=== PATIENT | male | born 1940 | race Caucasian/White ===

== ENCOUNTER 2020-01-05 | Outpatient (REF) | payer MEDICARE, OTHER, SELFPAY ==
[2020-01-05 08:55] LABS: INTERNATIONAL NORM RATIO 2.2 (0.9-1.1); Prothrombin Time 26.6 SEC (10.8-13.0)
== END 2020-01-05 00:01 | disposition home or self-care (01) ==
LOC: HO.HSH3W
PROVIDERS: Visit Provider Nurse Practitioner
DX: I48.91 Unspecified atrial fibrillation (principal); Z79.01 Long term (current) use of anticoagulants
CPT/HCPCS: 36415; 85610

== ENCOUNTER 2020-01-19 | Outpatient (REF) | payer MEDICARE, OTHER, SELFPAY ==
[2020-01-19 09:32] LABS: INTERNATIONAL NORM RATIO 2.4 (0.9-1.1); Prothrombin Time 28.6 SEC (10.8-13.0)
== END 2020-01-19 00:01 | disposition home or self-care (01) ==
LOC: HO.HSH3E
PROVIDERS: Visit Provider Internal Medicine Medical Oncology
DX: I48.91 Unspecified atrial fibrillation (principal); Z79.01 Long term (current) use of anticoagulants
CPT/HCPCS: 36415; 85610

== ENCOUNTER 2020-02-02 07:55 | Outpatient (REF) | payer MEDICARE, OTHER, SELFPAY ==
[2020-02-02 08:43] LABS: Prothrombin Time 23.6 SEC (10.8-13.0)
== END 2020-02-02 07:56 | disposition home or self-care (01) ==
LOC: HO.HSH3E 07:55
PROVIDERS: Visit Provider Internal Medicine Medical Oncology
DX: I48.91 Unspecified atrial fibrillation (principal)
CPT/HCPCS: 36415; 85610

== ENCOUNTER 2020-02-16 07:55 | Outpatient (REF) | payer MEDICARE, OTHER, SELFPAY ==
[2020-02-16 08:57] LABS: INTERNATIONAL NORM RATIO 2.5 (0.9-1.1); Prothrombin Time 29.5 SEC (10.8-13.0)
== END 2020-02-16 07:56 | disposition home or self-care (01) ==
LOC: HO.HSH3E 07:55
PROVIDERS: Visit Provider Internal Medicine Medical Oncology
DX: I48.91 Unspecified atrial fibrillation (principal)
CPT/HCPCS: 36415; 85610

== ENCOUNTER 2020-03-01 06:57 | Outpatient (REF) | payer MEDICARE, OTHER, SELFPAY ==
[2020-03-01 08:23] LABS: MANUAL DIFF FLAG NO
[2020-03-01 08:27] LABS: Basophils Percent Auto 0.3 % (0-2); Eosinophils Absolute Auto 0.2 X10*3/uL (0.0-0.4); Eosinophils Percent Auto 3.8 % (0-4); Hematocrit 40.7 % (42-52); Hemoglobin 14.3 g/dl (14.0-18.0); Imm Gran Abs Auto 0.01 X10*3/uL (0.00-0.03); Imm Gran Pct Auto 0.2 % (0.0-0.4); Lymphocytes Absolute Auto 2.3 X10*3/uL (1.2-4.9); Lymphocytes Percent Auto 36.5 % (20-40); Mean Corpuscular HGB Conc 35.1 g/dl (31.0-36.0); Mean Corpuscular Hemoglobin 32.1 pg (27.0-33.0); Mean Corpuscular Volume 91.5 fL (80-98); Mean Platelet Volume 11.4 fL (9.4-12.4); Monocytes Absolute Auto 0.7 X10*3/uL (0.1-1.2); Monocytes Percent Auto 10.4 % (2-11); Neutrophils Absolute Auto 3.1 X10*3/uL (2.0-8.3); Neutrophils Percent Auto 48.8 % (45-73); Platelet Count 206 X10*3/uL (160-400); Red Blood Count 4.45 X10*6/uL (4.60-5.80); Red Cell Distribution Width 13.2 % (11.0-16.0); White Blood Count 6.3 X10*3/uL (4.8-10.8)
[2020-03-01 08:35] LABS: INTERNATIONAL NORM RATIO 2.2 (0.9-1.1); Prothrombin Time 26.9 SEC (10.8-13.0)
[2020-03-01 08:41] LABS: Alanine Aminotransferase 15 U/L (0-40); Albumin Level 3.9 g/dL (3.5-5.0); Alkaline Phosphatase 48 U/L (39-117); Anion Gap 11 (12-20); Aspartate Amino Transferase 15 U/L (5-37); Bilirubin Total 0.6 mg/dL (0.0-1.0); Blood Urea Nitrogen 23 mg/dL (9-16); Calcium 9.2 mg/dL (8.4-10.2); Carbon Dioxide 26 mmol/L (22-29); Chloride 106 mmol/L (96-108); Cholesterol 187 mg/dL; Estimated Glomerular Filt Rate > 60; Glucose Fasting 92 mg/dL (60-99); HDL Cholesterol 52 mg/dL; LDL Cholesterol Calculated 119 mg/dl; Potassium 4.2 mmol/l (3.3-5.1); Sodium 139 mmol/L (135-145); Total Protein 6.2 g/dL (6.5-8.0); Triglycerides 82 mg/dL
[2020-03-01 09:44] LABS: Prostate Specific Antigen 0.35 ng/mL (<0.05-4.0)
== END 2020-03-01 06:58 | disposition home or self-care (01) ==
LOC: HO.HSH3E 06:57
PROVIDERS: Visit Provider Internal Medicine Medical Oncology
DX: I50.9 Heart failure, unspecified (principal); I48.91 Unspecified atrial fibrillation
CPT/HCPCS: 36415; 80053; 80061; 82306; 84153; 85025; 85610

== ENCOUNTER 2020-03-16 05:43 | Outpatient (REF) | payer MEDICARE, OTHER, SELFPAY ==
[2020-03-15 17:36] LABS: INTERNATIONAL NORM RATIO 2.5 (0.9-1.1); Prothrombin Time 29.6 SEC (10.8-13.0)
== END 2020-03-16 05:44 | disposition home or self-care (01) ==
LOC: HO.HSH3E 05:43
PROVIDERS: Visit Provider Internal Medicine Medical Oncology
DX: I48.91 Unspecified atrial fibrillation (principal); Z86.73 Personal history of transient ischemic attack (TIA), and cerebral infarction without residual deficits
CPT/HCPCS: 36415; 85610

== ENCOUNTER 2020-03-23 16:58 | Emergency (ER) | payer MEDICARE, OTHER, SELFPAY ==
[2020-03-23 17:07] VITALS: BP 134/80; PULSE 50; RESP 14; TEMP 36.8; O2SAT 96; BMI 24.0
--- NOTE | 2020-03-23 17:07 | XR_ITS ---
EXAMINATION: XR CHEST CLINICAL INFORMATION: Fever COMPARISON: None TECHNIQUE: Frontal view of the chest was obtained. 5:09 PM FINDINGS: Status post median sternotomy. Lungs are clear. No pulmonary vascular congestion. There is no pleural effusion. The heart size is normal. The cardiac and mediastinal contours are normal. There are calcifications of the thoracic aorta. There are multilevel degenerative changes of dorsal spine. XR/XR chest 1V IMPRESSION: Unremarkable examination.
--- NOTE | 2020-03-23 17:08 | ED.GENADULT ---
HPI - General Adult General Chief complaint: General Medical Stated complaint: COVID VACCINE T-1,FEVER 101.4 TODAY PER SNF Time Seen by Provider: 03/23/20 17:07 Source: patient and EMS Mode of arrival: EMS Limitations: altered mental status (cognitive impairment) History of Present Illness HPI narrative: patient received COVID vaccine yesterday has no complaints at this time, no fevers with EMS, reported fever 101.6 and was not given antipyretic per SNF to EMS and call from SNF to ED MARGARITA GRAHAM complaint: fever today 101.6 received COVID vaccine yesterday Onset (ago): hour(s) (few) Severity: mild Pain Consistency: constant Relieving factors: none Exacerbating factors: none Associated symptoms: denies other symptoms Treatments prior to arrival: none Related Data Allergies Allergy/AdvReac Type Severity Reaction Status Date / Time No Known Allergies Allergy Verified 03/23/20 17:07 Review of Systems Review of Systems: ROS unable to be obtained due to vascular dementia [facility] Past Medical History Attestation statement: The following information was validated with the patient. Medical History HTN (hypertension) Hyperlipidemia Parkinson disease Vascular dementia Social History Social History (Updated 03/23/20 @ 17:13 by Domenica Bess DO) Alcohol intake: unknown Smoking Status: Unknown if ever smoked Use of substances other than those prescribed or required for medical reasons: Unknown Advance Directives: Yes Advance Directives on File: Yes Advance Directives Date on File: 01/01/20 Physical Exam Vital Signs: Vital Signs: Last Vital Signs Temp 98.3 F 03/23/20 17:07 Pulse 50 03/23/20 17:07 Resp 14 03/23/20 17:07 BP 134/80 03/23/20 17:07 Pulse Ox 96 03/23/20 17:07 Body Mass Index 24.0 Appearance: Alert. Oriented X2. No acute distress. Eyes: Pupils equal, round and reactive to light. ENT: Pharynx normal. Neck: Normal inspection. Neck supple. CVS: Normal heart rate and rhythm. Pulses normal. Respiratory: No respiratory distress. Breath sounds normal. Abdomen: Soft and non-tender. Skin: Skin warm and dry. Normal skin color. Normal skin turgor. Extremities: No lower extremity edema. No calf ttp Neuro: Oriented X 2. No motor deficit. No sensory deficit. Course Course Course Narrative: afebrile here, no complaints at this time will DC back to [facility] some trauma from catheter - RN felt there was a stricture, instructed no further attempts and patient voided in condom cath, scant pink tinged Medical Decision Making MDM Narrative Medical decision making narrative: 7 yo male here with fever of 101.6 at [facility] but received COVID vaccine yesterday, he has no complaints, his VS are stable here he has no fever and normal O2 sats - he will need UA and CXR at this time, suspect reaction to vaccine, if UA and CXR negative stable for DC back Lab Data Labs: Lab Results 03/23/20 Range/Units 19:23 Urine Color ANG Urine Appearance HAZY Urine pH 5.0 (5.0-8.0) Ur Specific [place] >= 1.030 H (1.005-1.025) Urine Protein 1+ H (NEG-TRACE) MG/DL Urine Glucose (UA) NEG (NEG) MG/DL Urine Ketones 5 (NEG) MG/DL Urine Blood 3+ H (NEG) Urine Nitrite NEG (NEG) Ur Leukocyte Esterase NEG (NEG) Urine RBC 76-150 H (0) /HPF Urine WBC 0 (0-4) /HPF Ur Squamous Epith Cells NONE /LPF Urine Bacteria 2+ /LPF Urine Yeast 1+ /HPF Discharge Plan Discharge Clinical Impression: Side effects of vaccination Qualifiers: Encounter type: initial encounter Qualified Code(s): T50.Z95A - Adverse effect of other vaccines and biological substances, initial encounter Patient Disposition: Xfer [facility] Instructions: Normal Exam (ED) Additional Instructions: return to ED for any worsening symptoms or concerns CHEST XRAY NEGATIVE NO FEVER HERE, ATTEMPT AT STRAIGHT CATH WITH RESISTANCE AND MINIMAL BLOOD - VOIDED AFTER NO ISSUES Referrals: Physician,Unknown [Primary Care Provider] - 2 days ( NEEDED)
--- NOTE | 2020-03-23 18:28 | PC.NURSE ---
xray completed, pt cooperative w straight cath but multiple attempts have catheter meeting stricture, no urine return. small amount of blood noted. provider aware. plan for [place] cath to reduce invasiveness.
--- NOTE | 2020-03-23 18:35 | PC.NURSE ---
[place] cath and add-a-bag applied to pt. awaiting ua spec
[2020-03-23 19:38] LABS: Glucose Urine UA NEG (NEG); Leukocyte Esterase Urine NEG (NEG); Nitrite Urine NEG (NEG); Specific Gravity - Urine >= 1.030 (1.005-1.025); Urine Blood 3+ (NEG); Urine Ketones 5 MG/DL (NEG); Urine Protein 1+ MG/DL (NEG-TRACE)
[2020-03-23 19:41] LABS: Appearance Urine HAZY; Color Urine AMBER
[2020-03-23 19:45] LABS: WBC Urine 0 /HPF (0-4)
[2020-03-23 19:46] LABS: Bacteria Urine 2+ /LPF
== END 2020-03-23 21:33 | disposition skilled nursing facility (03) ==
PROVIDERS: Emergency Provider Emergency Medicine
DX: R50.83 Postvaccination fever (principal); T50.995A Adverse effect of other drugs, medicaments and biological substances, initial encounter; Y92.129 Unspecified place in nursing home as the place of occurrence of the external cause; I10 Essential (primary) hypertension; G20 Parkinson's disease; F01.50 Vascular dementia, unspecified severity, without behavioral disturbance, psychotic disturbance, mood disturbance, and anxiety
CPT/HCPCS: 71045; 81001; 99283; 99284

== ENCOUNTER 2020-03-24 | Outpatient (REF) | payer MEDICARE, OTHER, SELFPAY ==
[2020-03-24 15:11] LABS: Valproate 21.5 mcg/mL (50.0-100.0)
== END 2020-03-24 00:01 ==
LOC: HO.HSH3E
PROVIDERS: Visit Provider Internal Medicine Medical Oncology
DX: G40.909 Epilepsy, unspecified, not intractable, without status epilepticus (principal)
CPT/HCPCS: 80164

== ENCOUNTER 2020-03-30 06:20 | Outpatient (REF) | payer MEDICARE, OTHER, SELFPAY ==
[2020-03-30 09:40] LABS: INTERNATIONAL NORM RATIO 2.2 (0.9-1.1); Prothrombin Time 25.8 SEC (10.8-13.0)
== END 2020-03-30 06:21 | disposition home or self-care (01) ==
LOC: HO.HSH3E 06:20
PROVIDERS: Visit Provider Internal Medicine Medical Oncology
DX: I48.91 Unspecified atrial fibrillation (principal)
CPT/HCPCS: 36415; 85610

== ENCOUNTER 2020-04-13 08:02 | Outpatient (REF) | payer MEDICARE, OTHER, SELFPAY ==
[2020-04-13 10:07] LABS: INTERNATIONAL NORM RATIO 2.6 (0.9-1.1); Prothrombin Time 31.6 SEC (10.8-13.0)
== END 2020-04-13 08:03 | disposition home or self-care (01) ==
LOC: HO.HSH3E 08:02
PROVIDERS: Visit Provider Internal Medicine Medical Oncology
DX: I48.91 Unspecified atrial fibrillation (principal)
CPT/HCPCS: 36415; 85610

== ENCOUNTER 2020-04-27 07:31 | Outpatient (REF) | payer MEDICARE, OTHER, SELFPAY ==
[2020-04-27 08:54] LABS: INTERNATIONAL NORM RATIO 2.4 (0.9-1.1); Prothrombin Time 28.4 SEC (10.8-13.0)
== END 2020-04-27 07:32 | disposition home or self-care (01) ==
LOC: HO.HSH3E 07:31
PROVIDERS: Visit Provider Internal Medicine Medical Oncology
DX: I48.91 Unspecified atrial fibrillation (principal)
CPT/HCPCS: 36415; 85610

== ENCOUNTER 2020-05-11 06:05 | Outpatient (REF) | payer MEDICARE, OTHER, SELFPAY ==
[2020-05-11 09:01] LABS: INTERNATIONAL NORM RATIO 2.1 (0.9-1.1); Prothrombin Time 25.7 SEC (10.8-13.0)
== END 2020-05-11 06:06 | disposition home or self-care (01) ==
LOC: HO.HSH3E 06:05
PROVIDERS: Visit Provider Internal Medicine Medical Oncology
DX: I48.91 Unspecified atrial fibrillation (principal)
CPT/HCPCS: 36415; 85610

== ENCOUNTER 2020-05-18 | Outpatient (REF) | payer MEDICARE, OTHER, SELFPAY ==
[2020-05-18 09:35] LABS: INTERNATIONAL NORM RATIO 2.5 (0.9-1.1); Prothrombin Time 29.4 SEC (10.8-13.0)
== END 2020-05-18 00:01 | disposition home or self-care (01) ==
LOC: HO.HSH3E
PROVIDERS: Visit Provider Nurse Practitioner
DX: Z95.2 Presence of prosthetic heart valve (principal); Z79.01 Long term (current) use of anticoagulants; Z51.81 Encounter for therapeutic drug level monitoring
CPT/HCPCS: 36415; 85610

== ENCOUNTER 2020-06-01 05:41 | Outpatient (REF) | payer MEDICARE, OTHER, SELFPAY ==
[2020-06-01 08:34] LABS: INTERNATIONAL NORM RATIO 1.9 (0.9-1.1); Prothrombin Time 22.6 SEC (10.8-13.0)
== END 2020-06-01 05:42 | disposition home or self-care (01) ==
LOC: HO.HSH3E 05:41
PROVIDERS: Visit Provider Internal Medicine Medical Oncology
DX: Z95.2 Presence of prosthetic heart valve (principal)
CPT/HCPCS: 36415; 85610

== ENCOUNTER 2020-06-15 06:34 | Outpatient (REF) | payer MEDICARE, OTHER, SELFPAY ==
[2020-06-15 07:46] LABS: INTERNATIONAL NORM RATIO 2.8 (0.9-1.1); Prothrombin Time 33.9 SEC (10.8-13.0)
== END 2020-06-15 06:35 | disposition home or self-care (01) ==
LOC: HO.HSH3E 06:34
PROVIDERS: Visit Provider Internal Medicine Medical Oncology
DX: Z95.2 Presence of prosthetic heart valve (principal)
CPT/HCPCS: 36415; 85610

== ENCOUNTER 2020-06-30 05:36 | Outpatient (REF) | payer MEDICARE, OTHER, SELFPAY ==
[2020-06-30 08:35] LABS: INTERNATIONAL NORM RATIO 2.4 (0.9-1.1); Prothrombin Time 28.6 SEC (10.8-13.0)
== END 2020-06-30 05:37 | disposition home or self-care (01) ==
LOC: HO.HSH3E 05:36
PROVIDERS: Visit Provider Internal Medicine Medical Oncology
DX: Z79.01 Long term (current) use of anticoagulants (principal)
CPT/HCPCS: 36415; 85610

== ENCOUNTER 2020-07-14 06:09 | Outpatient (REF) | payer MEDICARE, OTHER, SELFPAY ==
[2020-07-14 08:19] LABS: INTERNATIONAL NORM RATIO 3.2 (0.9-1.1); Prothrombin Time 38.2 SEC (10.8-13.0)
== END 2020-07-14 06:10 | disposition home or self-care (01) ==
LOC: HO.HSH3E 06:09
PROVIDERS: Visit Provider Internal Medicine Medical Oncology
DX: I48.91 Unspecified atrial fibrillation (principal)
CPT/HCPCS: 36415; 85610

== ENCOUNTER 2020-07-18 10:55 | Inpatient (IN) | payer OTHER, MEDICARE, SELFPAY ==
--- NOTE | ~2020-07-18 | XR_ITS ---
EXAMINATION: XR CHEST CLINICAL INFORMATION: Stroke symptoms COMPARISON: Chest radiographs 03/23/2020 TECHNIQUE: Portable upright AP view of the chest was obtained. FINDINGS: There has been prior median sternotomy. The heart is normal in size. The vascularity is normal. There is no vascular congestion, airspace consolidation, or effusion. Tapering cardiac apex is similar to prior exam, likely related to areolar tissue. The hilar and mediastinal contours and bony structures are stable. XR/XR chest 1V IMPRESSION: Unremarkable examination.
--- NOTE | ~2020-07-18 | CT_ITS ---
EXAMINATION: CT ANGIOGRAM HEAD CT ANGIOGRAM NECK CLINICAL INFORMATION: Right-sided deficit. COMPARISON: CT head from 07/18/2020. TECHNIQUE: Initial noncontrast ocean transportation intermediary imaging of the head and neck was performed. Comparison is made with noncontrast head CT from earlier today. Test bolus sequences followed by intravenous administration 70 mL of Omnipaque 350. Helical imaging was performed in the axial plane from the aortic arch to the skull vertex. Delayed postcontrast imaging of the head was also performed. The data was processed at the certified neurodiagnostic technologist's workstation for generation of MIP sequences. Angled MIPs and volume rendered reformatted images were also generated at an offline 3D workstation. Stenoses are assessed in accordance with NASCET criteria unless otherwise indicated. This CT examination was performed using dose optimization techniques as appropriate, variously including the following: *Automated exposure control. *Adjustment of mA and/or kV according to patient size (this includes techniques or standardized protocols for targeted exams where dose is matched to indication/reason for exam; i.e. extremities or head). *Use of iterative reconstruction technique. DLP: 1554 mGy-cm FINDINGS: CT Head: Chronic appearing encephalomalacia of the left frontal lobe and insula with volume loss. There is a small focus of enhancement along the posterior aspect of this encephalomalacia, potentially suggesting subacute and chronic infarction. Additional region of chronic encephalomalacia in the right parietal lobe with volume loss an no enhancement. Multifocal lacunar infarcts of the caudate heads, lentiform nuclei, thalami, and cerebellar hemispheres. Otherwise, there is no evidence of acute intracranial hemorrhage or edematous territorial infarction. Scattered hypoattenuation in the periventricular and deep white matter are consistent with moderate microangiopathy. The ventricles are normal in size and configuration. No evidence for obstructive hydrocephalus. No abnormal mass effect or midline shift. No extra-axial fluid collections. No acute soft tissue or osseous abnormalities. The patient is edentulous. Mild mucosal thickening of the paranasal sinuses. Small right-sided mastoid effusion. The left-sided mastoid air cells and middle ear cavities are clear. Bilateral lens extractions. CT Neck: The thyroid gland and remaining cervical soft tissues are within normal limits. Straightening of the normal cervical lordosis. Advanced degenerative disc disease at C6-C7. Facet and uncovertebral joint arthropathy leads to osseous encroachment on the neural foramina at C6-C7. CT Upper Chest: Status post CABG. The visualized lung apices and upper mediastinum are within normal limits. Neck CTA: Aortic Arch: The visualized ascending aorta measures up to 4 cm in diameter. Normal contour and caliber of the aortic arch with moderate calcific atherosclerotic disease. Two vessel branching pattern of the arch with left common carotid artery arising from the brachiocephalic trunk. Great Vessel Origins: No significant stenosis of the branch origins. Right Common Carotid Artery: Normal opacification without focal stenosis or occlusion. Cervical Right Internal Carotid Artery: Mixed lipid rich and calcific atherosclerotic disease of the carotid bulb and proximal internal carotid artery causing less than 50% stenosis. Left Common Carotid Artery: Normal opacification without focal stenosis or occlusion. Cervical Left Internal Carotid Artery: Mild calcific atherosclerotic disease of the carotid bulb and proximal internal carotid artery without flow-limiting stenosis. Cervical Right Vertebral Artery: Normal opacification without focal stenosis or occlusion. Cervical Left Vertebral Artery: Mildly dominant. Normal opacification without focal stenosis or occlusion. Brain CTA: Intracranial Internal Carotid Arteries: Mild calcific atherosclerotic disease of the intracranial internal carotid arteries without occlusion or flow-limiting stenosis. Otherwise, normal contrast opacification of the petrous, cavernous, paraophthalmic, and supraclinoid segments of the internal carotid arteries without focal stenosis. Right Anterior Cerebral Artery: Normal A1 segment. Normal opacification of the distal segments of the [place]. Left Anterior Cerebral Artery: Normal A1 segment. Normal opacification of the distal segments of the [place]. Anterior Communicating Artery: Normal. Right Middle Cerebral Artery: Normal opacification of the M1 segment of the MCA without focal stenosis or occlusion. Normal arborization of the distal segments. Left Middle Cerebral Artery: Normal opacification of the M1 segment of the MCA without focal stenosis or occlusion. Normal arborization of the distal segments. Right Vertebral Artery: Normal opacification of the V4 segment. Normal opacification of the proximal segments of the posterior inferior cerebellar artery. Left Vertebral Artery: Normal opacification of the V4 segment. Normal opacification of the proximal segments of the posterior inferior cerebellar artery. Basilar Artery: Normal opacification without focal stenosis or occlusion. Normal appearance of the proximal superior cerebellar arteries. Right Posterior Cerebral Artery: The P1 segment is diminutive. origin of the IT CONSULTING DIRECTOR with robust opacification of the posterior communicating artery. Normal opacification of the distal segments of the IT CONSULTING DIRECTOR. Left Posterior Cerebral Artery: The P1 segment is diminutive. origin of the IT CONSULTING DIRECTOR with robust opacification of the posterior communicating artery. Normal opacification of the distal segments of the IT CONSULTING DIRECTOR. Normal opacification of the superior sagittal, straight, transverse, and sigmoid sinuses. CT/CT angio head neck stroke IMPRESSION: 1. No evidence of acute intracranial hemorrhage. Regions of chronic appearing encephalomalacia of the left frontal lobe and insula as well as the right parietal lobe. Multifocal lacunar infarcts of the deep nuclei and bilateral cerebellar hemispheres. 2. CTA of the head and neck without proximal occlusion or flow-limiting stenosis. There is less than 50% atherosclerotic stenosis of the origin of the right ICA. This critical result was discussed with Dr. Bess at 11:52 on 07/18/2020 and it was ascertained that the content and urgency of the report was understood at the time of direct communication.
--- NOTE | ~2020-07-18 | MR_ITS ---
EXAMINATION: MR BRAIN WITHOUT CONTRAST CLINICAL INFORMATION: Right upper and lower extremity weakness. COMPARISON: CTA head and neck from 07/18/2020. TECHNIQUE: MRI of the brain was obtained using routine sequences without contrast. FINDINGS: There is a small region of restricted diffusion with mildly low values on the ADC map within the left periventricular white matter extending into the posterior white matter of the left insula. Associated T2 FLAIR hyperintensity. No additional focal restricted diffusion is demonstrated to suggest acute or subacute cerebral ischemia. There is a 0.6 cm lesion with susceptibility artifact that is centrally T2 hyperintense with peripheral rim of T2 hypointensity within a region of encephalomalacia in the left frontal lobe consistent with a small cavernoma. No evidence of acute hemorrhagic products on heme-sensitive imaging. Regions of chronic encephalomalacia within the left frontal lobe/anterior insula, right parietal lobe, and right occipital lobe. Chronic lacunar infarcts of the bilateral caudate heads, lentiform nuclei, thalami, and bilateral cerebellar hemispheres. Scattered periventricular and deep white matter T2 FLAIR hyperintensities consistent with moderate underlying microangiopathy. Proportional prominence of the ventricles and sulcal spaces without evidence of obstructive hydrocephalus. No midline shift. The sella turcica is partially empty. The cerebellar tonsils are normally positioned. Normal arterial and venous vascular flow voids are present. Normal, homogeneous marrow signal. Mild mucosal thickening of the paranasal sinuses. Moderate right-sided mastoid effusion. No signal abnormalities within the left-sided mastoid. Bilateral lens extractions. MR/MR head/brain wo con IMPRESSION: 1. Small acute to subacute infarct within the left periventricular white matter extending into the posterior left insula. 2. Regions of chronic encephalomalacia within the left frontal lobe/insula, right parietal lobe, and right occipital lobe. Moderate underlying microangiopathy and generalized cerebral volume loss. Chronic lacunar infarcts of the deep nuclei and cerebellum.
--- NOTE | ~2020-07-18 | CT_ITS ---
EXAMINATION: CT HEAD WITHOUT CONTRAST (STROKE PROTOCOL) CLINICAL INFORMATION: Stroke protocol. Right-sided deficits. COMPARISON: None. TECHNIQUE: Contiguous axial imaging was performed from the skull base to vertex without intravenous administration of contrast. This CT examination was performed using dose optimization techniques as appropriate, variously including the following: *Automated exposure control *Adjustment of mA and/or kV according to patient size (this includes techniques or standardized protocols for targeted exams where dose is matched to indication/reason for exam; i.e. extremities or head) *Use of iterative reconstruction technique DLP: 690 mGy-cm. FINDINGS: Hypodensity with loss of armendariz-white matter differentiation in the left frontal lobe, also involving the deep white matter in this region. There is loss of armendariz-white matter differentiation in the right parietal lobe. Findings are concerning for ischemic changes, of indeterminate age. No evidence of acute intracranial hemorrhage. No extra-axial fluid collections identified. There is cerebral volume loss. Periventricular and deep white matter hypodensities suggesting component of chronic microangiopathic changes. No acute calvarial fracture. Mastoid air cells, paranasal sinuses are well aerated. CT/CT head for stroke IMPRESSION: Hypodensity with loss of armendariz-white matter in the left frontal lobe and the right parietal lobe, concerning for ischemic changes, of indeterminate age. Recommend further evaluation with CTA head study. This critical result was discussed with Dr. Bess at 1129 hours on 07/18/2020. It was ascertained that the content and urgency of the report was understood at the time of direct communication.
--- NOTE | 2020-07-18 11:00 | ECG_ITS ---
Test Reason : STROKE Blood Pressure : / mmHG Vent. Rate : 079 BPM Atrial Rate : 079 BPM P-R Int : 200 ms QRS Dur : 126 ms QT Int : 422 ms P-R-T Axes : 063 -54 092 degrees QTc Int : 483 ms Sinus rhythm with frequent Premature ventricular complexes Possible Left atrial enlargement Left axis deviation Non-specific intra-ventricular conduction block Cannot rule out Anteroseptal infarct , age undetermined Abnormal ECG No previous ECGs available Referred By: Domenica Bess Electronically Signed By:SLY KIRKLAND MD
--- NOTE | 2020-07-18 11:07 | ED_ITS ---
HPI - Neuro Symptoms/Deficit General Chief Complaint: Neuro Symptoms/Deficit Stated Complaint: R SIDED WEAKNESS,SPEECH CHANGES X35 MINS Time Seen by Provider: 07/18/20 10:59 Source: EMS and old records reviewed Mode of arrival: EMS Limitations: language barrier and altered mental status History of Present Illness HPI Narrative: 80 yo male with dementia, DNR/DNI, CVA, parkinson's, afib and MVR on coumadin here with abrupt onset of 20 to 30 mins of R sided weakness and speech changes Onset (ago): minute(s) (30) Location: speech, right arm and right leg History of same: No Severity: severe Quality: weak Relieving factors: none Exacerbating factors: none Context: sudden onset On Anticoagulants: Yes Associated symptoms: denies other symptoms Treatments Prior to Arrival: none Related Data Home Medications Medication Instructions Recorded Confirmed aspirin 81 mg PO DAILY 07/18/20 07/18/20 atorvastatin 20 mg PO DAILY@1700 07/18/20 07/18/20 carbidopa-levodopa 1 tab PO TID 07/18/20 07/18/20 divalproex 250 mg PO DAILY 07/18/20 07/18/20 docusate sodium 100 mg PO DAILY 07/18/20 07/18/20 escitalopram oxalate 5 mg PO DAILY 07/18/20 07/18/20 finasteride 5 mg PO BEDTIME 07/18/20 07/18/20 midodrine 5 mg PO TID 07/18/20 07/18/20 multivitamin 1 tab PO DAILY 07/18/20 07/18/20 trazodone 25 mg PO BEDTIME 07/18/20 07/18/20 warfarin 2.5 mg PO TUTH@1700 07/18/20 07/18/20 warfarin 5 mg PO SUMOWEFRSA 07/18/20 07/18/20 Allergies Allergy/AdvReac Type Severity Reaction Status Date / Time celecoxib [From Celebrex] Allergy Unknown Verified 07/18/20 11:17 poison michaelle extract Allergy Unknown Verified 07/18/20 11:17 simvastatin Allergy Unknown Verified 07/18/20 11:17 Review of Systems Review of Systems: ROS unable to be obtained due to altered mental status PMFSH Past Medical History Medical History (Updated 07/18/20 @ 15:56 by Domenica Bess DO) Acute CVA (cerebrovascular accident) Afib Alzheimer disease Depression Diastolic CHF HTN (hypertension) Hyperlipidemia Orthostatic hypotension Parkinson disease Vascular dementia Surgical History (Updated 07/18/20 @ 11:16 by Mechelle Wiseman) H/O prosthetic heart valve Mitral valve replaced Social History Social History Alcohol intake: never Smoking Status: Unknown if ever smoked Use of substances other than those prescribed or required for medical reasons: No Advance Directives: Yes Advance Directives on File: Yes Advance Directives Date on File: 01/01/20 Physical Exam Vital Signs: Vital Signs: Last Vital Signs Temp 97.9 F 07/18/20 15:19 Pulse 83 07/18/20 15:19 Resp 20 07/18/20 15:19 BP 147/85 H 07/18/20 15:19 Pulse Ox 96 07/18/20 15:19 Body Mass Index 25.0 Appearance: Alert. Oriented X1 Mild acute distress. Eyes: Pupils equal, round and reactive to light. ENT: Pharynx normal. Neck: Normal inspection. Neck supple. CVS: Normal heart rate and rhythm. Pulses normal. Respiratory: No respiratory distress. Breath sounds normal. Abdomen: Soft and nontender. Skin: Skin warm and dry. Normal skin color. Normal skin turgor. Extremities: No lower extremity edema. No calf ttp Neuro: Oriented X 1 RUE and RLE minimal movement, moderate dysarthria. No sensory deficit. Course Course Course Narrative: 1130 call from Radiology hypodensity frontal lobe, parietal lobe ?infarct to determine age 1152 radiology chronic infarct L MCA territory, chronic R MCA ? subacute infarct is possible at this time on the L, no prox occlusion, R ICA less than 50% occlusion notes no deficits in extremities at baseline but worsening slurred speech over the past few months and I did see a consult for speech and swallow ordered in May on patient, at this time likely repeat CVA but given INR not a candidate for tPa he's already anticoagulated on coumadin there's not much else to do medically at this point Dr. Campbell recommends admission given new stroke as well as patient's inability to swallow possible need for g tube - I called his (Dania) who states she would consider a feeding tube if necessary. His Dania states she wants me to contact his son Clem and his Griselda to let them know he had another stroke which seems unusual given it was documented not to call but she feels they should know MDM - Neuro Symptoms/Deficit MDM Narrative Medical decision making narrative: 80 yo male with dementia, DNR/DNI, CVA, parkinson's, afib and MVR on coumadin here with abrupt onset of 20 to 30 mins of R sided weakness and speech changes stat INR shows he is 2.6 so not a candidate for tPA but stat head CT for ICH/ CTA for clot ordered as well, basic labs, dispo per results and findings, if clot noted [place] [facility] [place] if he is a candidate for thrombectomy. Lab Data Result diagrams: 07/18/20 11:50 07/18/20 11:50 Labs: Lab Results 07/18/20 07/18/20 07/18/20 Range/Units 11:04 11:04 11:45 WBC (4.8-10.8) X10*3/uL RBC (4.60-5.80) X10*6/uL Hgb (14.0-18.0) g/dl Hct (42-52) % MCV (80-98) fL MCH (27.0-33.0) pg MCHC (31.0-36.0) g/dl RDW (11.0-16.0) % Plt Count (160-400) X10*3/uL MPV (9.4-12.4) fL Immature Gran % (Auto) (0.0-0.4) % Neut % (Auto) (45-73) % Lymph % (Auto) (20-40) % [place] % (Auto) (2-11) % Eos % (Auto) (0-4) % Baso % (Auto) (0-2) % Lymph # (Auto) (1.2-4.9) X10*3/uL [place] # (Auto) (0.1-1.2) X10*3/uL Eos # (Auto) (0.0-0.4) X10*3/uL Baso # (Auto) (0.0-0.2) X10*3/uL Abs Immat Gran (auto) (0.00-0.03) X10*3/uL Absolute Neuts (auto) (2.0-8.3) X10*3/uL Absolute Nucleated RBC (0.0-0.012) X10*3/uL Nucleated RBC % (auto) (0.0-0.2) /100WBC PT (10.8-13.0) SEC Whole Blood PT 31.1 H (11.1-13.5) sec INR (0.9-1.1) Whole Blood INR 2.6 H (0.9-1.1) APTT (24.1-38.0) SEC Sodium (135-145) mmol/L Potassium (3.3-5.1) mmol/L Chloride (96-108) mmol/L Carbon Dioxide (22-29) mmol/L Anion Gap (12-20) BUN (9-16) mg/dL Creatinine (0.5-1.4) mg/dL Estim Creat Clear Calc Estimated GFR POC Glucose 83 (60-115) mg/dL Random Glucose (60-115) mg/dL Calcium (8.4-10.2) mg/dL Magnesium (1.6-2.6) mg/dL Total Bilirubin (0.0-1.0) mg/dL Direct Bilirubin (0.0-0.5) mg/dL AST (5-37) U/L ALT (0-40) U/L Alkaline Phosphatase (39-117) U/L Troponin I High Sens (<3.5-35.0) ng/L Total Protein (6.5-8.0) g/dL Albumin (3.5-5.0) g/dL Lipase (8-78) U/L COVID-19 (MARIEL) Negative (Negative) COVID-19 Clin Com See Note 07/18/20 07/18/20 07/18/20 Range/Units 11:50 11:50 11:50 WBC 8.1 (4.8-10.8) X10*3/uL RBC 4.40 L (4.60-5.80) X10*6/uL Hgb 13.8 L (14.0-18.0) g/dl Hct 40.1 L (42-52) % MCV 91.1 (80-98) fL MCH 31.4 (27.0-33.0) pg MCHC 34.4 (31.0-36.0) g/dl RDW 13.6 (11.0-16.0) % Plt Count 208 (160-400) X10*3/uL MPV 10.9 (9.4-12.4) fL Immature Gran % (Auto) 0.2 (0.0-0.4) % Neut % (Auto) 46.5 (45-73) % Lymph % (Auto) 39.4 (20-40) % [place] % (Auto) 10.2 (2-11) % Eos % (Auto) 3.3 (0-4) % Baso % (Auto) 0.4 (0-2) % Lymph # (Auto) 3.2 (1.2-4.9) X10*3/uL [place] # (Auto) 0.8 (0.1-1.2) X10*3/uL Eos # (Auto) 0.3 (0.0-0.4) X10*3/uL Baso # (Auto) 0.0 (0.0-0.2) X10*3/uL Abs Immat Gran (auto) 0.02 (0.00-0.03) X10*3/uL Absolute Neuts (auto) 3.8 (2.0-8.3) X10*3/uL Absolute Nucleated RBC 0.000 (0.0-0.012) X10*3/uL Nucleated RBC % (auto) 0.0 (0.0-0.2) /100WBC PT 31.6 H (10.8-13.0) SEC Whole Blood PT (11.1-13.5) sec INR 2.6 H (0.9-1.1) Whole Blood INR (0.9-1.1) APTT 37.1 (24.1-38.0) SEC Sodium 137 (135-145) mmol/L Potassium 4.3 (3.3-5.1) mmol/L Chloride 105 (96-108) mmol/L Carbon Dioxide 24 (22-29) mmol/L Anion Gap 12 (12-20) BUN 24 H (9-16) mg/dL Creatinine 0.84 (0.5-1.4) mg/dL Estim Creat Clear Calc 66.7 Estimated GFR > 60 POC Glucose (60-115) mg/dL Random Glucose 81 (60-115) mg/dL Calcium 9.4 (8.4-10.2) mg/dL Magnesium (1.6-2.6) mg/dL Total Bilirubin (0.0-1.0) mg/dL Direct Bilirubin (0.0-0.5) mg/dL AST (5-37) U/L ALT (0-40) U/L Alkaline Phosphatase (39-117) U/L Troponin I High Sens (<3.5-35.0) ng/L Total Protein (6.5-8.0) g/dL Albumin (3.5-5.0) g/dL Lipase (8-78) U/L COVID-19 (MARIEL) (Negative) COVID-19 Clin Com 07/18/20 07/18/20 Range/Units 11:50 11:50 WBC (4.8-10.8) X10*3/uL RBC (4.60-5.80) X10*6/uL Hgb (14.0-18.0) g/dl Hct (42-52) % MCV (80-98) fL MCH (27.0-33.0) pg MCHC (31.0-36.0) g/dl RDW (11.0-16.0) % Plt Count (160-400) X10*3/uL MPV (9.4-12.4) fL Immature Gran % (Auto) (0.0-0.4) % Neut % (Auto) (45-73) % Lymph % (Auto) (20-40) % [place] % (Auto) (2-11) % Eos % (Auto) (0-4) % Baso % (Auto) (0-2) % Lymph # (Auto) (1.2-4.9) X10*3/uL [place] # (Auto) (0.1-1.2) X10*3/uL Eos # (Auto) (0.0-0.4) X10*3/uL Baso # (Auto) (0.0-0.2) X10*3/uL Abs Immat Gran (auto) (0.00-0.03) X10*3/uL Absolute Neuts (auto) (2.0-8.3) X10*3/uL Absolute Nucleated RBC (0.0-0.012) X10*3/uL Nucleated RBC % (auto) (0.0-0.2) /100WBC PT (10.8-13.0) SEC Whole Blood PT (11.1-13.5) sec INR (0.9-1.1) Whole Blood INR (0.9-1.1) APTT (24.1-38.0) SEC Sodium (135-145) mmol/L Potassium (3.3-5.1) mmol/L Chloride (96-108) mmol/L Carbon Dioxide (22-29) mmol/L Anion Gap (12-20) BUN (9-16) mg/dL Creatinine (0.5-1.4) mg/dL Estim Creat Clear Calc Estimated GFR POC Glucose (60-115) mg/dL Random Glucose (60-115) mg/dL Calcium (8.4-10.2) mg/dL Magnesium 1.8 (1.6-2.6) mg/dL Total Bilirubin 0.7 (0.0-1.0) mg/dL Direct Bilirubin 0.2 (0.0-0.5) mg/dL AST 13 (5-37) U/L ALT 6 (0-40) U/L Alkaline Phosphatase 47 (39-117) U/L Troponin I High Sens 4.4 (<3.5-35.0) ng/L Total Protein 6.2 L (6.5-8.0) g/dL Albumin 3.9 (3.5-5.0) g/dL Lipase 53 (8-78) U/L COVID-19 (MARIEL) (Negative) COVID-19 Clin Com ECG Data Attestation: I personally reviewed and interpreted this ECG as follows: ECG interpretation date: 07/18/20 ECG interpretation time: 11:46 Interpretation: Rate: 79 Rhythm: NSR with frequent PVCs [place]: left Normal P waves. Normal RADHA. NSIVCD ST T wave : nonspecific, no TYRELL qTC: normal prior studies: no acute ischemia The study has been interpreted contemporaneously by me. . NIH Stroke Scale Internal: Initial- Upon Arrival Level of Consciousness: Alert Level of Consciousness Questions: Answers one question correctly Level of Consciousness Commands: Performs both tasks correctly Best Gaze: Normal Visual: No visual loss Facial Palsy: Normal Motor Arm (Right): No effort against gravity Motor Arm (Left): No drift Motor Leg (Right): No effort against gravity Motor Leg (Left): No drift Limb Ataxia: Present in one limb Sensory: Normal Best Language: No aphasia Dysarthia: Mild to moderate dysarthria Extinction and Inattention: Visual, tactile, auditory, spatial, or personal in attention Score: 10 Discharge Plan Discharge Clinical Impression: Cerebrovascular accident Qualifiers: CVA mechanism: unspecified Qualified Code(s): I63.9 - Cerebral infarction, unspecified Patient Disposition: Admitted As Inpatient
[2020-07-18 11:09] VITALS: BP 101/54; PULSE 83; O2SAT 98
[2020-07-18 11:10] VITALS: BP 169/118; PULSE 82; RESP 20; TEMP 36.5; O2SAT 96; BMI 25.0
[2020-07-18 11:11] LABS: Prothrombin Time Whole Bld POC 31.1 sec (11.1-13.5); ~PT, ~INR - Anti Coag Clinic 2.6 (0.9-1.1)
[2020-07-18 11:12] LABS: Glucose, Whole Blood 83 mg/dL (60-115)
[2020-07-18] MEDS: iohexoL 350 MG/ML 100 ML INFUS..BTL IV (11:35)
[2020-07-18 11:50] VITALS: BP 117/94; PULSE 83; RESP 24; O2SAT 97
[2020-07-18 11:56] LABS: MANUAL DIFF FLAG NO
[2020-07-18 11:58] LABS: Basophils Percent Auto 0.4 % (0-2); Eosinophils Absolute Auto 0.3 X10*3/uL (0.0-0.4); Eosinophils Percent Auto 3.3 % (0-4); Hematocrit 40.1 % (42-52); Hemoglobin 13.8 g/dl (14.0-18.0); Imm Gran Abs Auto 0.02 X10*3/uL (0.00-0.03); Imm Gran Pct Auto 0.2 % (0.0-0.4); Lymphocytes Absolute Auto 3.2 X10*3/uL (1.2-4.9); Lymphocytes Percent Auto 39.4 % (20-40); Mean Corpuscular HGB Conc 34.4 g/dl (31.0-36.0); Mean Corpuscular Hemoglobin 31.4 pg (27.0-33.0); Mean Corpuscular Volume 91.1 fL (80-98); Mean Platelet Volume 10.9 fL (9.4-12.4); Monocytes Absolute Auto 0.8 X10*3/uL (0.1-1.2); Monocytes Percent Auto 10.2 % (2-11); Neutrophils Absolute Auto 3.8 X10*3/uL (2.0-8.3); Neutrophils Percent Auto 46.5 % (45-73); Platelet Count 208 X10*3/uL (160-400); Red Cell Distribution Width 13.6 % (11.0-16.0); White Blood Count 8.1 X10*3/uL (4.8-10.8)
--- NOTE | 2020-07-18 12:02 | PC.NURSE ---
Dania updated w/ pts permission. reports pts speech is slightly slurred at baseline noted over the past few months but denies other neuro deficits at baseline.Would like to be updated via phone at [phone]
[2020-07-18 12:12] LABS: INTERNATIONAL NORM RATIO 2.6 (0.9-1.1); Prothrombin Time 31.6 SEC (10.8-13.0)
[2020-07-18 12:13] LABS: COVID-19 Test Negative (Negative)
[2020-07-18 12:15] LABS: Partial Thromboplastin Time 37.1 SEC (24.1-38.0)
[2020-07-18 12:27] LABS: Anion Gap 12 (12-20); Blood Urea Nitrogen 24 mg/dL (9-16); Calcium 9.4 mg/dL (8.4-10.2); Carbon Dioxide 24 mmol/L (22-29); Chloride 105 mmol/L (96-108); Creatinine Clr Calc Pharmacy 66.7; Estimated Glomerular Filt Rate > 60; Glucose Random 81 mg/dL (60-115); Potassium 4.3 mmol/L (3.3-5.1); Sodium 137 mmol/L (135-145)
[2020-07-18 12:29] LABS: Alanine Aminotransferase 6 U/L (0-40); Albumin Level 3.9 g/dL (3.5-5.0); Alkaline Phosphatase 47 U/L (39-117); Aspartate Amino Transferase 13 U/L (5-37); Bilirubin Direct 0.2 mg/dL (0.0-0.5); Bilirubin Total 0.7 mg/dL (0.0-1.0); Lipase 53 U/L (8-78); Magnesium 1.8 mg/dL (1.6-2.6); Total Protein 6.2 g/dL (6.5-8.0)
[2020-07-18 12:35] LABS: Troponin-I High Sensitivity 4.4 ng/L (<3.5-35.0)
--- NOTE | 2020-07-18 13:47 | MHC.STROKE ---
Addendum entered by Constanza Lopes RN 07/19/20 12:07: I ROUNDED ON THIS PATIENT TODAY, HE IS UP IN THE CHAIR AND CONVERSING. HE IS MUCH MORE ALERT TODAY. SPEECH WAS RECOMMENDING A PUREED DIET. HE IS ABLE TO TAKE HIS MEDICATIONS. HE WILL BE RECIEVING HIS COUMADIN LATER TODAY. NEUROLOGY CONSULT PENDING. Addendum entered by Constanza Lopes RN 07/18/20 16:13: REVIEWED MRI WITH DR DUNN, + ISCHEMIC STROKE, PERHAPS HIS INR LEVEL HAS BEEN INCONSISTENT. HE IS RECOMMENDING ADMISSION FOR NEW ACUTE STROKE. AVOID HYPOTENSION, AND MONITOR NEURO'S FOR WORSENING OF SYMPTOMS. ESTABLISH A FEEDING PLAN, I DID CALL SPEECH AND THEY WILL SEE HIM TODAY AND DETERMINE IF HE CAN TAKE PO MEDICATIONS, I.E. COUMADIN. IF NEEDED IVF BUT PATIENT DOES HAVE CHF, CAD. I DID RELAY ALL OF THIS INFORMATION TO THE PATIENT AND HE UNDERSTANDS. HIS SPEECH IS DYSARTHRIC. THIS INFORMATION WAS DISCUSSED WITH DR LONG AND JHONY AVILA. Original Note: 1052 EMS PRE-NOTIFICATION STROKE ALERT FROM 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 1025. ARRIVED AT 1055, MD AT BEDSIDE INITIAL NIHSS = 10. RIGHT HEMIPARESIS WITH DYSARTHRIA AND LOC. DIRECT TO CT AND CTA H/N. NO BLEED, NO LVO, ALTHOUGH LARGE PRIOR LEFT MCA STROKE NOTED. ON COUMADIN FOR AFIB, CAD, INR 2.6. EXCLUDED FROM TPA (ALTEPLASE) BASED ON THE INR. AT 1345 I DID A REPEAT NIHSS = 5, HE WAS IMPROVED AND WAS ABLE TO MOVE HIS RIGHT ARM AND LEG. I DID A NURSING SWALLOW AND HE DID NOT PASS. NOTIFIED. I DID SIT HIM UPRIGHT AND HE WAS ABLE TO COMPLETELY SWALLOW THE WATER BUT WITH A DELAYED SWALLOW. HE CANNOT COMPLETELY CLEAR HIS THROAT. THERE IS A QUESTION ON WHETHER HE HAD PRIOR DYSPHAGIA DIFFICULTIES. FOR NOW WE WILL KEEP HIM NPO AND HE WILL REQUIRE A SPEECH THERAPY EVALUATION HERE AT [facility] [place] OR AT [facility]. A MRI IS ORDERED TO CLARIFY THE DIAGNOSIS. I WILL CONTINUE TO FOLLOW.
[2020-07-18 15:19] VITALS: BP 147/85; PULSE 83; RESP 20; TEMP 36.6; O2SAT 96
--- NOTE | 2020-07-18 15:23 | PC.NURSE ---
Pt returned from MRI- VSS, no change in neuro assessment, pt denies needs or complaints.
--- NOTE | 2020-07-18 16:47 | P.HPHOSP_ITS ---
History of Present Illness Date of Service: 07/18/20 Chief Complaint: Right-sided weakness, slurred speech An 80 years old male with P MH CVA, AFib on warfarin, diastolic CHF, Parkinson disease among others who presented to the hospital from group home with worsening right-sided weakness and speech changes. In the emergency a CT scan of the head showed old left MCA to Gray possible infarct. He is not a candidate for tPA given the fact he is on warfarin. Admitted to the medical floor for treatment and further evaluation. Review of Systems Review of Systems: No fever, chills or weakness No chest pain, palpitation Reporting difficulty speaking and slurred speech was notable No shortness of breath or coughing No abdominal pain, nausea or vomiting Right upper extremity weakness and with a lower extremity significantly weak with difficulty swallowing No urinary symptoms No any rash or wounds [facility] Medical History (Updated 07/18/20 @ 16:52 by Francois Garza MD) Acute CVA (cerebrovascular accident) Afib Alzheimer disease Depression Diastolic CHF HTN (hypertension) Hyperlipidemia Orthostatic hypotension Parkinson disease Vascular dementia Surgical History H/O prosthetic heart valve Mitral valve replaced Social History Alcohol intake: never Smoking Status: Unknown if ever smoked Use of substances other than those prescribed or required for medical reasons: No Advance Directives: Yes Advance Directives on File: Yes Advance Directives Date on File: 01/01/20 Meds Allergies Allergy/AdvReac Type Severity Reaction Status Date / Time celecoxib [From Celebrex] Allergy Unknown Verified 07/18/20 11:17 poison michaelle extract Allergy Unknown Verified 07/18/20 11:17 simvastatin Allergy Unknown Verified 07/18/20 11:17 Active Medications: Current Medications Generic Name Dose Route Start Last Admin Trade Name Freq PRN Reason Stop Dose Admin Pharmacy Consult 1 each 07/18/20 10:59 Consult Rx Perform Med Rec MISCELLANE ONCE PRN Consult order Home Medications Medication Instructions Recorded Confirmed Last Taken Type aspirin 81 mg PO DAILY 07/18/20 07/18/20 07/18/20 History atorvastatin 20 mg PO DAILY@1700 07/18/20 07/18/20 07/17/20 History carbidopa-levodopa 1 tab PO TID 07/18/20 07/18/20 07/18/20 History divalproex 250 mg PO DAILY 07/18/20 07/18/20 07/18/20 History docusate sodium 100 mg PO DAILY 07/18/20 07/18/20 07/18/20 History escitalopram oxalate 5 mg PO DAILY 07/18/20 07/18/20 07/18/20 History finasteride 5 mg PO BEDTIME 07/18/20 07/18/20 07/17/20 History midodrine 5 mg PO TID 07/18/20 07/18/20 07/18/20 History multivitamin 1 tab PO DAILY 07/18/20 07/18/20 07/18/20 History trazodone 25 mg PO BEDTIME 07/18/20 07/18/20 07/17/20 History warfarin 2.5 mg PO TUTH@1700 07/18/20 07/18/20 07/14/20 History warfarin 5 mg PO SUMOWEFRSA 07/18/20 07/18/20 07/17/20 History Physical Exam Vital Signs and Narrative: Vital Signs: Last Vital Signs Temp 97.9 F 07/18/20 15:19 Pulse 83 07/18/20 15:19 Resp 20 07/18/20 15:19 BP 147/85 H 07/18/20 15:19 Pulse Ox 96 07/18/20 15:19 Body Mass Index 25.0 Const: Other: Constitutional : Alert, oriented, not in distress Neck : Normal inspection, Supple Cardiovascular : RRR, S1 S2, no lower extremity edema Respiratory : Good bilateral air entry, no crackles, wheezes or rhonchi Gastrointestinal: soft, lax, Normal bowel sounds, Non tender Skin : Warm/Dry, No rash Neurological : Alert & oriented x2, slurred speech notable, right upper extrem ity to3/4 bowel and right lower extremity 2/4 power with normal sensation. Cranial nerve within normal from 2-12. Results Labs CBC and Chem 7: 07/18/20 11:50 07/18/20 11:50 Labs: Laboratory Results - last 24 hr 07/18/20 07/18/20 07/18/20 11:04 11:04 11:45 MCV MCH MCHC RDW Plt Count MPV Immature Gran % (Auto) Neut % (Auto) Lymph % (Auto) [place] % (Auto) Eos % (Auto) Baso % (Auto) Lymph # (Auto) [place] # (Auto) Eos # (Auto) Baso # (Auto) Abs Immat Gran (auto) Absolute Neuts (auto) Absolute Nucleated RBC Nucleated RBC % (auto) PT Whole Blood PT 31.1 H INR Whole Blood INR 2.6 H APTT Anion Gap Estim Creat Clear Calc Estimated GFR POC Glucose 83 Random Glucose Calcium Magnesium Total Bilirubin Direct Bilirubin AST ALT Alkaline Phosphatase Troponin I High Sens Total Protein Albumin Lipase COVID-19 (MARIEL) Negative COVID-19 Clin Com See Note 07/18/20 07/18/20 07/18/20 11:50 11:50 11:50 MCV 91.1 MCH 31.4 MCHC 34.4 RDW 13.6 Plt Count 208 MPV 10.9 Immature Gran % (Auto) 0.2 Neut % (Auto) 46.5 Lymph % (Auto) 39.4 [place] % (Auto) 10.2 Eos % (Auto) 3.3 Baso % (Auto) 0.4 Lymph # (Auto) 3.2 [place] # (Auto) 0.8 Eos # (Auto) 0.3 Baso # (Auto) 0.0 Abs Immat Gran (auto) 0.02 Absolute Neuts (auto) 3.8 Absolute Nucleated RBC 0.000 Nucleated RBC % (auto) 0.0 PT 31.6 H Whole Blood PT INR 2.6 H Whole Blood INR APTT 37.1 Anion Gap 12 Estim Creat Clear Calc 66.7 Estimated GFR > 60 POC Glucose Random Glucose 81 Calcium 9.4 Magnesium Total Bilirubin Direct Bilirubin AST ALT Alkaline Phosphatase Troponin I High Sens Total Protein Albumin Lipase COVID-19 (MARIEL) COVID-19 Clin Com 07/18/20 07/18/20 11:50 11:50 MCV MCH MCHC RDW Plt Count MPV Immature Gran % (Auto) Neut % (Auto) Lymph % (Auto) [place] % (Auto) Eos % (Auto) Baso % (Auto) Lymph # (Auto) [place] # (Auto) Eos # (Auto) Baso # (Auto) Abs Immat Gran (auto) Absolute Neuts (auto) Absolute Nucleated RBC Nucleated RBC % (auto) PT Whole Blood PT INR Whole Blood INR APTT Anion Gap Estim Creat Clear Calc Estimated GFR POC Glucose Random Glucose Calcium Magnesium 1.8 Total Bilirubin 0.7 Direct Bilirubin 0.2 AST 13 ALT 6 Alkaline Phosphatase 47 Troponin I High Sens 4.4 Total Protein 6.2 L Albumin 3.9 Lipase 53 COVID-19 (MARIEL) COVID-19 Clin Com Imaging Radiologist's Impressions: Impressions Head CT 07/18/20 10:59 IMPRESSION: Hypodensity with loss of armendariz-white matter in the left frontal lobe and the right parietal lobe, concerning for ischemic changes, of indeterminate age. Recommend further evaluation with CTA head study. This critical result was discussed with Dr. Bess at 1129 hours on 07/18/2020. It was ascertained that the content and urgency of the report was understood at the time of direct communication. Chest X-Ray 07/18/20 11:00 IMPRESSION: Unremarkable examination. Head/Neck CTA 07/18/20 11:00 IMPRESSION: 1. No evidence of acute intracranial hemorrhage. Regions of chronic appearing encephalomalacia of the left frontal lobe and insula as well as the right parietal lobe. Multifocal lacunar infarcts of the deep nuclei and bilateral cerebellar hemispheres. 2. CTA of the head and neck without proximal occlusion or flow-limiting stenosis. There is less than 50% atherosclerotic stenosis of the origin of the right ICA. This critical result was discussed with Dr. Bess at 11:52 on 07/18/2020 and it was ascertained that the content and urgency of the report was understood at the time of direct communication. Brain MRI 07/18/20 13:16 IMPRESSION: 1. Small acute to subacute infarct within the left periventricular white matter extending into the posterior left insula. 2. Regions of chronic encephalomalacia within the left frontal lobe/insula, right parietal lobe, and right occipital lobe. Moderate underlying microangiopathy and generalized cerebral volume loss. Chronic lacunar infarcts of the deep nuclei and cerebellum. Assessment and Plan (1) Acute CVA (cerebrovascular accident): Status: Inactive (2) Slurred speech: Status: Acute (3) Difficulty swallowing: Status: Acute An 80 years old male with P MH CVA, AFib on warfarin, diastolic CHF, Parkinson disease among others who presented to the hospital from group home with worsening right-sided weakness and speech changes. Acute stroke Presented with slurred speech and right-sided weakness Brain MRI showed Small acute to subacute infarct within the left periventricular white matter extending into the posterior left insula. 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
[2020-07-18] MEDS: Dextrose 5 % and 0.9 % NaCl 1,000 ML 50 ML IVCONT (17:37)
--- NOTE | 2020-07-18 17:46 | MHC.SL.SWA ---
Speech Pathologist Impression: Risk of Aspiration Oralpharyngeal Dysphagia Risk of Aspiration Due to: Neurological Condition Dysphasia Diet Status: Upgrade Liquid Consistency and Strategies for Safe Swallow: Liquid Intake Recommendation: Honey Thick Liquid Intake Strategies: Small Sips No Straws Double Swallow Solid Food Consistency: Dietary Recommendations: Pureed (NDD1) Oral Medication Intake: Crushed with Puree Compensatory Strategies and Precautions to be Taken for Safe Swallow: Sitting Upright (90 deg) Double Swallow No Straw Small Bites and Sips Rate of Ingestion Change Oral Check Supervision While Eating and Drinking for Safe Swallow: Total Assistance Swallowing Recommended Treatments: Compens. Strategy Educat. Recommendation for Speech: Further Testing Needed Inpatient Speech Therapy Comment: Overt s/s of aspiration when drinking liquids. Pocketing with solids. Patient requires total 1:1 assistance feeding. MACHINE SEWER to continue to follow for PO trials. Plan for re-evaluation tomorrow morning and screening of speech and language. Manager Lab Clinican/Clinical Fellow: No Supervisory Statement: I have reviewed and agree with the student/clinical fellow's documentation: N/A Speech Language Pathologist: Zeina Cruz M.A., CCC-MACHINE SEWER
[2020-07-18 19:04] VITALS: BP 152/81; PULSE 73; RESP 16; TEMP 36.8; O2SAT 99
[2020-07-18] MEDS: Enoxaparin Sodium 80 MG/0.8 ML SYRINGE 70 MG SUBCUT (20:03)
[2020-07-18 22:27] LABS: Glucose Urine UA NEG (NEG); Leukocyte Esterase Urine NEG (NEG); Nitrite Urine NEG (NEG); Specific Gravity - Urine 1.015 (1.005-1.025); Urine Blood NEG (NEG); Urine Ketones NEG (NEG); Urine Protein NEG (NEG-TRACE)
[2020-07-18 22:30] LABS: Appearance Urine CLEAR; Color Urine YELLOW
--- NOTE | 2020-07-18 23:34 | PC.NURSE ---
Pt had 8 beat vtach on tele, has been sinus rhythm with frequent pvc's. Pt assessed, asymptomatic. Dr Alberto notified. Cardiology consult and echo ordered.
[2020-07-18 23:53] VITALS: BP 151/92; PULSE 77; RESP 14; TEMP 36.6; O2SAT 96
[2020-07-19] VITALS (8 sets, daily range): BP systolic 114–153; BP diastolic 63–94; PULSE 57–84; RESP 14–20; TEMP 36.3–36.6; O2SAT 94–97
[2020-07-19 05:54] LABS: MANUAL DIFF FLAG NO
[2020-07-19 05:57] LABS: Basophils Percent Auto 0.5 % (0-2); Eosinophils Absolute Auto 0.3 X10*3/uL (0.0-0.4); Eosinophils Percent Auto 4.4 % (0-4); Hematocrit 46.3 % (42-52); Hemoglobin 15.8 g/dl (14.0-18.0); Imm Gran Abs Auto 0.02 X10*3/uL (0.00-0.03); Imm Gran Pct Auto 0.3 % (0.0-0.4); Lymphocytes Absolute Auto 2.4 X10*3/uL (1.2-4.9); Lymphocytes Percent Auto 32.4 % (20-40); Mean Corpuscular HGB Conc 34.1 g/dl (31.0-36.0); Mean Corpuscular Hemoglobin 31.3 pg (27.0-33.0); Mean Corpuscular Volume 91.9 fL (80-98); Mean Platelet Volume 11.1 fL (9.4-12.4); Monocytes Absolute Auto 0.8 X10*3/uL (0.1-1.2); Monocytes Percent Auto 10.5 % (2-11); Neutrophils Absolute Auto 3.9 X10*3/uL (2.0-8.3); Neutrophils Percent Auto 51.9 % (45-73); Platelet Count 211 X10*3/uL (160-400); Red Blood Count 5.04 X10*6/uL (4.60-5.80); Red Cell Distribution Width 13.5 % (11.0-16.0); White Blood Count 7.4 X10*3/uL (4.8-10.8)
[2020-07-19 06:03] LABS: INTERNATIONAL NORM RATIO 2.1 (0.9-1.1); Prothrombin Time 25.1 SEC (10.8-13.0)
[2020-07-19 06:32] LABS: Anion Gap 13 (12-20); Blood Urea Nitrogen 18 mg/dL (9-16); Carbon Dioxide 26 mmol/L (22-29); Chloride 105 mmol/L (96-108); Cholesterol 221 mg/dL; Creatinine Clr Calc Pharmacy 69.1; Estimated Glomerular Filt Rate > 60; Glucose Random 91 mg/dL (60-115); HDL Cholesterol 57 mg/dL; LDL Cholesterol Calculated 144 mg/dl; Potassium 4.1 mmol/L (3.3-5.1); Sodium 140 mmol/L (135-145); Triglycerides 104 mg/dL
--- NOTE | 2020-07-19 07:30 | CA_ITS ---
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 Moderate to severe LV systolic dysfunction with LVEF of 30 35% with moderate LVH 2. Moderately dilated left atrium 3. Normally function mechanical prostheses in mitral position with mean gradient of 4 mm of mercury at heart rate of 80 beats per minute 4. Normal RV systolic pressure 5. No gross pericardial effusion 6. Mild aortic regurgitation Findings Left Ventricle Normal left ventricular cavity size. There is moderately increased left ventricular wall thickness. The left ventricular systolic function is moderately decreased. The visually estimated ejection fraction is between 30 35%. There is moderate global hypokinesis. Diastolic function is indeterminate on the basis of available data. Right Ventricle Normal right ventricular cavity size and systolic function. Atria The left atrium is moderately dilated. Interatrial shunt cannot be excluded. The right atrium is normal in size. Aortic Valve Normal aortic valve structure and function. There is no aortic valve stenosis. There is mild aortic valve regurgitation. Mitral Valve A mechanical prosthetic mitral valve is present. The prosthetic mitral valve appears to be functioning normally. The mean mitral valve gradient is 4.00 mmHg. The mechanical valve is well seated with no abnormal rocking motion. Mitral regurgitation is difficult to evaluate due to shadowing. The leaflet mobility is not well visualized on this study however mean gradient is within normal limits Pulmonic Valve The pulmonic valve is likely normal. There is mild to moderate pulmonic valve regurgitation. Tricuspid Valve Normal tricuspid valve structure. There is mild tricuspid valve regurgitation. The right ventricular systolic pressure is normal. The right ventricular systolic pressure is 27 mmHg. There is no evidence of pulmonary hypertension. Great Vessels The pulmonary artery was not well visualized. Venous The inferior vena cava is normal in size and collapses greater than 50% with inspiration. Pericardium/Pleural There is no evidence of pericardial effusion. Prior Study Comparison No prior study available for comparison. Measurements 2D Linear Measurements IVSd: 1.40 0.6-0.9/0.6-1.0 cm LVIDd: 4.08 3.9-5.3/4.2-5.9 cm LVIDd Index: 2.17 2.4-3.2/2.2-3.1 cm/m2 LVIDs: 3.36 2.0-3.6 cm LVPWd: 1.46 0.7-1.1 cm Ao Root: 4.10 2.1-3.5 cm LA Diam: 4.00 2.7-3.8/3.0-4.0 cm LAIDs Index: 2.13 1.5-2.3 cm/m2 LV Mass: 276.99 67-162/88-224 g LV Mass Index: 147.34 43-95/49-115 g/m2 LVOT Diam: 2.40 3.0+(-)1.3 cm 2D Systolic Function EF 4C: 37.50 >55% EF 2C: 34.00 >55% EF BiP: 32.50 >55% Mitral Valve MV VTI: 0.32 MV Pk Sid: 1.70 MV Mn Sid: 0.77 MV Pk Grad: 12.00 MV Mn Grad: 4.00 MV Pk E: 1.54 MV Decel Time: 141.00 E'Lateral: 4.54 E'Medial: 4.35 E/E' Med: 35.40 E/E' Lat: 33.90 PHT: 41.00 MVA PHT: 5.37 MVA Continuity: 2.13 Decel Upton: 10.92 Aortic Valve AoV Pk Sid: 0.92 AoV Mn Sid: 0.56 AoV VTI: 0.21 AoV Pk Grad: 3.00 Aov Mn Grad: 2.00 JAMES Cont.VTI: 3.27 AI Pk Sid: 4.55 AI Upton: 5.78 LVOT LVOT Pk Sid: 0.75 LVOT Mn Sid: 0.42 LVOT VTI: 0.15 LVOT Pk Grad: 2.00 LVOT Mn Grad: 1.00 LVOT Diam: 2.40 LVOT Area: 4.52 Diastolic Function MV Pk E: 1.54 E'Medial: 4.35 E/E' Med: 35.40 E' Laterial: 4.54 E/E' Lat: 33.90 Tricuspid Valve TR Pk Sid: 2.43 TR Pk Grad: 24.00 RA Press: 3.00 RVSP: 27.00 Great Vessels Aorta Ao Root-2D: 4.10 2.0-3.7 cm Ao Asc: 4.20 2.1-3.4 cm Pulmonary Valve PV Pk Sid: 0.72 Peak PV Grad: 2.00 Updated in Other Vendor System with Status of Final Tino Babb MD electronically signed on 07/19/2020 2:04:18 PM with status of Final
--- NOTE | 2020-07-19 08:13 | MHC.CM.PN ---
pt is from [facility] , dc plan is to return to [facility] when medically stable. action to transport. cm to cont. to follow.
[2020-07-19] MEDS: Docusate Sodium 100 MG CAPSULE PO (11:11)
[2020-07-19] MEDS: Aspirin Enteric Coated 81 MG TABLET.DR PO (11:11)
[2020-07-19] MEDS: Carbidopa/Levodopa 25/250 TABLET 1 TAB PO ×3 (11:12→20:32)
[2020-07-19] MEDS: Divalproex Sodium ER 250 MG TAB.ER.24H PO (11:12)
--- NOTE | 2020-07-19 11:39 | P.CONCA_ITS ---
History of Present Illness History of Present Illness Date of Service: 07/19/20 Requesting physician: Ezio Alberto Consult reason: other (Nonsustained VT) Chief complaint: R SIDED WEAKNESS Narrative: We were consulted to see Clem in cardiology consultation because of nonsustained VT noted incidentally on cardiac telemetry. Patient has no cardiac symptoms. Denies any palpitations or lightheadedness. Multiple 3 beats all amos were noted. One 8 beat run of nonsustained VT noted. Patient does not recall prior having ventricular arrhythmias. His history is limited due to his speech impediment. He says he had open-heart surgery many years ago and not able to further elucidate but from history appears to have had mitral valve replaced. Appears to be bioprosthetic. Not clear whether patient coronary artery bypass graft performed. Presented to the hospital with worsening right- sided weakness. This has improved. Noted to have new acute to subacute periventricular ischemic changes noted. Patient also has prior history of atrial fibrillation, on warfarin at home with therapeutic INR. Also on low-dose aspirin therapy. Patient says his weakness in the right side of the body is improving. There is no evidence of atrial fibrillation. Review of Systems Review of Systems: Yes Unobtainable due to mental condition [facility] Past Medical History Medical History (Updated 07/19/20 @ 11:47 by Tino Babb MD) Acute CVA (cerebrovascular accident) Afib Alzheimer disease Depression Diastolic CHF HTN (hypertension) Hyperlipidemia Orthostatic hypotension Parkinson disease Paroxysmal atrial fibrillation Vascular dementia Surgical History Surgical History H/O prosthetic heart valve Mitral valve replaced Social History Social History Housing: Snf Alcohol intake: never Smoking Status: Unknown if ever smoked Use of substances other than those prescribed or required for medical reasons: No Currently Displaying Signs/Symptoms of Drug Intoxication Withdrawal: No Have you been hit, kicked, punched, or otherwise hurt by someone within the past year? If so, by whom?: No Do you feel safe in your current relationship?: No Current Relationship Is there a partner from a previous relationship who is making you feel unsafe now?: No Are you made to feel afraid or neglected: No Advance Directives: Yes Advance Directives on File: Yes Advance Directives Date on File: 01/01/20 Do you have thoughts of harming others: None Do you have a plan to hurt others: No Plan Recently lost weight without trying: No service: Yes Current occupational status: retired Meds Allergies Allergy/AdvReac Type Severity Reaction Status Date / Time celecoxib [From Celebrex] Allergy Unknown Verified 07/18/20 11:17 poison michaelle extract Allergy Unknown Verified 07/18/20 11:17 simvastatin Allergy Unknown Verified 07/18/20 11:17 Active Medications: Current Medications Generic Name Dose Route Start Last Admin Trade Name Freq PRN Reason Stop Dose Admin Acetaminophen 650 mg 07/18/20 17:29 Acetaminophen Supp 650 Mg Supp.Rect IA Q6H PRN Pain, Mild (Pain Scale 1-3) Aspirin 81 mg 07/19/20 09:50 07/19/20 11:11 Aspirin Enteric Coated 81 Mg Tablet.Dr PO 81 mg DAILY ALEXI Administration Carbidopa/Levodopa 1 tab 07/19/20 10:00 07/19/20 11:12 Carbidopa/Levodopa 25/250 Tablet PO 1 tab TID ALEXI Administration Divalproex Sodium 250 mg 07/19/20 10:00 07/19/20 11:12 Divalproex Sodium Er 250 Mg Tab.Er.24h PO 250 mg DAILY ALEXI Administration Docusate Sodium 100 mg 07/19/20 10:00 07/19/20 11:11 Docusate Sodium 100 Mg Capsule PO 100 mg DAILY [facility] Administration Finasteride 5 mg 07/19/20 21:00 Finasteride 5 Mg Tablet PO BEDTIME [facility]LEXI Metoprolol Tartrate 25 mg 07/19/20 11:20 Metoprolol Tartrate 25 Mg Tablet PO BID [facility] Protocol Midodrine 2.5 mg 07/19/20 15:00 Midodrine Hcl 5 Mg Tablet PO TID [facility]LEXI Ondansetron HCl 4 mg 07/18/20 17:29 Ondansetron Hcl 4 Mg/2 Ml Vial IVPUSH Q8H PRN Nausea and Vomiting Pharmacy Consult 1 each 07/18/20 10:59 Consult Rx Perform Med Rec MISCELLANE ONCE PRN Consult order Rivaroxaban 20 mg 07/20/20 09:00 Rivaroxaban 20 Mg Tablet PO DAILY [facility]LEX[facility] Sodium Chloride 3 ml 07/19/20 00:00 07/19/20 07:27 0.9 % Sodium Chloride Flush 3 Ml Syringe IVFLUSH Not Given QSHIFT [facility] Trazodone HCl 25 mg 07/19/20 21:00 Trazodone Hcl 25 Mg Halftab PO BEDTIME [facility] Home Medications Medication Instructions Recorded Confirmed Last Taken Type aspirin 81 mg PO DAILY 07/18/20 07/18/20 07/18/20 History atorvastatin 20 mg PO DAILY@1700 07/18/20 07/18/20 07/17/20 History carbidopa-levodopa 1 tab PO TID 07/18/20 07/18/20 07/18/20 History divalproex 250 mg PO DAILY 07/18/20 07/18/20 07/18/20 History docusate sodium 100 mg PO DAILY 07/18/20 07/18/20 07/18/20 History escitalopram oxalate 5 mg PO DAILY 07/18/20 07/18/20 07/18/20 History finasteride 5 mg PO BEDTIME 07/18/20 07/18/20 07/17/20 History midodrine 5 mg PO TID 07/18/20 07/18/20 07/18/20 History multivitamin 1 tab PO DAILY 07/18/20 07/18/20 07/18/20 History trazodone 25 mg PO BEDTIME 07/18/20 07/18/20 07/17/20 History warfarin 2.5 mg PO TUTH@1700 07/18/20 07/18/20 07/14/20 History warfarin 5 mg PO SUMOWEFRSA 07/18/20 07/18/20 07/17/20 History Physical Exam Vital Signs: Vital Signs: Last Vital Signs Temp 97.8 F 07/19/20 07:24 Pulse 80 07/19/20 07:24 Resp 20 07/19/20 07:24 BP 142/94 H 07/19/20 07:24 Pulse Ox 95 07/19/20 07:24 Body Mass Index 25.0 Const: General: cooperative, comfortable, no acute distress, alert and awake Nutritional Appearance: average body habitus Orientation/consciousness: patient oriented x3 HENMT: Head: Yes normocephalic and Yes atraumatic Neck: Neck: Yes trachea midline, Yes supple and Yes no JVD Chest: Chest palpation & inspection: normal inspection of the chest and other (Well-healed sternotomy scar) Resp: Effort & Inspection: normal respiratory effort Auscultation: clear to auscultation bilaterally Cardio: Jugular venous distension: no JVD Palpation: normal PMI Rate: regular rate Rhythm: abnormal rhythm with ectopic beats Heart sounds: S1 normal heart sound present and S2 normal heart sound present GI: Auscultation: normal bowel sounds Neuro: General: patient oriented x3 and other (Dysarthric speech) Extrem: General: Yes no clubbing, cyanosis or edema Results Labs and Meds Result diagrams: 07/19/20 05:43 07/19/20 05:43 Lab results: Laboratory Results - last 24 hr 07/18/20 07/18/20 07/18/20 11:45 11:50 11:50 WBC 8.1 RBC 4.40 L Hgb 13.8 L Hct 40.1 L MCV 91.1 MCH 31.4 MCHC 34.4 RDW 13.6 Plt Count 208 MPV 10.9 Immature Gran % (Auto) 0.2 Neut % (Auto) 46.5 Lymph % (Auto) 39.4 [place] % (Auto) 10.2 Eos % (Auto) 3.3 Baso % (Auto) 0.4 Lymph # (Auto) 3.2 [place] # (Auto) 0.8 Eos # (Auto) 0.3 Baso # (Auto) 0.0 Abs Immat Gran (auto) 0.02 Absolute Neuts (auto) 3.8 Absolute Nucleated RBC 0.000 Nucleated RBC % (auto) 0.0 PT INR APTT Sodium 137 Potassium 4.3 Chloride 105 Carbon Dioxide 24 Anion Gap 12 BUN 24 H Creatinine 0.84 Estim Creat Clear Calc 66.7 Estimated GFR > 60 Random Glucose 81 Calcium 9.4 Magnesium Total Bilirubin Direct Bilirubin AST ALT Alkaline Phosphatase Troponin I High Sens Total Protein Albumin Triglycerides Cholesterol LDL Cholesterol, Calc HDL Cholesterol Lipase Urine Color Urine Appearance Urine pH Ur Specific [place] Urine Protein Urine Glucose (UA) Urine Ketones Urine Blood Urine Nitrite Ur Leukocyte Esterase COVID-19 (MARIEL) Negative COVID-19 Clin Com See Note 07/18/20 07/18/20 07/18/20 11:50 11:50 11:50 WBC RBC Hgb Hct MCV MCH MCHC RDW Plt Count MPV Immature Gran % (Auto) Neut % (Auto) Lymph % (Auto) [place] % (Auto) Eos % (Auto) Baso % (Auto) Lymph # (Auto) [place] # (Auto) Eos # (Auto) Baso # (Auto) Abs Immat Gran (auto) Absolute Neuts (auto) Absolute Nucleated RBC Nucleated RBC % (auto) PT 31.6 H INR 2.6 H APTT 37.1 Sodium Potassium Chloride Carbon Dioxide Anion Gap BUN Creatinine Estim Creat Clear Calc Estimated GFR Random Glucose Calcium Magnesium 1.8 Total Bilirubin 0.7 Direct Bilirubin 0.2 AST 13 ALT 6 Alkaline Phosphatase 47 Troponin I High Sens 4.4 Total Protein 6.2 L Albumin 3.9 Triglycerides Cholesterol LDL Cholesterol, Calc HDL Cholesterol Lipase 53 Urine Color Urine Appearance Urine pH Ur Specific [place] Urine Protein Urine Glucose (UA) Urine Ketones Urine Blood Urine Nitrite Ur Leukocyte Esterase COVID-19 (MARIEL) COVID-[employer] 07/18/20 07/19/20 07/19/20 22:11 05:43 05:43 WBC 7.4 RBC 5.04 Hgb 15.8 Hct 46.3 MCV 91.9 MCH 31.3 MCHC 34.1 RDW 13.5 Plt Count 211 MPV 11.1 Immature Gran % (Auto) 0.3 Neut % (Auto) 51.9 Lymph % (Auto) 32.4 [place] % (Auto) 10.5 Eos % (Auto) 4.4 H Baso % (Auto) 0.5 Lymph # (Auto) 2.4 [place] # (Auto) 0.8 Eos # (Auto) 0.3 Baso # (Auto) 0.0 Abs Immat Gran (auto) 0.02 Absolute Neuts (auto) 3.9 Absolute Nucleated RBC 0.000 Nucleated RBC % (auto) 0.0 PT 25.1 H D INR 2.1 H APTT Sodium Potassium Chloride Carbon Dioxide Anion Gap BUN Creatinine Estim Creat Clear Calc Estimated GFR Random Glucose Calcium Magnesium Total Bilirubin Direct Bilirubin AST ALT Alkaline Phosphatase Troponin I High Sens Total Protein Albumin Triglycerides Cholesterol LDL Cholesterol, Calc HDL Cholesterol Lipase Urine Color YELLOW Urine Appearance CLEAR Urine pH 6.0 Ur Specific [place] 1.015 Urine Protein NEG Urine Glucose (UA) NEG Urine Ketones NEG Urine Blood NEG Urine Nitrite NEG Ur Leukocyte Esterase NEG COVID-19 (MARIEL) COVID-19 [employer] Com 07/19/20 05:43 WBC RBC Hgb Hct MCV MCH MCHC RDW Plt Count MPV Immature Gran % (Auto) Neut % (Auto) Lymph % (Auto) [place] % (Auto) Eos % (Auto) Baso % (Auto) Lymph # (Auto) [place] # (Auto) Eos # (Auto) Baso # (Auto) Abs Immat Gran (auto) Absolute Neuts (auto) Absolute Nucleated RBC Nucleated RBC % (auto) PT INR APTT Sodium 140 Potassium 4.1 Chloride 105 Carbon Dioxide 26 Anion Gap 13 BUN 18 H Creatinine 0.81 Estim Creat Clear Calc 69.1 Estimated GFR > 60 Random Glucose 91 Calcium 10.0 D Magnesium Total Bilirubin Direct Bilirubin AST ALT Alkaline Phosphatase Troponin I High Sens Total Protein Albumin Triglycerides 104 Cholesterol 221 LDL Cholesterol, Calc 144 HDL Cholesterol 57 Lipase Urine Color Urine Appearance Urine pH Ur Specific [place] Urine Protein Urine Glucose (UA) Urine Ketones Urine Blood Urine Nitrite Ur Leukocyte Esterase COVID-19 ([facility]IEL) COVID-19 Clin Com Imaging Radiologist's impression: Impressions Head CT 07/18/20 10:59 IMPRESSION: Hypodensity with loss of armendariz-white matter in the left frontal lobe and the right parietal lobe, concerning for ischemic changes, of indeterminate age. Recommend further evaluation with CTA head study. This critical result was discussed with Dr. Bess at 1129 hours on 07/18/2020. It was ascertained that the content and urgency of the report was understood at the time of direct communication. Chest X-Ray 07/18/20 11:00 IMPRESSION: Unremarkable examination. Head/Neck CTA 07/18/20 11:00 IMPRESSION: 1. No evidence of acute intracranial hemorrhage. Regions of chronic appearing encephalomalacia of the left frontal lobe and insula as well as the right parietal lobe. Multifocal lacunar infarcts of the deep nuclei and bilateral cerebellar hemispheres. 2. CTA of the head and neck without proximal occlusion or flow-limiting stenosis. There is less than 50% atherosclerotic stenosis of the origin of the right ICA. This critical result was discussed with Dr. Bess at 11:52 on 07/18/2020 and it was ascertained that the content and urgency of the report was understood at the time of direct communication. Brain MRI 07/18/20 13:16 IMPRESSION: 1. Small acute to subacute infarct within the left periventricular white matter extending into the posterior left insula. 2. Regions of chronic encephalomalacia within the left frontal lobe/insula, right parietal lobe, and right occipital lobe. Moderate underlying microangiopathy and generalized cerebral volume loss. Chronic lacunar infarcts of the deep nuclei and cerebellum. Assessment and Plan (1) Nonsustained ventricular tachycardia: Status: Acute Nonsustained ventricular tachycardia in elderly man with prior cardiac surgery. Unclear whether he had prior coronary artery disease or coronary artery bypass grafting or scar. Would require an echocardiogram to further assess LV systolic and diastolic function and evaluate for regional wall motion abnormality. Would consider starting on low-dose beta-chantelle with metoprolol 25 mg b.i.d. and maximize as tolerated. He is currently on midodrine therapy for possible orthostatic hypotension related to Parkinson's disease and noted to be hypertensive. Taper midodrine therapy to 2.5 mg 3 times a day. Maintain adequate hydration. His electrolytes are within normal limits. (2) Cerebrovascular accident: Qualifiers: CVA mechanism: unspecified Qualified Code(s): I63.9 - Cerebral infarction, unspecified Status: Acute Cerebrovascular accident despite being on warfarin and aspirin therapy and with therapeutic INR. Obtain an echocardiogram to assess for mitral valve function. Given that this appears to be a bioprosthetic mitral valve would be a candidate for direct oral anticoagulant therapy. Obtain old surgical reports from [place]. (3) Paroxysmal atrial fibrillation: Status: Acute Prior history of atrial fibrillation, paroxysmal in atrial. Maintaining normal rhythm at this point time. Add metoprolol as above. Consider switching to direct oral anticoagulant therapy. Will review the echocardiogram and follow with you. Thank you for allowing us to partake in his care
--- NOTE | 2020-07-19 13:00 | HO.PM.IMPN ---
Subjective Subjective Date of Service: 07/19/20 Interval History: the patient was seen and evaluated this morning Laying in bed, feels comfortable overall Improved right upper extremity and right lower extremity strength in comparison to yesterday with better speech and ability to swallow Denies any fever, chills or shortness of breath No reported other overnight events. Review of Systems No fever, chills or weakness No chest pain, palpitation Improving difficulty speaking and slurred speech No shortness of breath or coughing No abdominal pain, nausea or vomiting Improving Right upper extremity weakness and with a lower extremity significantly weak with difficulty swallowing No urinary symptoms No any rash or wounds Physical Exam Vital Signs: Vital Signs: Last Vital Signs Temp 97.4 F 07/19/20 11:38 Pulse 75 07/19/20 11:38 Resp 15 07/19/20 11:38 BP 153/86 H 07/19/20 11:38 Pulse Ox 96 07/19/20 11:38 Body Mass Index 25.0 Const: Other: Constitutional : Alert, oriented, not in distress Neck : Normal inspection, Supple Cardiovascular : RRR, S1 S2, no lower extremity edema Respiratory : Good bilateral air entry, no crackles, wheezes or rhonchi Gastrointestinal: soft, lax, Normal bowel sounds, Non tender Skin : Warm/Dry, No rash Neurological : Alert & oriented x2, slurred speech notable, right upper extremity to 3+/4 bowel and right lower extremity 3/4 power with normal sensation. Cranial nerve within normal from 2-12. Objective Data Current Medications Generic Name Dose Route Start Last Admin Trade Name Freq PRN Reason Stop Dose Admin Acetaminophen 650 mg 07/18/20 17:29 Acetaminophen Supp 650 Mg Supp.Rect MA Q6H PRN Pain, Mild (Pain Scale 1-3) Aspirin 81 mg 07/19/20 09:50 07/19/20 11:11 Aspirin Enteric Coated 81 Mg Tablet.Dr PO 81 mg DAILY ALEXI Administration Carbidopa/Levodopa 1 tab 07/19/20 10:00 07/19/20 11:12 Carbidopa/Levodopa 25/250 Tablet PO 1 tab TID ALEXI Administration Divalproex Sodium 250 mg 07/19/20 10:00 07/19/20 11:12 Divalproex Sodium Er 250 Mg Tab.Er.24h PO 250 mg DAILY ALEXI Administration Docusate Sodium 100 mg 07/19/20 10:00 07/19/20 11:11 Docusate Sodium 100 Mg Capsule PO 100 mg DAILY [facility] Administration Finasteride 5 mg 07/19/20 21:00 Finasteride 5 Mg Tablet PO BEDTIME [facility] Metoprolol Tartrate 25 mg 07/19/20 11:20 Metoprolol Tartrate 25 Mg Tablet PO BID [facility] Protocol Midodrine 2.5 mg 07/19/20 15:00 Midodrine Hcl 2.5 Mg Tablet PO TID [facility] Ondansetron HCl 4 mg 07/18/20 17:29 Ondansetron Hcl 4 Mg/2 Ml Vial IVPUSH Q8H PRN Nausea and Vomiting Pharmacy Consult 1 each 07/18/20 10:59 Consult Rx Perform Med Rec MISCELLANE ONCE PRN Consult order Rivaroxaban 20 mg 07/20/20 09:00 Rivaroxaban 20 Mg Tablet PO DAILY [facility] Sodium Chloride 3 ml 07/19/20 00:00 07/19/20 07:27 0.9 % Sodium Chloride Flush 3 Ml Syringe IVFLUSH Not Given QSHIFT [facility] Trazodone HCl 25 mg 07/19/20 21:00 Trazodone Hcl 25 Mg Halftab PO BEDTIME [facility] Labs CBC & Chem 7: 07/19/20 05:43 07/19/20 05:43 Assessment and Plan (1) Acute CVA (cerebrovascular accident): Status: Inactive (2) Slurred speech: Status: Acute (3) Difficulty swallowing: Status: Acute Assessment and Plan: An 80 years old male with P MH CVA, AFib on warfarin, diastolic CHF, Parkinson disease among others who presented [place] the hospital [place] with worsening right-sided weakness and speech changes. Acute stroke Presented with slurred speech and right-sided weakness Brain MRI showed Small acute to subacute infarct within the left periventricular white matter extending into the posterior left insula. Start p.o. aspirin and high-dose atorvastatin in Neurology consult pending Stroke education PT, OT Difficulty swallowing Secondary to stroke [employer] input appreciated, start modified diet for now, to follow-up tomorrow and decide if MBSS needed Discontinue IV fluids Hold on GI evaluation for possible need of PEG tube Atrial fibrillation Discontinue warfarin Start full-dose Xarelto NSVT Noticed on telemetry overnight Cardiology input appreciated, start p.o. metoprolol Continue home dose midodrine DVT PPX Xarelto
[2020-07-19] MEDS: Metoprolol Tartrate 25 MG TABLET PO ×2 (13:16→20:32)
[2020-07-19] MEDS: Midodrine HCl 2.5 MG TABLET PO ×2 (16:14→20:32)
[2020-07-19] MEDS: 0.9 % Sodium Chloride Flush 3 ML SYRINGE IVFLUSH ×2 (16:14→20:33)
--- NOTE | 2020-07-19 16:37 | P.CNNE_ITS ---
History of Present Illness Data of Consult Service Date: 07/19/20 Primary Care Provider: Maurice Marcelino MD HPI Reason for consult: Increasing right-sided weakness This is a 80 years old male with History of left hemisphere CVAIn the past,, AFib on warfarin, diastolic CHF, PossibleParkinson disease among others who p resented to the hospital from detention with worsening right-sided weakness and speech changes.The patient reports no increase in weakness and feels that he is fine In the emergency room a CT scan of the head showed old left MCA. MRI showed a small new insular infarct on the left side and old encephalomalacia in the left MCA and the right parietal areas. Review of Systems Eyes: Eyes: Reports no additional eye complaints ENT: Reports system reviewed and no additional complaints, except as documented and Reports Normal hearing present Cardiovascular: Cardiovascular: Reports no additional cardiovascular comp laints Respiratory: Respiratory: Reports no additional respiratory complaints Gastrointestinal: Gastrointestinal: Reports no additional gastrointestinal complaints Genitourinary: Genitourinary: Reports no additional male genitourinary complaints Musculoskeletal: Musculoskeletal: Reports no additional musculoskeletal complaints Integumentary/Breasts: Skin/Breast: Reports system reviewed and no additional complaints, except as docu Neurologic: Reports as per HPI and Reports Normal hearing present Psychiatric: Psychiatric: Reports as per HPI Endocrine: Endocrine: Reports no additional endocrine complaints Hematologic/Lymphatic: Hematologic/Lymphatic: Reports no additional hematologic/lymphatic complaints Allergic/Immunologic: Allergic/Immunologic: Reports no additional allergic/immunologic complaints [facility] Past Medical History Medical History (Updated 07/19/20 @ 16:40 by Kiya Gomes MD) Acute CVA (cerebrovascular accident) Afib Alzheimer disease Depression Diastolic CHF HTN (hypertension) Hyperlipidemia Orthostatic hypotension Parkinson disease Paroxysmal atrial fibrillation Vascular dementia Surgical History Surgical History H/O prosthetic heart valve Mitral valve replaced Social History Social History Housing: Halfway Alcohol intake: never Smoking Status: Unknown if ever smoked Use of substances other than those prescribed or required for medical reasons: No Currently Displaying Signs/Symptoms of Drug Intoxication Withdrawal: No Have you been hit, kicked, punched, or otherwise hurt by someone within the past year? If so, by whom?: No Do you feel safe in your current relationship?: No Current Relationship Is there a partner from a previous relationship who is making you feel unsafe now?: No Are you made to feel afraid or neglected: No Advance Directives: Yes Advance Directives on File: Yes Advance Directives Date on File: 01/01/20 Do you have thoughts of harming others: None Do you have a plan to hurt others: No Plan Recently lost weight without trying: No service: Yes Current occupational status: retired Meds Allergies Allergy/AdvReac Type Severity Reaction Status Date / Time celecoxib [From Celebrex] Allergy Unknown Verified 07/18/20 11:17 poison michaelle extract Allergy Unknown Verified 07/18/20 11:17 simvastatin Allergy Unknown Verified 07/18/20 11:17 Active Medications: Current Medications Generic Name Dose Route Start Last Admin Trade Name Freq PRN Reason Stop Dose Admin Acetaminophen 650 mg 07/18/20 17:29 Acetaminophen Supp 650 Mg Supp.Rect MT Q6H PRN Pain, Mild (Pain Scale 1-3) Aspirin 81 mg 07/19/20 09:50 07/19/20 11:11 Aspirin Enteric Coated 81 Mg Tablet.Dr PO 81 mg DAILY ALEXI Administration Atorvastatin Calcium 80 mg 07/19/20 21:00 Atorvastatin Calcium 80 Mg Tablet PO BEDTIME ALEXI Carbidopa/Levodopa 1 tab 07/19/20 10:00 07/19/20 16:15 Carbidopa/Levodopa 25/250 Tablet PO 1 tab TID ALEXI Administration Divalproex Sodium 250 mg 07/19/20 10:00 07/19/20 11:12 Divalproex Sodium Er 250 Mg Tab.Er.24h PO 250 mg DAILY ALEXI Administration Docusate Sodium 100 mg 07/19/20 10:00 07/19/20 11:11 Docusate Sodium 100 Mg Capsule PO 100 mg DAILY ALEXI Administration Finasteride 5 mg 07/19/20 21:00 Finasteride 5 Mg Tablet PO BEDTIME ALEXI Metoprolol Tartrate 25 mg 07/19/20 11:20 07/19/20 13:16 Metoprolol Tartrate 25 Mg Tablet PO 25 mg BID ALEXI Administration Protocol Midodrine 2.5 mg 07/19/20 15:00 07/19/20 16:14 Midodrine Hcl 2.5 Mg Tablet PO 2.5 mg TID ALEXI Administration Ondansetron HCl 4 mg 07/18/20 17:29 Ondansetron Hcl 4 Mg/2 Ml Vial IVPUSH Q8H PRN Nausea and Vomiting Pharmacy Consult 1 each 07/18/20 10:59 Consult Rx Perform Med Rec MISCELLANE ONCE PRN Consult order Rivaroxaban 20 mg 07/20/20 09:00 Rivaroxaban 20 Mg Tablet PO DAILY [facility] Sodium Chloride 3 ml 07/19/20 00:00 07/19/20 16:14 0.9 % Sodium Chloride Flush 3 Ml Syringe IVFLUSH 3 ml QSHIFT [facility] Administration Trazodone HCl 25 mg 07/19/20 21:00 Trazodone Hcl 25 Mg Halftab PO BEDTIME [facility] Home Medications Medication Instructions Recorded Confirmed Last Taken Type aspirin 81 mg PO DAILY 07/18/20 07/18/20 07/18/20 History atorvastatin 20 mg PO DAILY@1700 07/18/20 07/18/20 07/17/20 History carbidopa-levodopa 1 tab PO TID 07/18/20 07/18/20 07/18/20 History divalproex 250 mg PO DAILY 07/18/20 07/18/20 07/18/20 History docusate sodium 100 mg PO DAILY 07/18/20 07/18/20 07/18/20 History escitalopram oxalate 5 mg PO DAILY 07/18/20 07/18/20 07/18/20 History finasteride 5 mg PO BEDTIME 07/18/20 07/18/20 07/17/20 History midodrine 5 mg PO TID 07/18/20 07/18/20 07/18/20 History multivitamin 1 tab PO DAILY 07/18/20 07/18/20 07/18/20 History trazodone 25 mg PO BEDTIME 07/18/20 07/18/20 07/17/20 History warfarin 2.5 mg PO TUTH@1700 07/18/20 07/18/20 07/14/20 History warfarin 5 mg PO SUMOWEFRSA 07/18/20 07/18/20 07/17/20 History Physical Exam Vital Signs: Vital Signs: Last Vital Signs Temp 97.5 F 07/19/20 15:21 Pulse 62 07/19/20 15:21 Resp 16 07/19/20 15:21 BP 122/74 07/19/20 16:14 Pulse Ox 97 07/19/20 15:21 Body Mass Index 25.0 Const: General: cooperative, comfortable, no acute distress, well developed, alert and awake Nutritional Appearance: well nourished [place] ation/consciousness: oriented to person, oriented to place and oriented to time Limitations: no limitations HENMT: Head: Yes normal to inspection, Yes normocephalic and Yes atraumatic Ears: hearing grossly normal bilaterally General nose exam: Normal external nose present Face and sinus: Yes normal facial exam Mouth: Normal oral and palatal mucosa present Eyes: General: appearance normal, both eyes and all related structures Visual Esparza: normal visual esparza by confrontation Alignment and Position: alignment normal Periorbital: periorbital findings normal Eyelids: Yes eyelids normal Conjunctivae: conjunctivae normal Sclerae: sclerae normal Corneas: corneas normal Pupils: Equal, round and reactive pupils present and Pupil accommodation reflex normal EOM: EOMs intact bilaterally Direct Ophthalmoscopy: normal light reflex Neck: Neck: Yes normal visual inspection, Yes full ROM and Yes no meningeal signs Thyroid: Thyroid normal Carotids: normal carotid upstroke and bounding pulses Chest: Chest palpation & inspection: normal inspection of the chest Resp: Effort & Inspection: normal respiratory effort Auscultation: clear to auscultation bilaterally Cardio: Rate: regular rate Rhythm: regular rhythm Heart sounds: S1 nor mal heart sound present and S2 normal heart sound present Peripheral pulses: Peripheral pulses 2+ throughout GI: Inspection: Yes normal to inspection Percussion: Yes normal to percussion Auscultation: normal bowel sounds Rectal Exam - Male: Yes deferred Back/Spine/Pelvis: Cervical Spine: normal cervical lordosis and cervical ROM normal Thoracic/Lumbar Spine: thoracic and lumbar spine normal to inspection Skin: General skin exam: no rashes or lesions noted Neuro: Other: Mild right leg weakness in hip flexion and hamstrings. General: oriented to person, oriented to place, oriented to time, gait normal, tone normal, moves all extremities, Normal light touch and pain sensation, no meningeal signs, CN's II-XI intact bilaterally, normal sensation to monofilament and deep tendon reflexes 2+ bilaterally Cranial nerves: Yes CN's II-XII intact bilaterally, Yes Equal, round and reactive pupils present, Yes Bilaterally intact EOM present, Yes Nystagmus not present, Yes Normal facial strength present, Yes Midline tongue present, Yes Normal gag reflex present, Yes Symmetric palate elevation present, Yes Normal hearing present and Yes Ability to bilaterally rotate head present Cognition (Neuro): normal cognition Sp eech: Other speech findings present (Neuro) Motor exam (neuro): Pronator motor function not present, no tremor noted, no asterixis, Motor fasciculations not present, Normal motor muscle tone present throughout and Motor abnormalities not present Sensory Exam: Bilaterally intact graphesthesia Deep tendon reflexes (DTR's): Right triceps reflex intensity grade: 2+, Left triceps reflex intensity grade: 2+, Rt Biceps (C5, C6): 2+, Left biceps reflex intensity grade: 2+, Right brachioradialis reflex intensity grade: 2+, Left brachioradialis reflex intensity grade: 2+, Right patellar reflex intensity grade: 2+, Left patellar reflex intensity grade: 2+, Right ankle reflex intensity grade: 2+ and Left ankle reflex intensity grade: 2+ Plantar Reflex Responses: downgoing: right, left and bilateral Coordination: [id number] test normal Pupils: Normal pupillary reactivity/response: bilateral Extrem: General: Yes normal to inspection, Yes normal exam except as noted and Yes no pedal edema Psych: Appearance: grossly normal Mental Status: mental status grossly normal Speech and movement: Normal speech and movement present and Clear speech present Affect: normal affect Attitude: cooperative Thought process: Normal thought process present Results Labs CBC & Chem 7: 07/19/20 05:43 07/19/20 05:43 Labs: Short CBC 07/19/20 Range/Units 05:43 WBC 7.4 (4.8-10.8) X10*3/uL Hgb 15.8 (14.0-18.0) g/dl Hct 46.3 (42-52) % Plt Count 211 (160-400) X10*3/uL BMP 07/19/20 05:43 Sodium 140 Potassium 4.1 Chloride 105 Carbon Dioxide 26 BUN 18 H Creatinine 0.81 Calcium 10.0 D Urine 07/18/20 Range/Units 22:11 Urine Color YELLOW Urine Appearance CLEAR Urine pH 6.0 (5.0-8.0) Ur Specific [place] 1.015 (1.005-1.025) Urine Protein NEG (NEG-TRACE) MG/DL Urine Glucose (UA) NEG (NEG) MG/DL Assessment and Plan (1) Cerebrovascular accident: Qualifiers: CVA mechanism: unspecified Qualified Code(s): I63.9 - Cerebral infarction, unspecified Problem details: Symptoms seem to have mostly resolved and he is close to baseline Status: Acute Physical therapy occupational therapy and speech therapy.Continue current medications including Coumadin (2) Paroxysmal atrial fibrillation: Status: Acute
[2020-07-19] MEDS: Warfarin Sodium 6 MG TABLET PO (18:18)
[2020-07-19] MEDS: traZODone HCL 25 MG HALFTAB PO (20:32)
[2020-07-19] MEDS: Finasteride 5 MG TABLET PO (20:32)
[2020-07-19] MEDS: Atorvastatin Calcium 80 MG TABLET PO (20:33)
[2020-07-20 04:00] VITALS: BP 125/67; PULSE 62; RESP 16; TEMP 36.2; O2SAT 96
[2020-07-20 06:17] LABS: Hematocrit 43.7 % (42-52); Hemoglobin 14.8 g/dl (14.0-18.0); Mean Corpuscular HGB Conc 33.9 g/dl (31.0-36.0); Mean Corpuscular Volume 91.6 fL (80-98); Mean Platelet Volume 11.2 fL (9.4-12.4); Platelet Count 214 X10*3/uL (160-400); Red Blood Count 4.77 X10*6/uL (4.60-5.80); Red Cell Distribution Width 13.3 % (11.0-16.0); White Blood Count 7.9 X10*3/uL (4.8-10.8)
[2020-07-20 06:43] LABS: Anion Gap 13 (12-20); Blood Urea Nitrogen 20 mg/dL (9-16); Calcium 9.9 mg/dL (8.4-10.2); Carbon Dioxide 28 mmol/L (22-29); Chloride 104 mmol/L (96-108); Creatinine Clr Calc Pharmacy 66.7; Estimated Glomerular Filt Rate > 60; Glucose Random 100 mg/dL (60-115); Potassium 4.9 mmol/L (3.3-5.1); Sodium 140 mmol/L (135-145)
[2020-07-20 07:23] VITALS: BP 124/75; PULSE 75; RESP 18; TEMP 36.1; O2SAT 93
[2020-07-20] MEDS: Divalproex Sodium ER 250 MG TAB.ER.24H PO (07:35)
[2020-07-20] MEDS: Docusate Sodium 100 MG CAPSULE PO (07:35)
[2020-07-20] MEDS: Midodrine HCl 2.5 MG TABLET PO (07:35)
[2020-07-20] MEDS: Aspirin Enteric Coated 81 MG TABLET.DR PO (07:35)
[2020-07-20] MEDS: Metoprolol Tartrate 25 MG TABLET PO (07:35)
[2020-07-20] MEDS: 0.9 % Sodium Chloride Flush 3 ML SYRINGE IVFLUSH (07:36)
[2020-07-20] MEDS: Carbidopa/Levodopa 25/250 TABLET 1 TAB PO (07:36)
[2020-07-20 09:02] LABS: INTERNATIONAL NORM RATIO 1.7 (0.9-1.1); Prothrombin Time 20.8 SEC (10.8-13.0)
--- NOTE | 2020-07-20 10:20 | P.PNCA_ITS ---
Subjective Subjective Date of Service: 07/20/20 Principal diagnosis: Nonsustained ventricular tachycardia, cardiomyopathy. Interval history: Patient present with recurrent stroke like symptoms. Noted incidentally to have nonsustained ventricular tachycardia. Subsequent echocardiogram shows reduced LV systolic function. Will require further workup as outpatient from ischemic perspective. Since last evening has no further episodes of nonsustained VT. He has isolated PVCs. Heart rate in the 50s on the monitor. Tolerating metoprolol therapy without any evidence of hypotension. He is feeling better. INR today is subtherapeutic Review of Systems Constitutional: Reports no additional constitutional complaints Cardiovascular: Reports no additional cardiovascular complaints Respiratory: Reports no additional respiratory complaints Gastrointestinal: Reports no additional gastrointestinal complaints Genitourinary: Reports no additional male genitourinary complaints Musculoskeletal: Reports no additional musculoskeletal complaints Reports system reviewed and no additional complaints, except as documented Physical Exam Vital Signs: Last Vital Signs Temp 97.0 F 07/20/20 07:23 Pulse 75 07/20/20 07:23 Resp 18 07/20/20 07:23 BP 124/75 07/20/20 07:23 Pulse Ox 93 07/20/20 07:23 Body Mass Index 25.0 Const General: cooperative, comfortable and no acute distress Nutritional Appearance: average body habitus Orientation/consciousness: patient oriented x3 Neck Neck: Yes trachea midline, Yes supple and Yes no JVD Resp Effort & Inspection: normal respiratory effort Auscultation: clear to auscultation bilaterally Cardio Jugular venous distension: no JVD Rate: regular rate Rhythm: abnormal rhythm with ectopic beats Heart sounds: S2 normal heart sound present and Other heart sounds present (Faint but crisp opening and closing click of [place] mitral valve apprec) GI Auscultation: normal bowel sounds Skin General skin exam: no rashes or lesions noted Neuro General: patient oriented x3 Extrem General: Yes no clubbing, cyanosis or edema Psych Appearance: grossly normal Results Labs and Meds Result diagrams: 07/20/20 05:49 07/20/20 05:49 Lab results: Laboratory Results - last 24 hr 07/20/20 07/20/20 07/20/20 05:49 05:49 08:36 WBC 7.9 RBC 4.77 Hgb 14.8 Hct 43.7 MCV 91.6 MCH 31.0 MCHC 33.9 RDW 13.3 Plt Count 214 MPV 11.2 Absolute Nucleated RBC 0.000 Nucleated RBC % (auto) 0.0 PT 20.8 H INR 1.7 H Sodium 140 Potassium 4.9 Chloride 104 Carbon Dioxide 28 Anion Gap 13 BUN 20 H Creatinine 0.84 Estim Creat Clear Calc 66.7 Estimated GFR > 60 Random Glucose 100 Calcium 9.9 INR today 1.7 Progress Note: A&P Assessment and plan (1) Nonsustained ventricular tachycardia: Status: Acute Assessment and Plan: Nonsustained ventricular tachycardia without any symptoms. Patient is noted to have systolic dysfunction which increases risk. Improved with metoprolol therapy. Continue the same. Avoidance of stimulants. Continue to maintain electrolytes with potassium above 4 and magnesium above 2. Will require ischemic workup as outpatient. Will obtain Holter monitor as outpatient. (2) Cardiomyopathy: Status: Acute Assessment and Plan: Cardiomyopathy unknown cause. Will obtain ischemic workup as an outpatient. Patient is agreeable. For now neurohormonal modulation with metoprolol. No signs of congestive heart failure at this point in time. Will hold off on adding renin angiotensin antagonist due to probable history of orthostatic hypotension given that he is on midodrine. (3) Cerebrovascular accident: Problem details: Symptoms seem to have mostly resolved and he is close to baseline Status: Acute Assessment and Plan: Present with neurologic symptoms could be due to subtherapeutic INR. Has mechanical mitral valve in place. Goal INR between 2.5 and 3.5. Continue concomitant aspirin therapy. Currently today INR is subtherapeutic. Start subcutaneous Lovenox as bridging and daily INR check if he is discharged at [facility] facility. Discussed with hospitalist team. Will set up for outpatient follow-up. (4) H/O mitral valve replacement: Status: Acute Fall Risk Details Current Medications: Current Medications Generic Name Dose Route Start Last Admin Trade Name Freq PRN Reason Stop Dose Admin Acetaminophen 650 mg 07/18/20 17:29 Acetaminophen Supp 650 Mg Supp.Rect DE Q6H PRN Pain, Mild (Pain Scale 1-3) Aspirin 81 mg 07/19/20 09:50 07/20/20 07:35 Aspirin Enteric Coated 81 Mg Tablet. PO 81 mg DAILY ALEXI Administration Atorvastatin Calcium 80 mg 07/19/20 21:00 07/19/20 20:33 Atorvastatin Calcium 80 Mg Tablet PO 80 mg BEDTIME ALEXI Administration Carbidopa/Levodopa 1 tab 07/19/20 10:00 07/20/20 07:36 Carbidopa/Levodopa 25/250 Tablet PO 1 tab TID ALEXI Administration Divalproex Sodium 250 mg 07/19/20 10:00 07/20/20 07:35 Divalproex Sodium Er 250 Mg Tab.Er.24h PO 250 mg DAILY ALEXI Administration Docusate Sodium 100 mg 07/19/20 10:00 07/20/20 07:35 Docusate Sodium 100 Mg Capsule PO 100 mg DAILY ALEXI Administration Enoxaparin Sodium 70 mg 07/20/20 10:15 Enoxaparin Sodium 80 Mg/0.8 Ml Syringe SUBCUT Q12H ALEXI Finasteride 5 mg 07/19/20 21:00 07/19/20 20:32 Finasteride 5 Mg Tablet PO 5 mg BEDTIME ALEXI Administration Metoprolol Tartrate 25 mg 07/19/20 11:20 07/20/20 07:35 Metoprolol Tartrate 25 Mg Tablet PO 25 mg BID ALEXI Administration Protocol Midodrine 2.5 mg 07/19/20 15:00 07/20/20 07:35 Midodrine Hcl 2.5 Mg Tablet PO 2.5 mg TID ALEXI Administration Ondansetron HCl 4 mg 07/18/20 17:29 Ondansetron Hcl 4 Mg/2 Ml Vial IVPUSH Q8H PRN Nausea and Vomiting Pharmacy Consult 1 each 07/18/20 10:59 Consult Rx Perform Med Rec MISCELLANE ONCE PRN Consult order Sodium Chloride 3 ml 07/19/20 00:00 07/20/20 07:36 0.9 % Sodium Chloride Flush 3 Ml Syringe IVFLUSH 3 ml QSHIFT [facility] Administration Trazodone HCl 25 mg 07/19/20 21:00 07/19/20 20:32 Trazodone Hcl 25 Mg Halftab PO 25 mg BEDTIME ALEXI Administration Warfarin Sodium 6 mg 07/19/20 18:00 07/19/20 18:18 Warfarin Sodium 6 Mg Tablet PO 6 mg DAILY@1800 ALEXI Administration Time Spent With Patient Time: Total time spent is greater than 50% in coordination of care (as documented) at patient's floor/unit and/or counseling patient: Time with patient: 25 - 35 minutes
--- NOTE | 2020-07-20 11:01 | PM.DS ---
DS: Providers Provider Date of Service: 07/20/20 Date of admission: 07/18/20 16:46 Primary care physician: Maurice Marcelino MD Consults: 07/18/20 17:29 Consult to Neurology Routine Consulting Provider: Bhupendra Campbell Reason for consultation: acute stroke, rt sided weakness 07/18/20 23:19 Consult to Cardiology Routine Consulting Provider: Tino Babb Reason for consultation: NSVT DS: Diagnosis Discharge Diagnosis (1) Nonsustained ventricular tachycardia: Status: Acute (2) Cardiomyopathy: Status: Acute (3) Cerebrovascular accident: Status: Acute Problem details: Symptoms seem to have mostly resolved and he is close to baseline (4) H/O mitral valve replacement: Status: Acute (5) Difficulty swallowing: Status: Acute (6) Slurred speech: Status: Acute DS: Medications Discharge Medications Home Medications: Home Medications Medication Instructions Recorded Confirmed aspirin 81 mg PO DAILY 07/18/20 07/18/20 carbidopa-levodopa 1 tab PO TID 07/18/20 07/18/20 divalproex 250 mg PO DAILY 07/18/20 07/18/20 docusate sodium 100 mg PO DAILY 07/18/20 07/18/20 escitalopram oxalate 5 mg PO DAILY 07/18/20 07/18/20 finasteride 5 mg PO BEDTIME 07/18/20 07/18/20 midodrine 5 mg PO TID 07/18/20 07/18/20 multivitamin 1 tab PO DAILY 07/18/20 07/18/20 trazodone 25 mg PO BEDTIME 07/18/20 07/18/20 Previous Rx's Medication Instructions Recorded atorvastatin 80 mg PO BEDTIME 30 Days #30 tab 07/20/20 enoxaparin 70 mg SUBCUT Q12H 7 Days #9.8 ml 07/20/20 metoprolol tartrate 25 mg PO BID 30 Days #60 tab 07/20/20 warfarin [Jantoven] 6 mg PO DAILY@1800 30 Days tab 07/20/20 DS: Summary Hospital Course Hospital Course: Admission note HPI An 80 years old male with P MH CVA, AFib on warfarin, diastolic CHF, Parkinson disease among others who presented to the hospital from [facility] with worsening right-sided weakness and speech changes. In the emergency a CT scan of the head showed old left MCA to [place] possible infarct. He is not a candidate for tPA given the fact he is on warfarin. Admitted to the medical floor for treatment and further evaluation. Hospital course Presented with slurred speech, difficulty swallowing and right-sided weakness. Brain MRI showed Small acute to subacute infarct within the left periventricular white matter extending into the posterior left insula. Start p.o. aspirin and high-dose atorvastatin of 80 mg. Evaluated by speech therapy who recommended starting pureed diet then advanced diet to GROUND and NECTAR THICK liquids with pills crushed in puree as his speech, swallowing and right-sided weakness improved significantly. He was evaluated by Neurology team who recommended medical management only. Telemetry showed an evidence of nonsustained VT with no reported symptoms. Evaluated by Cardiology who recommended starting metoprolol. Echo was done showing reduced systolic function between 30-35% with moderate LVH and evidence of a mitral metallic valve. Patient evaluated by Physical and Occupational therapy teams who recommended to continue physical therapy at time of discharge. Increase warfarin to 6 mg daily To bridge with Lovenox until we reach an INR level above 2.5 then Lovenox can be stopped. Increase atorvastatin to 80 mg daily Start metoprolol for heart rate control GROUND and NECTAR THICK liquids with pills crushed in puree Time Spent with Patient Time attestation: Total time spent providing and/or coordinating discharge services: Discharge coordination time: Greater than 30 minutes Quality: Stroke Pt Provided Written Stroke Discharge Instructions: Patient given written information Physical Exam Vital Signs: Vital Signs: Last Vital Signs Temp 97.0 F 07/20/20 07:23 Pulse 75 07/20/20 07:23 Resp 18 07/20/20 07:23 BP 124/75 07/20/20 07:23 Pulse Ox 93 07/20/20 07:23 Body Mass Index 25.0 Const: Other: Constitutional : Alert, oriented, not in distress Neck : Normal inspection, Supple Cardiovascular : RRR, S1 S2, no lower extremity edema Respiratory : Good bilateral air entry, no crackles, wheezes or rhonchi Gastrointestinal: soft, lax, Normal bowel sounds, Non tender Skin : Warm/Dry, No rash Neurological : Alert & oriented x2, slurred speech notable, right upper extremity to 3+/4 bowel and right lower extremity 3/4 power with normal sensation. Cranial nerve within normal from 2-12. DS: Data Data Completed and Pending Labs on day of discharge: Laboratory Results - last 24 hr 07/20/20 07/20/20 07/20/20 05:49 05:49 08:36 WBC 7.9 RBC 4.77 Hgb 14.8 Hct 43.7 MCV 91.6 MCH 31.0 MCHC 33.9 RDW 13.3 Plt Count 214 MPV 11.2 Absolute Nucleated RBC 0.000 Nucleated RBC % (auto) 0.0 PT 20.8 H INR 1.7 H Sodium 140 Potassium 4.9 Chloride 104 Carbon Dioxide 28 Anion Gap 13 BUN 20 H Creatinine 0.84 Estim Creat Clear Calc 66.7 Estimated GFR > 60 Random Glucose 100 Calcium 9.9 Discharge Plan Discharge Patient Disposition: Xfer [facility] Discharge Diagnosis: Acute stroke, difficulties swallowing Referrals: Maurice Marcelino MD [Primary Care Provider] - 1 Week Discharge Medications: New atorvastatin 80 mg Tablet 80 mg PO BEDTIME 30 Days Qty: 30 RF: 0 warfarin [Jantoven] 6 mg Tablet 6 mg PO DAILY@1800 30 Days RF: 0 enoxaparin 80 mg/0.8 mL Syringe 70 mg subcut Q12H 7 Days Qty: 9.8 RF: 0 metoprolol tartrate 25 mg Tablet 25 mg PO BID 30 Days Qty: 60 RF: 0 Continued multivitamin Tablet 1 tab PO DAILY RF: 0 trazodone 50 mg Tablet 25 mg PO BEDTIME RF: 0 carbidopa-levodopa 25-250 mg Tablet 1 tab PO TID RF: 0 midodrine 5 mg Tablet 5 mg PO TID RF: 0 aspirin 81 mg Tablet,Delayed Release (Dr/Ec) 81 mg PO DAILY RF: 0 docusate sodium 100 mg Capsule 100 mg PO DAILY RF: 0 finasteride 5 mg Tablet 5 mg PO BEDTIME RF: 0 divalproex 250 mg Tablet Extended Release 24 Hr 250 mg PO DAILY RF: 0 escitalopram oxalate 5 mg Tablet 5 mg PO DAILY RF: 0 Discontinued atorvastatin 20 mg Tablet 20 mg PO DAILY@1700 RF: 0 warfarin 2.5 mg Tablet 2.5 mg PO TUTH@1700 RF: 0 warfarin 5 mg Tablet 5 mg PO SUMOWEFRSA RF: 0 Discharge Orders: Discharge Order (Routine); Ordered 07/20/20 Ordered By: Francois Garza Diet: other Activity on Discharge: As tolerated Stand Alone Forms: Patient Portal Discharge page Care Plan Goals: Read below Health Concerns: Read below Plan of Treatment: You were admitted to the hospital for evaluation for right-sided weakness and in speech and swallowing. Images were consistent with acute stroke. You were treated with baby aspirin gallstone medication significant improvement in your strength, speech and swallowing ability based on speech therapy evaluation and neurology DrDonis evaluation. We will target the higher INR goal for you of 2.5-3.5 for history of metallic valve placement. Assessment: Increase warfarin to 6 mg daily To bridge with Lovenox until we reach an INR level above 2.5 then Lovenox can be stopped. Increase atorvastatin to 80 mg daily Start metoprolol for heart rate control
[2020-07-20] MEDS: Enoxaparin Sodium 80 MG/0.8 ML SYRINGE 70 MG SUBCUT (11:35)
== END 2020-07-20 14:18 | disposition skilled nursing facility (03) | DRG 65 ==
LOC: HO.ED 15:56 → HO.S3 17:25
PROVIDERS: Admitting Provider Student in an Organized Health Care Education/Training Program; Emergency Provider Emergency Medicine; PCP Internal Medicine Medical Oncology; Visit Provider Student in an Organized Health Care Education/Training Program
DX: I63.9 Cerebral infarction, unspecified (principal); I47.1 Supraventricular tachycardia; I42.9 Cardiomyopathy, unspecified; G20 Parkinson's disease; Z95.2 Presence of prosthetic heart valve; F02.80 Dementia in other diseases classified elsewhere, unspecified severity, without behavioral disturbance, psychotic disturbance, mood disturbance, and anxiety; R13.10 Dysphagia, unspecified; I48.0 Paroxysmal atrial fibrillation; R29.710 NIHSS score 10; Z20.822 Contact with and (suspected) exposure to COVID-19; Z88.6 Allergy status to analgesic agent; Z79.82 Long term (current) use of aspirin; Z79.01 Long term (current) use of anticoagulants; Z79.899 Other long term (current) drug therapy; Z66 Do not resuscitate
CPT/HCPCS: 36415; 70450; 70496; 70498; 70551; 71045; 80048; 80061; 80076; 81003; 82947; 83690; 83735; 84484; 85025; 85027; 85610; 85730; 87635; 92523; 92610; 93005; 93306; 97163; 97166; 97535; 99285; J1650; Q9967

== ENCOUNTER 2020-07-21 07:10 | Outpatient (REF) | payer MEDICARE, SELFPAY ==
[2020-07-21 09:04] LABS: INTERNATIONAL NORM RATIO 2.2 (0.9-1.1); Prothrombin Time 26.4 SEC (10.8-13.0)
== END 2020-07-21 07:11 | disposition home or self-care (01) ==
LOC: HO.HSH3E 07:10
PROVIDERS: Visit Provider Internal Medicine Medical Oncology
DX: Z79.899 Other long term (current) drug therapy (principal)
CPT/HCPCS: 36415; 85610

== ENCOUNTER 2020-07-27 07:25 | Outpatient (REF) | payer MEDICARE, SELFPAY | END 2020-07-27 07:26 | disposition home or self-care (01) | LOC: HO.HSH3E 07:25 | PROVIDERS: Visit Provider Internal Medicine Medical Oncology | DX: Z13.89 Encounter for screening for other disorder (principal) ==

== ENCOUNTER 2020-07-28 | Outpatient (REF) | payer MEDICARE, SELFPAY ==
[2020-07-28 08:53] LABS: Prothrombin Time 57.2 SEC (10.8-13.0)
[2020-07-28 08:54] LABS: INTERNATIONAL NORM RATIO 4.7 (0.9-1.1)
== END 2020-07-28 00:01 | disposition home or self-care (01) ==
LOC: HO.HSH3W
PROVIDERS: Visit Provider Internal Medicine Medical Oncology
DX: Z13.89 Encounter for screening for other disorder (principal)
CPT/HCPCS: 36415; 85610

== ENCOUNTER → 2020-07-29 07:17 | Outpatient (REF) | payer MEDICARE, SELFPAY ==
--- NOTE | ~2020-07-29 | NM_ITS ---
Myocardial perfusion study Indication: Ventricular tachycardia to evaluate for myocardial ischemia Technique: The patient was brought in for a Lexiscan perfusion study on 07/29/2020. Patient performed low-level exercise and was injected 0.4 mg of Lexiscan intravenously. Within a minute of injection, 25 mCi of sestamibi was given intravenously. Images were obtained using the SPECT gamma camera interlaced with the gating device. Images were obtained in supine position. Resting perfusion study was performed on 08/01/2020. Patient was administered 25 mCi of sestamibi intravenously at rest. Images were then obtained in supine position. Images obtained with and without CT attenuation. Total DLP 81 mGy-cm Images were processed with the software and compared side to side in short axis, horizontal long axis and vertical long axis views. Findings: The stress perfusion study showed non attenuated images show moderately reduced uptake in the inferolateral and mildly to moderately reduced uptake in the basal lateral as well as mildly reduced uptake in the inferior wall of the LV myocardium. Remainder of the LV myocardium is normally perfused. Attenuation corrected images show moderately reduced uptake in the apex and mildly reduced uptake in the distal inferolateral wall of the LV myocardium.. The gated study shows normal LV systolic function with calculated LVEF of 63%. LV cavity is mildly dilated size. The gated study shows normal systolic wall thickening and contraction of segments. Resting study shows nontender images show mildly reduced uptake in the inferior wall as well as mildly reduced uptake in the inferolateral wall of the LV myocardium. There is persistent mildly to moderately reduced uptake in the basal lateral wall of the LV myocardium. Attenuation corrected images show moderately reduced uptake in the apex improved uptake in the distal inferolateral wall of the LV myocardium.. Gating at rest reveals normal systolic wall motion with visually estimated ejection fraction at greater than 60 %. The findings are consistent with equivocal finding for small area of mild intensity reversible defect of the distal inferolateral wall suggestive of ischemia.. NM/NM jerad perf SPECT rest & str Impression: 1. Myocardial perfusion imaging study shows equivocal distal inferolateral small territory of mild ischemia 2. Gated LVEF is 63% 3. Transient ischemic dilatation not present EKG is nondiagnostic for ischemia
--- NOTE | 2020-07-29 07:32 | CA_ITS ---
Acquisition Time: 2020-07-29 08:08:12 Total Exercise Time: 00:02:00 Test Indications: Abnormal ECG Medications: ATORVASTATIN WARFARIN METOPROLOL CARBIDOPA/LEVADOPA ASA MIDODRINE ESCITALOPRAM TRAZADONE Protocol: LEXISCAN Max HR: 088 BPM 63% of Pred: 139 BPM Max BP: 108/078 mmHG Max Work Load: 1.0 METS Pharmacological stress test using Lexiscan while sitting. Pt. tolerated well, denies any anginal sx. EKG with frequent PVC's at baseline. Non-diagnostic for ischemia. Nuclear images to follow. Normotensive response to test. Test reviewed with Dr. Lawrence. Referred By: Tino Babb Overread By: Pushpa Dougherty NP
== END ==
LOC: HO.CARD 07:17
PROVIDERS: PCP Internal Medicine Medical Oncology; Visit Provider Internal Medicine Cardiovascular Disease
DX: I47.2 Ventricular tachycardia (principal); I42.9 Cardiomyopathy, unspecified; I48.0 Paroxysmal atrial fibrillation; I63.9 Cerebral infarction, unspecified; Z95.2 Presence of prosthetic heart valve
CPT/HCPCS: 78452; 93016; 93017; 93018; A9500; J0280; J2785

== ENCOUNTER 2020-08-01 15:50 | Outpatient (REF) | payer MEDICARE, SELFPAY ==
[2020-08-01 16:52] LABS: INTERNATIONAL NORM RATIO 1.4 (0.9-1.1)
== END 2020-08-01 15:51 | disposition home or self-care (01) ==
LOC: HO.LNP 15:50
PROVIDERS: Visit Provider Internal Medicine Medical Oncology
DX: I48.91 Unspecified atrial fibrillation (principal); Z86.73 Personal history of transient ischemic attack (TIA), and cerebral infarction without residual deficits
CPT/HCPCS: 85610

== ENCOUNTER → 2020-08-04 13:47 | Outpatient (REF) | payer MEDICARE, SELFPAY ==
--- NOTE | 2020-08-04 13:51 | ECG_ITS ---
Hook-up date: 2020-08-04 14:04:00 Duration: 47:59:00 Test Indications: i47.2, i63.9 Medications: 61811 QRS complexes 7207 Ventricular ectopics which represent 7 % of total QRS comp. 22 Supraventricular ectopics which represent <1 % of total QRS comp. * Paced QRS complexs which represent % of total QRS comp. VENTRICULAR ECTOPY 6285 Isolated 399 Bigeminal Cycles 411 Couplets 30 Runs 100 Beats in Runs 7 Beats LONGEST at 141 BPM at 23:14:03 2020-08-04 3 Beats FASTEST at 148 BPM at 20:20:44 2020-08-04 SUPRAVENTRICULAR ECTOPY 22 Isolated 0 Couplets 0 Runs 0 Beats in Runs * Beats LONGEST at * BPM at :: -- * Beats FASTEST at * BPM at :: -- HEART RATES 61 MIN at 12:09:32 2020-08-05 67 AVG 100 MAX at 09:38:16 2020-08-05 LONGEST RR 1.0640 secs at 13:22:30 2020-08-05 S-T LEVELS Channel 1 - 128 mm at 14:04:00 2020-08-04 - 128 mm at 14:04:00 2020-08-04 Channel 2 - 128 mm at 14:04:00 2020-08-04 - 128 mm at 14:04:00 2020-08-04 Channel 3 - 128 mm at 03:32:31 -- - 128 mm at 03:32:31 Underlying rhythm is sinus; Average ventricular rate 67/min; range 61-100/min; Frequent Premature ventricular complexes -8% of total beats; mostly isolated beats, some couplets, bigeminy, several short runs; longest 7 beats at 141/min; mostly unifocal, but some beats appear to have different morphology; No sustained arrhythmias; Patient did not report any symptoms in the diary Referred By: Tino Babb Overread By: PIETER DOCKERY
== END ==
LOC: HO.CARD 13:47
PROVIDERS: PCP Internal Medicine Medical Oncology; Visit Provider Internal Medicine Cardiovascular Disease
DX: I47.2 Ventricular tachycardia (principal); I63.9 Cerebral infarction, unspecified; I48.0 Paroxysmal atrial fibrillation; I42.9 Cardiomyopathy, unspecified; Z95.2 Presence of prosthetic heart valve
CPT/HCPCS: 93225; 93226

== ENCOUNTER 2020-08-09 07:18 | Outpatient (REF) | payer MEDICARE, SELFPAY ==
[2020-08-09 08:50] LABS: INTERNATIONAL NORM RATIO 1.9 (0.9-1.1); Prothrombin Time 22.3 SEC (10.8-13.0)
== END 2020-08-09 07:19 | disposition home or self-care (01) ==
LOC: HO.HSH3E 07:18
PROVIDERS: Visit Provider Internal Medicine Medical Oncology
DX: I48.91 Unspecified atrial fibrillation (principal); Z86.73 Personal history of transient ischemic attack (TIA), and cerebral infarction without residual deficits
CPT/HCPCS: 36415; 85610

== ENCOUNTER 2020-08-10 13:30 | Outpatient (REF) | payer MEDICARE, SELFPAY ==
[2020-08-10 13:49] LABS: Appearance Urine HAZY; Color Urine YELLOW; Glucose Urine UA NEG (NEG); Leukocyte Esterase Urine NEG (NEG); Nitrite Urine NEG (NEG); PH 5.5 (5.0-8.0); Specific Gravity - Urine >= 1.030 (1.005-1.025); Urine Blood NEG (NEG); Urine Ketones 5 MG/DL (NEG); Urine Protein NEG (NEG-TRACE)
[2020-08-10 14:01] LABS: Mucus Urine 2+ /LPF; RBC Urine 0 /HPF (0); WBC Urine 0 /HPF (0-4)
== END 2020-08-10 13:31 | disposition home or self-care (01) ==
LOC: HO.HSH 13:30
PROVIDERS: Visit Provider Internal Medicine Medical Oncology
DX: I63.9 Cerebral infarction, unspecified (principal)
CPT/HCPCS: 81001

== ENCOUNTER 2020-08-11 06:56 | Outpatient (REF) | payer MEDICARE, SELFPAY ==
[2020-08-11 08:10] LABS: MANUAL DIFF FLAG NO
[2020-08-11 08:15] LABS: Basophils Percent Auto 0.4 % (0-2); Eosinophils Absolute Auto 0.3 X10*3/uL (0.0-0.4); Eosinophils Percent Auto 3.6 % (0-4); Hemoglobin 14.4 g/dl (14.0-18.0); Imm Gran Abs Auto 0.03 X10*3/uL (0.00-0.03); Imm Gran Pct Auto 0.4 % (0.0-0.4); Lymphocytes Absolute Auto 2.4 X10*3/uL (1.2-4.9); Lymphocytes Percent Auto 34.7 % (20-40); Mean Corpuscular HGB Conc 34.3 g/dl (31.0-36.0); Mean Corpuscular Hemoglobin 31.4 pg (27.0-33.0); Mean Corpuscular Volume 91.5 fL (80-98); Mean Platelet Volume 11.6 fL (9.4-12.4); Monocytes Absolute Auto 0.6 X10*3/uL (0.1-1.2); Monocytes Percent Auto 9.2 % (2-11); Neutrophils Absolute Auto 3.6 X10*3/uL (2.0-8.3); Neutrophils Percent Auto 51.7 % (45-73); Platelet Count 202 X10*3/uL (160-400); Red Blood Count 4.59 X10*6/uL (4.60-5.80); Red Cell Distribution Width 13.4 % (11.0-16.0)
[2020-08-11 08:43] LABS: Alanine Aminotransferase 43 U/L (0-40); Albumin Level 3.9 g/dL (3.5-5.0); Alkaline Phosphatase 59 U/L (39-117); Anion Gap 11 (12-20); Aspartate Amino Transferase 21 U/L (5-37); Bilirubin Total 0.6 mg/dL (0.0-1.0); Blood Urea Nitrogen 31 mg/dL (9-16); Calcium 9.4 mg/dL (8.4-10.2); Carbon Dioxide 29 mmol/L (22-29); Chloride 105 mmol/L (96-108); Cholesterol 164 mg/dL; Estimated Glomerular Filt Rate > 60; Glucose Random 95 mg/dL (60-115); HDL Cholesterol 47 mg/dL; LDL Cholesterol Calculated 104 mg/dl; Potassium 5.1 mmol/L (3.3-5.1); Sodium 140 mmol/L (135-145); Total Protein 6.3 g/dL (6.5-8.0); Triglycerides 67 mg/dL
[2020-08-11 08:56] LABS: Erythrocyte Sedimentation Rate 4 MM/HR (0-15)
[2020-08-11 09:02] LABS: Vitamin D 25-OH Total 42.2 ng/mL (>30)
[2020-08-11 09:05] LABS: Uric Acid 4.8 mg/dL (3.4-7.0)
[2020-08-11 09:15] LABS: Vitamin B12 814 pg/mL (200-900)
== END 2020-08-11 06:57 | disposition home or self-care (01) ==
LOC: HO.HSH3E 06:56
PROVIDERS: Visit Provider Internal Medicine Medical Oncology
DX: E78.5 Hyperlipidemia, unspecified (principal); Z86.73 Personal history of transient ischemic attack (TIA), and cerebral infarction without residual deficits
CPT/HCPCS: 36415; 80053; 80061; 82306; 82607; 84550; 85025; 85652

== ENCOUNTER → 2020-08-15 14:56 | Outpatient (BNVA) | payer MEDICARE, SELFPAY | PROVIDERS: PCP Internal Medicine Medical Oncology; Visit Provider Internal Medicine Cardiovascular Disease | DX: I47.2 Ventricular tachycardia (principal); I48.0 Paroxysmal atrial fibrillation; I42.9 Cardiomyopathy, unspecified; Z95.2 Presence of prosthetic heart valve | CPT/HCPCS: Q3014 ==

== ENCOUNTER 2020-08-16 06:56 | Outpatient (REF) | payer MEDICARE, SELFPAY ==
[2020-08-16 08:51] LABS: INTERNATIONAL NORM RATIO 1.9 (0.9-1.1); Prothrombin Time 22.4 SEC (10.8-13.0)
== END 2020-08-16 06:57 | disposition home or self-care (01) ==
LOC: HO.HSH3E 06:56
PROVIDERS: Visit Provider Internal Medicine Medical Oncology
DX: I48.91 Unspecified atrial fibrillation (principal)
CPT/HCPCS: 36415; 85610

== ENCOUNTER 2020-08-18 06:51 | Outpatient (REF) | payer MEDICARE, SELFPAY ==
[2020-08-18 08:32] LABS: INTERNATIONAL NORM RATIO 2.4 (0.9-1.1); Prothrombin Time 28.9 SEC (10.8-13.0)
== END 2020-08-18 06:52 | disposition home or self-care (01) ==
LOC: HO.HSH3E 06:51
PROVIDERS: Visit Provider Internal Medicine Medical Oncology
DX: I63.9 Cerebral infarction, unspecified (principal); Z95.2 Presence of prosthetic heart valve
CPT/HCPCS: 36415; 85610

== ENCOUNTER 2020-08-20 06:40 | Outpatient (REF) | payer MEDICARE, SELFPAY ==
[2020-08-20 07:09] LABS: INTERNATIONAL NORM RATIO 3.8 (0.9-1.1); Prothrombin Time 45.6 SEC (10.8-13.0)
== END 2020-08-20 06:41 | disposition home or self-care (01) ==
LOC: HO.HSH3E 06:40
PROVIDERS: Visit Provider Internal Medicine Medical Oncology
DX: I48.0 Paroxysmal atrial fibrillation (principal); Z95.2 Presence of prosthetic heart valve
CPT/HCPCS: 36415; 85610

== ENCOUNTER 2020-08-23 06:34 | Outpatient (REF) | payer MEDICARE, SELFPAY ==
[2020-08-23 08:04] LABS: INTERNATIONAL NORM RATIO 1.9 (0.9-1.1); Prothrombin Time 22.1 SEC (10.8-13.0)
== END 2020-08-23 06:35 | disposition home or self-care (01) ==
LOC: HO.HSH3E 06:34
PROVIDERS: Visit Provider Internal Medicine Medical Oncology
DX: Z13.89 Encounter for screening for other disorder (principal)
CPT/HCPCS: 36415; 85610

== ENCOUNTER 2020-08-26 06:57 | Outpatient (REF) | payer MEDICARE, SELFPAY ==
[2020-08-26 09:20] LABS: INTERNATIONAL NORM RATIO 2.9 (0.9-1.1); Prothrombin Time 34.7 SEC (10.8-13.0)
== END 2020-08-26 06:58 | disposition home or self-care (01) ==
LOC: HO.HSH3E 06:57
PROVIDERS: Visit Provider Internal Medicine Medical Oncology
DX: I48.91 Unspecified atrial fibrillation (principal); Z95.2 Presence of prosthetic heart valve
CPT/HCPCS: 36415; 85610

== ENCOUNTER 2020-09-09 06:40 | Outpatient (REF) | payer MEDICARE, SELFPAY ==
[2020-09-09 07:34] LABS: INTERNATIONAL NORM RATIO 4.6 (0.9-1.1)
== END 2020-09-09 06:41 | disposition home or self-care (01) ==
LOC: HO.HSH3E 06:40
PROVIDERS: Visit Provider Internal Medicine Medical Oncology
DX: I48.91 Unspecified atrial fibrillation (principal); Z95.2 Presence of prosthetic heart valve
CPT/HCPCS: 36415; 85610

== ENCOUNTER 2020-09-12 14:57 | Outpatient (REF) | payer MEDICARE, SELFPAY ==
[2020-09-12 15:25] LABS: INTERNATIONAL NORM RATIO 1.4 (0.9-1.1); Prothrombin Time 16.6 SEC (10.8-13.0)
== END 2020-09-12 14:58 | disposition home or self-care (01) ==
LOC: HO.HSH3E 14:57
PROVIDERS: Visit Provider Internal Medicine Medical Oncology
DX: I48.91 Unspecified atrial fibrillation (principal)
CPT/HCPCS: 36415; 85610

== ENCOUNTER 2020-09-14 13:38 | Inpatient (IN) | payer OTHER, MEDICARE, SELFPAY ==
[2020-09-14] VITALS (8 sets, daily range): BP systolic 110–130; BP diastolic 62–93; PULSE 63–79; RESP 12–19; TEMP 36.6–37.1; O2SAT 94–98; BMI 25.5; BMI 24.8; BMI 25.2
--- NOTE | ~2020-09-14 | CT_ITS ---
EXAMINATION: CT HEAD WITHOUT CONTRAST CLINICAL INFORMATION: Worsening right lower extremity weakness. COMPARISON: None TECHNIQUE: Contiguous axial imaging was performed from the skull base to vertex without intravenous administration of contrast. This CT examination was performed using dose optimization techniques as appropriate, variously including the following: *Automated exposure control *Adjustment of mA and/or kV according to patient size (this includes techniques or standardized protocols for targeted exams where dose is matched to indication/reason for exam; i.e. extremities or head) *Use of iterative reconstruction technique DLP: 747 mGy-cm FINDINGS: There is no evidence of acute intracranial hemorrhage or territorial infarction. No abnormal mass effect or midline shift is seen. Larry to white matter differentiation is well preserved. No extra-axial fluid collections are identified. The lateral ventricles are symmetrical but moderately enlarged. There is diffuse periventricular hypodensity from chronic small vessel microangiopathy. Prominence of small vessel changes are seen most prominently in left frontal lobe and right posterior parietal lobe deep white matter There is an right posterior parietal lobe and left frontal lobe old infarction with encephalomalacia. The osseous structures and soft tissues are normal. The mastoid air cells and visualized portions of the paranasal sinuses are well aerated. CT/CT head/brain wo con IMPRESSION: No acute intracranial process seen. There is left upper lobe and right posterior parietal lobe deep white matter microangiopathy most prominent. There is old infarction in right posterior parietal and left frontal lobes. No acute infarction is visualized.
--- NOTE | ~2020-09-14 | XR_ITS ---
EXAMINATION: XR CHEST CLINICAL INFORMATION: Right lower extremity weakness COMPARISON: Chest radiographs 07/18/2020, 03/23/2020 TECHNIQUE: Portable upright AP view of the chest was obtained. FINDINGS: Prior median sternotomy. Low lung volumes with inspiration to posterior eighth intercostal space. There is no pneumothorax, pleural reaction, infiltrate, or definite effusion. Tapering at the cardiac apex is likely related to areolar tissue. The vascularity is normal. The cardiac and hilar and mediastinal contours and bony structures are stable. Fine linear sclerosis overlying the left posterior lateral fifth rib is stable from prior exams. XR/XR chest 1V IMPRESSION: No acute intrathoracic disease.
--- NOTE | 2020-09-14 13:58 | ECG_ITS ---
Test Reason : WEAKNESS Blood Pressure : / mmHG Vent. Rate : 069 BPM Atrial Rate : 069 BPM P-R Int : 212 ms QRS Dur : 126 ms QT Int : 428 ms P-R-T Axes : 032 -55 091 degrees QTc Int : 458 ms Sinus rhythm with 1st degree A-V block with occasional Premature ventricular complexes Left axis deviation Left ventricular hypertrophy with QRS widening Cannot rule out Septal infarct (cited on or before 18-JUL-2020) Abnormal ECG When compared with ECG of 18-JUL-2020 11:34, Nonspecific T wave abnormality now evident in Inferior leads Referred By: Shanon Campos Electronically Signed By:Dami Lam
--- NOTE | 2020-09-14 14:34 | PHA.MEDREC ---
Pharmacy Consult ? Medication Reconciliation Pharmacy has completed the medication reconciliation.
[2020-09-14 14:38] LABS: MANUAL DIFF FLAG NO
[2020-09-14 14:40] LABS: Basophils Percent Auto 0.4 % (0-2); Eosinophils Absolute Auto 0.3 X10*3/uL (0.0-0.4); Eosinophils Percent Auto 3.6 % (0-4); Hematocrit 39.2 % (42-52); Hemoglobin 13.5 g/dl (14.0-18.0); Imm Gran Abs Auto 0.02 X10*3/uL (0.00-0.03); Imm Gran Pct Auto 0.3 % (0.0-0.4); Lymphocytes Absolute Auto 2.6 X10*3/uL (1.2-4.9); Lymphocytes Percent Auto 33.4 % (20-40); Mean Corpuscular HGB Conc 34.4 g/dl (31.0-36.0); Mean Corpuscular Hemoglobin 31.7 pg (27.0-33.0); Mean Platelet Volume 10.6 fL (9.4-12.4); Monocytes Absolute Auto 0.9 X10*3/uL (0.1-1.2); Monocytes Percent Auto 11.1 % (2-11); Neutrophils Percent Auto 51.2 % (45-73); Platelet Count 221 X10*3/uL (160-400); Red Blood Count 4.26 X10*6/uL (4.60-5.80); Red Cell Distribution Width 13.7 % (11.0-16.0); White Blood Count 7.8 X10*3/uL (4.8-10.8)
[2020-09-14 14:45] LABS: INTERNATIONAL NORM RATIO 1.5 (0.9-1.1); Prothrombin Time 18.3 SEC (10.8-13.0)
[2020-09-14 14:48] LABS: Partial Thromboplastin Time 33.2 SEC (24.1-38.0)
[2020-09-14 14:58] LABS: COVID-19 Test Negative (Negative); Lipase 62 U/L (8-78)
[2020-09-14 15:08] LABS: Alanine Aminotransferase < 6 U/L (0-40); Alkaline Phosphatase 58 U/L (39-117); Anion Gap 13 (12-20); Aspartate Amino Transferase 18 U/L (5-37); Bilirubin Direct 0.2 mg/dL (0.0-0.5); Bilirubin Total 0.6 mg/dL (0.0-1.0); Blood Urea Nitrogen 31 mg/dL (9-16); Calcium 9.6 mg/dL (8.4-10.2); Carbon Dioxide 28 mmol/L (22-29); Chloride 103 mmol/L (96-108); Creatinine Clr Calc Pharmacy 52.5; Estimated Glomerular Filt Rate > 60; Glucose Random 101 mg/dL (60-115); Magnesium 1.7 mg/dL (1.6-2.6); Potassium 4.8 mmol/L (3.3-5.1); Sodium 139 mmol/L (135-145); Total Protein 6.5 g/dL (6.5-8.0)
[2020-09-14 15:11] LABS: Troponin-I High Sensitivity 187.2 ng/L (<3.5-35.0)
--- NOTE | 2020-09-14 15:19 | ED_ITS ---
HPI - Weakness General Chief complaint: Weakness <KATHY Cohen - Last Filed: 09/14/20 16:22> Stated complaint: RT LEG WEAKNESS <KATHY Cohen Last Filed: 09/14/20 16:22> Time Seen by Provider: 09/14/20 13:48 <KATHY Cohen Last Filed: 09/14/20 16:22> Source: patient and EMS <KATHY Cohen Last Filed: 09/14/20 16:22> Mode of arrival: EMS <KATHY Cohen Last Filed: 09/14/20 16:22> History of Present Illness HPI Narrative: 80-year-old male with a past medical history of CVA, AFib on Coumadin and Aspirin, cardiomyopathy, depression, diastolic CHF, HTN, hyperlipidemia, orthostatic hypotension, Parkinson's, dementia, BIBA c/o intermittent RLE weakness x4 days. Denies weakness at present. Denies headache, CP/SOB, abdominal pain, nausea/vomiting, numbness, tingling, fever/chills, recent falls or trauma <KATHY Cohen - Last Filed: 09/14/20 16:22> MD Complaint: focal weakness <KATHY Cohen Last Filed: 09/14/20 16:22> Related Data Home medications: Home Medications Medication Instructions Recorded Confirmed carbidopa-levodopa 1 tab PO TID@0900,1300,1700 07/18/20 09/14/20 docusate sodium 100 mg PO DAILY 07/18/20 09/14/20 escitalopram oxalate 5 mg PO DAILY 07/18/20 09/14/20 finasteride 5 mg PO BEDTIME 07/18/20 09/14/20 midodrine 5 mg PO TID 07/18/20 09/14/20 multivitamin 1 tab PO DAILY 07/18/20 09/14/20 trazodone 25 mg PO BEDTIME 07/18/20 09/14/20 aspirin 81 mg PO DAILY 09/14/20 09/14/20 divalproex [Depakote Sprinkles] 250 mg PO DAILY 09/14/20 09/14/20 Previous Rx's Medication Instructions Recorded atorvastatin 80 mg PO BEDTIME 30 Days #30 tab 07/20/20 metoprolol tartrate 25 mg PO BID 30 Days #60 tab 07/20/20 warfarin [Jantoven] 7.5 mg PO DAILY@1800 #0 tab 09/16/20 <KATHY Cohen - Last Filed: 09/14/20 16:22> Allergies/Adverse reactions: Allergies Allergy/AdvReac Type Severity Reaction Status Date / Time celecoxib [From Celebrex] Allergy Unknown Verified 07/18/20 11:17 poison michaelle extract Allergy Unknown Verified 07/18/20 11:17 simvastatin Allergy Unknown Verified 07/18/20 11:17 <KATHY Cohen - Last Filed: 09/14/20 16:22> Review of Systems Review of Systems: Constitutional: No Fever, No Chills, No Fatigue, No Malaise ENT/Mouth: No Ear Pain, No sore throat, No Swallowing Difficulty Eyes: No Eye Pain, No Swelling, No Vision Changes Cardiovascular: No Chest Pain, No SOB, No Edema, No Palpitations Respiratory: No Cough, No Sputum, No Dyspnea Gastrointestinal: No Nausea, No Vomiting, No Diarrhea, No Abdominal pain Genitourinary: No Dysuria, No Hematuria, No Flank Pain Musculoskeletal: No joint pain, No Myalgias, No Joint Swelling Skin: No Skin Lesions, No rash Neuro: + Weakness, No Numbness, No Paresthesias, No Dizziness, No Headache <KATHY Cohen - Last Filed: 09/14/20 16:22> Yes all other systems are reviewed and are negative <KATHY Cohen - Last Filed: 09/14/20 16:22> FOR[facility]LY [facility] Past Medical History Attestation statement: The following information was validated with the patient. <KATHY Cohen - Last Filed: 09/14/20 16:22> Medical History: Medical History Acute CVA (cerebrovascular accident) Afib Alzheimer disease Cardiomyopathy Cerebrovascular accident Depression Diastolic CHF HTN (hypertension) Hyperlipidemia Nonsustained ventricular tachycardia Orthostatic hypotension Parkinson disease Paroxysmal atrial fibrillation Vascular dementia <KATHY Cohen Last Filed: 09/14/20 16:22> Surgical History: Surgical History H/O mitral valve replacement Mitral valve replaced <KATHY Cohen - Last Filed: 09/14/20 16:22> Social History Social History: Social History Household Members: Spouse Housing: House Do you presently have visiting nurse or other home services: No Alcohol intake: never Patient Tobacco Use Status: Never used Tobacco Advance Directives Date on File: 01/01/20 service: Yes Current occupational status: retired <KATHY Cohen - Last Filed: 09/14/20 16:22> Physical Exam Vital Signs: Vital Signs: Last Vital Signs Temp 97.5 F 09/16/20 11:16 Pulse 60 09/16/20 11:16 Resp 09/16/20 11:16 BP 127/69 09/16/20 11:16 Pulse Ox 96 09/16/20 11:16 Body Mass Index 25.5 <KATHY Cohen - Last Filed: 09/14/20 16:22> Vital Signs: Last Vital Signs Temp 97.5 F 09/16/20 11:16 Pulse 60 09/16/20 11:16 Resp 20 09/16/20 11:16 BP 127/69 09/16/20 11:16 Pulse Ox 96 09/16/20 11:16 Body Mass Index 25.5 <Ismael Kim MD - Last Filed: 10/17/20 20:01> Const: General: cooperative, healthy appearing and no acute distress <KATHY Cohen - Last Filed: 09/14/20 16:22> Orientation/consciousness: patient oriented x3 <KATHY Cohen - Last Filed: 09/14/20 16:22> Limitations: no limitations <KATHY Cohen - Last Filed: 09/14/20 16:22> HENMT: Head: Yes normal to inspection <KATHY Cohen - Last Filed: 09/14/20 16:22> Ears: hearing grossly normal bilaterally <KATHY Cohen - Last Filed: 09/14/20 16:22> General nose exam: Normal external nose present <KATHY Cohen - Last Filed: 09/14/20 16:22> Face and sinus: Yes normal facial exam <KATHY Cohen - Last Filed: 09/14/20 16:22> Eyes: General: appearance normal, both eyes and all related structures <Shanon Beth DE - Last Filed: 09/14/20 16:22> Pupils: Equal, round and reactive pupils present <Shanon Beth DE - Last Filed: 09/14/20 16:22> EOM: EOMs intact bilaterally <Shanon Beth DE - Last Filed: 09/14/20 16:22> Neck: Neck: Yes normal visual inspection and Yes no meningeal signs <Shanon Beth DE - Last Filed: 09/14/20 16:22> Chest: Chest palpation & inspection: normal inspection of the chest <Shanon Campos DE - Last Filed: 09/14/20 16:22> Resp: Effort & Inspection: normal respiratory effort <Shanon Beth DE - Last Filed: 09/14/20 16:22> Auscultation: clear to auscultation bilaterally, no crackles and no wheezes <Shanon Campos DE - Last Filed: 09/14/20 16:22> Cardio: Rate: regular rate <Shanon Beth DE - Last Filed: 09/14/20 16:22> Heart sounds: S1 normal heart sound present and S2 normal heart sound present <Shanon Beth DE - Last Filed: 09/14/20 16:22> GI: Inspection: Yes normal to inspection <Shanon Beth DE - Last Filed: 09/14/20 16:22> Palpation (GI): Soft to palpation, nontender, no guarding and not rigid <Shanon Campos DE - Last Filed: 09/14/20 16:22> Skin: Rashes: no rashes <Shanon Beth DE - Last Filed: 09/14/20 16:22> Wounds: no wounds <Shanon Campos DE - Last Filed: 09/14/20 16:22> Neuro: Other: Slight appreciable weakness in right lower extremity Slurred speech at baseline <Shanon Campos DE - Last Filed: 09/14/20 16:22> General: patient oriented x3, tone normal, moves all extremities, no meningeal signs and CN's II-XI intact bilaterally <Shanon Campos DE - Last Filed: 09/14/20 16:22> Cranial nerves: Yes Equal, round and reactive pupils present <KATHY Coehn - Last Filed: 09/14/20 16:22> Cognition (Neuro): normal cognition <KATHY Cohen - Last Filed: 09/14/20 16:22> Motor exam (neuro): no tremor noted <KATHY Cohen - Last Filed: 09/14/20 16:22> Coordination: [id number] test normal <KATHY Cohen - Last Filed: 09/14/20 16:22> Romberg Test: Negative <KATHY Cohen - Last Filed: 09/14/20 16:22> Extrem: General: Yes normal to inspection and Yes no pedal edema <KATHY Cohen - Last Filed: 09/14/20 16:22> Course Course Course Narrative: -1533--no leukocytosis, H&H stable, INR subtherapeutic -troponin elevated at 187.2, EKG without changes, no STEMI, patient without chest pain >> will obtain 3 hour repeat XR chest 1V IMPRESSION: No acute intrathoracic disease. CT head/brain wo con IMPRESSION: No acute intracranial process seen. There is left upper lobe and right posterior parietal lobe deep white matter microangiopathy most prominent. There is old infarction in right posterior parietal and left frontal lobes. No acute infarction is visualized. -case discussed with Neurology, Dr. Campbell who recommended Neurology consult <KATHY Cohen - Last Filed: 09/14/20 16:22> I have reviewed the chart <Ismael Kim MD - Last Filed: 10/17/20 20:01> MDM - Weakness MDM Narrative Medical decision making narrative: 80-year-old male with a past medical history of CVA, AFib on Coumadin and Aspirin, cardiomyopathy, depression, diastolic CHF, HTN, hyperlipidemia, orthostatic hypotension, Parkinson's, dementia, BIBA c/o intermittent RLE weakness x4 days. On exam VSS, NAD/nontoxic, physical exam as above, RLE slightly weaker than LLE, no other focal deficits. Concern for TIA vs subacute CVA. Patient is not in the window for tPA/not tPA candidate due to warfarin use. Rule out metabolic/infectious etiology Plan: EKG, labs, UA, head CT, reassess, anticipated admission <KATHY Cohen - Last Filed: 09/14/20 16:22> Medical Records Attestation: I reviewed the patient's medical records. <KATHY Cohen - Last Filed: 09/14/20 16:22> Lab Data Attestation: I reviewed the patient's lab results. <KATHY Cohen - Last Filed: 09/14/20 16:22> Result diagrams: : 09/16/20 05:45 09/16/20 05:45 <KATHY Cohen - Last Filed: 09/14/20 16:22> Labs: Lab Results 09/14/20 09/14/20 09/14/20 Range/Units 14:31 14:31 14:31 WBC 7.8 (4.8-10.8) X10*3/uL RBC 4.26 L (4.60-5.80) X10*6/uL Hgb 13.5 L (14.0-18.0) g/dl Hct 39.2 L (42-52) % MCV 92.0 (80-98) fL MCH 31.7 (27.0-33.0) pg MCHC 34.4 (31.0-36.0) g/dl RDW 13.7 (11.0-16.0) % Plt Count 221 (160-400) X10*3/uL MPV 10.6 (9.4-12.4) fL Immature Gran % (Auto) 0.3 (0.0-0.4) % Neut % (Auto) 51.2 (45-73) % Lymph % (Auto) 33.4 (20-40) % [place] % (Auto) 11.1 H (2-11) % Eos % (Auto) 3.6 (0-4) % Baso % (Auto) 0.4 (0-2) % Lymph # (Auto) 2.6 (1.2-4.9) X10*3/uL [place] # (Auto) 0.9 (0.1-1.2) X10*3/uL Eos # (Auto) 0.3 (0.0-0.4) X10*3/uL Baso # (Auto) 0.0 (0.0-0.2) X10*3/uL Abs Immat Gran (auto) 0.02 (0.00-0.03) X10*3/uL Absolute Neuts (auto) 4.0 (2.0-8.3) X10*3/uL Absolute Nucleated RBC 0.000 (0.0-0.012) X10*3/uL Nucleated RBC % (auto) 0.0 (0.0-0.2) /100WBC PT (10.8-13.0) SEC INR (0.9-1.1) APTT (24.1-38.0) SEC Sodium 139 (135-145) mmol/L Potassium 4.8 (3.3-5.1) mmol/L Chloride 103 (96-108) mmol/L Carbon Dioxide 28 (22-29) mmol/L Anion Gap 13 (12-20) BUN 31 H (9-16) mg/dL Creatinine 1.03 (0.5-1.4) mg/dL Estim Creat Clear Calc 52.5 Estimated GFR > 60 Random Glucose 101 (60-115) mg/dL Calcium 9.6 (8.4-10.2) mg/dL Magnesium 1.7 (1.6-2.6) mg/dL Total Bilirubin 0.6 (0.0-1.0) mg/dL Direct Bilirubin 0.2 (0.0-0.5) mg/dL AST 18 (5-37) U/L ALT < 6 (0-40) U/L Alkaline Phosphatase 58 (39-117) U/L Troponin I High Sens 187.2 H* (<3.5-35.0) ng/L Total Protein 6.5 (6.5-8.0) g/dL Albumin 4.0 (3.5-5.0) g/dL Lipase (8-78) U/L Urine Color Urine Appearance Urine pH (5.0-8.0) Ur Specific [place] (1.005-1.025) Urine Protein (NEG-TRACE) MG/DL Urine Glucose (UA) (NEG) MG/DL Urine Ketones (NEG) MG/DL Urine Blood (NEG) Urine Nitrite (NEG) Ur Leukocyte Esterase (NEG) COVID-19 (MARIEL) (Negative) COVID-19 Clin Com 09/14/20 09/14/20 09/14/20 Range/Units 14:31 14:31 14:31 WBC (4.8-10.8) X10*3/uL RBC (4.60-5.80) X10*6/uL Hgb (14.0-18.0) g/dl Hct (42-52) % MCV (80-98) fL MCH (27.0-33.0) pg MCHC (31.0-36.0) g/dl RDW (11.0-16.0) % Plt Count (160-400) X10*3/uL MPV (9.4-12.4) fL Immature Gran % (Auto) (0.0-0.4) % Neut % (Auto) (45-73) % Lymph % (Auto) (20-40) % [place] % (Auto) (2-11) % Eos % (Auto) (0-4) % Baso % (Auto) (0-2) % Lymph # (Auto) (1.2-4.9) X10*3/uL [place] # (Auto) (0.1-1.2) X10*3/uL Eos # (Auto) (0.0-0.4) X10*3/uL Baso # (Auto) (0.0-0.2) X10*3/uL Abs Immat Gran (auto) (0.00-0.03) X10*3/uL Absolute Neuts (auto) (2.0-8.3) X10*3/uL Absolute Nucleated RBC (0.0-0.012) X10*3/uL Nucleated RBC % (auto) (0.0-0.2) /100WBC PT 18.3 H (10.8-13.0) SEC INR 1.5 H (0.9-1.1) APTT 33.2 (24.1-38.0) SEC Sodium (135-145) mmol/L Potassium (3.3-5.1) mmol/L Chloride (96-108) mmol/L Carbon Dioxide (22-29) mmol/L Anion Gap (12-20) BUN (9-16) mg/dL Creatinine (0.5-1.4) mg/dL Estim Creat Clear Calc Estimated GFR Random Glucose (60-115) mg/dL Calcium (8.4-10.2) mg/dL Magnesium (1.6-2.6) mg/dL Total Bilirubin (0.0-1.0) mg/dL Direct Bilirubin (0.0-0.5) mg/dL AST (5-37) U/L ALT (0-40) U/L Alkaline Phosphatase (39-117) U/L Troponin I High Sens (<3.5-35.0) ng/L Total Protein (6.5-8.0) g/dL Albumin (3.5-5.0) g/dL Lipase 62 (8-78) U/L Urine Color Urine Appearance Urine pH (5.0-8.0) Ur Specific [place] (1.005-1.025) Urine Protein (NEG-TRACE) MG/DL Urine Glucose (UA) (NEG) MG/DL Urine Ketones (NEG) MG/DL Urine Blood (NEG) Urine Nitrite (NEG) Ur Leukocyte Esterase (NEG) COVID-19 (MARIEL) Negative (Negative) COVID-19 Clin Com See Note 09/14/20 Range/Units 15:15 WBC (4.8-10.8) X10*3/uL RBC (4.60-5.80) X10*6/uL Hgb (14.0-18.0) g/dl Hct (42-52) % MCV (80-98) fL MCH (27.0-33.0) pg MCHC (31.0-36.0) g/dl RDW (11.0-16.0) % Plt Count (160-400) X10*3/uL MPV (9.4-12.4) fL Immature Gran % (Auto) (0.0-0.4) % Neut % (Auto) (45-73) % Lymph % (Auto) (20-40) % [place] % (Auto) (2-11) % Eos % (Auto) (0-4) % Baso % (Auto) (0-2) % Lymph # (Auto) (1.2-4.9) X10*3/uL [place] # (Auto) (0.1-1.2) X10*3/uL Eos # (Auto) (0.0-0.4) X10*3/uL Baso # (Auto) (0.0-0.2) X10*3/uL Abs Immat Gran (auto) (0.00-0.03) X10*3/uL Absolute Neuts (auto) (2.0-8.3) X10*3/uL Absolute Nucleated RBC (0.0-0.012) X10*3/uL Nucleated RBC % (auto) (0.0-0.2) /100WBC PT (10.8-13.0) SEC INR (0.9-1.1) APTT (24.1-38.0) SEC Sodium (135-145) mmol/L Potassium (3.3-5.1) mmol/L Chloride (96-108) mmol/L Carbon Dioxide (22-29) mmol/L Anion Gap (12-20) BUN (9-16) mg/dL Creatinine (0.5-1.4) mg/dL Estim Creat Clear Calc Estimated GFR Random Glucose (60-115) mg/dL Calcium (8.4-10.2) mg/dL Magnesium (1.6-2.6) mg/dL Total Bilirubin (0.0-1.0) mg/dL Direct Bilirubin (0.0-0.5) mg/dL AST (5-37) U/L ALT (0-40) U/L Alkaline Phosphatase (39-117) U/L Troponin I High Sens (<3.5-35.0) ng/L Total Protein (6.5-8.0) g/dL Albumin (3.5-5.0) g/dL Lipase (8-78) U/L Urine Color YELLOW Urine Appearance CLEAR Urine pH 6.0 (5.0-8.0) Ur Specific [place] >= 1.030 H (1.005-1.025) Urine Protein NEG (NEG-TRACE) MG/DL Urine Glucose (UA) NEG (NEG) MG/DL Urine Ketones 5 (NEG) MG/DL Urine Blood NEG (NEG) Urine Nitrite NEG (NEG) Ur Leukocyte Esterase NEG (NEG) COVID-19 (MARIEL) (Negative) COVID-19 Clin Com <KATHY Cohen - Last Filed: 09/14/20 16:22> Lab Results 09/14/20 09/14/20 09/14/20 Range/Units 14:31 14:31 14:31 WBC 7.8 (4.8-10.8) X10*3/uL RBC 4.26 L (4.60-5.80) X10*6/uL Hgb 13.5 L (14.0-18.0) g/dl Hct 39.2 L (42-52) % MCV 92.0 (80-98) fL MCH 31.7 (27.0-33.0) pg MCHC 34.4 (31.0-36.0) g/dl RDW 13.7 (11.0-16.0) % Plt Count 221 (160-400) X10*3/uL MPV 10.6 (9.4-12.4) fL Immature Gran % (Auto) 0.3 (0.0-0.4) % Neut % (Auto) 51.2 (45-73) % Lymph % (Auto) 33.4 (20-40) % [place] % (Auto) 11.1 H (2-11) % Eos % (Auto) 3.6 (0-4) % Baso % (Auto) 0.4 (0-2) % Lymph # (Auto) 2.6 (1.2-4.9) X10*3/uL [place] # (Auto) 0.9 (0.1-1.2) X10*3/uL Eos # (Auto) 0.3 (0.0-0.4) X10*3/uL Baso # (Auto) 0.0 (0.0-0.2) X10*3/uL Abs Immat Gran (auto) 0.02 (0.00-0.03) X10*3/uL Absolute Neuts (auto) 4.0 (2.0-8.3) X10*3/uL Absolute Nucleated RBC 0.000 (0.0-0.012) X10*3/uL Nucleated RBC % (auto) 0.0 (0.0-0.2) /100WBC PT (10.8-13.0) SEC INR (0.9-1.1) APTT (24.1-38.0) SEC Sodium 139 (135-145) mmol/L Potassium 4.8 (3.3-5.1) mmol/L Chloride 103 (96-108) mmol/L Carbon Dioxide 28 (22-29) mmol/L Anion Gap 13 (12-20) BUN 31 H (9-16) mg/dL Creatinine 1.03 (0.5-1.4) mg/dL Estim Creat Clear Calc 52.5 Estimated GFR > 60 Random Glucose 101 (60-115) mg/dL Calcium 9.6 (8.4-10.2) mg/dL Magnesium 1.7 (1.6-2.6) mg/dL Total Bilirubin 0.6 (0.0-1.0) mg/dL Direct Bilirubin 0.2 (0.0-0.5) mg/dL AST 18 (5-37) U/L ALT < 6 (0-40) U/L Alkaline Phosphatase 58 (39-117) U/L Troponin I High Sens 187.2 H* (<3.5-35.0) ng/L Total Protein 6.5 (6.5-8.0) g/dL Albumin 4.0 (3.5-5.0) g/dL Lipase (8-78) U/L Urine Color Urine Appearance Urine pH (5.0-8.0) Ur Specific [place] (1.005-1.025) Urine Protein (NEG-TRACE) MG/DL Urine Glucose (UA) (NEG) MG/DL Urine Ketones (NEG) MG/DL Urine Blood (NEG) Urine Nitrite (NEG) Ur Leukocyte Esterase (NEG) COVID-19 (MARIEL) (Negative) COVID-19 Clin Com 09/14/20 09/14/20 09/14/20 Range/Units 14:31 14:31 14:31 WBC (4.8-10.8) X10*3/uL RBC (4.60-5.80) X10*6/uL Hgb (14.0-18.0) g/dl Hct (42-52) % MCV (80-98) fL MCH (27.0-33.0) pg MCHC (31.0-36.0) g/dl RDW (11.0-16.0) % Plt Count (160-400) X10*3/uL MPV (9.4-12.4) fL Immature Gran % (Auto) (0.0-0.4) % Neut % (Auto) (45-73) % Lymph % (Auto) (20-40) % [place] % (Auto) (2-11) % Eos % (Auto) (0-4) % Baso % (Auto) (0-2) % Lymph # (Auto) (1.2-4.9) X10*3/uL [place] # (Auto) (0.1-1.2) X10*3/uL Eos # (Auto) (0.0-0.4) X10*3/uL Baso # (Auto) (0.0-0.2) X10*3/uL Abs Immat Gran (auto) (0.00-0.03) X10*3/uL Absolute Neuts (auto) (2.0-8.3) X10*3/uL Absolute Nucleated RBC (0.0-0.012) X10*3/uL Nucleated RBC % (auto) (0.0-0.2) /100WBC PT 18.3 H (10.8-13.0) SEC INR 1.5 H (0.9-1.1) APTT 33.2 (24.1-38.0) SEC Sodium (135-145) mmol/L Potassium (3.3-5.1) mmol/L Chloride (96-108) mmol/L Carbon Dioxide (22-29) mmol/L Anion Gap (12-20) BUN (9-16) mg/dL Creatinine (0.5-1.4) mg/dL Estim Creat Clear Calc Estimated GFR Random Glucose (60-115) mg/dL Calcium (8.4-10.2) mg/dL Magnesium (1.6-2.6) mg/dL Total Bilirubin (0.0-1.0) mg/dL Direct Bilirubin (0.0-0.5) mg/dL AST (5-37) U/L ALT (0-40) U/L Alkaline Phosphatase (39-117) U/L Troponin I High Sens (<3.5-35.0) ng/L Total Protein (6.5-8.0) g/dL Albumin (3.5-5.0) g/dL Lipase 62 (8-78) U/L Urine Color Urine Appearance Urine pH (5.0-8.0) Ur Specific [place] (1.005-1.025) Urine Protein (NEG-TRACE) MG/DL Urine Glucose (UA) (NEG) MG/DL Urine Ketones (NEG) MG/DL Urine Blood (NEG) Urine Nitrite (NEG) Ur Leukocyte Esterase (NEG) COVID-19 (MARIEL) Negative (Negative) COVID-19 Clin Com See Note 09/14/20 Range/Units 15:15 WBC (4.8-10.8) X10*3/uL RBC (4.60-5.80) X10*6/uL Hgb (14.0-18.0) g/dl Hct (42-52) % MCV (80-98) fL MCH (27.0-33.0) pg MCHC (31.0-36.0) g/dl RDW (11.0-16.0) % Plt Count (160-400) X10*3/uL MPV (9.4-12.4) fL Immature Gran % (Auto) (0.0-0.4) % Neut % (Auto) (45-73) % Lymph % (Auto) (20-40) % [place] % (Auto) (2-11) % Eos % (Auto) (0-4) % Baso % (Auto) (0-2) % Lymph # (Auto) (1.2-4.9) X10*3/uL [place] # (Auto) (0.1-1.2) X10*3/uL Eos # (Auto) (0.0-0.4) X10*3/uL Baso # (Auto) (0.0-0.2) X10*3/uL Abs Immat Gran (auto) (0.00-0.03) X10*3/uL Absolute Neuts (auto) (2.0-8.3) X10*3/uL Absolute Nucleated RBC (0.0-0.012) X10*3/uL Nucleated RBC % (auto) (0.0-0.2) /100WBC PT (10.8-13.0) SEC INR (0.9-1.1) APTT (24.1-38.0) SEC Sodium (135-145) mmol/L Potassium (3.3-5.1) mmol/L Chloride (96-108) mmol/L Carbon Dioxide (22-29) mmol/L Anion Gap (12-20) BUN (9-16) mg/dL Creatinine (0.5-1.4) mg/dL Estim Creat Clear Calc Estimated GFR Random Glucose (60-115) mg/dL Calcium (8.4-10.2) mg/dL Magnesium (1.6-2.6) mg/dL Total Bilirubin (0.0-1.0) mg/dL Direct Bilirubin (0.0-0.5) mg/dL AST (5-37) U/L ALT (0-40) U/L Alkaline Phosphatase (39-117) U/L Troponin I High Sens (<3.5-35.0) ng/L Total Protein (6.5-8.0) g/dL Albumin (3.5-5.0) g/dL Lipase (8-78) U/L Urine Color YELLOW Urine Appearance CLEAR Urine pH 6.0 (5.0-8.0) Ur Specific [place] >= 1.030 H (1.005-1.025) Urine Protein NEG (NEG-TRACE) MG/DL Urine Glucose (UA) NEG (NEG) MG/DL Urine Ketones 5 (NEG) MG/DL Urine Blood NEG (NEG) Urine Nitrite NEG (NEG) Ur Leukocyte Esterase NEG (NEG) COVID-19 ([facility]) (Negative) COVID-19 Clin Com <Ismael Kim MD - Last Filed: 10/17/20 20:01> ECG Data Attestation: I personally reviewed and interpreted this ECG as follows: <KATHY Cohen - Last Filed: 09/14/20 16:22> ECG interpretation date: 09/14/20 <KATHY Cohen - Last Filed: 09/14/20 16:22> ECG interpretation time: 14:58 <KATHY Cohen - Last Filed: 09/14/20 16:22> Interpretation: EKG with first-degree AV block. No STEMI. Rate of 69. Unchanged from priors <KATHY Cohen - Last Filed: 09/14/20 16:22> Discharge Plan Discharge Clinical Impression: Right leg weakness, Subtherapeutic international normalized ratio (INR) <KATHY Cohen - Last Filed: 09/14/20 16:22> Patient Disposition: Admitted As Inpatient <KATHY Cohen - Last Filed: 09/14/20 16:22> Interventions: Admission Worksheet (ED) Last Done: 09/14/20 21:48 <KATHY Cohen - Last Filed: 09/14/20 16:22> Discharge Date/Time: 09/14/20 21:49 <KATHY Cohen - Last Filed: 09/14/20 16:22>
[2020-09-14 15:23] LABS: Appearance Urine CLEAR; Color Urine YELLOW; Glucose Urine UA NEG (NEG); Leukocyte Esterase Urine NEG (NEG); Nitrite Urine NEG (NEG); Specific Gravity - Urine >= 1.030 (1.005-1.025); Urine Blood NEG (NEG); Urine Ketones 5 MG/DL (NEG); Urine Protein NEG (NEG-TRACE)
--- NOTE | 2020-09-14 16:43 | PM.IMHP ---
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 He does have a history of vascular dementia. He has a history of mechanical mitral valve for which he is on Coumadin. Recently has been subtherapeutic after being held for being supratherapeutic. Patient states that on Saturday started noticing right lower extremity weakness and difficulty walking. Therefore, he came to the ED today. In the ED INR noted to be 1.5. CT head did not show any acute stroke. Patient does still have right lower extremity weakness, but he ruled out for tPA due to timing of onset of symptoms. Patient also noted to have elevated troponin of 180, no EKG changes, denies chest pain. Review of Systems Review of Systems: Constitutional: Denies fever, denies Chills Eyes: denies blurry vision ENT: denies sore throat CVS: denies chest pain Respiratory: Denies dyspnea GI: no abdominal pain : denies dysuria MSK: denies neck pain Skin: denies rash Neuro: rle weakness Psych: denies suicidal ideation Endocrine: denies heat/cold intoleratnce Hematologic: denies easy bleeding Allergy: denies hives [facility] Medical History Acute CVA (cerebrovascular accident) Afib Alzheimer disease Cardiomyopathy Cerebrovascular accident Depression Diastolic CHF HTN (hypertension) Hyperlipidemia Nonsustained ventricular tachycardia Orthostatic hypotension Parkinson disease Paroxysmal atrial fibrillation Vascular dementia Family history: reviewed and not pertinent Surgical History H/O mitral valve replacement Mitral valve replaced Social History Housing: Prison Alcohol intake: never Patient Tobacco Use Status: Never used Tobacco Smoked in Last 30 Days: No Use of substances other than those prescribed or required for medical reasons: No Advance Directives: Yes Advance Directives on File: Yes Advance Directives Date on File: 01/01/20 service: Yes Current occupational status: retired Meds Allergies Allergy/AdvReac Type Severity Reaction Status Date / Time celecoxib [From Celebrex] Allergy Unknown Verified 07/18/20 11:17 poison michaelle extract Allergy Unknown Verified 07/18/20 11:17 simvastatin Allergy Unknown Verified 07/18/20 11:17 Active Medications: Current Medications Generic Name Dose Route Start Last Admin Trade Name Nikole PRN Reason Stop Dose Admin Pharmacy Consult 1 each 09/14/20 13:58 Consult Rx Perform Med Rec MISCELLANE ONCE PRN Consult order Home Medications Medication Instructions Recorded Confirmed Last Taken Type carbidopa-levodopa 1 tab PO TID@0900,1300,1700 07/18/20 09/14/20 09/14/20 History docusate sodium 100 mg PO DAILY 07/18/20 09/14/20 09/14/20 History escitalopram oxalate 5 mg PO DAILY 07/18/20 09/14/20 09/14/20 History finasteride 5 mg PO BEDTIME 07/18/20 09/14/20 09/14/20 History midodrine 5 mg PO TID 07/18/20 09/14/20 09/14/20 History multivitamin 1 tab PO DAILY 07/18/20 09/14/20 09/14/20 History trazodone 25 mg PO BEDTIME 07/18/20 09/14/20 09/14/20 History aspirin 81 mg PO DAILY 09/14/20 09/14/20 09/14/20 History divalproex [Depakote Sprinkles] 250 mg PO DAILY 09/14/20 09/14/20 09/14/20 History warfarin 5 mg PO DAILY@1700 09/14/20 09/14/20 09/13/20 History Physical Exam Vital Signs and Narrative: Vital Signs: Last Vital Signs Temp 97.9 F 09/14/20 14:13 Pulse 69 09/14/20 16:09 Resp 18 09/14/20 16:09 BP 114/93 H 09/14/20 16:09 Pulse Ox 94 09/14/20 16:09 Body Mass Index 25.5 General: no acute distress HEENT: atraumatic Neck: normal to visual inspection CVS: S1, S2, RRR Resp: CTA bilateral Chest: non tender GI: soft, non tender, non distended : no CVA tenderness Skin: no rashes Extremities: no edema Neuro: Oriented X3, RLE weakness Psych: cooperative Results Labs CBC and Chem 7: 09/14/20 14:31 09/14/20 14:31 Labs: Laboratory Results - last 24 hr 09/14/20 09/14/20 09/14/20 14:31 14:31 14:31 MCV 92.0 MCH 31.7 MCHC 34.4 RDW 13.7 Plt Count 221 MPV 10.6 Immature Gran % (Auto) 0.3 Neut % (Auto) 51.2 Lymph % (Auto) 33.4 Traverse % (Auto) 11.1 H Eos % (Auto) 3.6 Baso % (Auto) 0.4 Lymph # (Auto) 2.6 Traverse # (Auto) 0.9 Eos # (Auto) 0.3 Baso # (Auto) 0.0 Abs Immat Gran (auto) 0.02 Absolute Neuts (auto) 4.0 Absolute Nucleated RBC 0.000 Nucleated RBC % (auto) 0.0 PT INR APTT Anion Gap 13 Estim Creat Clear Calc 52.5 Estimated GFR > 60 Random Glucose 101 Calcium 9.6 Magnesium 1.7 Total Bilirubin 0.6 Direct Bilirubin 0.2 AST 18 ALT < 6 Alkaline Phosphatase 58 Troponin I High Sens 187.2 H* Total Protein 6.5 Albumin 4.0 Lipase Urine Color Urine Appearance Urine pH Ur Specific [place] Urine Protein Urine Glucose (UA) Urine Ketones Urine Blood Urine Nitrite Ur Leukocyte Esterase COVID-19 (MARIEL) COVID-19 Clin Com 09/14/20 09/14/20 09/14/20 14:31 14:31 14:31 MCV MCH MCHC RDW Plt Count MPV Immature Gran % (Auto) Neut % (Auto) Lymph % (Auto) [place]verse % (Auto) Eos % (Auto) Baso % (Auto) Lymph # (Auto) [place]verse # (Auto) Eos # (Auto) Baso # (Auto) Abs Immat Gran (auto) Absolute Neuts (auto) Absolute Nucleated RBC Nucleated RBC % (auto) PT 18.3 H INR 1.5 H APTT 33.2 Anion Gap Estim Creat Clear Calc Estimated GFR Random Glucose Calcium Magnesium Total Bilirubin Direct Bilirubin AST ALT Alkaline Phosphatase Troponin I High Sens Total Protein Albumin Lipase 62 Urine Color Urine Appearance Urine pH Ur Specific [place] Urine Protein Urine Glucose (UA) Urine Ketones Urine Blood Urine Nitrite Ur Leukocyte Esterase COVID-19 (MARIEL) Negative COVID-19 Clin Com See Note 09/14/20 15:15 MCV MCH MCHC RDW Plt Count MPV Immature Gran % (Auto) Neut % (Auto) Lymph % (Auto) [place] % (Auto) Eos % (Auto) Baso % (Auto) Lymph # (Auto) [place]verse # (Auto) Eos # (Auto) Baso # (Auto) Abs Immat Gran (auto) Absolute Neuts (auto) Absolute Nucleated RBC Nucleated RBC % (auto) PT INR APTT Anion Gap Estim Creat Clear Calc Estimated GFR Random Glucose Calcium Magnesium Total Bilirubin Direct Bilirubin AST ALT Alkaline Phosphatase Troponin I High Sens Total Protein Albumin Lipase Urine Color YELLOW Urine Appearance CLEAR Urine pH 6.0 Ur Specific [place] >= 1.030 H Urine Protein NEG Urine Glucose (UA) NEG Urine Ketones 5 Urine Blood NEG Urine Nitrite NEG Ur Leukocyte Esterase NEG COVID-19 (MARIEL) COVID-19 Clin Com Imaging Radiologist's Impressions: Impressions Head CT 09/14/20 13:58 IMPRESSION: No acute intracranial process seen. There is left upper lobe and right posterior parietal lobe deep white matter microangiopathy most prominent. There is old infarction in right posterior parietal and left frontal lobes. No acute infarction is visualized. Chest X-Ray 09/14/20 13:59 IMPRESSION: No acute intrathoracic disease. Assessment and Plan (1) Right leg weakness: Status: Acute 80M presented with right lower extremity weakness Right lower extremity weakness Concerning for CVA Continue aspirin, statin, anticoagulation Neuro eval AFib with mechanical mitral valve Metoprolol Coumadin, will increase to 7.5 mg daily, monitor INR Will bridge with IV heparin until therapeutic Troponemia Unclear significance Check repeat Cardio eval Parkinson's Sinemet Orthostatic hypotension Midodrine Cardiomyopathy Metoprolol Quality Stroke Does the patient have a stroke diagnosis?: Yes Reason for No Anti-thrombotic by Day Two: N/A - Med Ordered VTE Prior VTE?: No VTE Risk Level:: Medical - moderate - high VTE Device Contraindication: Treatment Not Indicated VTE Drug Contraindication: N/A - Med Ordered
--- NOTE | 2020-09-14 18:11 | MHC.CM.PN ---
CM met with patient and reviewed chart from [facility]. Pt has HX of vascular dementia. Tells CM he lives at the [facility]. Orientated to person and place. States he uses a cane and a walker. Tells me his right leg is very weak and not moving correctly. Explained that he was being admitted to the hospital. Pt asked for how long. Explained maybe for 1-2 days and then he would return to the [facility]. Pt tells CM he likes it there. He tells CM that his , Dania Moore, ([phone]), makes his medical decisions. Reviewed and signed IMM. Upon reviewing the chart from the [facility], CM discovered that the HCP has been invoked and [facility] on file states DNR/DNI. No HCP on file or in chart from [facility]. Pt daughter, Jayne Shine ([phone]) is also a contact. Pt is fully vaccinated. tells CM that pt has a pureed diet and regular liquids, and needs to be observed when eating secondary to dysphagia. Dr. Mcpherson contacted via [email or web address] and he is aware of pt dietary concerns. Has ordered swallow evaluation. CM reviewed IMM with Dania, , 09/14/20@[id number]. Copy left at bedside and in chart. D/C plan is to return to [facility] via BLS for safety. CM to follow for d/c needs.
[2020-09-14 18:13] LABS: Troponin-I High Sensitivity 214.8 ng/L (<3.5-35.0)
[2020-09-14] MEDS: Heparin Sodium,Porcine/1/2NS 25,000 UNIT/250 ML IV.SOLN 10.36 UNIT IVCONT (18:18)
--- NOTE | 2020-09-14 18:21 | PC.NURSE ---
Per Dr. Mcpherson no bolus of heparin to be given before infusion.
--- NOTE | 2020-09-14 18:34 | PC.NURSE ---
Pharmacy called for medications.
[2020-09-14] MEDS: Warfarin Sodium 7.5 MG TABLET PO (18:45)
[2020-09-14] MEDS: Carbidopa/Levodopa 25/250 TABLET 1 TAB PO (18:45)
--- NOTE | 2020-09-14 19:00 | PC.NURSE ---
ASSUMED CARE OF PT. PT RESTING IN STRETCHER EATING DINNER, PT REMAINS ON MONITOR WITH HR 71, HEPARIN DRIP UP AND RUNNING INTO SITE W/O DIFFICULTY SET AT 14UNITS/KG/HR
--- NOTE | 2020-09-14 21:09 | PC.NURSE ---
REPORT TO MARGARITA ROBLEDO. PT BEING DRAWN AT THIS TIME BY LAB. HEPARIN CONTINUES TO RUN W/O DIFFICULTY. PT AWAITING FOR TRANSPORT TO FLOOR ON STRETCHER WITH MONITOR.
[2020-09-14 21:19] LABS: Hematocrit 36.9 % (42-52); Hemoglobin 12.9 g/dl (14.0-18.0); Mean Corpuscular Hemoglobin 31.9 pg (27.0-33.0); Mean Corpuscular Volume 91.3 fL (80-98); Mean Platelet Volume 10.8 fL (9.4-12.4); Platelet Count 195 X10*3/uL (160-400); Red Blood Count 4.04 X10*6/uL (4.60-5.80); Red Cell Distribution Width 13.6 % (11.0-16.0); White Blood Count 8.2 X10*3/uL (4.8-10.8)
[2020-09-14 21:24] LABS: INTERNATIONAL NORM RATIO 1.6 (0.9-1.1); Prothrombin Time 18.7 SEC (10.8-13.0)
[2020-09-14 21:27] LABS: PTT Heparin Drip 74.2 SEC (53-77.9)
[2020-09-14] MEDS: Midodrine HCl 5 MG TABLET PO (21:42)
[2020-09-14] MEDS: Metoprolol Tartrate 25 MG TABLET PO (21:42)
[2020-09-14] MEDS: Atorvastatin Calcium 80 MG TABLET PO (21:42)
[2020-09-14] MEDS: Finasteride 5 MG TABLET PO (21:42)
[2020-09-14] MEDS: traZODone HCL 25 MG HALFTAB PO (21:42)
[2020-09-15] VITALS (8 sets, daily range): BP systolic 114–138; BP diastolic 66–81; PULSE 57–64; RESP 14–20; TEMP 36.3–36.9; O2SAT 93–100
[2020-09-15 00:33] LABS: PTT Heparin Drip 105.4 SEC (53-77.9)
[2020-09-15 07:05] LABS: Hematocrit 38.9 % (42-52); Hemoglobin 13.5 g/dl (14.0-18.0); Mean Corpuscular HGB Conc 34.7 g/dl (31.0-36.0); Mean Corpuscular Hemoglobin 31.8 pg (27.0-33.0); Mean Corpuscular Volume 91.7 fL (80-98); Mean Platelet Volume 10.7 fL (9.4-12.4); Platelet Count 198 X10*3/uL (160-400); Red Blood Count 4.24 X10*6/uL (4.60-5.80); Red Cell Distribution Width 13.7 % (11.0-16.0); White Blood Count 7.1 X10*3/uL (4.8-10.8)
[2020-09-15 07:13] LABS: INTERNATIONAL NORM RATIO 1.6 (0.9-1.1); Prothrombin Time 18.8 SEC (10.8-13.0)
[2020-09-15 07:16] LABS: PTT Heparin Drip 98.7 SEC (53-77.9)
[2020-09-15 08:01] LABS: Anion Gap 9 (12-20); Blood Urea Nitrogen 26 mg/dL (9-16); Calcium 9.5 mg/dL (8.4-10.2); Carbon Dioxide 29 mmol/L (22-29); Chloride 107 mmol/L (96-108); Cholesterol 162 mg/dL; Creatinine Clr Calc Pharmacy 64.4; Estimated Glomerular Filt Rate > 60; Glucose Fasting 103 mg/dL (60-99); HDL Cholesterol 51 mg/dL; LDL Cholesterol Calculated 102 mg/dl; Potassium 4.7 mmol/L (3.3-5.1); Sodium 140 mmol/L (135-145); Triglycerides 49 mg/dL
[2020-09-15] MEDS: Divalproex Sodium Sprinkles 125 MG CAP.DR.SPR 250 MG PO (08:30)
[2020-09-15] MEDS: Aspirin 81 MG TAB.CHEW PO (08:30)
[2020-09-15] MEDS: Midodrine HCl 5 MG TABLET PO ×3 (08:30→22:11)
[2020-09-15] MEDS: Multivitamin TABLET 1 TAB PO (08:30)
[2020-09-15] MEDS: Carbidopa/Levodopa 25/250 TABLET 1 TAB PO ×3 (08:30→16:32)
[2020-09-15] MEDS: Metoprolol Tartrate 25 MG TABLET PO ×2 (08:30→22:11)
[2020-09-15] MEDS: Escitalopram Oxalate 5 MG TABLET PO (08:30)
[2020-09-15] MEDS: Docusate Sodium 100 MG CAPSULE PO (08:31)
--- NOTE | 2020-09-15 09:01 | P.CNNE_ITS ---
History of Present Illness Data of Consult Service Date: 09/15/20 Primary Care Provider: Maurice Marcelino MD 80 years old man with underlying severe cerebral atrophy and multiple bilateral ischemic infarct resulting in multifactorial dementia, a left middle cerebral artery embolic looking infarct in June involving external capsular area and georges radiata, presented with right leg weakness. It was not clear how long the weakness has been there. Because of lack of clarity of timing and no definite finding or new finding on examination he was not considered a candidate for intravenous tPA. Also he has artificial heart valve and has been anticoagulated. When I saw him he denied any pain numbness and tingling in right leg and stated that there was something wrong with his leg. [facility] Past Medical History Medical History Acute CVA (cerebrovascular accident) Afib Alzheimer disease Cardiomyopathy Cerebrovascular accident Depression Diastolic CHF HTN (hypertension) Hyperlipidemia Nonsustained ventricular tachycardia Orthostatic hypotension Parkinson disease Paroxysmal atrial fibrillation Vascular dementia Family History Family history: reviewed and not pertinent Surgical History Surgical History H/O mitral valve replacement Mitral valve replaced Social History Social History Household Members: Spouse Housing: House Do you presently have visiting nurse or other home services: No Alcohol intake: never Patient Tobacco Use Status: Never used Tobacco Smoked in Last 30 Days: No Use of substances other than those prescribed or required for medical reasons: No Currently Displaying Signs/Symptoms of Drug Intoxication Withdrawal: No Have you been hit, kicked, punched, or otherwise hurt by someone within the past year? If so, by whom?: No Do you feel safe in your current relationship?: No Is there a partner from a previous relationship who is making you feel unsafe now?: No Spiritual Healthcare Practices: no Christianity Healthcare Practices: no Cultural Healthcare Practices: no Advance Directives: Yes Advance Directives on File: Yes Advance Directives Date on File: 01/01/20 Do you have thoughts of harming others: None Do you have a plan to hurt others: No Plan Recently lost weight without trying: Unsure Nutrition Risks: No Nutritional Risk Poor oral hygiene: No service: Yes Current occupational status: retired Meds Allergies Allergy/AdvReac Type Severity Reaction Status Date / Time celecoxib [From Celebrex] Allergy Unknown Verified 07/18/20 11:17 poison michaelle extract Allergy Unknown Verified 07/18/20 11:17 simvastatin Allergy Unknown Verified 07/18/20 11:17 Active Medications: Current Medications Generic Name Dose Route Start Last Admin Trade Name Freq PRN Reason Stop Dose Admin Aspirin 81 mg 09/15/20 09:00 09/15/20 08:30 Aspirin 81 Mg Tab.Chew PO 81 mg DAILY ALEXI Administration Atorvastatin Calcium 80 mg 09/14/20 21:00 09/14/20 21:42 Atorvastatin Calcium 80 Mg Tablet PO 80 mg BEDTIME ALEXI Administration Carbidopa/Levodopa 1 tab 09/14/20 17:28 09/15/20 08:30 Carbidopa/Levodopa 25/250 Tablet PO 1 tab TID@0900,1300,1700 ALEXI Administration Divalproex Sodium 250 mg 09/15/20 09:00 09/15/20 08:30 Divalproex Sodium Sprinkles 125 Mg Cap.DrDonisSpr PO 250 mg DAILY ALEXI Administration Docusate Sodium 100 mg 09/15/20 09:00 09/15/20 08:31 Docusate Sodium 100 Mg Capsule PO 100 mg DAILY ALEXI Administration Escitalopram Oxalate 5 mg 09/15/20 09:00 09/15/20 08:30 Escitalopram Oxalate 5 Mg Tablet PO 5 mg DAILY ALEXI Administration Finasteride 5 mg 09/14/20 21:00 09/14/20 21:42 Finasteride 5 Mg Tablet PO 5 mg BEDTIME ALEXI Administration Heparin Sodium (Porcine) 3,000 unit 09/14/20 17:28 Heparin Sodium,Porcine 5,000 Unit/Ml Vial 40 unit/kg (3000 unit) IVPUSH BOLUS PRN 40 unit/kg - Heparin Protocol Heparin Sodium (Porcine) 5,900 unit 09/14/20 17:28 Heparin Sodium,Porcine 5,000 Unit/Ml Vial 80 unit/kg (5900 unit) IVPUSH BOLUS PRN 80 unit/kg - Heparin Protocol Heparin Sodium/Sodium Chloride 25,000 unit in 250 mls @ 0 mls/hr 09/14/20 17:28 09/15/20 02:00 IVCONT 11 units/kg/hr .Q0M ALEXI 8.14 mls/hr Titration Protocol Per Protocol Metoprolol Tartrate 25 mg 09/14/20 21:00 09/15/20 08:30 Metoprolol Tartrate 25 Mg Tablet PO 25 mg BID ALEXI Administration Protocol Midodrine 5 mg 09/14/20 21:00 09/15/20 08:30 Midodrine Hcl 5 Mg Tablet PO 5 mg TID [facility] Administration Multivitamins/Vitamin C 1 tab 09/15/20 09:00 09/15/20 08:30 Multivitamin Tablet PO 1 tab DAILY ALEXI Administration Pharmacy Consult 1 each 09/14/20 13:58 Consult Rx Perform Med Rec MISCELLANE ONCE PRN Consult order Trazodone HCl 25 mg 09/14/20 21:00 09/14/20 21:42 Trazodone Hcl 25 Mg Halftab PO 25 mg BEDTIME [facility] Administration Warfarin Sodium 7.5 mg 09/14/20 18:00 09/14/20 18:45 Warfarin Sodium 7.5 Mg Tablet PO 7.5 mg DAILY@1800 [facility] Administration Home Medications Medication Instructions Recorded Confirmed Last Taken Type carbidopa-levodopa 1 tab PO TID@0900,1300,1700 07/18/20 09/14/20 09/14/20 History docusate sodium 100 mg PO DAILY 07/18/20 09/14/20 09/14/20 History escitalopram oxalate 5 mg PO DAILY 07/18/20 09/14/20 09/14/20 History finasteride 5 mg PO BEDTIME 07/18/20 09/14/20 09/14/20 History midodrine 5 mg PO TID 07/18/20 09/14/20 09/14/20 History multivitamin 1 tab PO DAILY 07/18/20 09/14/20 09/14/20 History trazodone 25 mg PO BEDTIME 07/18/20 09/14/20 09/14/20 History aspirin 81 mg PO DAILY 09/14/20 09/14/20 09/14/20 History divalproex [Depakote Sprinkles] 250 mg PO DAILY 09/14/20 09/14/20 09/14/20 History warfarin 5 mg PO DAILY@1700 09/14/20 09/14/20 09/13/20 History Physical Exam Vital Signs: Vital Signs: Last Vital Signs Temp 98.1 F 09/15/20 07:30 Pulse 62 09/15/20 08:30 Resp 20 09/15/20 07:30 BP 138/81 09/15/20 08:30 Pulse Ox 97 09/15/20 07:30 Body Mass Index 25.2 He was alert and awake with slightly decreased spontaneity and fluency of speech. He was able to follow simple commands. He was able to lift each leg up against gravity for few seconds. Deep tendon reflexes were trace with equivocal or flexor plantars. There was mild right pronator drift. There was minimal right-sided facial flatness. External ocular muscles were intact. Visual blunt are full. Results Labs CBC & Chem 7: 09/15/20 06:55 09/15/20 06:55 Labs: Short CBC 09/14/20 09/14/20 09/15/20 Range/Units 14:31 21:10 06:55 WBC 7.8 8.2 7.1 (4.8-10.8) X10*3/uL Hgb 13.5 L 12.9 L 13.5 L (14.0-18.0) g/dl Hct 39.2 L 36.9 L 38.9 L (42-52) % Plt Count 221 195 198 (160-400) X10*3/uL 09/15/20 Range/Units 06:55 WBC Cancelled (4.8-10.8) X10*3/uL Hgb Cancelled (14.0-18.0) g/dl Hct Cancelled (42-52) % Plt Count Cancelled (160-400) X10*3/uL BMP 09/14/20 09/15/20 14:31 06:55 Sodium 139 140 Potassium 4.8 4.7 Chloride 103 107 Carbon Dioxide 28 29 BUN 31 H 26 H Creatinine 1.03 0.84 Calcium 9.6 9.5 Liver Function 09/14/20 Range/Units 14:31 Total Bilirubin 0.6 (0.0-1.0) mg/dL Direct Bilirubin 0.2 (0.0-0.5) mg/dL AST 18 (5-37) U/L ALT < 6 (0-40) U/L Alkaline Phosphatase 58 (39-117) U/L Albumin 4.0 (3.5-5.0) g/dL Urine 09/14/20 Range/Units 15:15 Urine Color YELLOW Urine Appearance CLEAR Urine pH 6.0 (5.0-8.0) Ur Specific Lane >= 1.030 H (1.005-1.025) Urine Protein NEG (NEG-TRACE) MG/DL Urine Glucose (UA) NEG (NEG) MG/DL His noncontrast head CT revealed moderate to severe diffuse cerebral and cerebellar central and cortical atrophy. MRI of brain few weeks ago revealed an acute left middle cerebral artery external capsular/georges radiata infarct. FLAIR sequence also reviewed similar bilateral chronic ischemic infarctions. Assessment and Plan (1) Multifactorial dementia: Status: Acute 80 years old man with significant cerebral and cerebellar central cortical atrophy, multiple bilateral embolic ischemic infarctions, came with nonspecific symptom of something wrong with right leg. At this time leg examination did not reveal any significant finding though his exam revealed minimal findings of right hemiparesis, probably related to previous stroke. Because of the amount of cerebral atrophy and multiple ischemic infarctions, I recommend conservative approach in continuing a baseline medications and transfer back to detention. Procedures Date of Service Date of Service: 09/15/20
--- NOTE | 2020-09-15 11:11 | P.CONCA_ITS ---
History of Present Illness History of Present Illness Date of Service: 09/15/20 Requesting physician: Maverick Mcpherson Chief complaint: Elevated troponin Narrative: 80-year-old gentleman who is presenting with right lower extremity weakness. He has background of mitral mechanical valve and atrial fibrillation. He was on Coumadin. He presented with subtherapeutic INR and right lower extremity weakness and difficulty walking. We will also noticed to have mildly abnormal troponin levels. He had no chest pain or shortness of breath. We are consulted for elevated troponin level. As mentioned he has no symptoms. His leg weakness is somewhat better. He is on heparin drip right now. [facility] Past Medical History Medical History Acute CVA (cerebrovascular accident) Afib Alzheimer disease Cardiomyopathy Cerebrovascular accident Depression Diastolic CHF HTN (hypertension) Hyperlipidemia Nonsustained ventricular tachycardia Orthostatic hypotension Parkinson disease Paroxysmal atrial fibrillation Vascular dementia Family History Family history: reviewed and not pertinent Surgical History Surgical History H/O mitral valve replacement Mitral valve replaced Social History Social History Household Members: Spouse Housing: House Do you presently have visiting nurse or other home services: No Alcohol intake: never Patient Tobacco Use Status: Never used Tobacco Smoked in Last 30 Days: No Use of substances other than those prescribed or required for medical reasons: No Currently Displaying Signs/Symptoms of Drug Intoxication Withdrawal: No Have you been hit, kicked, punched, or otherwise hurt by someone within the past year? If so, by whom?: No Do you feel safe in your current relationship?: No Is there a partner from a previous relationship who is making you feel unsafe now?: No Spiritual Healthcare Practices: no Ep[employer]opalian Healthcare Practices: no Cultural Healthcare Practices: no Advance Directives: Yes Advance Directives on File: Yes Advance Directives Date on File: 01/01/20 Do you have thoughts of harming others: None Do you have a plan to hurt others: No Plan Recently lost weight without trying: Unsure Nutrition Risks: No Nutritional Risk Poor oral hygiene: No service: Yes Current occupational status: retired Meds Allergies Allergy/AdvReac Type Severity Reaction Status Date / Time celecoxib [From Celebrex] Allergy Unknown Verified 07/18/20 11:17 poison michaelle extract Allergy Unknown Verified 07/18/20 11:17 simvastatin Allergy Unknown Verified 07/18/20 11:17 Active Medications: Current Medications Generic Name Dose Route Start Last Admin Trade Name Nikole PRN Reason Stop Dose Admin Aspirin 81 mg 09/15/20 09:00 09/15/20 08:30 Aspirin 81 Mg Tab.Chew PO 81 mg DAILY ALEXI Administration Atorvastatin Calcium 80 mg 09/14/20 21:00 09/14/20 21:42 Atorvastatin Calcium 80 Mg Tablet PO 80 mg BEDTIME ALEXI Administration Carbidopa/Levodopa 1 tab 09/14/20 17:28 09/15/20 08:30 Carbidopa/Levodopa 25/250 Tablet PO 1 tab TID@0900,1300,1700 ALEXI Administration Divalproex Sodium 250 mg 09/15/20 09:00 09/15/20 08:30 Divalproex Sodium Sprinkles 125 Mg Cap.Spr PO 250 mg DAILY ALEXI Administration Docusate Sodium 100 mg 09/15/20 09:00 09/15/20 08:31 Docusate Sodium 100 Mg Capsule PO 100 mg DAILY ALEXI Administration Escitalopram Oxalate 5 mg 09/15/20 09:00 09/15/20 08:30 Escitalopram Oxalate 5 Mg Tablet PO 5 mg DAILY ALEXI Administration Finasteride 5 mg 09/14/20 21:00 09/14/20 21:42 Finasteride 5 Mg Tablet PO 5 mg BEDTIME ALEXI Administration Heparin Sodium (Porcine) 3,000 unit 09/14/20 17:28 Heparin Sodium,Porcine 5,000 Unit/Ml Vial 40 unit/kg (3000 unit) IVPUSH BOLUS PRN 40 unit/kg - Heparin Protocol Heparin Sodium (Porcine) 5,900 unit 09/14/20 17:28 Heparin Sodium,Porcine 5,000 Unit/Ml Vial 80 unit/kg (5900 unit) IVPUSH BOLUS PRN 80 unit/kg - Heparin Protocol Heparin Sodium/Sodium Chloride 25,000 unit in 250 mls @ 0 mls/hr 09/14/20 17:28 09/15/20 02:00 IVCONT 11 units/kg/hr .Q0M ALEXI 8.14 mls/hr Titration Protocol Per Protocol Metoprolol Tartrate 25 mg 09/14/20 21:00 09/15/20 08:30 Metoprolol Tartrate 25 Mg Tablet PO 25 mg BID ALEXI Administration Protocol Midodrine 5 mg 09/14/20 21:00 09/15/20 08:30 Midodrine Hcl 5 Mg Tablet PO 5 mg TID [facility] Administration Multivitamins/Vitamin C 1 tab 09/15/20 09:00 09/15/20 08:30 Multivitamin Tablet PO 1 tab DAILY [facility] Administration Pharmacy Consult 1 each 09/14/20 13:58 Consult Rx Perform Med Rec MISCELLANE ONCE PRN Consult order Trazodone HCl 25 mg 09/14/20 21:00 09/14/20 21:42 Trazodone Hcl 25 Mg Halftab PO 25 mg BEDTIME ALEXI Administration Warfarin Sodium 7.5 mg 09/14/20 18:00 09/14/20 18:45 Warfarin Sodium 7.5 Mg Tablet PO 7.5 mg DAILY@1800 [facility] Administration Home Medications Medication Instructions Recorded Confirmed Last Taken Type carbidopa-levodopa 1 tab PO TID@0900,1300,1700 07/18/20 09/14/20 09/14/20 History docusate sodium 100 mg PO DAILY 07/18/20 09/14/20 09/14/20 History escitalopram oxalate 5 mg PO DAILY 07/18/20 09/14/20 09/14/20 History finasteride 5 mg PO BEDTIME 07/18/20 09/14/20 09/14/20 History midodrine 5 mg PO TID 07/18/20 09/14/20 09/14/20 History multivitamin 1 tab PO DAILY 07/18/20 09/14/20 09/14/20 History trazodone 25 mg PO BEDTIME 07/18/20 09/14/20 09/14/20 History aspirin 81 mg PO DAILY 09/14/20 09/14/20 09/14/20 History divalproex [Depakote Sprinkles] 250 mg PO DAILY 09/14/20 09/14/20 09/14/20 History warfarin 5 mg PO DAILY@1700 09/14/20 09/14/20 09/13/20 History Physical Exam Vital Signs: Vital Signs: Last Vital Signs Temp 98.1 F 09/15/20 07:30 Pulse 62 09/15/20 08:30 Resp 20 09/15/20 07:30 BP 138/81 09/15/20 08:30 Pulse Ox 97 09/15/20 07:30 Body Mass Index 25.2 GENERAL APPEARANCE: in no acute distress, pleasant. NECK: no carotid bruit, no jugular venous distention. SKIN: no suspicious lesions, warm and dry. HEART: no murmurs, regular rate and rhythm. Mechanical 1st heart sound. LUNGS: clear to auscultation bilaterally. ABDOMEN: soft, nontender. EXTREMITIES: no edema. PERIPHERAL PULSES: equal. NEUROLOGIC: Right lower extremity power 3+ out of 5 Results Labs and Meds Result diagrams: 09/15/20 06:55 09/15/20 06:55 Lab results: Laboratory Results - last 24 hr 09/14/20 09/14/20 09/14/20 14:31 14:31 14:31 WBC 7.8 RBC 4.26 L Hgb 13.5 L Hct 39.2 L MCV 92.0 MCH 31.7 MCHC 34.4 RDW 13.7 Plt Count 221 MPV 10.6 Immature Gran % (Auto) 0.3 Neut % (Auto) 51.2 Lymph % (Auto) 33.4 [place] % (Auto) 11.1 H Eos % (Auto) 3.6 Baso % (Auto) 0.4 Lymph # (Auto) 2.6 [place] # (Auto) 0.9 Eos # (Auto) 0.3 Baso # (Auto) 0.0 Abs Immat Gran (auto) 0.02 Absolute Neuts (auto) 4.0 Absolute Nucleated RBC 0.000 Nucleated RBC % (auto) 0.0 PT INR APTT PTT (Heparin Protocol) Sodium 139 Potassium 4.8 Chloride 103 Carbon Dioxide 28 Anion Gap 13 BUN 31 H Creatinine 1.03 Estim Creat Clear Calc 52.5 Estimated GFR > 60 Random Glucose 101 Fasting Glucose Calcium 9.6 Magnesium 1.7 Total Bilirubin 0.6 Direct Bilirubin 0.2 AST 18 ALT < 6 Alkaline Phosphatase 58 Troponin I High Sens 187.2 H* Total Protein 6.5 Albumin 4.0 Triglycerides Cholesterol LDL Cholesterol, Calc HDL Cholesterol Lipase Urine Color Urine Appearance Urine pH Ur Specific [place] Urine Protein Urine Glucose (UA) Urine Ketones Urine Blood Urine Nitrite Ur Leukocyte Esterase COVID-19 ([facility]) COVID-19 Clin Com 09/14/20 09/14/20 09/14/20 14:31 14:31 14:31 WBC RBC Hgb Hct MCV MCH MCHC RDW Plt Count MPV Immature Gran % (Auto) Neut % (Auto) Lymph % (Auto) [place] % (Auto) Eos % (Auto) Baso % (Auto) Lymph # (Auto) [place] # (Auto) Eos # (Auto) Baso # (Auto) Abs Immat Gran (auto) Absolute Neuts (auto) Absolute Nucleated RBC Nucleated RBC % (auto) PT 18.3 H INR 1.5 H APTT 33.2 PTT (Heparin Protocol) Sodium Potassium Chloride Carbon Dioxide Anion Gap BUN Creatinine Estim Creat Clear Calc Estimated GFR Random Glucose Fasting Glucose Calcium Magnesium Total Bilirubin Direct Bilirubin AST ALT Alkaline Phosphatase Troponin I High Sens Total Protein Albumin Triglycerides Cholesterol LDL Cholesterol, Calc HDL Cholesterol Lipase 62 Urine Color Urine Appearance Urine pH Ur Specific [place] Urine Protein Urine Glucose (UA) Urine Ketones Urine Blood Urine Nitrite Ur Leukocyte Esterase COVID-19 ([facility]) Negative COVID-19 Clin Com See Note 09/14/20 09/14/20 09/14/20 15:15 17:28 21:10 WBC 8.2 RBC 4.04 L Hgb 12.9 L Hct 36.9 L MCV 91.3 MCH 31.9 MCHC 35.0 RDW 13.6 Plt Count 195 MPV 10.8 Immature Gran % (Auto) Neut % (Auto) Lymph % (Auto) [place] % (Auto) Eos % (Auto) Baso % (Auto) Lymph # (Auto) [place] # (Auto) Eos # (Auto) Baso # (Auto) Abs Immat Gran (auto) Absolute Neuts (auto) Absolute Nucleated RBC 0.000 Nucleated RBC % (auto) 0.0 PT INR APTT PTT (Heparin Protocol) Sodium Potassium Chloride Carbon Dioxide Anion Gap BUN Creatinine Estim Creat Clear Calc Estimated GFR Random Glucose Fasting Glucose Calcium Magnesium Total Bilirubin Direct Bilirubin AST ALT Alkaline Phosphatase Troponin I High Sens 214.8 H* Total Protein Albumin Triglycerides Cholesterol LDL Cholesterol, Calc HDL Cholesterol Lipase Urine Color YELLOW Urine Appearance CLEAR Urine pH 6.0 Ur Specific [place] >= 1.030 H Urine Protein NEG Urine Glucose (UA) NEG Urine Ketones 5 Urine Blood NEG Urine Nitrite NEG Ur Leukocyte Esterase NEG COVID-19 ([facility]) COVID-19 Clin Com 09/14/20 09/15/20 09/15/20 21:10 00:16 06:55 WBC 7.1 RBC 4.24 L Hgb 13.5 L Hct 38.9 L MCV 91.7 MCH 31.8 MCHC 34.7 RDW 13.7 Plt Count 198 MPV 10.7 Immature Gran % (Auto) Neut % (Auto) Lymph % (Auto) [place] % (Auto) Eos % (Auto) Baso % (Auto) Lymph # (Auto) [place] # (Auto) Eos # (Auto) Baso # (Auto) Abs Immat Gran (auto) Absolute Neuts (auto) Absolute Nucleated RBC 0.000 Nucleated RBC % (auto) 0.0 PT 18.7 H INR 1.6 H APTT PTT (Heparin Protocol) 74.2 105.4 H D Sodium Potassium Chloride Carbon Dioxide Anion Gap BUN Creatinine Estim Creat Clear Calc Estimated GFR Random Glucose Fasting Glucose Calcium Magnesium Total Bilirubin Direct Bilirubin AST ALT Alkaline Phosphatase Troponin I High Sens Total Protein Albumin Triglycerides Cholesterol LDL Cholesterol, Calc HDL Cholesterol Lipase Urine Color Urine Appearance Urine pH Ur Specific [place] Urine Protein Urine Glucose (UA) Urine Ketones Urine Blood Urine Nitrite Ur Leukocyte Esterase COVID-19 (MARIEL) [employer] 09/15/20 09/15/20 09/15/20 06:55 06:55 06:55 WBC Cancelled RBC Cancelled Hgb Cancelled Hct Cancelled MCV Cancelled MCH Cancelled MCHC Cancelled RDW Cancelled Plt Count Cancelled MPV Cancelled Immature Gran % (Auto) Neut % (Auto) Lymph % (Auto) [place] % (Auto) Eos % (Auto) Baso % (Auto) Lymph # (Auto) [place] # (Auto) Eos # (Auto) Baso # (Auto) Abs Immat Gran (auto) Absolute Neuts (auto) Absolute Nucleated RBC Cancelled Nucleated RBC % (auto) Cancelled PT Cancelled Cancelled INR Cancelled Cancelled APTT PTT (Heparin Protocol) Sodium Potassium Chloride Carbon Dioxide Anion Gap BUN Creatinine Estim Creat Clear Calc Estimated GFR Random Glucose Fasting Glucose Calcium Magnesium Total Bilirubin Direct Bilirubin AST ALT Alkaline Phosphatase Troponin I High Sens Total Protein Albumin Triglycerides Cholesterol LDL Cholesterol, Calc HDL Cholesterol Lipase Urine Color Urine Appearance Urine pH Ur Specific [place] Urine Protein Urine Glucose (UA) Urine Ketones Urine Blood Urine Nitrite Ur Leukocyte Esterase COVID-19 (MARIEL) [employer] 09/15/20 09/15/20 06:55 06:55 WBC RBC Hgb Hct MCV MCH MCHC RDW Plt Count MPV Immature Gran % (Auto) Neut % (Auto) Lymph % (Auto) [place] % (Auto) Eos % (Auto) Baso % (Auto) Lymph # (Auto) [place] # (Auto) Eos # (Auto) Baso # (Auto) Abs Immat Gran (auto) Absolute Neuts (auto) Absolute Nucleated RBC Nucleated RBC % (auto) PT 18.8 H INR 1.6 H APTT PTT (Heparin Protocol) 98.7 H Sodium 140 Potassium 4.7 Chloride 107 Carbon Dioxide 29 Anion Gap 9 L BUN 26 H Creatinine 0.84 Estim Creat Clear Calc 64.4 Estimated GFR > 60 Random Glucose Fasting Glucose 103 H Calcium 9.5 Magnesium Total Bilirubin Direct Bilirubin AST ALT Alkaline Phosphatase Troponin I High Sens Total Protein Albumin Triglycerides 49 Cholesterol 162 LDL Cholesterol, Calc 102 HDL Cholesterol 51 Lipase Urine Color Urine Appearance Urine pH Ur Specific [place] Urine Protein Urine Glucose (UA) Urine Ketones Urine Blood Urine Nitrite Ur Leukocyte Esterase COVID-19 (MARIEL) COVID-19 Clin Com Imaging Radiologist's impression: Impressions Head CT 09/14/20 13:58 IMPRESSION: No acute intracranial process seen. There is left upper lobe and right posterior parietal lobe deep white matter microangiopathy most prominent. There is old infarction in right posterior parietal and left frontal lobes. No acute infarction is visualized. Chest X-Ray 09/14/20 13:59 IMPRESSION: No acute intrathoracic disease. Assessment and Plan (1) Multifactorial dementia: Status: Acute (2) Right leg weakness: Status: Acute (3) Subtherapeutic international normalized ratio (INR): Status: Acute (4) Elevated troponin: Status: Acute 80-year-old gentleman with background history of dementia, mechanical mitral valve, AFib and previous CVA. He is presenting for right lower extremity weakness. He is subtherapeutic and his INR was 1.5. He is on heparin drip appropriately. He has some right lower extremity weakness. This can be related to CVA. No chest pain or shortness of breath. In setting of CVA, mild troponin elevation can be seen. By clinical history and ECG this does not seem like a plaque rupture. No further workup is required. Please bridge him to Coumadin. He should be on baby aspirin given mechanical mitral valve. Thank you for allowing me to participate in the care of your patient. Please feel free to contact me if you have any questions. Procedures Date of Service Date of Service: 09/15/20
--- NOTE | 2020-09-15 12:03 | P.PNIM_ITS ---
Subjective Subjective Date of Service: 09/15/20 Interval History: rle weakness Cardiovascular Cardiovascular: Reports no additional cardiovascular complaints Genitourinary Genitourinary: Reports no additional male genitourinary complaints Physical Exam Vital Signs: Vital Signs: Last Vital Signs Temp 98.4 F 09/15/20 11:21 Pulse 57 09/15/20 11:21 Resp 18 09/15/20 11:21 BP 137/73 09/15/20 11:21 Pulse Ox 98 09/15/20 11:21 Body Mass Index 25.2 General: AO X 3, no acute distress Resp: CTA bilateral CVS: S1,S2,RRR GI: soft, non tender, non distended Neuro: RLE weakness Psych: appropriate affect Objective Data Current Medications Generic Name Dose Route Start Last Admin Trade Name Freq PRN Reason Stop Dose Admin Aspirin 81 mg 09/15/20 09:00 09/15/20 08:30 Aspirin 81 Mg Tab.Chew PO 81 mg DAILY ALEXI Administration Atorvastatin Calcium 80 mg 09/14/20 21:00 09/14/20 21:42 Atorvastatin Calcium 80 Mg Tablet PO 80 mg BEDTIME ALEXI Administration Carbidopa/Levodopa 1 tab 09/14/20 17:28 09/15/20 08:30 Carbidopa/Levodopa 25/250 Tablet PO 1 tab TID@0900,1300,1700 ALEXI Administration Divalproex Sodium 250 mg 09/15/20 09:00 09/15/20 08:30 Divalproex Sodium Sprinkles 125 Mg Cap.DrDonisSpr PO 250 mg DAILY ALEXI Administration Docusate Sodium 100 mg 09/15/20 09:00 09/15/20 08:31 Docusate Sodium 100 Mg Capsule PO 100 mg DAILY ALEXI Administration Escitalopram Oxalate 5 mg 09/15/20 09:00 09/15/20 08:30 Escitalopram Oxalate 5 Mg Tablet PO 5 mg DAILY ALEXI Administration Finasteride 5 mg 09/14/20 21:00 09/14/20 21:42 Finasteride 5 Mg Tablet PO 5 mg BEDTIME ALEXI Administration Heparin Sodium (Porcine) 3,000 unit 09/14/20 17:28 Heparin Sodium,Porcine 5,000 Unit/Ml Vial 40 unit/kg (3000 unit) IVPUSH BOLUS PRN 40 unit/kg - Heparin Protocol Heparin Sodium (Porcine) 5,900 unit 09/14/20 17:28 Heparin Sodium,Porcine 5,000 Unit/Ml Vial 80 unit/kg (5900 unit) IVPUSH BOLUS PRN 80 unit/kg - Heparin Protocol Heparin Sodium/Sodium Chloride 25,000 unit in 250 mls @ 0 mls/hr 09/14/20 17:28 09/15/20 02:00 IVCONT 11 units/kg/hr .Q0M ALEXI 8.14 mls/hr Titration Protocol Per Protocol Metoprolol Tartrate 25 mg 09/14/20 21:00 09/15/20 08:30 Metoprolol Tartrate 25 Mg Tablet PO 25 mg BID ALEXI Administration Protocol Midodrine 5 mg 09/14/20 21:00 09/15/20 08:30 Midodrine Hcl 5 Mg Tablet PO 5 mg TID ALEXI Administration Multivitamins/Vitamin C 1 tab 09/15/20 09:00 09/15/20 08:30 Multivitamin Tablet PO 1 tab DAILY ALEXI Administration Pharmacy Consult 1 each 09/14/20 13:58 Consult Rx Perform Med Rec MISCELLANE ONCE PRN Consult order Trazodone HCl 25 mg 09/14/20 21:00 09/14/20 21:42 Trazodone Hcl 25 Mg Halftab PO 25 mg BEDTIME ALEXI Administration Warfarin Sodium 7.5 mg 09/14/20 18:00 09/14/20 18:45 Warfarin Sodium 7.5 Mg Tablet PO 7.5 mg DAILY@1800 ALEXI Administration Labs CBC & Chem 7: 09/15/20 06:55 09/15/20 06:55 Labs: Laboratory Results - last 24 hr 09/14/20 09/14/20 09/14/20 14:31 14:31 14:31 WBC 7.8 RBC 4.26 L Hgb 13.5 L Hct 39.2 L MCV 92.0 MCH 31.7 MCHC 34.4 RDW 13.7 Plt Count 221 MPV 10.6 Immature Gran % (Auto) 0.3 Neut % (Auto) 51.2 Lymph % (Auto) 33.4 [place] % (Auto) 11.1 H Eos % (Auto) 3.6 Baso % (Auto) 0.4 Lymph # (Auto) 2.6 [place] # (Auto) 0.9 Eos # (Auto) 0.3 Baso # (Auto) 0.0 Abs Immat Gran (auto) 0.02 Absolute Neuts (auto) 4.0 Absolute Nucleated RBC 0.000 Nucleated RBC % (auto) 0.0 PT INR APTT PTT (Heparin Protocol) Sodium 139 Potassium 4.8 Chloride 103 Carbon Dioxide 28 Anion Gap 13 BUN 31 H Creatinine 1.03 Estim Creat Clear Calc 52.5 Estimated GFR > 60 Random Glucose 101 Fasting Glucose Calcium 9.6 Magnesium 1.7 Total Bilirubin 0.6 Direct Bilirubin 0.2 AST 18 ALT < 6 Alkaline Phosphatase 58 Troponin I High Sens 187.2 H* Total Protein 6.5 Albumin 4.0 Triglycerides Cholesterol LDL Cholesterol, Calc HDL Cholesterol Lipase Urine Color Urine Appearance Urine pH Ur Specific [place] Urine Protein Urine Glucose (UA) Urine Ketones Urine Blood Urine Nitrite Ur Leukocyte Esterase COVID-19 (MARI[facility]) COVID-19 Clin Com 09/14/20 09/14/20 09/14/20 14:31 14:31 14:31 WBC RBC Hgb Hct MCV MCH MCHC RDW Plt Count MPV Immature Gran % (Auto) Neut % (Auto) Lymph % (Auto) [place] % (Auto) Eos % (Auto) Baso % (Auto) Lymph # (Auto) [place] # (Auto) Eos # (Auto) Baso # (Auto) Abs Immat Gran (auto) Absolute Neuts (auto) Absolute Nucleated RBC Nucleated RBC % (auto) PT 18.3 H INR 1.5 H APTT 33.2 PTT (Heparin Protocol) Sodium Potassium Chloride Carbon Dioxide Anion Gap BUN Creatinine Estim Creat Clear Calc Estimated GFR Random Glucose Fasting Glucose Calcium Magnesium Total Bilirubin Direct Bilirubin AST ALT Alkaline Phosphatase Troponin I High Sens Total Protein Albumin Triglycerides Cholesterol LDL Cholesterol, Calc HDL Cholesterol Lipase 62 Urine Color Urine Appearance Urine pH Ur Specific [place] Urine Protein Urine Glucose (UA) Urine Ketones Urine Blood Urine Nitrite Ur Leukocyte Esterase COVID-19 (MARIEL) Negative COVID-19 Clin Com See Note 09/14/20 09/14/20 09/14/20 15:15 17:28 21:10 WBC 8.2 RBC 4.04 L Hgb 12.9 L Hct 36.9 L MCV 91.3 MCH 31.9 MCHC 35.0 RDW 13.6 Plt Count 195 MPV 10.8 Immature Gran % (Auto) Neut % (Auto) Lymph % (Auto) [place] % (Auto) Eos % (Auto) Baso % (Auto) Lymph # (Auto) [place] # (Auto) Eos # (Auto) Baso # (Auto) Abs Immat Gran (auto) Absolute Neuts (auto) Absolute Nucleated RBC 0.000 Nucleated RBC % (auto) 0.0 PT INR APTT PTT (Heparin Protocol) Sodium Potassium Chloride Carbon Dioxide Anion Gap BUN Creatinine Estim Creat Clear Calc Estimated GFR Random Glucose Fasting Glucose Calcium Magnesium Total Bilirubin Direct Bilirubin AST ALT Alkaline Phosphatase Troponin I High Sens 214.8 H* Total Protein Albumin Triglycerides Cholesterol LDL Cholesterol, Calc HDL Cholesterol Lipase Urine Color YELLOW Urine Appearance CLEAR Urine pH 6.0 Ur Specific [place] >= 1.030 H Urine Protein NEG Urine Glucose (UA) NEG Urine Ketones 5 Urine Blood NEG Urine Nitrite NEG Ur Leukocyte Esterase NEG COVID-19 (MARIEL) COVID-19 [employer] 09/14/20 09/15/20 09/15/20 21:10 00:16 06:55 WBC 7.1 RBC 4.24 L Hgb 13.5 L Hct 38.9 L MCV 91.7 MCH 31.8 MCHC 34.7 RDW 13.7 Plt Count 198 MPV 10.7 Immature Gran % (Auto) Neut % (Auto) Lymph % (Auto) [place] % (Auto) Eos % (Auto) Baso % (Auto) Lymph # (Auto) [place] # (Auto) Eos # (Auto) Baso # (Auto) Abs Immat Gran (auto) Absolute Neuts (auto) Absolute Nucleated RBC 0.000 Nucleated RBC % (auto) 0.0 PT 18.7 H INR 1.6 H APTT PTT (Heparin Protocol) 74.2 105.4 H D Sodium Potassium Chloride Carbon Dioxide Anion Gap BUN Creatinine Estim Creat Clear Calc Estimated GFR Random Glucose Fasting Glucose Calcium Magnesium Total Bilirubin Direct Bilirubin AST ALT Alkaline Phosphatase Troponin I High Sens Total Protein Albumin Triglycerides Cholesterol LDL Cholesterol, Calc HDL Cholesterol Lipase Urine Color Urine Appearance Urine pH Ur Specific [place] Urine Protein Urine Glucose (UA) Urine Ketones Urine Blood Urine Nitrite Ur Leukocyte Esterase COVID-19 (MARIEL) COVID-19 [employer] 09/15/20 09/15/20 09/15/20 06:55 06:55 06:55 WBC Cancelled RBC Cancelled Hgb Cancelled Hct Cancelled MCV Cancelled MCH Cancelled MCHC Cancelled RDW Cancelled Plt Count Cancelled MPV Cancelled Immature Gran % (Auto) Neut % (Auto) Lymph % (Auto) [place] % (Auto) Eos % (Auto) Baso % (Auto) Lymph # (Auto) [place] # (Auto) Eos # (Auto) Baso # (Auto) Abs Immat Gran (auto) Absolute Neuts (auto) Absolute Nucleated RBC Cancelled Nucleated RBC % (auto) Cancelled PT Cancelled Cancelled INR Cancelled Cancelled APTT PTT (Heparin Protocol) Sodium Potassium Chloride Carbon Dioxide Anion Gap BUN Creatinine Estim Creat Clear Calc Estimated GFR Random Glucose Fasting Glucose Calcium Magnesium Total Bilirubin Direct Bilirubin AST ALT Alkaline Phosphatase Troponin I High Sens Total Protein Albumin Triglycerides Cholesterol LDL Cholesterol, Calc HDL Cholesterol Lipase Urine Color Urine Appearance Urine pH Ur Specific [place] Urine Protein Urine Glucose (UA) Urine Ketones Urine Blood Urine Nitrite Ur Leukocyte Esterase COVID-19 (MARIEL) COVID-19 [employer] 09/15/20 09/15/20 06:55 06:55 WBC RBC Hgb Hct MCV MCH MCHC RDW Plt Count MPV Immature Gran % (Auto) Neut % (Auto) Lymph % (Auto) [place] % (Auto) Eos % (Auto) Baso % (Auto) Lymph # (Auto) [place] # (Auto) Eos # (Auto) Baso # (Auto) Abs Immat Gran (auto) Absolute Neuts (auto) Absolute Nucleated RBC Nucleated RBC % (auto) PT 18.8 H INR 1.6 H APTT PTT (Heparin Protocol) 98.7 H Sodium 140 Potassium 4.7 Chloride 107 Carbon Dioxide 29 Anion Gap 9 L BUN 26 H Creatinine 0.84 Estim Creat Clear Calc 64.4 Estimated GFR > 60 Random Glucose Fasting Glucose 103 H Calcium 9.5 Magnesium Total Bilirubin Direct Bilirubin AST ALT Alkaline Phosphatase Troponin I High Sens Total Protein Albumin Triglycerides 49 Cholesterol 162 LDL Cholesterol, Calc 102 HDL Cholesterol 51 Lipase Urine Color Urine Appearance Urine pH Ur Specific [place] Urine Protein Urine Glucose (UA) Urine Ketones Urine Blood Urine Nitrite Ur Leukocyte Esterase COVID-19 (MARIEL) COVID-19 [employer] Com Quality Stroke Does the patient have a stroke diagnosis?: Yes Reason for No Anti-thrombotic by Day Two: N/A - Med Ordered VTE Prior VTE?: No VTE Risk Level:: Medical - moderate - high VTE Device Contraindication: Treatment Not Indicated VTE Drug Contraindication: N/A - Med Ordered Assessment and Plan (1) Right leg weakness: Status: Acute Assessment and Plan: 80M presented with right lower extremity weakness Right lower extremity weakness possible CVA vs old deficits neuro appreciated Continue aspirin, statin, anticoagulation no benefit for further work up AFib with mechanical mitral valve Metoprolol Coumadin, increased 09/14 to 7.5 mg daily, monitor INR bridge with IV heparin until therapeutic Troponemia Unclear significance Cardio eval Parkinson's Sinemet Orthostatic hypotension Midodrine Cardiomyopathy Metoprolol
--- NOTE | 2020-09-15 12:15 | MHC.CM.PN ---
Spoke with HCP Jayne. Reviewed plan of care and dc plan. DP return to [facility]. CM will follow.
[2020-09-15 17:20] LABS: PTT Heparin Drip 85.4 SEC (53-77.9)
[2020-09-15] MEDS: Warfarin Sodium 7.5 MG TABLET PO (17:56)
[2020-09-15] MEDS: Atorvastatin Calcium 80 MG TABLET PO (22:11)
[2020-09-15] MEDS: Finasteride 5 MG TABLET PO (22:11)
[2020-09-15] MEDS: traZODone HCL 25 MG HALFTAB PO (22:11)
[2020-09-15 23:48] LABS: PTT Heparin Drip 81.8 SEC (53-77.9)
[2020-09-16] VITALS: BP 141/73; PULSE 65; RESP 17; TEMP 36.4; O2SAT 97
[2020-09-16 03:30] VITALS: BP 106/77; PULSE 74; RESP 17; TEMP 36.8; O2SAT 99
[2020-09-16] MEDS: Heparin Sodium,Porcine/1/2NS 25,000 UNIT/250 ML IV.SOLN 5.18 UNIT IVCONT (03:54)
[2020-09-16 06:27] LABS: Hematocrit 41.4 % (42-52); Hemoglobin 14.3 g/dl (14.0-18.0); Mean Corpuscular HGB Conc 34.5 g/dl (31.0-36.0); Mean Corpuscular Hemoglobin 31.6 pg (27.0-33.0); Mean Corpuscular Volume 91.4 fL (80-98); Mean Platelet Volume 11.4 fL (9.4-12.4); Platelet Count 214 X10*3/uL (160-400); Red Blood Count 4.53 X10*6/uL (4.60-5.80); Red Cell Distribution Width 13.6 % (11.0-16.0); White Blood Count 7.5 X10*3/uL (4.8-10.8)
[2020-09-16 07:07] LABS: Anion Gap 12 (12-20); Blood Urea Nitrogen 23 mg/dL (9-16); Calcium 9.6 mg/dL (8.4-10.2); Carbon Dioxide 28 mmol/L (22-29); Chloride 105 mmol/L (96-108); Creatinine Clr Calc Pharmacy 66.8; Estimated Glomerular Filt Rate > 60; Glucose Fasting 92 mg/dL (60-99); Potassium 4.3 mmol/L (3.3-5.1); Sodium 141 mmol/L (135-145)
[2020-09-16 07:08] LABS: INTERNATIONAL NORM RATIO 2.3 (0.9-1.1); Prothrombin Time 28.1 SEC (10.8-13.0)
[2020-09-16 07:10] LABS: PTT Heparin Drip 54.2 SEC (53-77.9)
[2020-09-16 08:00] VITALS: BP 139/80; PULSE 55; RESP 20; TEMP 36.4; O2SAT 96
[2020-09-16] MEDS: Divalproex Sodium Sprinkles 125 MG CAP.DR.SPR 250 MG PO (08:22)
[2020-09-16] MEDS: Docusate Sodium 100 MG CAPSULE PO (08:22)
[2020-09-16] MEDS: Multivitamin TABLET 1 TAB PO (08:22)
[2020-09-16] MEDS: Midodrine HCl 5 MG TABLET PO (08:22)
[2020-09-16] MEDS: Metoprolol Tartrate 25 MG TABLET PO (08:22)
[2020-09-16] MEDS: Aspirin 81 MG TAB.CHEW PO (08:22)
[2020-09-16] MEDS: Escitalopram Oxalate 5 MG TABLET PO (08:23)
[2020-09-16] MEDS: Carbidopa/Levodopa 25/250 TABLET 1 TAB PO (08:23)
[2020-09-16 11:16] VITALS: BP 127/69; PULSE 60; RESP 20; TEMP 36.4; O2SAT 96
--- NOTE | 2020-09-16 11:16 | P.DS_ITS ---
DS: Providers Provider Date of Service: 09/16/20 Date of admission: 09/14/20 16:43 Primary care physician: Maurice Marcelino MD Consults: 09/14/20 17:28 Consult to Cardiology Routine Consulting Provider: Dami Lam Reason for consultation: elevated troponin, poor historian, hx of cardiomyopathy Consult to Neurology Routine Consulting Provider: Bhupendra Campbell Reason for consultation: rle weakness DS: Diagnosis Discharge Diagnosis (1) Multifactorial dementia: Status: Acute (2) Right leg weakness: Status: Acute (3) Subtherapeutic international normalized ratio (INR): Status: Acute (4) Elevated troponin: Status: Acute DS: Medications Discharge Medications Home Medications: Home Medications Medication Instructions Recorded Confirmed carbidopa-levodopa 1 tab PO TID@0900,1300,1700 07/18/20 09/14/20 docusate sodium 100 mg PO DAILY 07/18/20 09/14/20 escitalopram oxalate 5 mg PO DAILY 07/18/20 09/14/20 finasteride 5 mg PO BEDTIME 07/18/20 09/14/20 midodrine 5 mg PO TID 07/18/20 09/14/20 multivitamin 1 tab PO DAILY 07/18/20 09/14/20 trazodone 25 mg PO BEDTIME 07/18/20 09/14/20 aspirin 81 mg PO DAILY 09/14/20 09/14/20 divalproex [Depakote Sprinkles] 250 mg PO DAILY 09/14/20 09/14/20 Previous Rx's Medication Instructions Recorded atorvastatin 80 mg PO BEDTIME 30 Days #30 tab 07/20/20 metoprolol tartrate 25 mg PO BID 30 Days #60 tab 07/20/20 warfarin [Jantoven] 7.5 mg PO DAILY@1800 #0 tab 09/16/20 DS: Summary Hospital Course Hospital Course: Patient was admitted for right lower extremity weakness possibly due to acute CVA. 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 He was noted to be subtherapeutic, his Coumadin was increas ed to 7.5 mg daily and he was bridged with IV heparin. INR should be monitored closely for goal of 2.5-3.5. 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 Patient still has some right lower extremity weakness but is improved. [facility] Time Spent with Patient Time attestation: Total time spent providing and/or coordinating discharge services: Discharge coordination time: Greater than 30 minutes Quality: Stroke Does the patient have a stroke diagnosis?: Yes Reason for No Anti-thrombotic at DC: N/A - Med Ordered Reason for No Anticoagulant at DC: N/A - Med Ordered Reason Not Initiating IV-Tpa: Contraindicated Reason for No Anti-thrombotic by Day Two: N/A - Med Ordered Reason for No Statin at DC: N/A - Med Ordered Physical Exam Vital Signs: Vital Signs: Last Vital Signs Temp 97.6 F 09/16/20 08:00 Pulse 55 09/16/20 08:00 Resp 20 09/16/20 08:00 BP 139/80 09/16/20 08:00 Pulse Ox 96 09/16/20 08:00 Body Mass Index 25.2 General: AO X 3, no acute distress Resp: CTA bilateral CVS: S1,S2,RRR GI: soft, non tender, non distended Neuro: rle weakness Psych: appropriate affect DS: Data Data Completed and Pending Labs on day of discharge: Laboratory Results - last 24 hr 09/15/20 09/15/20 09/16/20 17:03 23:34 05:45 WBC RBC Hgb Hct MCV MCH MCHC RDW Plt Count MPV Absolute Nucleated RBC Nucleated RBC % (auto) PT INR PTT (Heparin Protocol) 85.4 H 81.8 H 54.2 D Sodium Potassium Chloride Carbon Dioxide Anion Gap BUN Creatinine Estim Creat Clear Calc Estimated GFR Fasting Glucose Calcium 09/16/20 09/16/20 09/16/20 05:45 05:45 05:45 WBC 7.5 RBC 4.53 L Hgb 14.3 Hct 41.4 L MCV 91.4 MCH 31.6 MCHC 34.5 RDW 13.6 Plt Count 214 MPV 11.4 Absolute Nucleated RBC 0.000 Nucleated RBC % (auto) 0.0 PT 28.1 H D INR 2.3 H PTT (Heparin Protocol) Sodium 141 Potassium 4.3 Chloride 105 Carbon Dioxide 28 Anion Gap 12 BUN 23 H Creatinine 0.81 Estim Creat Clear Calc 66.8 Estimated GFR > 60 Fasting Glucose 92 Calcium 9.6 Discharge Plan Discharge Patient Disposition: Xfer SNF Discharge Diagnosis: tia/cva [facility] - 1 Week Maurice Marcelino MD [Primary Care Provider] - 1 Week Discharge Medications: New warfarin [Jantoven] 7.5 mg Tablet 7.5 mg PO DAILY@1800 Qty: 0 RF: 0 Continued multivitamin Tablet 1 tab PO DAILY RF: 0 trazodone 50 mg Tablet 25 mg PO BEDTIME RF: 0 carbidopa-levodopa 25-250 mg Tablet 1 tab PO TID@0900,1300,1700 RF: 0 midodrine 5 mg Tablet 5 mg PO TID RF: 0 docusate sodium 100 mg Capsule 100 mg PO DAILY RF: 0 finasteride 5 mg Tablet 5 mg PO BEDTIME RF: 0 escitalopram oxalate 5 mg Tablet 5 mg PO DAILY RF: 0 atorvastatin 80 mg Tablet 80 mg PO BEDTIME 30 Days Qty: 30 RF: 0 metoprolol tartrate 25 mg Tablet 25 mg PO BID 30 Days Qty: 60 RF: 0 aspirin 81 mg Tablet,Chewable 81 mg PO DAILY RF: 0 divalproex [Depakote Sprinkles] 125 mg Capsule, Delayed Rel Sprinkle 250 mg PO DAILY RF: 0 Discontinued warfarin 5 mg Tablet 5 mg PO DAILY@1700 RF: 0 Discharge Orders: Discharge Order (Routine); Ordered 09/16/20 Ordered By: Maverick Mcpherson Diet: advance to usual diet Activity on Discharge: As tolerated Stand Alone Forms: Patient Portal Discharge page Care Plan Goals: Prevent further strokes Health Concerns: Mechanical mitral valve, recurrent strokes Plan of Treatment: Coumadin was increased to 7.5 mg daily, monitor INR daily for now and dose for goal of 2.5-3.5 Assessment: See above
--- NOTE | 2020-09-16 11:57 | MHC.CM.PN ---
pt is returning to [facility] at 1pm, pt's hcp - paloma at [phone] notified of return to [facility]. rn and md are aware of dc plan. cm to cont. to follow.
== END 2020-09-16 13:27 | disposition skilled nursing facility (03) | DRG 92 ==
LOC: HO.ED 16:22 → HO.EDOVER 16:52 → HO.IMC 19:07
PROVIDERS: Hospitalist; Physician Assistant; Admitting Provider Internal Medicine; Emergency Provider Emergency Medicine; PCP Internal Medicine Medical Oncology; Visit Provider Internal Medicine
DX: G83.11 Monoplegia of lower limb affecting right dominant side (principal); I42.9 Cardiomyopathy, unspecified; Z86.73 Personal history of transient ischemic attack (TIA), and cerebral infarction without residual deficits; Z95.2 Presence of prosthetic heart valve; I48.91 Unspecified atrial fibrillation; I95.1 Orthostatic hypotension; Z20.822 Contact with and (suspected) exposure to COVID-19; R79.1 Abnormal coagulation profile; G20 Parkinson's disease; R79.89 Other specified abnormal findings of blood chemistry; F02.80 Dementia in other diseases classified elsewhere, unspecified severity, without behavioral disturbance, psychotic disturbance, mood disturbance, and anxiety; Z88.6 Allergy status to analgesic agent; Z79.01 Long term (current) use of anticoagulants; Z79.82 Long term (current) use of aspirin; Z79.899 Other long term (current) drug therapy
CPT/HCPCS: 36415; 70450; 71045; 80048; 80061; 80076; 81003; 83690; 83735; 84484; 85025; 85027; 85610; 85730; 87635; 93005; 97162; 97166; 99285

== ENCOUNTER 2020-09-19 05:46 | Outpatient (REF) | payer MEDICARE, SELFPAY ==
[2020-09-19 08:09] LABS: Prothrombin Time 79.8 SEC (10.8-13.0)
[2020-09-19 08:13] LABS: INTERNATIONAL NORM RATIO 6.6 (0.9-1.1)
== END 2020-09-19 05:47 | disposition home or self-care (01) ==
LOC: HO.HSH3E 05:46
PROVIDERS: Visit Provider Internal Medicine Medical Oncology
DX: I63.9 Cerebral infarction, unspecified (principal)
CPT/HCPCS: 36415; 85610

== ENCOUNTER 2020-09-21 | Outpatient (REF) | payer MEDICARE, SELFPAY ==
[2020-09-21 08:10] LABS: INTERNATIONAL NORM RATIO 1.4 (0.9-1.1); Prothrombin Time 16.5 SEC (10.8-13.0)
== END 2020-09-21 00:01 | disposition home or self-care (01) ==
LOC: HO.HSH3E
PROVIDERS: Visit Provider Internal Medicine Medical Oncology
DX: I63.9 Cerebral infarction, unspecified (principal); Z95.2 Presence of prosthetic heart valve
CPT/HCPCS: 36415; 85610

== ENCOUNTER 2020-09-22 14:43 | Emergency (ER) | payer OTHER, MEDICARE, SELFPAY ==
--- NOTE | ~2020-09-22 | CT_ITS ---
EXAMINATION: CT HEAD WITHOUT CONTRAST (STROKE PROTOCOL) CLINICAL INFORMATION: Stroke protocol. Slurred speech COMPARISON: None TECHNIQUE: Contiguous axial imaging was performed from the skull base to vertex without intravenous administration of contrast. This CT examination was performed using dose optimization techniques as appropriate, variously including the following: *Automated exposure control *Adjustment of mA and/or kV according to patient size (this includes techniques or standardized protocols for targeted exams where dose is matched to indication/reason for exam; i.e. extremities or head) *Use of iterative reconstruction technique DLP: 727 mGy-cm FINDINGS: There is no acute intra-axial, extra-axial bleed, masses or midline shift. There is old left frontal lobe and right parietal lobe infarct. There are small lacunar infarcts in bilateral basal ganglia. Diffuse hypodensity seen in both cerebral hemispheres consistent with chronic microangiopathy most prominent in the left frontal lobe and right posterior parietal lobe. Bone windows reveal no calvarial abnormality. Bilateral paranasal sinuses and mastoid air cells are well-aerated. There is no scalp soft tissue abnormality seen. CT/CT head for stroke IMPRESSION: No acute intracranial process seen Old right posterior parietal and left frontal lobe infarction. Lacunar infarction bilateral basal ganglia. These are unchanged to last study from 09/11/2020. This critical result was discussed with ER Dr. Jj Nix at 3:05 PM by phone. It was ascertained that the content and urgency of the report was understood at the time of direct communication.
--- NOTE | 2020-09-22 14:47 | ECG_ITS ---
Test Reason : STROKE? Blood Pressure : / mmHG Vent. Rate : 066 BPM Atrial Rate : 066 BPM P-R Int : 212 ms QRS Dur : 132 ms QT Int : 460 ms P-R-T Axes : 055 -47 088 degrees QTc Int : 482 ms Sinus rhythm with 1st degree A-V block Left axis deviation Non-specific intra-ventricular conduction block Cannot rule out Septal infarct (cited on or before 18-JUL-2020) Abnormal ECG When compared with ECG of 14-SEP-2020 14:58, Premature ventricular complexes are no longer Present Referred By: Kam Nix Electronically Signed By:SLY KIRKLAND MD
[2020-09-22 14:56] LABS: Prothrombin Time Whole Bld POC 16.1 sec (11.1-13.5); ~PT, ~INR - Anti Coag Clinic 1.3 (0.9-1.1)
[2020-09-22 14:59] VITALS: BP 120/75; PULSE 67; RESP 18; TEMP 36.4; O2SAT 95; BMI 24.0
--- NOTE | 2020-09-22 15:11 | MHC.STROKE ---
EMS PRE-NOTIFICATION STROKE ALERT PATIENT FROM [facility], KNOWN TO THE STROKE SERVICE. PRIOR STROKE ON 07/18/20. ON ANTICOAGULATION (WARFARIN), HE RECEIVED A LOVENOX BRIDGING THIS AM FOR INR OF 1.4. THIS WOULD EXCLUDE HIM FROM TPA, PLUS RECENT STROKE WITHIN [address] DISCUSSED CASE WITH DR ADRIAN. CTH DONE TODAY, PRIOR CTH AND CTA H/N ON 07/18/20 NO LVO AT THAT TIME. I WILL CONTINUE TO FOLLOW.
[2020-09-22 15:13] LABS: MANUAL DIFF FLAG NO
[2020-09-22 15:16] LABS: Basophils Percent Auto 0.4 % (0-2); Eosinophils Absolute Auto 0.3 X10*3/uL (0.0-0.4); Eosinophils Percent Auto 2.9 % (0-4); Hematocrit 37.9 % (42-52); Hemoglobin 12.9 g/dl (14.0-18.0); Imm Gran Abs Auto 0.01 X10*3/uL (0.00-0.03); Imm Gran Pct Auto 0.1 % (0.0-0.4); Lymphocytes Percent Auto 35.4 % (20-40); Mean Corpuscular Hemoglobin 31.8 pg (27.0-33.0); Mean Corpuscular Volume 93.3 fL (80-98); Mean Platelet Volume 10.9 fL (9.4-12.4); Monocytes Percent Auto 11.4 % (2-11); Neutrophils Absolute Auto 4.3 X10*3/uL (2.0-8.3); Neutrophils Percent Auto 49.8 % (45-73); Platelet Count 218 X10*3/uL (160-400); Red Blood Count 4.06 X10*6/uL (4.60-5.80); Red Cell Distribution Width 13.7 % (11.0-16.0); White Blood Count 8.6 X10*3/uL (4.8-10.8)
[2020-09-22 15:21] LABS: INTERNATIONAL NORM RATIO 1.5 (0.9-1.1); Prothrombin Time 17.5 SEC (10.8-13.0)
[2020-09-22 15:28] LABS: Stroke Lab Use COMPLETE
[2020-09-22 15:42] LABS: Troponin-I High Sensitivity 6.7 ng/L (<3.5-35.0)
[2020-09-22 15:59] LABS: Alanine Aminotransferase < 6 U/L (0-40); Albumin Level 3.8 g/dL (3.5-5.0); Alkaline Phosphatase 63 U/L (39-117); Anion Gap 13 (12-20); Aspartate Amino Transferase 16 U/L (5-37); Bilirubin Direct 0.3 mg/dL (0.0-0.5); Bilirubin Total 0.7 mg/dL (0.0-1.0); Blood Urea Nitrogen 28 mg/dL (9-16); Calcium 9.4 mg/dL (8.4-10.2); Carbon Dioxide 27 mmol/L (22-29); Chloride 106 mmol/L (96-108); Estimated Glomerular Filt Rate > 60; Glucose Random 96 mg/dL (60-115); Magnesium 1.8 mg/dL (1.6-2.6); Phosphorus 2.9 mg/dL (2.7-4.5); Potassium 4.5 mmol/L (3.3-5.1); Sodium 141 mmol/L (135-145); Total Protein 6.3 g/dL (6.5-8.0)
[2020-09-22 16:07] VITALS: BP 143/71; PULSE 68; RESP 16; O2SAT 98
--- NOTE | 2020-09-22 16:55 | ED_ITS ---
HPI - Neuro Symptoms/Deficit General Chief Complaint: Neuro Symptoms/Deficit Stated Complaint: STROKE ALERT ,DYSPHAGIA FROM SNF Time Seen by Provider: 09/22/20 14:47 Source: EMS Mode of arrival: EMS Limitations: other ( dysarthric speech) History of Present Illness HPI Narrative: 80-year-old male who was sent to emergency department from the [facility] for evaluation of slurred speech and trouble swallowing. Information was obtained from the EMS personnel and from the ED [facility] get [facility] details about the [facility]. Apparently, the patient has slurred speech at his baseline. Unclear if anybody saw him this morning however at around 11:30 a.m. he appeared to be weaker than normal. His speech was slurred greater than his baseline and he seemed to have trouble swallowing therefore he was sent to emergency department for evaluation of possible stroke. On presentation, the patient does have dysarthric speech but is comprehensible. He was oriented to person, place and able to tell me his date of . Examination revealed a slight left facial droop otherwise there was no extremity weakness noted. Patient was transferred from the EMS stretcher to the CT scans stretcher for evaluation for possible stroke versus bleed. The patient has been seen here multiple times in the recent past for stroke- like symptoms, his last visit in the ED was on 09/14/2020. The patient is on warfarin therapy and also is receiving Lovenox subcutaneously. Related Data Home Medications Medication Instructions Recorded Confirmed carbidopa-levodopa 1 tab PO TID@0900,1300,1700 07/18/20 09/14/20 docusate sodium 100 mg PO DAILY 07/18/20 09/14/20 escitalopram oxalate 5 mg PO DAILY 07/18/20 09/14/20 finasteride 5 mg PO BEDTIME 07/18/20 09/14/20 midodrine 5 mg PO TID 07/18/20 09/14/20 multivitamin 1 tab PO DAILY 07/18/20 09/14/20 trazodone 25 mg PO BEDTIME 07/18/20 09/14/20 aspirin 81 mg PO DAILY 09/14/20 09/14/20 divalproex [Depakote Sprinkles] 250 mg PO DAILY 09/14/20 09/14/20 Previous Rx's Medication Instructions Recorded atorvastatin 80 mg PO BEDTIME 30 Days #30 tab 07/20/20 metoprolol tartrate 25 mg PO BID 30 Days #60 tab 07/20/20 warfarin [Jantoven] 7.5 mg PO DAILY@1800 #0 tab 09/16/20 Allergies Allergy/AdvReac Type Severity Reaction Status Date / Time celecoxib [From Celebrex] Allergy Unknown Verified 07/18/20 11:17 poison michaelle extract Allergy Unknown Verified 07/18/20 11:17 simvastatin Allergy Unknown Verified 07/18/20 11:17 Review of Systems Review of Systems: Yes all other systems are reviewed and are negative [facility] Past Medical History Medical History Acute CVA (cerebrovascular accident) Afib Alzheimer disease Cardiomyopathy Cerebrovascular accident Depression Diastolic CHF HTN (hypertension) Hyperlipidemia Nonsustained ventricular tachycardia Orthostatic hypotension Parkinson disease Paroxysmal atrial fibrillation Vascular dementia Surgical History H/O mitral valve replacement Mitral valve replaced Social History Social History Household Members: Spouse Housing: House Do you presently have visiting nurse or other home services: No Alcohol intake: never Patient Tobacco Use Status: Never used Tobacco Advance Directives: Yes Advance Directives on File: Yes Advance Directives Date on File: 01/01/20 service: Yes Current occupational status: retired Physical Exam Vital Signs: Vital Signs: Last Vital Signs Temp 97.6 F 09/22/20 14:59 Pulse 68 09/22/20 16:07 Resp 16 09/22/20 16:07 BP 143/71 H 09/22/20 16:07 Pulse Ox 98 09/22/20 16:07 Body Mass Index 24.0 Const: Other: Elderly male, appears to be chronically ill, he has dysarthric but comprehensible speech, follows all simple commands appropriately, oriented to person and place. HENMT: Head: Yes normal to inspection, Yes normocephalic and Yes atraumatic Ears: external ears normal General nose exam: Normal external nose present Face and sinus: Yes normal facial exam Mouth: Normal oral and palatal mucosa present Throat: Yes posterior oropharynx normal Eyes: Periorbital: periorbital findings normal Eyelids: Yes eyelids normal Conjunctivae: conjunctivae normal Sclerae: sclerae normal Corneas: corneas normal Direct Ophthalmoscopy: normal light reflex Neck: Neck: Yes full ROM, Yes no lymphadenopathy, Yes trachea midline and Yes supple Chest: Chest palpation & inspection: normal inspection of the chest and normal palpation of entire chest wall Resp: Effort & Inspection: normal respiratory effort and able to speak in complete sentences Auscultation: clear to auscultation bilaterally Cardio: Rate: regular rate Rhythm: regular rhythm Heart sounds: S1 normal heart sound present, S2 normal heart sound present and no murmurs GI: Inspection: Yes normal to inspection Palpation (GI): Soft to palpation, nontender, no guarding, not rigid and No hepatosplenomegaly present : General: Yes no CVA tenderness Back/Spine/Pelvis: Back: no CVA tenderness Cervical Spine: normal cervical lordosis Thoracic/Lumbar Spine: thoracic and lumbar spine normal to inspection Skin: Lesions: no lesions Rashes: no rashes Wounds: no wounds Neuro: Other: Patient has a slight left facial droop, he has dysarthric for comprehensible speech, he is able to hold his arms up against gravity for 15 seconds. He is also able to hold his legs up against gravity. Extrem: General: Yes normal to inspection and Yes full ROM Psych: Appearance: well kempt Mental Status: mental status grossly normal Affect: normal affect Attitude: cooperative Course Course Course Narrative: 80-year-old male who was sent to the emergency department for evaluation of increased dysarthric speech. Initial presentation did reveal dysarthric speech which was comprehensible and a left facial droop. the patient's initial NIH stroke scale was 2. the patient is taking were fair in and his INR was 1.5. The patient is also taking Lovenox. Given the fact that the patient is on anticoagulants, he is not a thrombolytic candidate. The patient's CT scan revealed no acute bleed or other acute findings. Laboratory evaluation revealed mild anemia with an H&H of 12.9 and 37.9 and an levated BUN of 28 MDM - Neuro Symptoms/Deficit Lab Data Result diagrams: 09/22/20 15:09 09/22/20 15:09 Labs: Lab Results 09/22/20 09/22/20 09/22/20 Range/Units 14:51 15:09 15:09 WBC 8.6 (4.8-10.8) X10*3/uL RBC 4.06 L (4.60-5.80) X10*6/uL Hgb 12.9 L (14.0-18.0) g/dl Hct 37.9 L (42-52) % MCV 93.3 (80-98) fL MCH 31.8 (27.0-33.0) pg MCHC 34.0 (31.0-36.0) g/dl RDW 13.7 (11.0-16.0) % Plt Count 218 (160-400) X10*3/uL MPV 10.9 (9.4-12.4) fL Immature Gran % (Auto) 0.1 (0.0-0.4) % Neut % (Auto) 49.8 (45-73) % Lymph % (Auto) 35.4 (20-40) % [place] % (Auto) 11.4 H (2-11) % Eos % (Auto) 2.9 (0-4) % Baso % (Auto) 0.4 (0-2) % Lymph # (Auto) 3.0 (1.2-4.9) X10*3/uL [place] # (Auto) 1.0 (0.1-1.2) X10*3/uL Eos # (Auto) 0.3 (0.0-0.4) X10*3/uL Baso # (Auto) 0.0 (0.0-0.2) X10*3/uL Abs Immat Gran (auto) 0.01 (0.00-0.03) X10*3/uL Absolute Neuts (auto) 4.3 (2.0-8.3) X10*3/uL Absolute Nucleated RBC 0.000 (0.0-0.012) X10*3/uL Nucleated RBC % (auto) 0.0 (0.0-0.2) /100WBC PT 17.5 H (10.8-13.0) SEC Whole Blood PT 16.1 H (11.1-13.5) sec INR 1.5 H (0.9-1.1) Whole Blood INR 1.3 H (0.9-1.1) APTT 44.0 H D (24.1-38.0) SEC Sodium (135-145) mmol/L Potassium (3.3-5.1) mmol/L Chloride (96-108) mmol/L Carbon Dioxide (22-29) mmol/L Anion Gap (12-20) BUN (9-16) mg/dL Creatinine (0.5-1.4) mg/dL Estim Creat Clear Calc Estimated GFR Random Glucose (60-115) mg/dL Calcium (8.4-10.2) mg/dL Phosphorus (2.7-4.5) mg/dL Magnesium (1.6-2.6) mg/dL Total Bilirubin (0.0-1.0) mg/dL Direct Bilirubin (0.0-0.5) mg/dL AST (5-37) U/L ALT (0-40) U/L Alkaline Phosphatase (39-117) U/L Total Creatine Kinase (38-174) U/L Troponin I High Sens (<3.5-35.0) ng/L Total Protein (6.5-8.0) g/dL Albumin (3.5-5.0) g/dL 09/22/20 09/22/20 Range/Units 15:09 15:09 WBC (4.8-10.8) X10*3/uL RBC (4.60-5.80) X10*6/uL Hgb (14.0-18.0) g/dl Hct (42-52) % MCV (80-98) fL MCH (27.0-33.0) pg MCHC (31.0-36.0) g/dl RDW (11.0-16.0) % Plt Count (160-400) X10*3/uL MPV (9.4-12.4) fL Immature Gran % (Auto) (0.0-0.4) % Neut % (Auto) (45-73) % Lymph % (Auto) (20-40) % [place] % (Auto) (2-11) % Eos % (Auto) (0-4) % Baso % (Auto) (0-2) % Lymph # (Auto) (1.2-4.9) X10*3/uL [place] # (Auto) (0.1-1.2) X10*3/uL Eos # (Auto) (0.0-0.4) X10*3/uL Baso # (Auto) (0.0-0.2) X10*3/uL Abs Immat Gran (auto) (0.00-0.03) X10*3/uL Absolute Neuts (auto) (2.0-8.3) X10*3/uL Absolute Nucleated RBC (0.0-0.012) X10*3/uL Nucleated RBC % (auto) (0.0-0.2) /100WBC PT (10.8-13.0) SEC Whole Blood PT (11.1-13.5) sec INR (0.9-1.1) Whole Blood INR (0.9-1.1) APTT (24.1-38.0) SEC Sodium 141 (135-145) mmol/L Potassium 4.5 (3.3-5.1) mmol/L Chloride 106 (96-108) mmol/L Carbon Dioxide 27 (22-29) mmol/L Anion Gap 13 (12-20) BUN 28 H (9-16) mg/dL Creatinine 0.92 (0.5-1.4) mg/dL Estim Creat Clear Calc 65.0 Estimated GFR > 60 Random Glucose 96 (60-115) mg/dL Calcium 9.4 (8.4-10.2) mg/dL Phosphorus 2.9 (2.7-4.5) mg/dL Magnesium 1.8 (1.6-2.6) mg/dL Total Bilirubin 0.7 (0.0-1.0) mg/dL Direct Bilirubin 0.3 (0.0-0.5) mg/dL AST 16 (5-37) U/L ALT < 6 (0-40) U/L Alkaline Phosphatase 63 (39-117) U/L Total Creatine Kinase 52 (38-174) U/L Troponin I High Sens 6.7 D (<3.5-35.0) ng/L Total Protein 6.3 L (6.5-8.0) g/dL Albumin 3.8 (3.5-5.0) g/dL ECG Data Interpretation: 1505: sinus rhythm with a rate of 66, first-degree AV block with a SC interval of 212 milliseconds, prolonged QRS duration of 132 milliseconds, prolonged QTC of 482 milliseconds, nonspecific interventricular conduction delay, poor R-wave progression V1 through V3, Q-waves in lead 3, no ST segment elevation, no ST segment depression NIH Stroke Scale Internal: Initial- Upon Arrival Level of Consciousness: Alert Level of Consciousness Questions: Answers both questions correctly Level of Consciousness Commands: Performs both tasks correctly Best Gaze: Normal Visual: No visual loss Facial Palsy: Minor paralyis ( Left face) Motor Arm (Right): No drift Motor Arm (Left): No drift Motor Leg (Right): No drift Motor Leg (Left): No drift Limb Ataxia: Absent Sensory: Normal Best Language: No aphasia Dysarthia: Mild to moderate dysarthria Extinction and Inattention: No abnormality Score: 2 Discharge Plan Discharge Clinical Impression: Slurred speech, Difficulty swallowing Patient Disposition: Home, Self-Care Additional Instructions: Your CT scan of the head revealed no bleeding in the brain and no new stroke. Your laboratory evaluation was unremarkable. Continue your medications as prescribed by your doctor. Follow-up with your doctor in 2 days. Please return to the emergency department if your symptoms get worse or if you d evelop any symptoms that are concerning to you. Prescriptions: No Action multivitamin Tablet 1 tab PO DAILY RF: 0 trazodone 50 mg Tablet 25 mg PO BEDTIME RF: 0 carbidopa-levodopa 25-250 mg Tablet 1 tab PO TID@0900,1300,1700 RF: 0 midodrine 5 mg Tablet 5 mg PO TID RF: 0 docusate sodium 100 mg Capsule 100 mg PO DAILY RF: 0 finasteride 5 mg Tablet 5 mg PO BEDTIME RF: 0 escitalopram oxalate 5 mg Tablet 5 mg PO DAILY RF: 0 atorvastatin 80 mg Tablet 80 mg PO BEDTIME 30 Days Qty: 30 RF: 0 metoprolol tartrate 25 mg Tablet 25 mg PO BID 30 Days Qty: 60 RF: 0 aspirin 81 mg Tablet,Chewable 81 mg PO DAILY RF: 0 divalproex [Depakote Sprinkles] 125 mg Capsule, Delayed Rel Sprinkle 250 mg PO DAILY RF: 0 warfarin [Jantoven] 7.5 mg Tablet 7.5 mg PO DAILY@1800 Qty: 0 RF: 0
--- NOTE | 2020-09-22 17:37 | PC.NURSE ---
Report called to facility
[2020-09-22 17:51] LABS: Glucose, Whole Blood 92 mg/dL (60-115)
== END 2020-09-22 19:08 | disposition home or self-care (01) ==
PROVIDERS: Emergency Provider Emergency Medicine Emergency Medical Services; PCP Internal Medicine Medical Oncology
DX: R47.81 Slurred speech (principal); R13.10 Dysphagia, unspecified; D64.9 Anemia, unspecified; I48.0 Paroxysmal atrial fibrillation; I11.0 Hypertensive heart disease with heart failure; I50.30 Unspecified diastolic (congestive) heart failure; G30.9 Alzheimer's disease, unspecified; F02.80 Dementia in other diseases classified elsewhere, unspecified severity, without behavioral disturbance, psychotic disturbance, mood disturbance, and anxiety; G20 Parkinson's disease; Z86.73 Personal history of transient ischemic attack (TIA), and cerebral infarction without residual deficits; Z79.01 Long term (current) use of anticoagulants; Z79.82 Long term (current) use of aspirin; Z79.899 Other long term (current) drug therapy
CPT/HCPCS: 36415; 70450; 80048; 80076; 82550; 82947; 83735; 84100; 84484; 85025; 85610; 85730; 93005; 99284

== ENCOUNTER 2020-09-23 | Outpatient (REF) | payer MEDICARE, SELFPAY ==
[2020-09-23 08:23] LABS: INTERNATIONAL NORM RATIO 1.4 (0.9-1.1); Prothrombin Time 16.7 SEC (10.8-13.0)
== END 2020-09-23 00:01 | disposition home or self-care (01) ==
LOC: HO.HSH3E
PROVIDERS: Visit Provider Internal Medicine Medical Oncology
DX: Z86.73 Personal history of transient ischemic attack (TIA), and cerebral infarction without residual deficits (principal)
CPT/HCPCS: 36415; 85610

== ENCOUNTER 2020-09-24 | Outpatient (REF) | payer MEDICARE, SELFPAY ==
[2020-09-24 08:07] LABS: INTERNATIONAL NORM RATIO 1.9 (0.9-1.1); Prothrombin Time 21.6 SEC (9.9-13.0)
== END 2020-09-24 00:01 | disposition home or self-care (01) ==
LOC: HO.HSH3E
PROVIDERS: Visit Provider Internal Medicine Medical Oncology
DX: Z86.73 Personal history of transient ischemic attack (TIA), and cerebral infarction without residual deficits (principal)
CPT/HCPCS: 36415; 85610

== ENCOUNTER 2020-09-26 12:33 | Outpatient (REF) | payer MEDICARE, SELFPAY ==
[2020-09-26 12:48] LABS: INTERNATIONAL NORM RATIO 2.1 (0.9-1.1); Prothrombin Time 23.9 SEC (9.9-13.0)
== END 2020-09-26 12:34 | disposition home or self-care (01) ==
LOC: HO.HSH3E 12:33
PROVIDERS: Visit Provider Internal Medicine Medical Oncology
DX: I48.91 Unspecified atrial fibrillation (principal); Z95.2 Presence of prosthetic heart valve
CPT/HCPCS: 36415; 85610

== ENCOUNTER 2020-09-28 | Outpatient (REF) | payer MEDICARE, SELFPAY ==
[2020-09-28 07:58] LABS: Prothrombin Time 34.8 SEC (9.9-13.0)
== END 2020-09-28 00:01 | disposition home or self-care (01) ==
LOC: HO.HSH3E
PROVIDERS: Visit Provider Internal Medicine Medical Oncology
DX: I48.91 Unspecified atrial fibrillation (principal); Z95.2 Presence of prosthetic heart valve
CPT/HCPCS: 36415; 85610

== ENCOUNTER → 2020-09-28 09:17 | Outpatient (REF) | payer MEDICARE, SELFPAY ==
--- NOTE | 2020-09-28 09:23 | CA_ITS ---
Transthoracic Echocardiogram Patient (Last, First, Middle): Clem Moore E Gender: Male Date of : 1940 Age: 80 Procedure Date: 09/28/2020 Procedure Type: Transthoracic Echocardiogram Location: OP Height: 170.18 cm Weight: 70.31 kg BSA: 1.81 m2 Heart Rate: bpm BP: 123 / 60 mmHg [employer]ated [employer] Driver: DSMonique Referring MD: Tino Babb MD Symptoms: I42.9 - Cardiomyopathy, unspecified Study Quality: Fair ECG Rhythm: Sinus Conclusions: - The left ventricular systolic function is mildly decreased. The calculated ejection fraction is 45% by biplane method. - There is severe septal asymmetric hypertrophy. - The mid inferior and mid inferolateral segments are akinetic. Findings Left Ventricle Normal left ventricular cavity size. The left ventricular systolic function is mildly decreased. The calculated ejection fraction is 45% by biplane method. There is mild global hypokinesis. E/E prime ratio is between 8 and 15 consistent with indeterminate filling pressures. Evidence suggests grade I (mild) diastolic dysfunction. There is severe septal asymmetric hypertrophy. Wall Motion Rest Echo Findings The mid inferior and mid inferolateral segments are akinetic. Right Ventricle Normal right ventricular cavity size. There is mildly decreased right ventricular systolic function. Mitral Valve A mechanical prosthetic mitral valve is present. Prior Study Comparison Changes noted compared to prior study dated: 07/19/2020. LVEF higher. See comments on wall motion. Measurements 2D Linear Measurements LVIDd: 4.26 3.9-5.3/4.2-5.9 cm LVIDd Index: 2.35 2.4-3.2/2.2-3.1 cm/m2 LVIDs: 3.23 2.0-3.6 cm 2D Systolic Function EF 4C: 42.10 >55% EF 2C: 45.40 >55% EF BiP: 44.90 >55% Mitral Valve MV Pk E: 0.51 MV PK A: 1.16 MV Decel Time: 281.00 E/A: 0.40 E'Lateral: 2.61 E'Medial: 3.48 E/E' Med: 14.80 E/E' Lat: 19.70 PHT: 82.00 MVA PHT: 2.68 Decel [place]: 1.83 Diastolic Function MV Pk E: 0.51 MV Pk A: 1.16 E/A: 0.40 E'Medial: 3.48 E/E' Med: 14.80 E' Laterial: 2.61 E/E' Lat: 19.70 Updated in Other Vendor System with Status of Final Goran Lawrence MD electronically signed on 09/30/2020 12:05:58 PM with status of Final
== END ==
LOC: HO.CARD 09:17
PROVIDERS: Visit Provider Internal Medicine Cardiovascular Disease
DX: I42.9 Cardiomyopathy, unspecified (principal)
CPT/HCPCS: 93308

== ENCOUNTER 2020-09-30 | Outpatient (REF) | payer MEDICARE, SELFPAY ==
[2020-09-30 08:27] LABS: INTERNATIONAL NORM RATIO 3.1 (0.9-1.1); Prothrombin Time 35.6 SEC (9.9-13.0)
== END 2020-09-30 00:01 | disposition home or self-care (01) ==
LOC: HO.HSH3E
PROVIDERS: Visit Provider Internal Medicine Medical Oncology
DX: I48.91 Unspecified atrial fibrillation (principal); Z95.2 Presence of prosthetic heart valve
CPT/HCPCS: 36415; 85610

== ENCOUNTER 2020-10-03 | Outpatient (REF) | payer MEDICARE, SELFPAY ==
[2020-10-03 08:02] LABS: INTERNATIONAL NORM RATIO 2.9 (0.9-1.1); Prothrombin Time 33.5 SEC (9.9-13.0)
== END 2020-10-03 00:01 | disposition home or self-care (01) ==
LOC: HO.HSH3E
PROVIDERS: Visit Provider Internal Medicine Medical Oncology
DX: I48.91 Unspecified atrial fibrillation (principal); Z95.2 Presence of prosthetic heart valve
CPT/HCPCS: 36415; 85610

== ENCOUNTER 2020-10-07 | Outpatient (REF) | payer MEDICARE, SELFPAY ==
[2020-10-07 08:53] LABS: INTERNATIONAL NORM RATIO 2.9 (0.9-1.1); Prothrombin Time 34.3 SEC (9.9-13.0)
== END 2020-10-07 00:01 | disposition home or self-care (01) ==
LOC: HO.HSH3E
PROVIDERS: Visit Provider Internal Medicine Medical Oncology
DX: Z95.2 Presence of prosthetic heart valve (principal)
CPT/HCPCS: 36415; 85610

== ENCOUNTER 2020-10-17 | Outpatient (REF) | payer MEDICARE, SELFPAY ==
[2020-10-17 08:03] LABS: INTERNATIONAL NORM RATIO 3.2 (0.9-1.1); Prothrombin Time 37.2 SEC (9.9-13.0)
== END 2020-10-17 00:01 | disposition home or self-care (01) ==
LOC: HO.HSH3E
PROVIDERS: Visit Provider Internal Medicine Medical Oncology
DX: I48.91 Unspecified atrial fibrillation (principal)
CPT/HCPCS: 36415; 85610

== ENCOUNTER 2020-10-31 05:00 | Outpatient (REF) | payer MEDICARE, SELFPAY ==
[2020-10-31 08:04] LABS: INTERNATIONAL NORM RATIO 3.3 (0.9-1.1); Prothrombin Time 38.9 SEC (9.9-13.0)
== END 2020-10-31 05:01 | disposition home or self-care (01) ==
LOC: HO.HSH3E 05:00
PROVIDERS: Visit Provider Internal Medicine Medical Oncology
DX: I48.91 Unspecified atrial fibrillation (principal)
CPT/HCPCS: 36415; 85610

== ENCOUNTER 2020-11-14 05:00 | Outpatient (REF) | payer MEDICARE, SELFPAY ==
[2020-11-14 09:05] LABS: INTERNATIONAL NORM RATIO 3.2 (0.9-1.1); Prothrombin Time 37.7 SEC (9.9-13.0)
== END 2020-11-14 05:01 ==
LOC: HO.HSH3E 05:00
PROVIDERS: Visit Provider Internal Medicine Medical Oncology
DX: Z95.2 Presence of prosthetic heart valve (principal)
CPT/HCPCS: 36415; 85610

== ENCOUNTER 2020-11-29 05:00 | Outpatient (REF) | payer MEDICARE, SELFPAY ==
[2020-11-29 12:38] LABS: INTERNATIONAL NORM RATIO 4.3 (0.9-1.1); Prothrombin Time 50.5 SEC (9.9-13.0)
== END 2020-11-29 05:01 ==
LOC: HO.HSH3E 05:00
PROVIDERS: Visit Provider Internal Medicine Medical Oncology
DX: Z95.2 Presence of prosthetic heart valve (principal)
CPT/HCPCS: 36415; 85610

== ENCOUNTER 2020-12-07 05:36 | Outpatient (REF) | payer MEDICARE, SELFPAY ==
[2020-12-07 07:56] LABS: INTERNATIONAL NORM RATIO 3.1 (0.9-1.1); Prothrombin Time 36.1 SEC (9.9-13.0)
== END 2020-12-07 05:37 | disposition home or self-care (01) ==
LOC: HO.HSH3E 05:36
PROVIDERS: Visit Provider Internal Medicine Medical Oncology
DX: Z86.73 Personal history of transient ischemic attack (TIA), and cerebral infarction without residual deficits (principal); Z95.2 Presence of prosthetic heart valve
CPT/HCPCS: 36415; 85610

== ENCOUNTER 2020-12-21 07:13 | Outpatient (REF) | payer MEDICARE, SELFPAY ==
[2020-12-21 06:58] LABS: INTERNATIONAL NORM RATIO 4.6 (0.9-1.1); Prothrombin Time 54.4 SEC (9.9-13.0)
== END 2020-12-21 07:14 | disposition home or self-care (01) ==
LOC: HO.HSH3E 07:13
PROVIDERS: Visit Provider Internal Medicine Medical Oncology
DX: Z95.2 Presence of prosthetic heart valve (principal)
CPT/HCPCS: 36415; 85610

== ENCOUNTER 2021-01-04 06:45 | Outpatient (REF) | payer MEDICARE, SELFPAY ==
[2021-01-04 08:45] LABS: Prothrombin Time 23.4 SEC (9.9-13.0)
== END 2021-01-04 06:46 | disposition home or self-care (01) ==
LOC: HO.HSH3E 06:45
PROVIDERS: Visit Provider Internal Medicine Medical Oncology
DX: Z95.2 Presence of prosthetic heart valve (principal)
CPT/HCPCS: 36415; 85610

== ENCOUNTER 2021-01-07 19:11 | Emergency (ER) | payer MEDICARE, SELFPAY ==
--- NOTE | ~2021-01-07 | XR_ITS ---
EXAMINATION: XR CHEST CLINICAL INFORMATION: Atrial fibrillation COMPARISON: Chest x-ray September 14, 2020, March 23, 2020 TECHNIQUE: Frontal portable view of the chest was obtained. 8:14 PM FINDINGS: Status post median sternotomy. Cardiac and mediastinal contours are normal. There are calcifications of thoracic aorta. No acute abnormality of the chest. Lungs are normally aerated. No pleural effusion or pneumothorax. Osteosclerosis of the posterior lateral left fifth rib remains unchanged since prior chest x-ray March 23, 2020. No acute osseous abnormality. Multilevel degenerative spondylosis of dorsal spine. XR/XR chest 1V IMPRESSION: No acute abnormality of the chest.
[2021-01-07 19:35] VITALS: BP 122/68; PULSE 70
[2021-01-07 19:43] VITALS: BP 124/63; PULSE 70; RESP 16; TEMP 36.6; O2SAT 95; BMI 23.5
--- NOTE | 2021-01-07 19:54 | ED.ARRPALP ---
HPI - Arrhythmia/Palpitations General Chief Complaint: Arrhythmia/Palpitations Stated Complaint: IRREGULAR HEART BEAT Time Seen by Provider: 01/07/21 19:53 Source: EMS and RN notes reviewed Mode of arrival: EMS Limitations: altered mental status History of Present Illness HPI narrative: Patient with history of atrial fibrillation on Coumadin and metoprolol came from [facility] after nurse noticed heart rate dropped to 30s after they gave him metoprolol p.o. on EMS arrival patient's heart rate was in 70s stable blood pressure same continued in the ER when she arrived patient denies any complaint no chest pain no shortness of breath no fever no chills Related Data Home Medications Medication Instructions Recorded Confirmed carbidopa 25 mg-levodopa 250 mg 1 tab PO TID@0900,1300,1700 07/18/20 09/14/20 tablet docusate sodium 100 mg capsule 100 mg PO DAILY 07/18/20 09/14/20 escitalopram oxalate 5 mg tablet 5 mg PO DAILY 07/18/20 09/14/20 finasteride 5 mg tablet 5 mg PO BEDTIME 07/18/20 09/14/20 midodrine 5 mg tablet 5 mg PO TID 07/18/20 09/14/20 multivitamin 1 tab PO DAILY 07/18/20 09/14/20 trazodone 50 mg tablet 25 mg PO BEDTIME 07/18/20 09/14/20 aspirin 81 mg chewable tablet 81 mg PO DAILY 09/14/20 09/14/20 divalproex 125 mg capsule,delayed 250 mg PO DAILY 09/14/20 09/14/20 release sprinkle (Depakote Sprinkles) Previous Rx's Medication Instructions Recorded atorvastatin 80 mg tablet 80 mg PO BEDTIME 30 Days #30 tab 07/20/20 metoprolol tartrate 25 mg tablet 25 mg PO BID 30 Days #60 tab 07/20/20 warfarin 7.5 mg tablet (Jantoven) 7.5 mg PO DAILY@1800 #0 tab 09/16/20 Allergies Allergy/AdvReac Type Severity Reaction Status Date / Time celecoxib [From Celebrex] Allergy Unknown Verified 07/18/20 11:17 poison michaelle extract Allergy Unknown Verified 07/18/20 11:17 simvastatin Allergy Unknown Verified 07/18/20 11:17 Review of Systems Review of Systems: Yes Unobtainable due to mental status [facility] Past Medical History Medical History Acute CVA (cerebrovascular accident) Afib Alzheimer disease Cardiomyopathy Cerebrovascular accident Depression Diastolic CHF HTN (hypertension) Hyperlipidemia Nonsustained ventricular tachycardia Orthostatic hypotension Parkinson disease Paroxysmal atrial fibrillation Vascular dementia Surgical History H/O mitral valve replacement Mitral valve replaced Social History Social History Household Members: Spouse Housing: House Do you presently have visiting nurse or other home services: No Alcohol intake: never Patient Tobacco Use Status: Never used Tobacco Advance Directives: No Advance Directives Date on File: 01/01/20 service: Yes Current occupational status: retired Physical Exam Vital Signs: Vital Signs: Last Vital Signs Temp 98 F 01/07/21 19:43 Pulse 70 01/07/21 19:43 Resp 16 01/07/21 19:43 BP 124/63 01/07/21 19:43 Pulse Ox 95 01/07/21 19:43 Body Mass Index 23.5 Appearance: Alert. Significant dementia No acute distress. Eyes: No pallor or icterus ENT: Pharynx normal. Oral Mucosa moist Neck: Normal inspection. Neck supple. CVS: Irregularly heart rate with frequent PVCs Pulses normal. Respiratory: No respiratory distress. Equal air entry bilateral, no wheezing/rales/rhonchi Abdomen: Soft and nontender. Bowel sounds are present, no mass palpable, no CVA tenderness Skin: Skin warm and dry. Normal skin color. Normal skin turgor. Extremities: No lower extremity edema. No calf tenderness Neuro: Alert and awake No motor deficit. MDM - Arrhythmia/Palpitations MDM Narrative Medical decision making narrative: Patient had transient bradycardia in the halfway with stable vitals , heart rate above 60 in the ER lab workup stable discharge patient back to halfway Lab Data Attestation: I reviewed the patient's lab results. Result diagrams: 01/07/21 20:19 01/07/21 20:19 Labs: Lab Results 01/07/21 01/07/21 01/07/21 Range/Units 20:19 20:19 20:19 WBC 7.5 (4.8-10.8) X10*3/uL RBC 3.89 L (4.60-5.80) X10*6/uL Hgb 12.4 L (14.0-18.0) g/dl Hct 35.9 L (42-52) % MCV 92.3 (80-98) fL MCH 31.9 (27.0-33.0) pg MCHC 34.5 (31.0-36.0) g/dl RDW 13.5 (11.0-16.0) % Plt Count 197 (160-400) X10*3/uL MPV 11.0 (9.4-12.4) fL Immature Gran % (Auto) 0.1 (0.0-0.4) % Neut % (Auto) 48.8 (45-73) % Lymph % (Auto) 35.0 (20-40) % [place] % (Auto) 11.9 H (2-11) % Eos % (Auto) 3.7 (0-4) % Baso % (Auto) 0.5 (0-2) % Lymph # (Auto) 2.6 (1.2-4.9) X10*3/uL [place] # (Auto) 0.9 (0.1-1.2) X10*3/uL Eos # (Auto) 0.3 (0.0-0.4) X10*3/uL Baso # (Auto) 0.0 (0.0-0.2) X10*3/uL Abs Immat Gran (auto) 0.01 (0.00-0.03) X10*3/uL Absolute Neuts (auto) 3.7 (2.0-8.3) X10*3/uL Absolute Nucleated RBC 0.000 (0.0-0.012) X10*3/uL Nucleated RBC % (auto) 0.0 (0.0-0.2) /100WBC PT 20.6 H (9.9-13.0) SEC INR 1.8 H (0.9-1.1) Sodium 139 (135-145) mmol/L Potassium 4.1 (3.3-5.1) mmol/L Chloride 112 H (96-108) mmol/L Carbon Dioxide 20 L (22-29) mmol/L Anion Gap 11 L (12-20) BUN 30 H (9-16) mg/dL Creatinine 0.81 (0.5-1.4) mg/dL Estim Creat Clear Calc 66.8 Estimated GFR > 60 Random Glucose 151 H D (60-115) mg/dL Calcium 8.6 D (8.4-10.2) mg/dL Magnesium 1.7 (1.6-2.6) mg/dL Troponin I High Sens (<3.5-35.0) ng/L 01/07/21 Range/Units 20:19 WBC (4.8-10.8) X10*3/uL RBC (4.60-5.80) X10*6/uL Hgb (14.0-18.0) g/dl Hct (42-52) % MCV (80-98) fL MCH (27.0-33.0) pg MCHC (31.0-36.0) g/dl RDW (11.0-16.0) % Plt Count (160-400) X10*3/uL MPV (9.4-12.4) fL Immature Gran % (Auto) (0.0-0.4) % Neut % (Auto) (45-73) % Lymph % (Auto) (20-40) % [place] % (Auto) (2-11) % Eos % (Auto) (0-4) % Baso % (Auto) (0-2) % Lymph # (Auto) (1.2-4.9) X10*3/uL [place] # (Auto) (0.1-1.2) X10*3/uL Eos # (Auto) (0.0-0.4) X10*3/uL Baso # (Auto) (0.0-0.2) X10*3/uL Abs Immat Gran (auto) (0.00-0.03) X10*3/uL Absolute Neuts (auto) (2.0-8.3) X10*3/uL Absolute Nucleated RBC (0.0-0.012) X10*3/uL Nucleated RBC % (auto) (0.0-0.2) /100WBC PT (9.9-13.0) SEC INR (0.9-1.1) Sodium (135-145) mmol/L Potassium (3.3-5.1) mmol/L Chloride (96-108) mmol/L Carbon Dioxide (22-29) mmol/L Anion Gap (12-20) BUN (9-16) mg/dL Creatinine (0.5-1.4) mg/dL Estim Creat Clear Calc Estimated GFR Random Glucose (60-115) mg/dL Calcium (8.4-10.2) mg/dL Magnesium (1.6-2.6) mg/dL Troponin I High Sens 22.8 D (<3.5-35.0) ng/L ECG Data Attestation: I personally reviewed and interpreted this ECG as follows: Interpretation: Normal sinus rhythm heart rate 65 beats per minute frequent unifocal PVCs left axis deviation no acute ST T wave changes no acute ischemia Discharge Plan Discharge Clinical Impression: Atrial fibrillation Qualifiers: Atrial fibrillation type: longstanding persistent Qualified Code(s): I48.11 - Longstanding persistent atrial fibrillation Patient Disposition: [facility] Instructions: A-fib (Atrial Fibrillation) (ED) Additional Instructions: Continue medications as prescribed and check on the heart rate if heart rate persistently less than 60 , hold metoprolol and call your transit planning director Prescriptions: No Action multivitamin Tablet 1 tab PO DAILY RF: 0 trazodone 50 mg Tablet 25 mg PO BEDTIME RF: 0 carbidopa-levodopa 25-250 mg Tablet 1 tab PO TID@0900,1300,1700 RF: 0 midodrine 5 mg Tablet 5 mg PO TID RF: 0 docusate sodium 100 mg Capsule 100 mg PO DAILY RF: 0 finasteride 5 mg Tablet 5 mg PO BEDTIME RF: 0 escitalopram oxalate 5 mg Tablet 5 mg PO DAILY RF: 0 atorvastatin 80 mg Tablet 80 mg PO BEDTIME 30 Days Qty: 30 RF: 0 metoprolol tartrate 25 mg Tablet 25 mg PO BID 30 Days Qty: 60 RF: 0 aspirin 81 mg Tablet,Chewable 81 mg PO DAILY RF: 0 divalproex [Depakote Sprinkles] 125 mg Capsule, Delayed Rel Sprinkle 250 mg PO DAILY RF: 0 warfarin [Jantoven] 7.5 mg Tablet 7.5 mg PO DAILY@1800 Qty: 0 RF: 0
--- NOTE | 2021-01-07 20:07 | ECG_ITS ---
Test Reason : arrhythmia Blood Pressure : / mmHG Vent. Rate : 065 BPM Atrial Rate : 065 BPM P-R Int : 218 ms QRS Dur : 128 ms QT Int : 434 ms P-R-T Axes : 040 -51 108 degrees QTc Int : 451 ms Sinus rhythm with 1st degree A-V block with frequent Premature ventricular complexes Left anterior fascicular block Left ventricular hypertrophy with QRS widening and repolarization abnormality ( R in aVL , [place] product ) Intra-ventricular conduction delay Abnormal ECG When compared with ECG of 22-SEP-2020 15:05, Premature ventricular complexes are now Present Referred By: Clemente Whatley Electronically Signed By:DARLENE FAIRBANKS MD
[2021-01-07 20:25] LABS: MANUAL DIFF FLAG NO
[2021-01-07 20:26] LABS: Basophils Percent Auto 0.5 % (0-2); Eosinophils Absolute Auto 0.3 X10*3/uL (0.0-0.4); Eosinophils Percent Auto 3.7 % (0-4); Hematocrit 35.9 % (42-52); Hemoglobin 12.4 g/dl (14.0-18.0); Imm Gran Abs Auto 0.01 X10*3/uL (0.00-0.03); Imm Gran Pct Auto 0.1 % (0.0-0.4); Lymphocytes Absolute Auto 2.6 X10*3/uL (1.2-4.9); Mean Corpuscular HGB Conc 34.5 g/dl (31.0-36.0); Mean Corpuscular Hemoglobin 31.9 pg (27.0-33.0); Mean Corpuscular Volume 92.3 fL (80-98); Monocytes Absolute Auto 0.9 X10*3/uL (0.1-1.2); Monocytes Percent Auto 11.9 % (2-11); Neutrophils Absolute Auto 3.7 X10*3/uL (2.0-8.3); Neutrophils Percent Auto 48.8 % (45-73); Platelet Count 197 X10*3/uL (160-400); Red Blood Count 3.89 X10*6/uL (4.60-5.80); Red Cell Distribution Width 13.5 % (11.0-16.0); White Blood Count 7.5 X10*3/uL (4.8-10.8)
[2021-01-07 20:33] LABS: INTERNATIONAL NORM RATIO 1.8 (0.9-1.1); Prothrombin Time 20.6 SEC (9.9-13.0)
[2021-01-07 20:47] LABS: Anion Gap 11 (12-20); Blood Urea Nitrogen 30 mg/dL (9-16); Calcium 8.6 mg/dL (8.4-10.2); Carbon Dioxide 20 mmol/L (22-29); Chloride 112 mmol/L (96-108); Creatinine Clr Calc Pharmacy 66.8; Estimated Glomerular Filt Rate > 60; Glucose Random 151 mg/dL (60-115); Magnesium 1.7 mg/dL (1.6-2.6); Potassium 4.1 mmol/L (3.3-5.1); Sodium 139 mmol/L (135-145)
[2021-01-07 20:50] LABS: Troponin-I High Sensitivity 22.8 ng/L (<3.5-35.0)
== END 2021-01-07 23:48 | disposition skilled nursing facility (03) ==
PROVIDERS: Emergency Provider Internal Medicine
DX: I48.11 Longstanding persistent atrial fibrillation (principal); I11.0 Hypertensive heart disease with heart failure; I50.30 Unspecified diastolic (congestive) heart failure; G20 Parkinson's disease; G30.9 Alzheimer's disease, unspecified; F02.80 Dementia in other diseases classified elsewhere, unspecified severity, without behavioral disturbance, psychotic disturbance, mood disturbance, and anxiety; Z79.01 Long term (current) use of anticoagulants; Z79.899 Other long term (current) drug therapy; Z86.73 Personal history of transient ischemic attack (TIA), and cerebral infarction without residual deficits
CPT/HCPCS: 36415; 71045; 80048; 83735; 84484; 85025; 85610; 93005; 99283

== ENCOUNTER 2021-01-09 11:04 | Outpatient (REF) | payer MEDICARE, SELFPAY ==
[2021-01-09 13:12] LABS: Free T4 (Free Thyroxine) 0.88 ng/dL (0.71-1.85); Thyroid Stimulating Hormone 2.13 uIU/mL (0.32-4.0)
== END 2021-01-09 11:05 | disposition home or self-care (01) ==
LOC: HO.HSH3E 11:04
PROVIDERS: Visit Provider Internal Medicine Medical Oncology
DX: I48.91 Unspecified atrial fibrillation (principal)
CPT/HCPCS: 36415; 84439; 84443

== ENCOUNTER 2021-01-18 06:06 | Outpatient (REF) | payer MEDICARE, SELFPAY ==
[2021-01-18 07:48] LABS: INTERNATIONAL NORM RATIO 3.7 (0.9-1.1); Prothrombin Time 43.8 SEC (9.9-13.0)
== END 2021-01-18 06:07 | disposition home or self-care (01) ==
LOC: HO.HSH3E 06:06
PROVIDERS: Visit Provider Internal Medicine Medical Oncology
DX: Z95.2 Presence of prosthetic heart valve (principal)
CPT/HCPCS: 36415; 85610

== ENCOUNTER 2021-02-01 13:13 | Outpatient (REF) | payer MEDICARE, SELFPAY ==
[2021-02-01 07:51] LABS: Prothrombin Time 23.3 SEC (9.9-13.0)
== END 2021-02-01 13:14 | disposition home or self-care (01) ==
LOC: HO.HSH3E 13:13
PROVIDERS: Visit Provider Internal Medicine Medical Oncology
DX: Z95.2 Presence of prosthetic heart valve (principal)
CPT/HCPCS: 36415; 85610

== ENCOUNTER 2021-02-08 07:05 | Outpatient (REF) | payer MEDICARE, SELFPAY ==
[2021-02-08 07:58] LABS: INTERNATIONAL NORM RATIO 1.8 (0.9-1.1); Prothrombin Time 21.1 SEC (9.9-13.0)
== END 2021-02-08 07:06 | disposition home or self-care (01) ==
LOC: HO.HSH3E 07:05
PROVIDERS: Visit Provider Internal Medicine Medical Oncology
DX: Z95.2 Presence of prosthetic heart valve (principal)
CPT/HCPCS: 36415; 85610

== ENCOUNTER → 2021-02-14 13:16 | Outpatient (BNVA) | payer MEDICARE, SELFPAY | PROVIDERS: Visit Provider Internal Medicine Cardiovascular Disease | DX: I48.0 Paroxysmal atrial fibrillation (principal); I42.9 Cardiomyopathy, unspecified; I95.1 Orthostatic hypotension; Z95.2 Presence of prosthetic heart valve | CPT/HCPCS: 99212 ==

== ENCOUNTER 2021-02-15 06:43 | Outpatient (REF) | payer MEDICARE, SELFPAY ==
[2021-02-15 08:22] LABS: INTERNATIONAL NORM RATIO 4.4 (0.9-1.1); Prothrombin Time 51.3 SEC (9.9-13.0)
== END 2021-02-15 06:44 | disposition home or self-care (01) ==
LOC: HO.HSH3E 06:43
PROVIDERS: Visit Provider Internal Medicine Medical Oncology
DX: Z95.2 Presence of prosthetic heart valve (principal)
CPT/HCPCS: 36415; 85610

== ENCOUNTER 2021-02-22 07:03 | Outpatient (REF) | payer MEDICARE, SELFPAY ==
[2021-02-22 08:06] LABS: INTERNATIONAL NORM RATIO 1.5 (0.9-1.1); Prothrombin Time 16.8 SEC (9.9-13.0)
== END 2021-02-22 07:04 | disposition home or self-care (01) ==
LOC: HO.HSH3E 07:03
PROVIDERS: Visit Provider Internal Medicine Medical Oncology
DX: Z95.2 Presence of prosthetic heart valve (principal)
CPT/HCPCS: 36415; 85610

== ENCOUNTER 2021-03-01 07:24 | Outpatient (REF) | payer MEDICARE, SELFPAY ==
[2021-03-01 08:04] LABS: INTERNATIONAL NORM RATIO 2.2 (0.9-1.1); Prothrombin Time 25.7 SEC (9.9-13.0)
== END 2021-03-01 07:25 | disposition home or self-care (01) ==
LOC: HO.HSH3E 07:24
PROVIDERS: Visit Provider Internal Medicine Medical Oncology
DX: Z95.2 Presence of prosthetic heart valve (principal); Z86.73 Personal history of transient ischemic attack (TIA), and cerebral infarction without residual deficits
CPT/HCPCS: 36415; 85610

== ENCOUNTER 2021-03-08 07:47 | Outpatient (REF) | payer MEDICARE, SELFPAY ==
[2021-03-08 08:25] LABS: INTERNATIONAL NORM RATIO 3.2 (0.9-1.1); Prothrombin Time 36.8 SEC (9.9-13.0)
== END 2021-03-08 07:48 | disposition home or self-care (01) ==
LOC: HO.HSH3E 07:47
PROVIDERS: Visit Provider Internal Medicine Medical Oncology
DX: Z95.2 Presence of prosthetic heart valve (principal); Z79.01 Long term (current) use of anticoagulants
CPT/HCPCS: 85610

== ENCOUNTER 2021-03-15 07:03 | Outpatient (REF) | payer MEDICARE, SELFPAY ==
[2021-03-15 08:46] LABS: INTERNATIONAL NORM RATIO 2.9 (0.9-1.1); Prothrombin Time 33.6 SEC (9.9-13.0)
== END 2021-03-15 07:04 | disposition home or self-care (01) ==
LOC: HO.HSH3E 07:03
PROVIDERS: Visit Provider Nurse Practitioner Acute Care
DX: Z95.2 Presence of prosthetic heart valve (principal)
CPT/HCPCS: 36415; 85610

== ENCOUNTER 2021-03-29 06:59 | Outpatient (REF) | payer MEDICARE, SELFPAY ==
[2021-03-29 07:54] LABS: Prothrombin Time 34.7 SEC (9.9-13.0)
== END 2021-03-29 07:00 | disposition home or self-care (01) ==
LOC: HO.HSH3E 06:59
PROVIDERS: Visit Provider Internal Medicine Medical Oncology
DX: Z95.2 Presence of prosthetic heart valve (principal); Z79.01 Long term (current) use of anticoagulants
CPT/HCPCS: 36415; 85610

== ENCOUNTER 2021-04-12 08:31 | Outpatient (REF) | payer MEDICARE, SELFPAY ==
[2021-04-12 07:56] LABS: INTERNATIONAL NORM RATIO 3.4 (0.9-1.1); Prothrombin Time 40.2 SEC (9.9-13.0)
== END 2021-04-12 08:32 | disposition home or self-care (01) ==
LOC: HO.HSH3E 08:31
PROVIDERS: Visit Provider Internal Medicine Medical Oncology
DX: Z95.2 Presence of prosthetic heart valve (principal)
CPT/HCPCS: 36415; 85610

== ENCOUNTER 2021-04-26 06:46 | Outpatient (REF) | payer MEDICARE, SELFPAY ==
[2021-04-26 08:00] LABS: INTERNATIONAL NORM RATIO 2.5 (0.9-1.1); Prothrombin Time 29.4 SEC (9.9-13.0)
== END 2021-04-26 06:47 | disposition home or self-care (01) ==
LOC: HO.HSH3E 06:46
PROVIDERS: Visit Provider Internal Medicine Medical Oncology
DX: Z95.2 Presence of prosthetic heart valve (principal)
CPT/HCPCS: 36415; 85610

== ENCOUNTER 2021-05-10 07:37 | Outpatient (REF) | payer MEDICARE, SELFPAY ==
[2021-05-10 08:22] LABS: Prothrombin Time 35.5 SEC (9.9-13.0)
== END 2021-05-10 07:38 | disposition home or self-care (01) ==
LOC: HO.HSH3E 07:37
PROVIDERS: Visit Provider Internal Medicine Medical Oncology
DX: Z95.2 Presence of prosthetic heart valve (principal); Z86.73 Personal history of transient ischemic attack (TIA), and cerebral infarction without residual deficits
CPT/HCPCS: 36415; 85610

== ENCOUNTER 2021-05-14 18:53 | Outpatient (REF) | payer MEDICARE, SELFPAY ==
[2021-05-14 19:25] LABS: INTERNATIONAL NORM RATIO 4.8 (0.9-1.1); Prothrombin Time 56.8 SEC (9.9-13.0)
== END 2021-05-14 18:54 | disposition home or self-care (01) ==
LOC: HO.HSH3E 18:53
PROVIDERS: Visit Provider Internal Medicine
DX: E78.5 Hyperlipidemia, unspecified (principal); Z95.2 Presence of prosthetic heart valve
CPT/HCPCS: 36415; 85610

== ENCOUNTER 2021-05-17 05:38 | Outpatient (REF) | payer MEDICARE, SELFPAY ==
[2021-05-17 07:52] LABS: INTERNATIONAL NORM RATIO 1.8 (0.9-1.1); Prothrombin Time 20.4 SEC (9.9-13.0)
== END 2021-05-17 05:39 | disposition home or self-care (01) ==
LOC: HO.HSH3E 05:38
PROVIDERS: Visit Provider Internal Medicine
DX: E78.5 Hyperlipidemia, unspecified (principal); Z95.2 Presence of prosthetic heart valve
CPT/HCPCS: 36415; 85610

== ENCOUNTER 2021-05-23 06:58 | Outpatient (REF) | payer MEDICARE, SELFPAY ==
[2021-05-23 08:07] LABS: INTERNATIONAL NORM RATIO 2.5 (0.9-1.1); Prothrombin Time 29.3 SEC (9.9-13.0)
== END 2021-05-23 06:59 | disposition home or self-care (01) ==
LOC: HO.HSH3E 06:58
PROVIDERS: Visit Provider Internal Medicine Medical Oncology
DX: Z95.2 Presence of prosthetic heart valve (principal)
CPT/HCPCS: 36415; 85610

== ENCOUNTER 2021-06-06 07:05 | Outpatient (REF) | payer MEDICARE, SELFPAY ==
[2021-06-06 07:59] LABS: INTERNATIONAL NORM RATIO 3.1 (0.9-1.1); Prothrombin Time 36.3 SEC (9.9-13.0)
== END 2021-06-06 07:06 | disposition home or self-care (01) ==
LOC: HO.HSH3E 07:05
PROVIDERS: Visit Provider Internal Medicine Medical Oncology
DX: Z86.73 Personal history of transient ischemic attack (TIA), and cerebral infarction without residual deficits (principal); Z95.2 Presence of prosthetic heart valve
CPT/HCPCS: 36415; 85610

== ENCOUNTER 2021-06-20 06:21 | Outpatient (REF) | payer MEDICARE, SELFPAY ==
[2021-06-20 07:48] LABS: INTERNATIONAL NORM RATIO 3.3 (0.9-1.1); Prothrombin Time 38.7 SEC (9.9-13.0)
== END 2021-06-20 06:22 | disposition home or self-care (01) ==
LOC: HO.HSH3E 06:21
PROVIDERS: Visit Provider Internal Medicine Medical Oncology
DX: Z86.73 Personal history of transient ischemic attack (TIA), and cerebral infarction without residual deficits (principal); Z95.2 Presence of prosthetic heart valve
CPT/HCPCS: 36415; 85610

== ENCOUNTER 2021-07-04 05:49 | Outpatient (REF) | payer MEDICARE, SELFPAY ==
[2021-07-04 07:54] LABS: INTERNATIONAL NORM RATIO 2.1 (0.9-1.1); Prothrombin Time 24.5 SEC (9.9-13.0)
== END 2021-07-04 05:50 | disposition home or self-care (01) ==
LOC: HO.HSH3E 05:49
PROVIDERS: Visit Provider Internal Medicine Medical Oncology
DX: Z95.2 Presence of prosthetic heart valve (principal)
CPT/HCPCS: 36415; 85610

== ENCOUNTER 2021-07-11 06:35 | Outpatient (REF) | payer MEDICARE, SELFPAY ==
[2021-07-11 08:39] LABS: INTERNATIONAL NORM RATIO 2.4 (0.9-1.1); Prothrombin Time 27.7 SEC (9.9-13.0)
== END 2021-07-11 06:36 | disposition home or self-care (01) ==
LOC: HO.HSH3E 06:35
PROVIDERS: Visit Provider Internal Medicine Medical Oncology
DX: Z95.2 Presence of prosthetic heart valve (principal); Z86.73 Personal history of transient ischemic attack (TIA), and cerebral infarction without residual deficits
CPT/HCPCS: 36415; 85610

== ENCOUNTER 2021-07-25 06:31 | Outpatient (REF) | payer MEDICARE, SELFPAY ==
[2021-07-25 07:54] LABS: Prothrombin Time 35.3 SEC (9.9-13.0)
== END 2021-07-25 06:32 | disposition home or self-care (01) ==
LOC: HO.HSH3E 06:31
PROVIDERS: Visit Provider Internal Medicine Medical Oncology
DX: Z95.2 Presence of prosthetic heart valve (principal)
CPT/HCPCS: 36415; 85610

== ENCOUNTER 2021-07-26 07:45 | Outpatient (REF) | payer MEDICARE, SELFPAY ==
[2021-07-26 09:00] LABS: MANUAL DIFF FLAG NO
[2021-07-26 09:02] LABS: Basophils Percent Auto 0.3 % (0-2); Eosinophils Absolute Auto 0.3 X10*3/uL (0.0-0.4); Eosinophils Percent Auto 4.3 % (0-4); Hematocrit 38.4 % (42.0-52.0); Hemoglobin 13.3 g/dl (14.0-18.0); Imm Gran Abs Auto 0.01 X10*3/uL (0.00-0.03); Imm Gran Pct Auto 0.1 % (0.0-0.4); Lymphocytes Absolute Auto 2.5 X10*3/uL (1.2-4.9); Lymphocytes Percent Auto 33.1 % (20-40); Mean Corpuscular HGB Conc 34.6 g/dl (31.0-36.0); Mean Corpuscular Volume 92.5 fL (80.0-98.0); Mean Platelet Volume 11.8 fL (9.4-12.4); Monocytes Absolute Auto 0.7 X10*3/uL (0.1-1.2); Monocytes Percent Auto 9.2 % (2-11); Platelet Count 194 X10*3/uL (160-400); Red Blood Count 4.15 X10*6/uL (4.60-5.80); Red Cell Distribution Width 13.7 % (11.0-16.0); White Blood Count 7.5 X10*3/uL (4.8-10.8)
[2021-07-26 09:30] LABS: Alanine Aminotransferase 22 U/L (0-40); Albumin Level 3.6 g/dL (3.5-5.0); Alkaline Phosphatase 52 U/L (39-117); Anion Gap 12 (12-20); Aspartate Amino Transferase 15 U/L (5-37); Bilirubin Total 0.8 mg/dL (0.0-1.0); Blood Urea Nitrogen 29 mg/dL (9-16); Calcium 9.2 mg/dL (8.4-10.2); Carbon Dioxide 24 mmol/L (22-29); Chloride 106 mmol/L (96-108); Cholesterol 181 mg/dL; Estimated Glomerular Filt Rate > 60; Glucose Random 191 mg/dL (60-115); HDL Cholesterol 44 mg/dL; LDL Cholesterol Calculated 121 mg/dl; Potassium 4.4 mmol/L (3.3-5.1); Sodium 138 mmol/L (135-145); Total Protein 6.1 g/dL (6.5-8.0); Triglycerides 80 mg/dL
== END 2021-07-26 07:46 | disposition home or self-care (01) ==
LOC: HO.HSH3E 07:45
PROVIDERS: Visit Provider Internal Medicine Medical Oncology
DX: E78.5 Hyperlipidemia, unspecified (principal); I10 Essential (primary) hypertension; Z86.73 Personal history of transient ischemic attack (TIA), and cerebral infarction without residual deficits; Z95.2 Presence of prosthetic heart valve
CPT/HCPCS: 36415; 80053; 80061; 85025

== ENCOUNTER 2021-08-01 05:30 | Outpatient (REF) | payer MEDICARE, SELFPAY ==
[2021-08-01 07:54] LABS: INTERNATIONAL NORM RATIO 3.4 (0.9-1.1); Prothrombin Time 39.6 SEC (9.9-13.0)
== END 2021-08-01 05:31 | disposition home or self-care (01) ==
LOC: HO.HSH3E 05:30
PROVIDERS: Visit Provider Internal Medicine Medical Oncology
DX: Z95.2 Presence of prosthetic heart valve (principal)
CPT/HCPCS: 36415; 85610

== ENCOUNTER 2021-08-15 07:03 | Outpatient (REF) | payer MEDICARE, SELFPAY ==
[2021-08-15 08:00] LABS: INTERNATIONAL NORM RATIO 2.6 (0.9-1.1); Prothrombin Time 29.9 SEC (9.9-13.0)
== END 2021-08-15 07:04 | disposition home or self-care (01) ==
LOC: HO.HSH3E 07:03
PROVIDERS: Visit Provider Internal Medicine Medical Oncology
DX: Z95.2 Presence of prosthetic heart valve (principal)
CPT/HCPCS: 36415; 85610

== ENCOUNTER 2021-08-29 05:53 | Outpatient (REF) | payer MEDICARE, SELFPAY ==
[2021-08-29 07:11] LABS: INTERNATIONAL NORM RATIO 2.6 (0.9-1.1); Prothrombin Time 29.7 SEC (9.9-13.0)
== END 2021-08-29 05:54 | disposition home or self-care (01) ==
LOC: HO.HSH3E 05:53
PROVIDERS: Visit Provider Internal Medicine Medical Oncology
DX: Z95.2 Presence of prosthetic heart valve (principal)
CPT/HCPCS: 36415; 85610

== ENCOUNTER 2021-09-12 07:00 | Outpatient (REF) | payer MEDICARE, SELFPAY ==
[2021-09-12 07:53] LABS: INTERNATIONAL NORM RATIO 3.4 (0.9-1.1); Prothrombin Time 39.2 SEC (9.9-13.0)
== END 2021-09-12 07:01 | disposition home or self-care (01) ==
LOC: HO.HSH3E 07:00
PROVIDERS: Visit Provider Internal Medicine Medical Oncology
DX: Z95.2 Presence of prosthetic heart valve (principal); Z79.01 Long term (current) use of anticoagulants
CPT/HCPCS: 36415; 85610

== ENCOUNTER 2021-09-26 06:32 | Outpatient (REF) | payer MEDICARE, SELFPAY ==
[2021-09-26 07:56] LABS: INTERNATIONAL NORM RATIO 2.7 (0.9-1.1); Prothrombin Time 31.7 SEC (10.0-13.1)
== END 2021-09-26 06:33 | disposition home or self-care (01) ==
LOC: HO.HSH3E 06:32
PROVIDERS: Visit Provider Internal Medicine Medical Oncology
DX: Z95.2 Presence of prosthetic heart valve (principal)
CPT/HCPCS: 36415; 85610

== ENCOUNTER 2021-10-10 05:47 | Outpatient (REF) | payer MEDICARE, SELFPAY ==
[2021-10-10 07:57] LABS: INTERNATIONAL NORM RATIO 2.8 (0.9-1.1); Prothrombin Time 33.4 SEC (10.0-13.1)
== END 2021-10-10 05:48 | disposition home or self-care (01) ==
LOC: HO.HSH3E 05:47
PROVIDERS: Visit Provider Internal Medicine Medical Oncology
DX: Z95.2 Presence of prosthetic heart valve (principal)
CPT/HCPCS: 36415; 85610

== ENCOUNTER 2021-10-24 13:38 | Outpatient (REF) | payer MEDICARE, SELFPAY ==
[2021-10-24 07:45] LABS: INTERNATIONAL NORM RATIO 2.9 (0.9-1.1)
== END 2021-10-24 13:39 | disposition home or self-care (01) ==
LOC: HO.HSH3E 13:38
PROVIDERS: Visit Provider Internal Medicine Medical Oncology
DX: Z95.2 Presence of prosthetic heart valve (principal)
CPT/HCPCS: 36415; 85610

== ENCOUNTER 2021-11-07 10:20 | Outpatient (REF) | payer MEDICARE, SELFPAY ==
[2021-11-07 08:06] LABS: INTERNATIONAL NORM RATIO 2.6 (0.9-1.1); Prothrombin Time 31.3 SEC (10.0-13.1)
== END 2021-11-07 10:21 | disposition home or self-care (01) ==
LOC: HO.HSH3E 10:20
PROVIDERS: Visit Provider Internal Medicine Medical Oncology
DX: Z95.2 Presence of prosthetic heart valve (principal)
CPT/HCPCS: 36415; 85610

== ENCOUNTER 2021-11-21 05:37 | Outpatient (REF) | payer MEDICARE, SELFPAY ==
[2021-11-21 07:55] LABS: INTERNATIONAL NORM RATIO 3.1 (0.9-1.1); Prothrombin Time 37.9 SEC (10.0-13.1)
== END 2021-11-21 05:38 | disposition home or self-care (01) ==
LOC: HO.HSH3E 05:37
PROVIDERS: Visit Provider Internal Medicine Medical Oncology
DX: Z95.2 Presence of prosthetic heart valve (principal)
CPT/HCPCS: 36415; 85610

== ENCOUNTER 2021-12-05 05:29 | Outpatient (REF) | payer MEDICARE, SELFPAY ==
[2021-12-05 06:14] LABS: INTERNATIONAL NORM RATIO 2.7 (0.9-1.1); Prothrombin Time 31.7 SEC (10.0-13.1)
== END 2021-12-05 05:30 | disposition home or self-care (01) ==
LOC: HO.HSH3E 05:29
PROVIDERS: Visit Provider Internal Medicine Medical Oncology
DX: Z95.2 Presence of prosthetic heart valve (principal)
CPT/HCPCS: 36415; 85610

== ENCOUNTER 2021-12-19 06:24 | Outpatient (REF) | payer MEDICARE, SELFPAY ==
[2021-12-19 07:53] LABS: INTERNATIONAL NORM RATIO 2.7 (0.9-1.1)
== END 2021-12-19 06:25 | disposition home or self-care (01) ==
LOC: HO.HSH3E 06:24
PROVIDERS: Visit Provider Internal Medicine Medical Oncology
DX: Z95.2 Presence of prosthetic heart valve (principal)
CPT/HCPCS: 36415; 85610

== ENCOUNTER 2022-01-03 05:33 | Outpatient (REF) | payer MEDICARE, SELFPAY ==
[2022-01-03 06:37] LABS: Prothrombin Time 36.4 SEC (10.0-13.1)
== END 2022-01-03 05:34 | disposition home or self-care (01) ==
LOC: HO.HSH3E 05:33
PROVIDERS: Visit Provider Internal Medicine Medical Oncology
DX: I48.91 Unspecified atrial fibrillation (principal)
CPT/HCPCS: 36415; 85610

== ENCOUNTER 2022-01-16 05:41 | Outpatient (REF) | payer MEDICARE, SELFPAY ==
[2022-01-16 08:29] LABS: INTERNATIONAL NORM RATIO 3.2 (0.9-1.1)
== END 2022-01-16 05:42 | disposition home or self-care (01) ==
LOC: HO.HSH3E 05:41
PROVIDERS: Visit Provider Internal Medicine Medical Oncology
DX: Z86.73 Personal history of transient ischemic attack (TIA), and cerebral infarction without residual deficits (principal); Z95.2 Presence of prosthetic heart valve
CPT/HCPCS: 36415; 85610

== ENCOUNTER → 2022-01-29 13:12 | Outpatient (REF) | payer MEDICARE, SELFPAY ==
--- NOTE | 2022-01-29 13:18 | CA_ITS ---
Transthoracic Echocardiogram Patient (Last, First, Middle): Clem Moore E Gender: Male Date of : 1940 Age: 81 Procedure Date: 01/29/2022 Procedure Type: Transthoracic Echocardiogram Location: OP Height: 172.72 cm Weight: 83.92 kg BSA: 1.98 m2 Heart Rate: 74 bpm BP: 140 / 72 mmHg Sales Recruitment Specialist: ASHLYN Referring MD: Tino Babb MD Human Projectile: Tino Babb MD Symptoms: Z95.2 - Presence of prosthetic heart valve Study Quality: Adequate ECG Rhythm: Frequent ventricular premature beats Conclusions: - 1. Moderate LV systolic dysfunction with LVEF of 35-40% with moderate LVH with impaired relaxation filling pattern 2. Normally functioning mechanical mitral prosthesis 3. Mild left atrial enlargement 4. Trace aortic regurgitation 5. Normal RV systolic pressure 6. Mildly dilated ascending aorta at 4.3 cm 7. No gross pericardial effusion Findings Left Ventricle Normal left ventricular cavity size. There is moderately increased left ventricular wall thickness. The left ventricular systolic function is moderately decreased. The visually estimated ejection fraction is between 35 40%. Spectral Doppler is indicative of an impaired relaxation filling pattern. Wall Motion Rest Echo Findings The mid inferoseptal segment is hypokinetic. The basal inferior, mid inferior, and basal inferoseptal segments are akinetic. All other scored wall segments showed normal motion. Right Ventricle Normal right ventricular cavity size and systolic function. Atria The left atrium is mildly dilated. There is lipomatous hypertrophy of the interatrial septum. Interatrial shunt cannot be excluded. The right atrium is normal in size. Aortic Valve Normal aortic valve structure and function. There is no aortic valve stenosis. There is trace (trivial) aortic valve regurgitation. Mitral Valve A mechanical prosthetic mitral valve is present. The prosthetic mitral valve appears to be functioning normally. Pulmonic Valve The pulmonic valve is likely normal. There is mild pulmonic valve regurgitation. Tricuspid Valve Normal tricuspid valve structure. There is mild tricuspid valve regurgitation. The right ventricular systolic pressure is normal. The right ventricular systolic pressure is 23 mmHg. Normal right atrial pressure. There is no evidence of pulmonary hypertension. Great Vessels The pulmonary artery was not well visualized. There is mild dilatation of the ascending aorta measuring 4.30 cm. Venous The inferior vena cava is normal in size and collapses greater than 50% with inspiration. Pericardium/Pleural There is no evidence of pericardial effusion. Prior Study Comparison Changes noted compared to prior study dated: 09/28/2020. LV systolic function is further reduced but could be due to frequent PVCs Measurements 2D Linear Measurements IVSd: 1.47 0.6-0.9/0.6-1.0 cm LVIDd: 4.59 3.9-5.3/4.2-5.9 cm LVIDd Index: 2.32 2.4-3.2/2.2-3.1 cm/m2 LVIDs: 3.10 2.0-3.6 cm LVPWd: 1.50 0.7-1.1 cm LV Mass: 282.78 67-162/88-224 g LV Mass Index: 142.82 43-95/49-115 g/m2 LVOT Diam: 2.70 3.0+(-)1.3 cm 2D Systolic Function EF 4C: 47.80 >55% EF 2C: 21.10 >55% EF BiP: 36.80 >55% Mitral Valve MV VTI: 0.25 MV Pk Sid: 1.38 MV Mn Sid: 0.96 MV Pk Grad: 8.00 MV Mn Grad: 4.00 MV Pk E: 0.89 MV PK A: 1.35 MV Decel Time: 145.00 E/A: 0.70 E'Medial: 4.05 E/E' Med: 22.10 PHT: 43.00 MVA PHT: 5.12 MVA Continuity: 2.97 Decel [place]: 6.15 Aortic Valve AoV Pk Sid: 0.94 AoV Pk Grad: 3.00 JAMES: 4.00 LVOT LVOT Pk Sid: 0.65 LVOT Mn Sid: 0.47 LVOT VTI: 0.13 LVOT Pk Grad: 2.00 LVOT Mn Grad: 1.00 LVOT Diam: 2.70 LVOT Area: 5.73 Diastolic Function MV Pk E: 0.89 MV Pk A: 1.35 E/A: 0.70 E'Medial: 4.05 E/E' Med: 22.10 Right Ventricle TAPSE (mm): 14.60 TVS' Sid: 13.20 Tricuspid Valve TR Pk Sid: 2.23 TR Pk Grad: 20.00 RA Press: 3.00 RVSP: 23.00 Great Vessels Aorta Sinus of Valsalva: 4.10 2.0-3.5 cm Ao Asc: 4.30 2.1-3.4 cm Pulmonary Valve PV Pk Sid: 0.89 Peak PV Grad: 3.00 Updated in Other Vendor System with Status of Final Tino Babb MD electronically signed on 01/30/2022 8:45:28 AM with status of Final
== END ==
LOC: HO.CARD 13:12
PROVIDERS: Visit Provider Internal Medicine Cardiovascular Disease
DX: Z95.2 Presence of prosthetic heart valve (principal)
CPT/HCPCS: 93306

== ENCOUNTER 2022-01-30 05:55 | Outpatient (REF) | payer MEDICARE, SELFPAY ==
[2022-01-30 08:04] LABS: INTERNATIONAL NORM RATIO 2.8 (0.9-1.1); Prothrombin Time 33.1 SEC (10.0-13.1)
== END 2022-01-30 05:56 | disposition home or self-care (01) ==
LOC: HO.HSH3E 05:55
PROVIDERS: Visit Provider Internal Medicine Medical Oncology
DX: I48.91 Unspecified atrial fibrillation (principal)
CPT/HCPCS: 36415; 85610

== ENCOUNTER 2022-02-13 06:42 | Outpatient (REF) | payer MEDICARE, SELFPAY ==
[2022-02-13 08:05] LABS: INTERNATIONAL NORM RATIO 2.4 (0.9-1.1); Prothrombin Time 29.1 SEC (10.0-13.1)
== END 2022-02-13 06:43 | disposition home or self-care (01) ==
LOC: HO.HSH3E 06:42
PROVIDERS: Visit Provider Internal Medicine Medical Oncology
DX: Z95.2 Presence of prosthetic heart valve (principal)
CPT/HCPCS: 36415; 85610

== ENCOUNTER 2022-02-20 05:45 | Outpatient (REF) | payer MEDICARE, SELFPAY | END 2022-02-20 05:46 | disposition home or self-care (01) | LOC: HO.HSH3E 05:45 | PROVIDERS: Visit Provider Internal Medicine Medical Oncology | DX: Z95.2 Presence of prosthetic heart valve (principal) | CPT/HCPCS: 36415; 85610 ==

== ENCOUNTER 2022-03-06 05:36 | Outpatient (REF) | payer MEDICARE, SELFPAY ==
[2022-03-06 09:55] LABS: INTERNATIONAL NORM RATIO 3.3 (0.9-1.1); Prothrombin Time 40.1 SEC (10.0-13.1)
== END 2022-03-06 05:37 | disposition home or self-care (01) ==
LOC: HO.HSH3E 05:36
PROVIDERS: Visit Provider Internal Medicine Medical Oncology
DX: I48.91 Unspecified atrial fibrillation (principal)
CPT/HCPCS: 36415; 85610

== ENCOUNTER 2022-03-20 05:44 | Outpatient (REF) | payer MEDICARE, SELFPAY ==
[2022-03-20 07:52] LABS: INTERNATIONAL NORM RATIO 3.5 (0.9-1.1); Prothrombin Time 41.9 SEC (10.0-13.1)
== END 2022-03-20 05:45 | disposition home or self-care (01) ==
LOC: HO.HSH3E 05:44
PROVIDERS: Visit Provider Internal Medicine Medical Oncology
DX: Z95.2 Presence of prosthetic heart valve (principal)
CPT/HCPCS: 36415; 85610

== ENCOUNTER 2022-04-03 11:28 | Outpatient (REF) | payer MEDICARE, SELFPAY ==
[2022-04-03 08:31] LABS: INTERNATIONAL NORM RATIO 2.8 (0.9-1.1); Prothrombin Time 33.7 SEC (10.0-13.1)
== END 2022-04-03 11:29 | disposition home or self-care (01) ==
LOC: HO.HSH3E 11:28
PROVIDERS: Visit Provider Internal Medicine Medical Oncology
DX: I48.91 Unspecified atrial fibrillation (principal)
CPT/HCPCS: 36415; 85610

== ENCOUNTER 2022-04-13 05:55 | Outpatient (REF) | payer MEDICARE, SELFPAY ==
[2022-04-13 07:48] LABS: MANUAL DIFF FLAG NO
[2022-04-13 07:52] LABS: Basophils Percent Auto 0.4 % (0-2); Eosinophils Absolute Auto 0.3 X10*3/uL (0.0-0.4); Eosinophils Percent Auto 4.2 % (0-4); Hematocrit 36.9 % (42.0-52.0); Hemoglobin 12.7 g/dl (14.0-18.0); Imm Gran Abs Auto 0.01 X10*3/uL (0.00-0.03); Imm Gran Pct Auto 0.1 % (0.0-0.4); Lymphocytes Absolute Auto 2.9 X10*3/uL (1.2-4.9); Lymphocytes Percent Auto 39.4 % (20-40); Mean Corpuscular HGB Conc 34.4 g/dl (31.0-36.0); Mean Platelet Volume 11.5 fL (9.4-12.4); Monocytes Absolute Auto 0.7 X10*3/uL (0.1-1.2); Monocytes Percent Auto 9.5 % (2-11); Neutrophils Absolute Auto 3.4 x10*3/uL (2.0-8.3); Neutrophils Percent Auto 46.4 % (45-73); Platelet Count 191 X10*3/uL (160-400); Red Cell Distribution Width 13.3 % (11.0-16.0); White Blood Count 7.4 X10*3/uL (4.8-10.8)
[2022-04-13 08:07] LABS: Valproate < 12.5 mcg/mL (50.0-100.0)
[2022-04-13 08:17] LABS: Alanine Aminotransferase 19 U/L (0-40); Albumin Level 3.3 g/dL (3.5-5.0); Alkaline Phosphatase 57 U/L (39-117); Anion Gap 11 (12-20); Aspartate Amino Transferase 13 U/L (5-37); Bilirubin Total 0.6 mg/dL (0.0-1.0); Blood Urea Nitrogen 25 mg/dL (9-16); Carbon Dioxide 27 mmol/L (22-29); Chloride 107 mmol/L (96-108); Cholesterol 155 mg/dL; Estimated Glomerular Filt Rate > 60; Glucose Fasting 160 mg/dL (60-99); HDL Cholesterol 41 mg/dL; LDL Cholesterol Calculated 98 mg/dl; Potassium 4.3 mmol/L (3.3-5.1); Sodium 141 mmol/L (135-145); Total Protein 5.4 g/dL (6.5-8.0); Triglycerides 82 mg/dL
[2022-04-13 08:28] LABS: Prostate Specific Antigen Scr 0.51 ng/mL (<0.05-4.0)
== END 2022-04-13 05:56 | disposition home or self-care (01) ==
LOC: HO.HSH3E 05:55
PROVIDERS: Visit Provider Internal Medicine Medical Oncology
DX: E78.5 Hyperlipidemia, unspecified (principal); I50.9 Heart failure, unspecified; Z86.69 Personal history of other diseases of the nervous system and sense organs; Z79.899 Other long term (current) drug therapy
CPT/HCPCS: 36415; 80053; 80061; 80164; 84153; 85025

== ENCOUNTER 2022-04-18 06:01 | Outpatient (REF) | payer MEDICARE, SELFPAY ==
[2022-04-18 07:46] LABS: INTERNATIONAL NORM RATIO 3.5 (0.9-1.1); Prothrombin Time 42.5 SEC (10.0-13.1)
== END 2022-04-18 06:02 | disposition home or self-care (01) ==
LOC: HO.HSH3E 06:01
PROVIDERS: Visit Provider Internal Medicine Medical Oncology
DX: Z95.2 Presence of prosthetic heart valve (principal)
CPT/HCPCS: 36415; 85610

== ENCOUNTER → 2022-04-23 10:24 | Outpatient (BNVA) | payer MEDICARE, SELFPAY | PROVIDERS: PCP Internal Medicine Medical Oncology; Referring Provider Internal Medicine Medical Oncology; Visit Provider Internal Medicine Cardiovascular Disease | DX: I48.0 Paroxysmal atrial fibrillation (principal); I42.9 Cardiomyopathy, unspecified; Z95.2 Presence of prosthetic heart valve | CPT/HCPCS: 93005; 99212 ==

== ENCOUNTER 2022-04-30 05:42 | Outpatient (REF) | payer MEDICARE, SELFPAY ==
[2022-04-30 08:16] LABS: Valproate < 12.5 mcg/mL (50.0-100.0)
== END 2022-04-30 05:43 | disposition home or self-care (01) ==
LOC: HO.HSH3E 05:42
PROVIDERS: Visit Provider Internal Medicine Medical Oncology
DX: Z79.899 Other long term (current) drug therapy (principal)
CPT/HCPCS: 36415; 80164

== ENCOUNTER 2022-05-02 05:35 | Outpatient (REF) | payer MEDICARE, SELFPAY ==
[2022-05-02 10:57] LABS: INTERNATIONAL NORM RATIO 1.8 (0.9-1.1); Prothrombin Time 20.7 SEC (10.0-13.1)
== END 2022-05-02 05:36 | disposition home or self-care (01) ==
LOC: HO.HSH3E 05:35
PROVIDERS: Visit Provider Internal Medicine Medical Oncology
DX: Z95.2 Presence of prosthetic heart valve (principal)
CPT/HCPCS: 36415; 85610

== ENCOUNTER 2022-05-16 06:03 | Outpatient (REF) | payer MEDICARE, SELFPAY ==
[2022-05-16 06:31] LABS: INTERNATIONAL NORM RATIO 3.1 (0.9-1.1); Prothrombin Time 37.4 SEC (10.0-13.1)
== END 2022-05-16 06:04 | disposition home or self-care (01) ==
LOC: HO.HSH3E 06:03
PROVIDERS: Visit Provider Internal Medicine Medical Oncology
DX: Z95.2 Presence of prosthetic heart valve (principal)
CPT/HCPCS: 36415; 85610

== ENCOUNTER 2022-05-30 10:30 | Outpatient (REF) | payer MEDICARE, SELFPAY ==
[2022-05-30 06:57] LABS: INTERNATIONAL NORM RATIO 2.7 (0.9-1.1); Prothrombin Time 32.7 SEC (10.0-13.1)
== END 2022-05-30 10:31 | disposition home or self-care (01) ==
LOC: HO.HSH3E 10:30
PROVIDERS: Visit Provider Internal Medicine Medical Oncology
DX: Z95.2 Presence of prosthetic heart valve (principal)
CPT/HCPCS: 36415; 85610

== ENCOUNTER 2022-06-13 05:35 | Outpatient (REF) | payer MEDICARE, SELFPAY ==
[2022-06-13 09:28] LABS: INTERNATIONAL NORM RATIO 2.1 (0.9-1.1); Prothrombin Time 25.2 SEC (10.0-13.1)
== END 2022-06-13 05:36 | disposition home or self-care (01) ==
LOC: HO.HSH3E 05:35
PROVIDERS: Visit Provider Internal Medicine Medical Oncology
DX: Z95.2 Presence of prosthetic heart valve (principal)
CPT/HCPCS: 36415; 85610

== ENCOUNTER 2022-06-27 06:46 | Outpatient (REF) | payer MEDICARE, SELFPAY ==
[2022-06-27 07:33] LABS: INTERNATIONAL NORM RATIO 3.2 (0.9-1.1); Prothrombin Time 38.2 SEC (10.0-13.1)
== END 2022-06-27 06:47 | disposition home or self-care (01) ==
LOC: HO.HSH3E 06:46
PROVIDERS: Visit Provider Internal Medicine Medical Oncology
DX: I48.20 Chronic atrial fibrillation, unspecified (principal)
CPT/HCPCS: 36415; 85610

== ENCOUNTER 2022-07-11 05:34 | Outpatient (REF) | payer MEDICARE, SELFPAY ==
[2022-07-11 05:56] LABS: INTERNATIONAL NORM RATIO 3.9 (0.9-1.1); Prothrombin Time 47.8 SEC (10.0-13.1)
== END 2022-07-11 05:35 | disposition home or self-care (01) ==
LOC: HO.HSH3E 05:34
PROVIDERS: Visit Provider Internal Medicine Medical Oncology
DX: I48.91 Unspecified atrial fibrillation (principal); G20 Parkinson's disease; I50.9 Heart failure, unspecified
CPT/HCPCS: 36415; 85610

== ENCOUNTER 2022-07-16 06:35 | Outpatient (REF) | payer MEDICARE, SELFPAY ==
[2022-07-16 07:01] LABS: INTERNATIONAL NORM RATIO 1.4 (0.9-1.1); Prothrombin Time 15.9 SEC (10.0-13.1)
== END 2022-07-16 06:36 | disposition home or self-care (01) ==
LOC: HO.HSH3E 06:35
PROVIDERS: Visit Provider Internal Medicine Medical Oncology
DX: Z95.2 Presence of prosthetic heart valve (principal)
CPT/HCPCS: 36415; 85610

== ENCOUNTER 2022-07-23 05:55 | Outpatient (REF) | payer MEDICARE, SELFPAY ==
[2022-07-23 06:27] LABS: INTERNATIONAL NORM RATIO 2.4 (0.9-1.1); Prothrombin Time 28.6 SEC (10.0-13.1)
== END 2022-07-23 05:56 | disposition home or self-care (01) ==
LOC: HO.HSH3E 05:55
PROVIDERS: Visit Provider Internal Medicine Medical Oncology
DX: Z95.2 Presence of prosthetic heart valve (principal); Z86.73 Personal history of transient ischemic attack (TIA), and cerebral infarction without residual deficits
CPT/HCPCS: 36415; 85610

== ENCOUNTER 2022-07-30 06:29 | Outpatient (REF) | payer MEDICARE, SELFPAY ==
[2022-07-30 07:14] LABS: INTERNATIONAL NORM RATIO 3.3 (0.9-1.1); Prothrombin Time 40.2 SEC (10.0-13.1)
== END 2022-07-30 06:30 | disposition home or self-care (01) ==
LOC: HO.HSH3E 06:29
PROVIDERS: Visit Provider Internal Medicine Medical Oncology
DX: I48.91 Unspecified atrial fibrillation (principal); Z79.01 Long term (current) use of anticoagulants
CPT/HCPCS: 36415; 85610

== ENCOUNTER 2022-08-13 06:12 | Outpatient (REF) | payer MEDICARE, SELFPAY ==
[2022-08-13 06:24] LABS: INTERNATIONAL NORM RATIO 3.1 (0.9-1.1); Prothrombin Time 36.7 SEC (10.0-13.1)
== END 2022-08-13 06:13 | disposition home or self-care (01) ==
LOC: HO.HSH3E 06:12
PROVIDERS: Visit Provider Internal Medicine Medical Oncology
DX: I48.91 Unspecified atrial fibrillation (principal); I10 Essential (primary) hypertension
CPT/HCPCS: 36415; 85610

== ENCOUNTER 2022-08-27 06:39 | Outpatient (REF) | payer MEDICARE, SELFPAY ==
[2022-08-27 06:59] LABS: INTERNATIONAL NORM RATIO 4.6 (0.9-1.1); Prothrombin Time 55.9 SEC (10.0-13.1)
== END 2022-08-27 06:40 | disposition home or self-care (01) ==
LOC: HO.HSH3E 06:39
PROVIDERS: Visit Provider Internal Medicine Medical Oncology
DX: Z95.2 Presence of prosthetic heart valve (principal)
CPT/HCPCS: 36415; 85610

== ENCOUNTER 2022-08-29 06:40 | Outpatient (REF) | payer MEDICARE, SELFPAY ==
[2022-08-29 07:21] LABS: INTERNATIONAL NORM RATIO 2.2 (0.9-1.1); Prothrombin Time 25.6 SEC (10.0-13.1)
== END 2022-08-29 06:41 | disposition home or self-care (01) ==
LOC: HO.HSH3E 06:40
PROVIDERS: Visit Provider Internal Medicine Medical Oncology
DX: Z95.2 Presence of prosthetic heart valve (principal)
CPT/HCPCS: 36415; 85610

== ENCOUNTER 2022-09-03 05:40 | Outpatient (REF) | payer MEDICARE, SELFPAY ==
[2022-09-03 07:35] LABS: INTERNATIONAL NORM RATIO 2.2 (0.9-1.1); Prothrombin Time 25.9 SEC (10.0-13.1)
== END 2022-09-03 05:41 | disposition home or self-care (01) ==
LOC: HO.HSH3E 05:40
PROVIDERS: Visit Provider Internal Medicine Medical Oncology
DX: Z95.2 Presence of prosthetic heart valve (principal)
CPT/HCPCS: 36415; 85610

== ENCOUNTER 2022-09-17 05:54 | Outpatient (REF) | payer MEDICARE, SELFPAY ==
[2022-09-17 07:12] LABS: INTERNATIONAL NORM RATIO 4.1 (0.9-1.1); Prothrombin Time 49.9 SEC (10.0-13.1)
== END 2022-09-17 05:55 | disposition home or self-care (01) ==
LOC: HO.HSH3E 05:54
PROVIDERS: Visit Provider Internal Medicine Medical Oncology
DX: Z95.2 Presence of prosthetic heart valve (principal)
CPT/HCPCS: 36415; 85610

== ENCOUNTER 2022-10-01 05:49 | Outpatient (REF) | payer MEDICARE, SELFPAY | END 2022-10-01 05:50 | disposition home or self-care (01) | LOC: HO.HSH3E 05:49 | PROVIDERS: Visit Provider Internal Medicine Medical Oncology | DX: Z95.2 Presence of prosthetic heart valve (principal) | CPT/HCPCS: 36415; 85610 ==

== ENCOUNTER 2022-10-15 05:38 | Outpatient (REF) | payer MEDICARE, SELFPAY ==
[2022-10-15 07:29] LABS: INTERNATIONAL NORM RATIO 3.7 (0.9-1.1); Prothrombin Time 44.5 SEC (10.0-13.1)
== END 2022-10-15 05:39 | disposition home or self-care (01) ==
LOC: HO.HSH3E 05:38
PROVIDERS: Visit Provider Internal Medicine Medical Oncology
DX: Z95.2 Presence of prosthetic heart valve (principal)
CPT/HCPCS: 36415; 85610

== ENCOUNTER 2022-10-28 11:03 | Outpatient (REF) | payer MEDICARE, SELFPAY ==
[2022-10-28 11:30] LABS: INTERNATIONAL NORM RATIO 3.4 (0.9-1.1)
== END 2022-10-28 11:04 | disposition home or self-care (01) ==
LOC: HO.HSH3E 11:03
PROVIDERS: Visit Provider Internal Medicine Medical Oncology
DX: Z95.2 Presence of prosthetic heart valve (principal)
CPT/HCPCS: 36415; 85610

== ENCOUNTER 2022-10-30 05:40 | Outpatient (REF) | payer MEDICARE, SELFPAY ==
[2022-10-30 06:37] LABS: Prothrombin Time 36.8 SEC (11.1-13.3)
== END 2022-10-30 05:41 | disposition home or self-care (01) ==
LOC: HO.HSH3E 05:40
PROVIDERS: Visit Provider Internal Medicine
DX: Z95.2 Presence of prosthetic heart valve (principal)
CPT/HCPCS: 36415; 85610

== ENCOUNTER 2022-11-13 18:00 | Outpatient (REF) | payer MEDICARE, SELFPAY ==
[2022-11-13 19:01] LABS: INTERNATIONAL NORM RATIO 2.2 (0.9-1.1)
== END 2022-11-13 18:01 | disposition home or self-care (01) ==
LOC: HO.HSH3E 18:00
PROVIDERS: Visit Provider Internal Medicine Medical Oncology
DX: I63.9 Cerebral infarction, unspecified (principal); Z95.2 Presence of prosthetic heart valve
CPT/HCPCS: 36415; 85610

== ENCOUNTER 2022-11-27 07:05 | Outpatient (REF) | payer MEDICARE, SELFPAY ==
[2022-11-27 07:24] LABS: INTERNATIONAL NORM RATIO 4.6 (0.9-1.1); Prothrombin Time 55.7 SEC (11.1-13.3)
== END 2022-11-27 07:06 | disposition home or self-care (01) ==
LOC: HO.HSH3E 07:05
PROVIDERS: Visit Provider Internal Medicine Endocrinology, Diabetes & Metabolism
DX: I63.9 Cerebral infarction, unspecified (principal); Z95.2 Presence of prosthetic heart valve
CPT/HCPCS: 36415; 85610

== ENCOUNTER 2022-11-28 06:26 | Outpatient (REF) | payer MEDICARE, SELFPAY ==
[2022-11-28 07:03] LABS: INTERNATIONAL NORM RATIO 2.6 (0.9-1.1); Prothrombin Time 31.5 SEC (11.1-13.3)
== END 2022-11-28 06:27 | disposition home or self-care (01) ==
LOC: HO.HSH3E 06:26
PROVIDERS: Visit Provider Internal Medicine Medical Oncology
DX: Z95.2 Presence of prosthetic heart valve (principal)
CPT/HCPCS: 36415; 85610

== ENCOUNTER 2022-12-05 06:22 | Outpatient (REF) | payer MEDICARE, SELFPAY ==
[2022-12-05 07:02] LABS: INTERNATIONAL NORM RATIO 2.1 (0.9-1.1); Prothrombin Time 25.9 SEC (11.1-13.3)
== END 2022-12-05 06:23 | disposition home or self-care (01) ==
LOC: HO.HSH3E 06:22
PROVIDERS: Visit Provider Nurse Practitioner Acute Care
DX: Z95.2 Presence of prosthetic heart valve (principal)
CPT/HCPCS: 36415; 85610

== ENCOUNTER 2022-12-12 05:36 | Outpatient (REF) | payer MEDICARE, SELFPAY ==
[2022-12-12 06:59] LABS: INTERNATIONAL NORM RATIO 2.7 (0.9-1.1); Prothrombin Time 32.6 SEC (11.1-13.3)
== END 2022-12-12 05:37 | disposition home or self-care (01) ==
LOC: HO.HSH3E 05:36
PROVIDERS: Visit Provider Internal Medicine Medical Oncology
DX: Z95.2 Presence of prosthetic heart valve (principal)
CPT/HCPCS: 36415; 85610

== ENCOUNTER 2022-12-26 05:16 | Outpatient (REF) | payer MEDICARE, SELFPAY ==
[2022-12-26 06:15] LABS: INTERNATIONAL NORM RATIO 3.4 (0.9-1.1); Prothrombin Time 41.6 SEC (11.1-13.3)
== END 2022-12-26 05:17 | disposition home or self-care (01) ==
LOC: HO.HSH3E 05:16
PROVIDERS: Visit Provider Internal Medicine Medical Oncology
DX: Z95.2 Presence of prosthetic heart valve (principal)
CPT/HCPCS: 36415; 85610

== ENCOUNTER 2023-01-07 05:12 | Outpatient (REF) | payer MEDICARE, SELFPAY ==
[2023-01-07 06:41] LABS: Appearance Urine Cloudy; Bacteria Urine 4+ (None Seen); Color Urine Orange; Glucose Urine UA Negative (Negative); Leukocyte Esterase Urine Moderate (2+) (Negative); Nitrite Urine Negative (Negative); PH >= 9.0 (5.0-9.0); RBC Urine >20 /HPF (0-2); Specific Gravity - Urine 1.015 (1.005-1.025); UACC Culture Trigger YES; UMIC TRIGGER UACC YES; Urine Blood Large (3+) (Negative); Urine Ketones Trace mg/dL (Negative); Urine Protein 100 (2+) mg/dL (Neg-Trace)
== END 2023-01-07 05:13 | disposition home or self-care (01) ==
LOC: HO.HSH3E 05:12
PROVIDERS: Visit Provider Internal Medicine Medical Oncology
DX: F32.A Depression, unspecified (principal); Z95.2 Presence of prosthetic heart valve; R82.90 Unspecified abnormal findings in urine
CPT/HCPCS: 81001; 81003; 87086; 87088; 87186

== ENCOUNTER 2023-01-09 05:17 | Outpatient (REF) | payer MEDICARE, SELFPAY ==
[2023-01-09 07:34] LABS: INTERNATIONAL NORM RATIO 2.1 (0.9-1.1); Prothrombin Time 25.3 SEC (11.1-13.3)
== END 2023-01-09 05:18 | disposition home or self-care (01) ==
LOC: HO.HSH3E 05:17
PROVIDERS: Visit Provider Internal Medicine Medical Oncology
DX: F32.A Depression, unspecified (principal); Z95.2 Presence of prosthetic heart valve
CPT/HCPCS: 36415; 85610

== ENCOUNTER 2023-01-23 05:01 | Outpatient (REF) | payer MEDICARE, SELFPAY ==
[2023-01-23 07:07] LABS: INTERNATIONAL NORM RATIO 4.9 (0.9-1.1); Prothrombin Time 60.3 SEC (11.1-13.3)
== END 2023-01-23 05:02 | disposition home or self-care (01) ==
LOC: HO.HSH3E 05:01
PROVIDERS: Visit Provider Internal Medicine Medical Oncology
DX: F32.A Depression, unspecified (principal); Z95.2 Presence of prosthetic heart valve
CPT/HCPCS: 36415; 85610

== ENCOUNTER 2023-01-30 05:07 | Outpatient (REF) | payer MEDICARE, SELFPAY ==
[2023-01-30 07:04] LABS: INTERNATIONAL NORM RATIO 1.8 (0.9-1.1)
== END 2023-01-30 05:08 | disposition home or self-care (01) ==
LOC: HO.HSH3E 05:07
PROVIDERS: Visit Provider Internal Medicine Medical Oncology
DX: N40.0 Benign prostatic hyperplasia without lower urinary tract symptoms (principal); Z95.2 Presence of prosthetic heart valve
CPT/HCPCS: 36415; 85610

== ENCOUNTER 2023-02-06 05:03 | Outpatient (REF) | payer MEDICARE, SELFPAY ==
[2023-02-06 06:35] LABS: INTERNATIONAL NORM RATIO 3.3 (0.9-1.1)
== END 2023-02-06 05:04 | disposition home or self-care (01) ==
LOC: HO.HSH3E 05:03
PROVIDERS: Visit Provider Internal Medicine Medical Oncology
DX: N40.0 Benign prostatic hyperplasia without lower urinary tract symptoms (principal); Z95.2 Presence of prosthetic heart valve
CPT/HCPCS: 36415; 85610

== ENCOUNTER 2023-02-13 05:15 | Outpatient (REF) | payer MEDICARE, SELFPAY ==
[2023-02-13 07:06] LABS: INTERNATIONAL NORM RATIO 2.7 (0.9-1.1); Prothrombin Time 33.1 SEC (11.1-13.3)
== END 2023-02-13 05:16 | disposition home or self-care (01) ==
LOC: HO.HSH3E 05:15
PROVIDERS: Visit Provider Internal Medicine Medical Oncology
DX: Z95.2 Presence of prosthetic heart valve (principal)
CPT/HCPCS: 36415; 85610

== ENCOUNTER → 2023-02-22 09:57 | Outpatient (REF) | payer MEDICARE, SELFPAY ==
--- NOTE | 2023-02-22 10:03 | CA_ITS ---
Transthoracic Echocardiogram Patient (Last, First, Middle): Clem Moore J Gender: Male Date of : 1940 Age: 82 Procedure Date: 02/22/2023 Procedure Type: Transthoracic Echocardiogram Location: OP Height: 172. cm Weight: 84. kg BSA: 1.97 m2 Heart Rate: 88 bpm Elevator Serviceman: ASHLYN Referring MD: Tino Babb MD Decorating Instructor: Tino Babb MD Symptoms: Z95.2 - Presence of prosthetic heart valve Study Quality: Adequate ECG Rhythm: Sinus Conclusions: - 1. Technically limited study due to patient's inability to lay on the table 2. LV ejection fraction is moderately to severely reduced with LVEF of 30-35% 3. Normally function mechanical prosthesis in mitral position 4. Trace aortic regurgitation 5. Mildly dilated ascending aorta measured to be 3.9 cm on this study Findings Procedure Information The quality of the study was technically difficult. Left Ventricle The left ventricle was not well visualized. Normal left ventricular cavity size. There is normal left ventricular wall thickness. The left ventricular systolic function is moderate to severely decreased. The visually estimated ejection fraction is between 30-35%. Diastolic function is indeterminate on the basis of available data. Right Ventricle The right ventricle was not well visualized. Atria The left atrium was not well visualized. Interatrial shunt cannot be excluded. The right atrium was not well visualized. Aortic Valve The aortic valve structure and function is likely normal. There is no aortic valve stenosis. There is trace (trivial) aortic valve regurgitation. Mitral Valve A mechanical prosthetic mitral valve is present. The prosthetic mitral valve appears to be functioning normally. Pulmonic Valve The pulmonic valve was not well visualized. Tricuspid Valve The tricuspid valve was not well visualized. The right ventricular systolic pressure is 19 mmHg. There is no evidence of pulmonary hypertension. Great Vessels The pulmonary artery was not well visualized. There is mild dilatation of the ascending aorta measuring 3.90 cm. Venous The inferior vena cava was not well visualized. Pericardium/Pleural The pericardium was not well visualized. Prior Study Comparison No significant change compared to prior study dated: 01/29/2022. Measurements 2D Linear Measurements IVSd: 1.35 0.6-0.9/0.6-1.0 cm LVIDd: 4.20 3.9-5.3/4.2-5.9 cm LVIDd Index: 2.13 2.4-3.2/2.2-3.1 cm/m2 LVIDs: 3.50 2.0-3.6 cm LVPWd: 1.15 0.7-1.1 cm LV Mass: 337.58 67-162/88-224 g LV Mass Index: 171.36 43-95/49-115 g/m2 LVOT Diam: 2.60 3.0+(-)1.3 cm 2D Systolic Function EF 2C: 29.10 >55% Mitral Valve MV VTI: 0.19 MV Pk Sid: 1.52 MV Mn Sid: 0.89 MV Pk Grad: 9.00 MV Mn Grad: 4.00 MVA Continuity: 1.85 Aortic Valve AoV Pk Sid: 0.63 AoV Pk Grad: 2.00 JMAES: 3.68 LVOT LVOT Pk Sid: 0.47 LVOT Mn Sid: 0.34 LVOT VTI: 0.07 LVOT Pk Grad: 1.00 LVOT Mn Grad: 1.00 LVOT Diam: 2.60 LVOT Area: 5.31 Tricuspid Valve TR Pk Sid: 2.03 TR Pk Grad: 16.00 RA Press: 3.00 RVSP: 19.00 Great Vessels Aorta Sinus of Valsalva: 4.20 2.0-3.5 cm Ao Asc: 3.90 2.1-3.4 cm Ao Arch: 3.80 Pulmonary Valve PV Pk Sid: 0.77 Peak PV Grad: 2.00 Updated in Other Vendor System with Status of Final Tino Babb MD electronically signed on 02/23/2023 12:06:01 PM with status of Final
== END ==
LOC: HO.CARD 09:57
PROVIDERS: PCP Internal Medicine Medical Oncology; Visit Provider Internal Medicine Cardiovascular Disease
DX: Z95.2 Presence of prosthetic heart valve (principal)
CPT/HCPCS: 93306

== ENCOUNTER → 2023-02-22 10:03 | Outpatient (BNV) | payer MEDICARE, SELFPAY | PROVIDERS: PCP Internal Medicine Medical Oncology; Visit Provider Internal Medicine Cardiovascular Disease | DX: Z95.2 Presence of prosthetic heart valve (principal) | CPT/HCPCS: 93306 ==

== ENCOUNTER 2023-02-27 07:07 | Outpatient (REF) | payer MEDICARE, SELFPAY ==
[2023-02-27 07:33] LABS: INTERNATIONAL NORM RATIO 2.7 (0.9-1.1); Prothrombin Time 33.1 SEC (11.1-13.3)
== END 2023-02-27 07:08 | disposition home or self-care (01) ==
LOC: HO.HSH3E 07:07
PROVIDERS: Visit Provider Internal Medicine Medical Oncology
DX: I10 Essential (primary) hypertension (principal); Z95.2 Presence of prosthetic heart valve
CPT/HCPCS: 36415; 85610

== ENCOUNTER 2023-03-13 05:01 | Outpatient (REF) | payer MEDICARE, SELFPAY ==
[2023-03-13 05:37] LABS: INTERNATIONAL NORM RATIO 2.6 (0.9-1.1); Prothrombin Time 31.9 SEC (11.1-13.3)
== END 2023-03-13 05:02 | disposition home or self-care (01) ==
LOC: HO.HSH3E 05:01
PROVIDERS: Visit Provider Internal Medicine Medical Oncology
DX: Z95.2 Presence of prosthetic heart valve (principal)
CPT/HCPCS: 36415; 85610

== ENCOUNTER 2023-03-27 05:10 | Outpatient (REF) | payer MEDICARE, SELFPAY ==
[2023-03-27 06:58] LABS: INTERNATIONAL NORM RATIO 3.1 (0.9-1.1); Prothrombin Time 37.6 SEC (11.1-13.3)
== END 2023-03-27 05:11 | disposition home or self-care (01) ==
LOC: HO.HSH3E 05:10
PROVIDERS: Visit Provider Internal Medicine Medical Oncology
DX: I48.91 Unspecified atrial fibrillation (principal); I10 Essential (primary) hypertension
CPT/HCPCS: 36415; 85610

== ENCOUNTER 2023-04-10 05:06 | Outpatient (REF) | payer MEDICARE, SELFPAY ==
[2023-04-10 06:39] LABS: Prothrombin Time 24.2 SEC (11.1-13.3)
== END 2023-04-10 05:07 | disposition home or self-care (01) ==
LOC: HO.HSH3E 05:06
PROVIDERS: Visit Provider Internal Medicine Medical Oncology
DX: Z95.2 Presence of prosthetic heart valve (principal); Z79.01 Long term (current) use of anticoagulants
CPT/HCPCS: 36415; 85610

== ENCOUNTER 2023-04-17 05:14 | Outpatient (REF) | payer MEDICARE, SELFPAY ==
[2023-04-17 07:15] LABS: INTERNATIONAL NORM RATIO 2.9 (0.9-1.1); Prothrombin Time 35.8 SEC (11.1-13.3)
== END 2023-04-17 05:15 | disposition home or self-care (01) ==
LOC: HO.HSH3E 05:14
PROVIDERS: Visit Provider Internal Medicine Medical Oncology
DX: I48.91 Unspecified atrial fibrillation (principal)
CPT/HCPCS: 36415; 85610

== ENCOUNTER 2023-04-29 10:18 | Outpatient (AMB) | payer MEDICARE, SELFPAY ==
[2023-04-29 10:43] VITALS: BP 128/66; PULSE 84
--- NOTE | 2023-04-29 10:43 | A.OFFVIS_ITS ---
Intake Vital Signs 04/29/23 10:43 Height 5 ft 7 in BMI Reason not done Patient refused/unable BP 128/66 Blood Pressure Location Lt brachial Position Sitting Pulse 84 Intake Visit Reasons: 1Y follow up Intake Note: 1 year follow-up with ekg feeling good Sales Operations Manager Required: No Stable Helper: Stable Helper Present Accompanied by: nurse home rep Allergies celecoxib [From Celebrex] Allergy (Verified 04/23/22 10:26) Unknown poison michaelle extract Allergy (Verified 04/23/22 10:26) Unknown simvastatin Allergy (Verified 04/23/22 10:26) Unknown Medication List - Last Reconciled 04/29/23 by Tino Babb MD aspirin 81 mg PO DAILY atorvastatin 80 mg PO BEDTIME 30 days calcium polycarbophil 1,250 mg PO DAILY carbamide peroxide 6.5% 5 drps otic (ear) left DAILY carbidopa-levodopa 25-250 mg 1 tab PO TID@0900,1300,1700 docusate sodium 100 mg PO DAILY finasteride 5 mg PO BEDTIME magnesium hydroxide 5 mL PO BEDTIME multivitamin 1 tab PO DAILY trazodone 25 mg PO BEDTIME warfarin (Jantoven) 7.5 mg PO DAILY@1800 HPI HPI Comments History of Present Illness Details Clem comes for follow-up, accompanied by an attendant from [facility]. There has been no current issues from cardiac perspective. He has not had any syncopal episodes. He is currently off both midodrine as well as metoprolol therapy. He has had no progressive heart failure symptoms with no symptoms of orthopnea, PND, leg edema. Denies any prolonged palpitation irregular heartbeat. No chest pain. Currently on warfarin therapy being checked at his current long-term facility. [facility] Medical History Nonsustained ventricular tachycardia Cardiomyopathy Paroxysmal atrial fibrillation Cerebrovascular accident Orthostatic hypotension Alzheimer disease Depression Diastolic CHF Afib Acute CVA (cerebrovascular accident) Hyperlipidemia HTN (hypertension) Vascular dementia Parkinson disease Surgical History H/O mitral valve replacement Mitral valve replaced Social History Household Members: Spouse Housing: House Do you presently have visiting nurse or other home services: No Alcohol intake: never Patient Tobacco Use Status: Never used Tobacco Advance Directives Date on File: 01/01/20 service: Yes Current occupational status: retired Review of Systems Const Denies chills, Denies fatigue, Denies fever(s), Denies frequent falls, Denies weakness, Denies weight gain and Denies weight loss ENT Denies dizziness Card Denies chest pain, Denies leg edema, Denies lightheadedness, Denies palpitations, Denies dyspnea, Denies dyspnea on exertion, Denies orthopnea and Denies other (loss of consciousness) Resp Denies cough, Denies dyspnea and Denies dyspnea on exertion GI Denies hematochezia and Denies change in stool character Musc Denies abnormal gait, Denies muscle weakness, Denies numbness, Denies radiating pain into limb and Denies tingling Neuro Denies abnormal gait, Denies dizziness, Denies frequent falls, Denies numbness, Denies tingling and Denies weakness Endo Denies fatigue and Denies palpitations Physical Exam Vital Signs: Last Vital Signs Pulse 84 04/29/23 10:43 BP 128/66 04/29/23 10:43 Const General: cooperative, comfortable, alert and awake Nutritional Appearance: thin Orientation/consciousness: patient oriented x3 Limitations: wheelchair Neck Neck: Yes trachea midline, Yes supple and Yes no JVD Resp Effort & Inspection: decreased respiratory effort Auscultation: clear to auscultation bilaterally Cardio Jugular venous distension: no JVD Rate: regular rate Rhythm: abnormal rhythm with ectopic beats Heart sounds: S1 normal heart sound present ([place] opening and closing click of [place] mitral valve), S2 normal heart sound present, no gallops and no murmurs GI Auscultation: normal bowel sounds Neuro General: patient oriented x3 and no focal motor deficits Extrem General: Yes no clubbing, cyanosis or edema Office Procedures EKG Details: EKG shows normal sinus rhythm with left axis deviation with nonspecific intraventricular block with T-wave changes in the lateral leads most likely suggestive of repolarization abnormality [id number], Complete Assessment & Plan Assessment & Plan (1) Cardiomyopathy: Code(s): I42.9 - Cardiomyopathy, unspecified Plan: Patient with moderate to severe cardiomyopathy and LV systolic dysfunction, nonischemic. Currently without any symptoms or signs of heart failure. He is currently off all medications due to poor tolerance due to orthostatic hypertension. Will continue to monitor clinically. Signs and symptoms of heart failure were discussed with the attendant. Patient due to his cognitive impairment has limited participation in his decision making at this point in time. Follow-up echocardiogram in 1 year's time. (2) H/O mitral valve replacement: Code(s): Z95.2 - Presence of prosthetic heart valve Plan: Prior history of [place] mitral valve replacement. Currently working well clinically. Continue warfarin therapy being monitored through his long-term facility. Given his underlying atrial fibrillation maintain INR from 3- 3.5. SBE prophylaxis as per ACC/[place] guidelines. Follow-up echocardiogram in 1 year's time. (3) Paroxysmal atrial fibrillation: Code(s): I48.0 - Paroxysmal atrial fibrillation Plan: Paroxysmal atrial fibrillation without any obvious clinical recurrence at this point time. Avoidance of stimulants was discussed advised to call me if he develops recurrent atrial fibrillation that is persistent may require antiarrhythmic drug support to maintain rhythm. Continue warfarin therapy as above. (4) Orthostatic hypotension: Code(s): I95.1 - Orthostatic hypotension Plan: History of orthostatic hypertension most likely due to central autonomic dysfunction. He is currently off all medications. Advised to maintain adequate hydration. Orthostatic precautions were discussed. Remains at risk for syncopal episodes and this needs to be monitored closely. Follow up in the clinic in 1 year's time, sooner p.r.n.. Thank you for allowing me to partake in his care Coding Level of Care Code Est Pt Level 4 (39591) Diagnoses Cardiomyopathy I42.9 H/O mitral valve replacement Z95.2 Paroxysmal atrial fibrillation I48.0 Orthostatic hypotension I95.1 CPT Codes EKG - CPT: 09832-[id number], Complete ([id number])
== END 2023-04-29 11:21 | disposition home or self-care (01) ==
PROVIDERS: PCP Internal Medicine Medical Oncology; Visit Provider Internal Medicine Cardiovascular Disease
DX: I42.9 Cardiomyopathy, unspecified (principal); Z95.2 Presence of prosthetic heart valve; I48.0 Paroxysmal atrial fibrillation; I95.1 Orthostatic hypotension
CPT/HCPCS: 93010; 99214

== ENCOUNTER → 2023-04-29 10:18 | Outpatient (BNVA) | payer MEDICARE, SELFPAY | PROVIDERS: Visit Provider Internal Medicine Cardiovascular Disease | DX: I42.9 Cardiomyopathy, unspecified (principal); I48.0 Paroxysmal atrial fibrillation; I95.1 Orthostatic hypotension; Z95.2 Presence of prosthetic heart valve | CPT/HCPCS: 93005; 99212 ==

== ENCOUNTER 2023-05-01 14:48 | Outpatient (REF) | payer MEDICARE, SELFPAY ==
[2023-05-01 15:10] LABS: INTERNATIONAL NORM RATIO 2.6 (0.9-1.1); Prothrombin Time 31.5 SEC (11.1-13.3)
== END 2023-05-01 14:49 | disposition home or self-care (01) ==
LOC: HO.HSH3E 14:48
PROVIDERS: Visit Provider Internal Medicine Medical Oncology
DX: I48.91 Unspecified atrial fibrillation (principal)
CPT/HCPCS: 36415; 85610

== ENCOUNTER 2023-05-15 04:59 | Outpatient (REF) | payer MEDICARE, SELFPAY ==
[2023-05-15 05:43] LABS: INTERNATIONAL NORM RATIO 3.3 (0.9-1.1); Prothrombin Time 40.3 SEC (11.1-13.3)
== END 2023-05-15 05:00 | disposition home or self-care (01) ==
LOC: HO.HSH3E 04:59
PROVIDERS: Visit Provider Internal Medicine Medical Oncology
DX: Z95.2 Presence of prosthetic heart valve (principal); Z79.01 Long term (current) use of anticoagulants
CPT/HCPCS: 36415; 85610

== ENCOUNTER 2023-06-05 06:41 | Outpatient (REF) | payer MEDICARE, SELFPAY ==
[2023-06-05 07:13] LABS: INTERNATIONAL NORM RATIO 3.7 (0.9-1.1); Prothrombin Time 45.1 SEC (11.1-13.3)
== END 2023-06-05 06:42 | disposition home or self-care (01) ==
LOC: HO.HSH3E 06:41
PROVIDERS: Visit Provider Internal Medicine Medical Oncology
DX: Z95.2 Presence of prosthetic heart valve (principal); Z86.73 Personal history of transient ischemic attack (TIA), and cerebral infarction without residual deficits
CPT/HCPCS: 36415; 85610

== ENCOUNTER 2023-06-14 08:22 | Outpatient (REF) | payer MEDICARE, SELFPAY ==
[2023-06-14 09:10] LABS: Anion Gap 8 (12-20); Blood Urea Nitrogen 24 mg/dL (9-16); Calcium 9.1 mg/dL (8.4-10.2); Carbon Dioxide 26 mmol/L (22-29); Chloride 108 mmol/L (96-108); Estimated Glomerular Filt Rate > 60; Glucose Fasting 167 mg/dL (60-99); Potassium 4.1 mmol/L (3.3-5.1); Sodium 138 mmol/L (135-145)
== END 2023-06-14 08:23 | disposition home or self-care (01) ==
LOC: HO.HSH3E 08:22
PROVIDERS: Visit Provider Internal Medicine Medical Oncology
DX: J10.1 Influenza due to other identified influenza virus with other respiratory manifestations (principal)
CPT/HCPCS: 36415; 80048

== ENCOUNTER 2023-06-19 06:02 | Outpatient (REF) | payer MEDICARE, SELFPAY ==
[2023-06-19 06:58] LABS: INTERNATIONAL NORM RATIO 2.5 (0.9-1.1); Prothrombin Time 30.8 SEC (11.1-13.3)
== END 2023-06-19 06:03 | disposition home or self-care (01) ==
LOC: HO.HSH3E 06:02
PROVIDERS: Visit Provider Internal Medicine Medical Oncology
DX: I50.9 Heart failure, unspecified (principal); Z86.73 Personal history of transient ischemic attack (TIA), and cerebral infarction without residual deficits
CPT/HCPCS: 36415; 85610

== ENCOUNTER 2023-06-26 06:15 | Outpatient (REF) | payer MEDICARE, SELFPAY ==
[2023-06-26 07:22] LABS: INTERNATIONAL NORM RATIO 2.8 (0.9-1.1)
== END 2023-06-26 06:16 | disposition home or self-care (01) ==
LOC: HO.HSH3E 06:15
PROVIDERS: Visit Provider Internal Medicine Medical Oncology
DX: Z95.2 Presence of prosthetic heart valve (principal)
CPT/HCPCS: 36415; 85610

== ENCOUNTER 2023-07-10 06:09 | Outpatient (REF) | payer MEDICARE, SELFPAY ==
[2023-07-10 06:44] LABS: INTERNATIONAL NORM RATIO 2.5 (0.9-1.1); Prothrombin Time 30.2 SEC (11.1-13.3)
== END 2023-07-10 06:10 | disposition home or self-care (01) ==
LOC: HO.HSH3E 06:09
PROVIDERS: Visit Provider Internal Medicine Medical Oncology
DX: Z95.2 Presence of prosthetic heart valve (principal); I48.91 Unspecified atrial fibrillation
CPT/HCPCS: 36415; 85610

== ENCOUNTER 2023-07-24 06:23 | Outpatient (REF) | payer MEDICARE, SELFPAY ==
[2023-07-24 07:08] LABS: INTERNATIONAL NORM RATIO 2.1 (0.9-1.1); Prothrombin Time 25.6 SEC (11.1-13.3)
== END 2023-07-24 06:24 | disposition home or self-care (01) ==
LOC: HO.HSH3E 06:23
PROVIDERS: Visit Provider Internal Medicine Medical Oncology
DX: Z95.2 Presence of prosthetic heart valve (principal)
CPT/HCPCS: 36415; 85610

== ENCOUNTER 2023-07-31 06:28 | Outpatient (REF) | payer MEDICARE, SELFPAY ==
[2023-07-31 07:35] LABS: INTERNATIONAL NORM RATIO 2.7 (0.9-1.1)
== END 2023-07-31 06:29 | disposition home or self-care (01) ==
LOC: HO.HSH3E 06:28
PROVIDERS: Visit Provider Internal Medicine Medical Oncology
DX: Z95.2 Presence of prosthetic heart valve (principal)
CPT/HCPCS: 36415; 85610

== ENCOUNTER 2023-08-14 05:37 | Outpatient (REF) | payer MEDICARE, SELFPAY ==
[2023-08-14 06:55] LABS: INTERNATIONAL NORM RATIO 3.3 (0.9-1.1); Prothrombin Time 39.9 SEC (11.1-13.3)
== END 2023-08-14 05:38 | disposition home or self-care (01) ==
LOC: HO.HSH3E 05:37
PROVIDERS: Visit Provider Internal Medicine Medical Oncology
DX: Z95.2 Presence of prosthetic heart valve (principal)
CPT/HCPCS: 36415; 85610

== ENCOUNTER 2023-08-27 05:23 | Outpatient (REF) | payer MEDICARE, SELFPAY ==
[2023-08-27 06:12] LABS: MANUAL DIFF FLAG NO
[2023-08-27 06:26] LABS: Basophils Percent Auto 0.5 % (0-2); Eosinophils Absolute Auto 0.1 X10*3/uL (0.0-0.4); Eosinophils Percent Auto 1.1 % (0-4); Hematocrit 37.2 % (42.0-52.0); Hemoglobin 12.9 g/dl (14.0-18.0); Imm Gran Abs Auto 0.02 X10*3/uL (0.00-0.03); Imm Gran Pct Auto 0.3 % (0.0-0.4); Lymphocytes Absolute Auto 1.5 X10*3/uL (1.2-4.9); Mean Corpuscular HGB Conc 34.7 g/dl (31.0-36.0); Mean Corpuscular Hemoglobin 31.6 pg (27.0-33.0); Mean Corpuscular Volume 91.2 fL (80.0-98.0); Mean Platelet Volume 11.2 fL (9.4-12.4); Monocytes Absolute Auto 0.8 X10*3/uL (0.1-1.2); Monocytes Percent Auto 10.6 % (2-11); Neutrophils Absolute Auto 4.8 x10*3/uL (2.0-8.3); Neutrophils Percent Auto 66.5 % (45-73); Platelet Count 185 X10*3/uL (160-400); Red Blood Count 4.08 X10*6/uL (4.60-5.80); White Blood Count 7.3 X10*3/uL (4.8-10.8)
[2023-08-27 06:34] LABS: Alanine Aminotransferase 19 U/L (0-40); Albumin Level 3.3 g/dL (3.5-5.0); Alkaline Phosphatase 59 U/L (39-117); Anion Gap 10 (12-20); Aspartate Amino Transferase 16 U/L (5-37); Bilirubin Total 0.5 mg/dL (0.0-1.0); Blood Urea Nitrogen 22 mg/dL (9-16); Calcium 9.4 mg/dL (8.4-10.2); Carbon Dioxide 24 mmol/L (22-29); Chloride 111 mmol/L (96-108); Estimated Glomerular Filt Rate > 60; Glucose Random 136 mg/dL (60-115); Potassium 3.9 mmol/L (3.3-5.1); Sodium 141 mmol/L (135-145); Total Protein 5.8 g/dL (6.5-8.0)
== END 2023-08-27 05:24 | disposition home or self-care (01) ==
LOC: HO.HSH3E 05:23
PROVIDERS: Visit Provider Internal Medicine Medical Oncology
DX: Z95.2 Presence of prosthetic heart valve (principal)
CPT/HCPCS: 36415; 80053; 85025

== ENCOUNTER 2023-08-29 07:27 | Outpatient (REF) | payer MEDICARE, SELFPAY ==
[2023-08-29 07:44] LABS: Prothrombin Time 24.6 SEC (11.1-13.3)
== END 2023-08-29 07:28 | disposition home or self-care (01) ==
LOC: HO.HSH3E 07:27
PROVIDERS: Visit Provider Internal Medicine Medical Oncology
DX: I48.91 Unspecified atrial fibrillation (principal)
CPT/HCPCS: 36415; 85610

== ENCOUNTER 2023-09-05 07:11 | Outpatient (REF) | payer MEDICARE, SELFPAY ==
[2023-09-05 08:02] LABS: INTERNATIONAL NORM RATIO 1.2 (0.9-1.1); Prothrombin Time 14.9 SEC (11.1-13.3)
== END 2023-09-05 07:12 | disposition home or self-care (01) ==
LOC: HO.HSH3E 07:11
PROVIDERS: Visit Provider Nurse Practitioner
DX: Z95.2 Presence of prosthetic heart valve (principal)
CPT/HCPCS: 36415; 85610

== ENCOUNTER 2023-09-09 07:10 | Outpatient (REF) | payer MEDICARE, SELFPAY ==
[2023-09-09 08:43] LABS: INTERNATIONAL NORM RATIO 1.7 (0.9-1.1); Prothrombin Time 21.1 SEC (11.1-13.3)
== END 2023-09-09 07:11 | disposition home or self-care (01) ==
LOC: HO.HSH3E 07:10
PROVIDERS: Visit Provider Internal Medicine Medical Oncology
DX: Z95.2 Presence of prosthetic heart valve (principal)
CPT/HCPCS: 36415; 85610

== ENCOUNTER 2023-09-16 06:38 | Outpatient (REF) | payer MEDICARE, SELFPAY ==
[2023-09-16 07:36] LABS: Prothrombin Time 72.8 SEC (11.1-13.3)
== END 2023-09-16 06:39 | disposition home or self-care (01) ==
LOC: HO.HSH3E 06:38
PROVIDERS: Visit Provider Internal Medicine Medical Oncology
DX: I11.0 Hypertensive heart disease with heart failure (principal); I50.9 Heart failure, unspecified
CPT/HCPCS: 36415; 85610

== ENCOUNTER 2023-09-18 11:22 | Outpatient (REF) | payer MEDICARE, SELFPAY ==
[2023-09-18 11:46] LABS: INTERNATIONAL NORM RATIO 2.2 (0.9-1.1); Prothrombin Time 27.1 SEC (11.1-13.3)
== END 2023-09-18 11:23 | disposition home or self-care (01) ==
LOC: HO.HSH3E 11:22
PROVIDERS: Visit Provider Internal Medicine Medical Oncology
DX: Z95.2 Presence of prosthetic heart valve (principal)
CPT/HCPCS: 36415; 85610

== ENCOUNTER 2023-09-30 06:50 | Outpatient (REF) | payer MEDICARE, SELFPAY ==
[2023-09-30 07:40] LABS: INTERNATIONAL NORM RATIO 2.3 (0.9-1.1); Prothrombin Time 27.9 SEC (11.1-13.3)
== END 2023-09-30 06:51 | disposition home or self-care (01) ==
LOC: HO.HSH3E 06:50
PROVIDERS: Visit Provider Nurse Practitioner
DX: Z79.01 Long term (current) use of anticoagulants (principal)
CPT/HCPCS: 36415; 85610

== ENCOUNTER 2023-10-07 06:31 | Outpatient (REF) | payer MEDICARE, SELFPAY ==
[2023-10-07 07:48] LABS: INTERNATIONAL NORM RATIO 3.5 (0.9-1.1); Prothrombin Time 42.9 SEC (11.1-13.3)
== END 2023-10-07 06:32 | disposition home or self-care (01) ==
LOC: HO.HSH3E 06:31
PROVIDERS: Visit Provider Nurse Practitioner
DX: I11.0 Hypertensive heart disease with heart failure (principal); I50.9 Heart failure, unspecified
CPT/HCPCS: 36415; 85610

== ENCOUNTER 2023-10-14 06:51 | Outpatient (REF) | payer MEDICARE, SELFPAY ==
[2023-10-14 07:53] LABS: INTERNATIONAL NORM RATIO 2.8 (0.9-1.1); Prothrombin Time 33.8 SEC (11.1-13.3)
== END 2023-10-14 06:52 | disposition home or self-care (01) ==
LOC: HO.HSH3E 06:51
PROVIDERS: Visit Provider Nurse Practitioner Acute Care
DX: Z95.2 Presence of prosthetic heart valve (principal)
CPT/HCPCS: 36415; 85610

== ENCOUNTER 2023-10-21 07:11 | Outpatient (REF) | payer MEDICARE, SELFPAY ==
[2023-10-21 07:55] LABS: INTERNATIONAL NORM RATIO 2.9 (0.9-1.1); Prothrombin Time 35.2 SEC (11.1-13.3)
== END 2023-10-21 07:12 | disposition home or self-care (01) ==
LOC: HO.HSH3E 07:11
PROVIDERS: Visit Provider Nurse Practitioner
DX: I48.91 Unspecified atrial fibrillation (principal)
CPT/HCPCS: 36415; 85610

== ENCOUNTER 2023-10-28 07:08 | Outpatient (REF) | payer MEDICARE, SELFPAY ==
[2023-10-28 07:31] LABS: Prothrombin Time 24.6 SEC (11.1-13.3)
== END 2023-10-28 07:09 | disposition home or self-care (01) ==
LOC: HO.HSH3E 07:08
PROVIDERS: Visit Provider Nurse Practitioner
DX: Z95.2 Presence of prosthetic heart valve (principal)
CPT/HCPCS: 36415; 85610

== ENCOUNTER 2023-11-05 06:58 | Outpatient (REF) | payer MEDICARE, SELFPAY ==
[2023-11-05 08:03] LABS: INTERNATIONAL NORM RATIO 3.2 (0.9-1.1); Prothrombin Time 38.7 SEC (11.1-13.3)
== END 2023-11-05 06:59 | disposition home or self-care (01) ==
LOC: HO.HSH3E 06:58
PROVIDERS: Visit Provider Nurse Practitioner
DX: Z79.01 Long term (current) use of anticoagulants (principal)
CPT/HCPCS: 36415; 85610

== ENCOUNTER 2023-11-06 06:43 | Outpatient (REF) | payer MEDICARE, SELFPAY ==
[2023-11-06 07:33] LABS: INTERNATIONAL NORM RATIO 2.8 (0.9-1.1); Prothrombin Time 34.2 SEC (11.1-13.3)
== END 2023-11-06 06:44 | disposition home or self-care (01) ==
LOC: HO.HSH3E 06:43
PROVIDERS: Visit Provider Nurse Practitioner
DX: U07.1 COVID-19 (principal)
CPT/HCPCS: 36415; 85610

== ENCOUNTER 2023-11-07 06:50 | Outpatient (REF) | payer MEDICARE, SELFPAY ==
[2023-11-07 08:33] LABS: INTERNATIONAL NORM RATIO 1.9 (0.9-1.1); Prothrombin Time 22.8 SEC (11.1-13.3)
== END 2023-11-07 06:51 | disposition home or self-care (01) ==
LOC: HO.HSH3E 06:50
PROVIDERS: Visit Provider Nurse Practitioner
DX: U07.1 COVID-19 (principal)
CPT/HCPCS: 36415; 85610

== ENCOUNTER 2023-11-08 07:25 | Outpatient (REF) | payer MEDICARE, SELFPAY ==
[2023-11-08 07:36] LABS: INTERNATIONAL NORM RATIO 1.8 (0.9-1.1); Prothrombin Time 21.5 SEC (11.1-13.3)
== END 2023-11-08 07:26 | disposition home or self-care (01) ==
LOC: HO.HSH3E 07:25
PROVIDERS: Visit Provider Nurse Practitioner
DX: U07.1 COVID-19 (principal)
CPT/HCPCS: 36415; 85610

== ENCOUNTER 2023-11-11 06:08 | Outpatient (REF) | payer MEDICARE, SELFPAY ==
[2023-11-11 06:50] LABS: INTERNATIONAL NORM RATIO 2.7 (0.9-1.1); Prothrombin Time 33.1 SEC (11.1-13.3)
== END 2023-11-11 06:09 | disposition home or self-care (01) ==
LOC: HO.HSH3E 06:08
PROVIDERS: Visit Provider Internal Medicine Endocrinology, Diabetes & Metabolism
DX: U07.1 COVID-19 (principal)
CPT/HCPCS: 36415; 85610

== ENCOUNTER 2023-11-18 06:31 | Outpatient (REF) | payer MEDICARE, SELFPAY ==
[2023-11-18 07:26] LABS: Prothrombin Time 64.3 SEC (11.1-13.3)
[2023-11-18 07:34] LABS: INTERNATIONAL NORM RATIO 5.3 (0.9-1.1)
== END 2023-11-18 06:32 | disposition home or self-care (01) ==
LOC: HO.HSH3E 06:31
PROVIDERS: Visit Provider Nurse Practitioner Acute Care
DX: Z95.2 Presence of prosthetic heart valve (principal)
CPT/HCPCS: 36415; 85610

== ENCOUNTER 2023-11-19 07:20 | Outpatient (REF) | payer MEDICARE, SELFPAY ==
[2023-11-19 08:01] LABS: INTERNATIONAL NORM RATIO 3.8 (0.9-1.1); Prothrombin Time 46.3 SEC (11.1-13.3)
== END 2023-11-19 07:21 | disposition home or self-care (01) ==
LOC: HO.HSH3E 07:20
PROVIDERS: Internal Medicine Interventional Cardiology; Visit Provider Nurse Practitioner
DX: Z95.2 Presence of prosthetic heart valve (principal)
CPT/HCPCS: 36415; 85610

== ENCOUNTER 2023-11-26 06:47 | Outpatient (REF) | payer MEDICARE, SELFPAY ==
[2023-11-26 07:32] LABS: INTERNATIONAL NORM RATIO 1.7 (0.9-1.1); Prothrombin Time 20.9 SEC (11.1-13.3)
== END 2023-11-26 06:48 | disposition home or self-care (01) ==
LOC: HO.HSH3E 06:47
PROVIDERS: Visit Provider Nurse Practitioner Acute Care
DX: Z13.89 Encounter for screening for other disorder (principal)
CPT/HCPCS: 36415; 85610

== ENCOUNTER 2023-12-02 06:21 | Outpatient (REF) | payer MEDICARE, SELFPAY ==
[2023-12-02 07:03] LABS: Prothrombin Time 36.4 SEC (11.1-13.3)
== END 2023-12-02 06:22 | disposition home or self-care (01) ==
LOC: HO.HSH3E 06:21
PROVIDERS: Visit Provider Nurse Practitioner
DX: I63.9 Cerebral infarction, unspecified (principal)
CPT/HCPCS: 36415; 85610

== ENCOUNTER 2023-12-09 06:41 | Outpatient (REF) | payer MEDICARE, SELFPAY ==
[2023-12-09 07:37] LABS: INTERNATIONAL NORM RATIO 3.9 (0.9-1.1)
== END 2023-12-09 06:42 | disposition home or self-care (01) ==
LOC: HO.HSH3E 06:41
PROVIDERS: Visit Provider Nurse Practitioner Acute Care
DX: Z95.2 Presence of prosthetic heart valve (principal)
CPT/HCPCS: 36415; 85610

== ENCOUNTER 2023-12-16 06:07 | Outpatient (REF) | payer MEDICARE, SELFPAY ==
[2023-12-16 06:44] LABS: INTERNATIONAL NORM RATIO 1.9 (0.9-1.1); Prothrombin Time 22.4 SEC (10.9-12.4)
== END 2023-12-16 06:08 | disposition home or self-care (01) ==
LOC: HO.HSH3E 06:07
PROVIDERS: Visit Provider Nurse Practitioner
DX: Z13.89 Encounter for screening for other disorder (principal)
CPT/HCPCS: 36415; 85610

== ENCOUNTER 2023-12-23 05:58 | Outpatient (REF) | payer MEDICARE, SELFPAY ==
[2023-12-23 06:31] LABS: INTERNATIONAL NORM RATIO 2.8 (0.9-1.1); Prothrombin Time 32.2 SEC (10.9-12.4)
== END 2023-12-23 05:59 | disposition home or self-care (01) ==
LOC: HO.HSH3E 05:58
PROVIDERS: Visit Provider Nurse Practitioner
DX: I48.91 Unspecified atrial fibrillation (principal)
CPT/HCPCS: 36415; 85610

== ENCOUNTER 2023-12-30 06:17 | Outpatient (REF) | payer MEDICARE, SELFPAY ==
[2023-12-30 07:02] LABS: INTERNATIONAL NORM RATIO 2.7 (0.9-1.1)
== END 2023-12-30 06:18 | disposition home or self-care (01) ==
LOC: HO.HSH3E 06:17
PROVIDERS: Visit Provider Nurse Practitioner
DX: Z95.2 Presence of prosthetic heart valve (principal)
CPT/HCPCS: 36415; 85610

== ENCOUNTER 2024-01-06 07:25 | Outpatient (REF) | payer MEDICARE, SELFPAY ==
[2024-01-06 08:07] LABS: INTERNATIONAL NORM RATIO 3.2 (0.9-1.1); Prothrombin Time 36.8 SEC (10.9-12.4)
== END 2024-01-06 07:26 | disposition home or self-care (01) ==
LOC: HO.HSH3E 07:25
PROVIDERS: Visit Provider Nurse Practitioner
DX: I48.91 Unspecified atrial fibrillation (principal)
CPT/HCPCS: 36415; 85610

== ENCOUNTER 2024-01-13 06:06 | Outpatient (REF) | payer MEDICARE, SELFPAY ==
[2024-01-13 07:01] LABS: INTERNATIONAL NORM RATIO 4.1 (0.9-1.1); Prothrombin Time 48.3 SEC (10.9-12.4)
== END 2024-01-13 06:07 | disposition home or self-care (01) ==
LOC: HO.HSH3E 06:06
PROVIDERS: Visit Provider Internal Medicine Interventional Cardiology
DX: I48.91 Unspecified atrial fibrillation (principal)
CPT/HCPCS: 36415; 85610

== ENCOUNTER 2024-01-21 06:05 | Outpatient (REF) | payer MEDICARE, SELFPAY ==
[2024-01-21 06:34] LABS: INTERNATIONAL NORM RATIO 2.2 (0.9-1.1); Prothrombin Time 25.7 SEC (10.9-12.4)
== END 2024-01-21 06:06 | disposition home or self-care (01) ==
LOC: HO.HSH3E 06:05
PROVIDERS: Visit Provider Nurse Practitioner
DX: Z95.2 Presence of prosthetic heart valve (principal)
CPT/HCPCS: 36415; 85610

== ENCOUNTER 2024-01-27 09:48 | Outpatient (REF) | payer MEDICARE, SELFPAY ==
[2024-01-27 10:24] LABS: INTERNATIONAL NORM RATIO 2.3 (0.9-1.1); Prothrombin Time 26.8 SEC (10.9-12.4)
== END 2024-01-27 09:49 | disposition home or self-care (01) ==
LOC: HO.HSH3E 09:48
PROVIDERS: Visit Provider Nurse Practitioner
DX: I48.91 Unspecified atrial fibrillation (principal)
CPT/HCPCS: 36415; 85610

== ENCOUNTER 2024-02-03 07:30 | Outpatient (REF) | payer MEDICARE, SELFPAY ==
[2024-02-03 08:12] LABS: INTERNATIONAL NORM RATIO 3.7 (0.9-1.1); Prothrombin Time 42.8 SEC (10.9-12.4)
== END 2024-02-03 07:31 | disposition home or self-care (01) ==
LOC: HO.HSH3E 07:30
PROVIDERS: Visit Provider Nurse Practitioner
DX: Z95.2 Presence of prosthetic heart valve (principal)
CPT/HCPCS: 36415; 85610

== ENCOUNTER 2024-02-10 12:06 | Outpatient (REF) | payer MEDICARE, SELFPAY ==
[2024-02-10 12:55] LABS: INTERNATIONAL NORM RATIO 2.3 (0.9-1.1); Prothrombin Time 27.4 SEC (10.9-12.4)
== END 2024-02-10 12:07 | disposition home or self-care (01) ==
LOC: HO.HSH3E 12:06
PROVIDERS: Visit Provider Nurse Practitioner Acute Care
DX: Z95.2 Presence of prosthetic heart valve (principal)
CPT/HCPCS: 36415; 85610

== ENCOUNTER 2024-02-17 08:18 | Outpatient (REF) | payer MEDICARE, SELFPAY ==
[2024-02-17 08:35] LABS: INTERNATIONAL NORM RATIO 2.2 (0.9-1.1); Prothrombin Time 25.7 SEC (10.9-12.4)
== END 2024-02-17 08:19 | disposition home or self-care (01) ==
LOC: HO.HSH3E 08:18
PROVIDERS: Visit Provider Nurse Practitioner
DX: I48.91 Unspecified atrial fibrillation (principal); I67.9 Cerebrovascular disease, unspecified
CPT/HCPCS: 36415; 85610

== ENCOUNTER 2024-02-24 08:07 | Outpatient (REF) | payer MEDICARE, SELFPAY ==
[2024-02-24 08:32] LABS: INTERNATIONAL NORM RATIO 3.3 (0.9-1.1)
== END 2024-02-24 08:08 | disposition home or self-care (01) ==
LOC: HO.HSH3E 08:07
PROVIDERS: Visit Provider Nurse Practitioner
DX: I48.91 Unspecified atrial fibrillation (principal)
CPT/HCPCS: 36415; 85610

== ENCOUNTER 2024-03-02 11:26 | Outpatient (REF) | payer MEDICARE, SELFPAY ==
[2024-03-02 11:59] LABS: INTERNATIONAL NORM RATIO 2.1 (0.9-1.1); Prothrombin Time 24.6 SEC (10.9-12.4)
--- OUTSIDE RECORDS SUMMARY | 2024-03-04 15:11 | XMS_ITS | Continuity of Care Document ---
Author Organization [facility] Address [address] [place] [address] Phone Care Team Providers Care Technical Analyst Name Role Phone Oz GRAHAM, Violetta Unavailable Unavailable Procedures Procedure Date EYE EXAM ESTABLISHED PAT REFRACTION WITH EXAM EYE EXAM & TREATMENT Advance Directives Directive Yes / No Effective Date File Name No Information Encounters Encounter Description Practice Location Reason(s) For Visit Diagnoses Date Provider Providers Copied on Encounter [facility] , [address] [place] [address], [facility], tel:[phone] [place] No Information 0 Oz Shipley. 1330 [facility], [address], [facility], . tel:[phone] [facility] , [address] [place] [address], [facility], tel:[phone] [place] No Information 0 No Information Family History Family Member Type Diagnosis Age At Onset No Information Payers Payer name Insurance type Covered constitution party ID Authoriza tion(s) Medicare MB [id number] [facility] Indemnity Plan [id number] For Life [id number] Social History Type Description Quantity Date Captured Comments Sex Male Smoking Status No Information Chief Complaint And Reason For Visit No Information Reason For Referral Reason For Referral No Information History Of Present Illness Encounter Date Complaint History Of Prese nt Illness No Information Functional Status Date Functional Assessmen t No Information Instructions Date Instruction Additional Infor mation No Information Assessments Type Assessment Date No Information Patient Care Teams Name Effective Dates (start - stop) Status Members No Information
== END 2024-03-02 11:27 | disposition home or self-care (01) ==
LOC: HO.HSH3E 11:26
PROVIDERS: Visit Provider Nurse Practitioner
DX: Z95.2 Presence of prosthetic heart valve (principal)
CPT/HCPCS: 36415; 85610

== ENCOUNTER 2024-03-09 07:00 | Outpatient (REF) | payer MEDICARE, SELFPAY ==
--- OUTSIDE RECORDS SUMMARY | 2024-03-09 07:03 | XMS_ITS | Continuity of Care Document ---
Author Organization [facility] Address [address] [place] [address] Phone Care Team Providers Care Annealing Furnace Operator Name Role Phone Oz GRAHAM, Violetta Unavailable Unavailable Procedures Procedure Date EYE EXAM ESTABLISHED PAT REFRACTION WITH EXAM EYE EXAM & TREATMENT Advance Directives Directive Yes / No Effective Date File Name No Information Encounters Encounter Description Practice Location Reason(s) For Visit Diagnoses Date Provider Providers Copied on Encounter [facility] , [address] [place] [address], [facility], tel:[phone] [place] No Information 0 Oz Shipley. [address] [place] [address], [address], [facility], . tel:[phone] [facility] , [address] [place] [address], [facility], tel:[phone] [place] No Information 0 No Information Family History Family Member Type Diagnosis Age At Onset No Information Payers Payer name Insurance type Covered libertarian ID Authoriza tion(s) Medicare MB [id number] [facility] Indemnity Plan [id number] For Life [id number] Social History Type Description Quantity Date Captured [...]
[2024-03-09 07:46] LABS: INTERNATIONAL NORM RATIO 2.5 (0.9-1.1); Prothrombin Time 28.8 SEC (10.9-12.4)
== END 2024-03-09 07:01 | disposition home or self-care (01) ==
LOC: HO.HSH3E 07:00
PROVIDERS: Visit Provider Nurse Practitioner
DX: I48.91 Unspecified atrial fibrillation (principal)
CPT/HCPCS: 36415; 85610

== ENCOUNTER 2024-03-16 06:29 | Outpatient (REF) | payer MEDICARE, SELFPAY ==
[2024-03-16 07:16] LABS: INTERNATIONAL NORM RATIO 3.3 (0.9-1.1); Prothrombin Time 38.9 SEC (10.9-12.4)
== END 2024-03-16 06:30 | disposition home or self-care (01) ==
LOC: HO.HSH3E 06:29
PROVIDERS: Visit Provider Nurse Practitioner
DX: Z95.2 Presence of prosthetic heart valve (principal)
CPT/HCPCS: 36415; 85610

== ENCOUNTER 2024-03-23 06:29 | Outpatient (REF) | payer MEDICARE, SELFPAY ==
[2024-03-23 07:11] LABS: INTERNATIONAL NORM RATIO 3.2 (0.9-1.1); Prothrombin Time 37.5 SEC (10.9-12.4)
== END 2024-03-23 06:30 | disposition home or self-care (01) ==
LOC: HO.HSH3E 06:29
PROVIDERS: Visit Provider Nurse Practitioner Acute Care
DX: Z13.89 Encounter for screening for other disorder (principal)
CPT/HCPCS: 36415; 85610

== ENCOUNTER 2024-03-30 06:31 | Outpatient (REF) | payer MEDICARE, SELFPAY ==
[2024-03-30 07:14] LABS: INTERNATIONAL NORM RATIO 3.6 (0.9-1.1); Prothrombin Time 42.1 SEC (10.9-12.4)
== END 2024-03-30 06:32 | disposition home or self-care (01) ==
LOC: HO.HSH3E 06:31
PROVIDERS: Visit Provider Nurse Practitioner
DX: I63.9 Cerebral infarction, unspecified (principal)
CPT/HCPCS: 36415; 85610

== ENCOUNTER 2024-04-06 06:44 | Outpatient (REF) | payer MEDICARE, SELFPAY ==
--- OUTSIDE RECORDS SUMMARY | 2024-04-06 06:47 | XMS_ITS | Continuity of Care Document ---
Author Organization [facility] Address [address] [place] [address]862 Phone Care Team Providers Care Take Away Worker Name Role Phone Oz GRAHAM, Violetta Unavailable Unavailable Procedures Procedure Date EYE EXAM ESTABLISHED PAT REFRACTION WITH EXAM EYE EXAM & TREATMENT Advance Directives Directive Yes / No Effective Date File Name No Information Encounters Encounter Description Practice Location Reason(s) For Visit Diagnoses Date Provider Providers Copied on Encounter [facility] , [address] [place] [address], [facility], tel:[phone] [place] No Information 0 Oz Shipley. 1330 [facility], [address], [facility], . tel:[phone] [facility] , [address] [place] [address], [facility], tel:[phone] [place] No Information 0 No Information Family History Family Member Type Diagnosis Age At Onset No Information Payers Payer name Insurance type Covered constitution party ID Authoriza tion(s) Medicare MB [id number] [facility] Indemnity Plan [id number] For Life [id number] Social History Type Description Quantity Date Captured [...]
[2024-04-06 07:34] LABS: INTERNATIONAL NORM RATIO 2.9 (0.9-1.1)
== END 2024-04-06 06:45 | disposition home or self-care (01) ==
LOC: HO.HSH3E 06:44
PROVIDERS: Visit Provider Nurse Practitioner Acute Care
DX: I13.10 Hypertensive heart and chronic kidney disease without heart failure, with stage 1 through stage 4 chronic kidney disease, or unspecified chronic kidney disease (principal); Z95.2 Presence of prosthetic heart valve; I50.30 Unspecified diastolic (congestive) heart failure; N18.9 Chronic kidney disease, unspecified
CPT/HCPCS: 36415; 85610

== ENCOUNTER → 2024-04-07 12:32 | Outpatient (REF) | payer MEDICARE, SELFPAY ==
--- NOTE | 2024-04-07 12:39 | CA_ITS ---
Transthoracic Echocardiogram Patient (Last, First, Middle): Clem Moore J Gender: Male Date of : 1940 Age: 84 Procedure Date: 04/07/2024 Procedure Type: Transthoracic Echocardiogram Location: OP Height: 172. cm Weight: 84. kg BSA: 1.97 m2 Heart Rate: 86 bpm BP: 126 / 64 mmHg Machine I Engraver: SB Referring MD: Tino Babb MD Symptoms: Z95.2 - Presence of prosthetic heart valve Study Quality: Adequate ECG Rhythm: Frequent ventricular premature beats Conclusions: - The left ventricular systolic function is severely decreased. The visually estimated ejection fraction is between 25-30%. - A mechanical prosthetic mitral valve is present. The prosthetic mitral valve appears to be functioning normally. Findings Left Ventricle Normal left ventricular cavity size. The left ventricular systolic function is severely decreased. The visually estimated ejection fraction is between 25-30%. There is moderate global hypokinesis. Diastolic function is indeterminate on the basis of available data. There is moderate septal asymmetric hypertrophy. Right Ventricle Normal right ventricular cavity size and systolic function. Atria The left atrium was not well visualized. The right atrium was not well visualized. Aortic Valve There is a normal trileaflet aortic valve. There is mild calcification of the aortic valve. There is no aortic valve stenosis. There is trace (trivial) aortic valve regurgitation. Mitral Valve A mechanical prosthetic mitral valve is present. The prosthetic mitral valve appears to be functioning normally. The mitral valve was not well visualized. There is no mitral valve regurgitation. There is no mitral valve stenosis. Mean gradient across the valve 7 mmHg at 96/min. Pulmonic Valve There is trace pulmonic valve regurgitation. Tricuspid Valve There is trace tricuspid valve regurgitation. Tricuspid regurgitation envelope is inadequate for calculation of right ventricular systolic pressure. Great Vessels The asc aorta is normal in size. There is mild dilatation of the sinuses of Valsalva measuring 4.10 cm. Venous The inferior vena cava was not well visualized. Pericardium/Pleural There is no evidence of pericardial effusion. Prior Study Comparison Changes noted compared to prior study dated: 02/22/2023. LVEF lower than previously reported. Measurements 2D Linear Measurements IVSd: 1.57 0.6-0.9/0.6-1.0 cm LVIDd: 4.78 3.9-5.3/4.2-5.9 cm LVIDd Index: 2.43 2.4-3.2/2.2-3.1 cm/m2 LVIDs: 3.73 2.0-3.6 cm LVPWd: 1.07 0.7-1.1 cm LA Diam: 3.80 2.7-3.8/3.0-4.0 cm LAIDs Index: 1.93 1.5-2.3 cm/m2 LV Mass: 311.28 67-162/88-224 g LV Mass Index: 158.01 43-95/49-115 g/m2 LVOT Diam: 2.50 3.0+(-)1.3 cm 2D Systolic Function EF 4C: 23.20 >55% EF 2C: 44.30 >55% EF BiP: 35.80 >55% Mitral Valve MV VTI: 0.20 MV Pk Sid: 1.74 MV Mn Sid: 1.17 MV Pk Grad: 12.00 MV Mn Grad: 6.00 MV Pk E: 1.63 MV Decel Time: 144.00 MVA Continuity: 1.75 Aortic Valve AoV Pk Sid: 0.75 AoV Pk Grad: 2.00 JAMES: 3.26 LVOT LVOT Pk Sid: 0.50 LVOT Mn Sid: 0.32 LVOT VTI: 0.07 LVOT Pk Grad: 1.00 LVOT Mn Grad: 0.00 LVOT Diam: 2.50 LVOT Area: 4.91 Diastolic Function MV Pk E: 1.63 Right Ventricle TAPSE (mm): 19.40 TVS' Sid: 14.70 Great Vessels Aorta Sinus of Valsalva: 4.10 2.0-3.5 cm Ao Asc: 3.70 2.1-3.4 cm Pulmonary Valve PV Pk Sid: 0.86 Peak PV Grad: 3.00 Updated in Other Vendor System with Status of Final Goran Lawrence MD electronically signed on 04/08/2024 10:43:56 AM with status of Final
--- OUTSIDE RECORDS SUMMARY | 2024-04-07 14:38 | XMS_ITS | Continuity of Care Document ---
Author Organization [facility] Address [address] [place] [address] Phone Care Team Providers Care Aurist Name Role Phone Oz GRAHAM, Violetta Unavailable Unavailable Procedures Procedure Date EYE EXAM ESTABLISHED PAT REFRACTION WITH EXAM EYE EXAM & TREATMENT Advance Directives Directive Yes / No Effective Date File Name No Information Encounters Encounter Description Practice Location Reason(s) For Visit Diagnoses Date Provider Providers Copied on Encounter [facility] , [address] [place] [address], [facility], tel:[phone] [place] No Information 0 Oz Shipley. 1330 [facility], [address], [facility], . tel:[phone] [facility] , [address] [place] [address], [facility], tel:[phone] [place] No Information 0 No Information Family History Family Member Type Diagnosis Age At Onset No Information Payers Payer name Insurance type Covered republican ID Authoriza tion(s) Medicare MB [id number] [facility] Indemnity Plan [id number] For Life [id number] Social History Type Description Quantity Date Captured [...]
== END ==
LOC: HO.CARD 12:32
PROVIDERS: Visit Provider Internal Medicine Cardiovascular Disease
DX: Z95.2 Presence of prosthetic heart valve (principal); I42.9 Cardiomyopathy, unspecified
CPT/HCPCS: 93306

== ENCOUNTER → 2024-04-07 12:39 | Outpatient (BNV) | payer MEDICARE, SELFPAY | PROVIDERS: Visit Provider Internal Medicine | DX: I42.2 Other hypertrophic cardiomyopathy (principal); Z95.2 Presence of prosthetic heart valve; I51.89 Other ill-defined heart diseases | CPT/HCPCS: 93306 ==

== ENCOUNTER 2024-04-08 05:43 | Outpatient (REF) | payer MEDICARE, SELFPAY ==
[2024-04-08 06:22] LABS: INTERNATIONAL NORM RATIO 2.7 (0.9-1.1); Prothrombin Time 32.1 SEC (10.9-12.4)
== END 2024-04-08 05:44 | disposition home or self-care (01) ==
LOC: HO.HSH3E 05:43
PROVIDERS: Visit Provider Internal Medicine Interventional Cardiology
DX: Z95.2 Presence of prosthetic heart valve (principal)
CPT/HCPCS: 36415; 85610

== ENCOUNTER 2024-04-15 05:58 | Outpatient (REF) | payer MEDICARE, SELFPAY ==
--- OUTSIDE RECORDS SUMMARY | 2024-04-15 06:02 | XMS_ITS | Continuity of Care Document ---
Author Organization [facility] Address [address] [place] [address] Phone Care Team Providers Care Dynamic Balancer Set Up Worker Name Role Phone Oz GRAHAM, Violetta Unavailable Unavailable Procedures Procedure Date EYE EXAM ESTABLISHED PAT REFRACTION WITH EXAM EYE EXAM & TREATMENT Advance Directives Directive Yes / No Effective Date File Name No Information Encounters Encounter Description Practice Location Reason(s) For Visit Diagnoses Date Provider Providers Copied on Encounter [facility] , [address] [place] [address], [facility], tel:[phone] [place] No Information 0 Oz Shipley. 1330 [facility], [address], [facility], . tel:[phone] [facility] , [address] [place] [address], [facility], tel:[phone] [place] No Information 0 No Information Family History Family Member Type Diagnosis Age At Onset No Information Payers Payer name Insurance type Covered green party ID Authoriza tion(s) Medicare MB [id number] [facility] Indemnity Plan [id number] For Life [id number] Social History Type Description Quantity Date Captured [...]
[2024-04-15 06:25] LABS: INTERNATIONAL NORM RATIO 2.4 (0.9-1.1); Prothrombin Time 28.3 SEC (10.9-12.4)
== END 2024-04-15 05:59 | disposition home or self-care (01) ==
LOC: HO.HSH3E 05:58
PROVIDERS: Visit Provider Nurse Practitioner Acute Care
DX: I13.10 Hypertensive heart and chronic kidney disease without heart failure, with stage 1 through stage 4 chronic kidney disease, or unspecified chronic kidney disease (principal); I48.91 Unspecified atrial fibrillation
CPT/HCPCS: 36415; 85610

== ENCOUNTER 2024-04-20 08:16 | Outpatient (REF) | payer MEDICARE, SELFPAY ==
[2024-04-20 08:30] LABS: INTERNATIONAL NORM RATIO 2.3 (0.9-1.1)
--- OUTSIDE RECORDS SUMMARY | 2024-04-20 12:38 | XMS_ITS | Continuity of Care Document ---
Author Organization [facility] Address [address] [place] [address] Phone Care Team Providers Care Quality Control Supervisor Name Role Phone Oz GRAHAM, Violetta Unavailable Unavailable Procedures Procedure Date EYE EXAM ESTABLISHED PAT REFRACTION WITH EXAM EYE EXAM & TREATMENT Advance Directives Directive Yes / No Effective Date File Name No Information Encounters Encounter Description Practice Location Reason(s) For Visit Diagnoses Date Provider Providers Copied on Encounter [facility] , [address] [place] [address], [facility], tel:[phone] [place] No Information 0 Oz Shipley. 1330 [employer], [address], [facility], . tel:[phone] [facility] , [address] [place] [address], [facility], tel:[phone] [place] No Information 0 No Information Family History Family Member Type Diagnosis Age At Onset No Information Payers Payer name Insurance type Covered constitution party ID Authoriza tiyasmeen(s) Medicare MB [id number] [facility] Indemnity Plan [id number] For Life [id number] Social History Type Description Quantity Date Captured [...]
== END 2024-04-20 08:17 | disposition home or self-care (01) ==
LOC: HO.HSH3E 08:16
PROVIDERS: Visit Provider Nurse Practitioner Acute Care
DX: I48.91 Unspecified atrial fibrillation (principal); I13.10 Hypertensive heart and chronic kidney disease without heart failure, with stage 1 through stage 4 chronic kidney disease, or unspecified chronic kidney disease
CPT/HCPCS: 36415; 85610

== ENCOUNTER 2024-04-27 06:05 | Outpatient (REF) | payer MEDICARE, SELFPAY ==
--- OUTSIDE RECORDS SUMMARY | 2024-04-27 06:09 | XMS_ITS | Continuity of Care Document ---
Author Organization [facility] Address [address] [place] [address] 43763 Phone Care Team Providers Care Easement Worker Name Role Phone Oz GRAHAM, Violetta Unavailable Unavailable Procedures Procedure Date EYE EXAM ESTABLISHED PAT REFRACTION WITH EXAM EYE EXAM & TREATMENT Advance Directives Directive Yes / No Effective Date File Name No Information Encounters Encounter Description Practice Location Reason(s) For Visit Diagnoses Date Provider Providers Copied on Encounter [facility] , [address] [place] [address], [facility], tel:[phone] [place] No Information 0 Oz Shipley. [address] [place] [address], [address], [facility], . tel:[phone] [facility] , [address] [place] [address], [facility], tel:[phone] [place] No Information 0 No Information Family History Family Member Type Diagnosis Age At Onset No Information Payers Payer name Insurance type Covered constitution party ID Authoriza tion(s) Medicare MB [id number] [facility] Indemnity Plan [id number] For Life [id number] Social History Type Description Quantity Date Captured [...]
[2024-04-27 07:12] LABS: INTERNATIONAL NORM RATIO 2.3 (0.9-1.1); Prothrombin Time 27.1 SEC (10.9-12.4)
== END 2024-04-27 06:06 | disposition home or self-care (01) ==
LOC: HO.HSH3E 06:05
PROVIDERS: Visit Provider Nurse Practitioner Acute Care
DX: I48.91 Unspecified atrial fibrillation (principal)
CPT/HCPCS: 36415; 85610

== ENCOUNTER → 2024-04-30 10:27 | Outpatient (AMB) | payer MEDICARE, SELFPAY ==
--- OUTSIDE RECORDS SUMMARY | 2024-04-30 10:29 | XMS_ITS | Continuity of Care Document ---
Author Organization [facility] Address [address] [place] [address] 100[address] Phone Care Team Providers Care Radio Mechanic Apprentice Name Role Phone Oz GRAHAM, Violetta Unavailable Unavailable Procedures Procedure Date EYE EXAM ESTABLISHED PAT REFRACTION WITH EXAM EYE EXAM & TREATMENT Advance Directives Directive Yes / No Effective Date File Name No Information Encounters Encounter Description Practice Location Reason(s) For Visit Diagnoses Date Provider Providers Copied on Encounter [facility] , [address] [place] [address], [facility], tel:[phone] [place] No Information 0 Oz Shipley. 1330 [facility], [address], [facility], . tel:[phone] [facility] , [address] [place] [address], [facility], tel:[phone] [place] No Information 0 No Information Family History Family Member Type Diagnosis Age At Onset No Information Payers Payer name Insurance type Covered green party ID Authoriza tiyasmeen(s) Medicare MB [id number] [facility] Indemnity Plan [id number] For Life [id number] Social History Type Description Quantity Date Captured [...]
--- NOTE | 2024-04-30 10:40 | A.OFFVIS_ITS ---
Vital Signs 04/30/24 10:41 Height 5 ft 7 in BP 120/72 Blood Pressure Location Lt brachial Position Sitting Pulse 88 Intake Visit Reasons: 1 yr s/p echo Intake Note: 1 year follow-up with ekg patient is not talking but per CHIMNEY BUILDER HELPER doing ok Morning Caregiver Required: No Orthotist: Orthotist Present Accompanied by: machine hoop maker Allergies celecoxib [From Celebrex] Allergy (Verified 04/23/22 10:26) Unknown poison michaelle extract Allergy (Verified 04/23/22 10:26) Unknown simvastatin Allergy (Verified 04/23/22 10:26) Unknown Medication List - Last Reconciled 04/30/24 by Tino Babb MD aspirin 81 mg PO DAILY calcium polycarbophil 1,250 mg PO DAILY carbamide peroxide 6.5% 5 drps otic (ear) left DAILY carbidopa-levodopa 25-250 mg 1 tab PO TID@0900,1300,1700 docusate sodium 100 mg PO DAILY finasteride 5 mg PO BEDTIME magnesium hydroxide 5 mL PO BEDTIME multivitamin 1 tab PO DAILY warfarin (Jantoven) 7.5 mg PO DAILY@1800 HPI Comments Details: Clem comes for follow-up, accompanied by TECHNICAL SALES REPRESENTATIVE [facility]. No obvious symptoms to report. No clear syncopal episodes. He does not have any significant orthopnea, PND, leg edema. Minimally functional. Denies any prolonged palpitation irregular heartbeat. No significant bleeding issues or neurologic events. [facility] Medical History Nonsustained ventricular tachycardia Cardiomyopathy Paroxysmal atrial fibrillation Cerebrovascular accident Orthostatic hypotension Alzheimer disease Depression Diastolic CHF Afib Acute CVA (cerebrovascular accident) Hyperlipidemia HTN (hypertension) Vascular dementia Parkinson disease Surgical History H/O mitral valve replacement Mitral valve replaced Social History Household Members: Spouse Housing: House Do you presently have visiting nurse or other home services: No Alcohol intake: never Patient Tobacco Use Status: Never used Tobacco Advance Directives Date on File: 01/01/20 service: Yes Current occupational status: retired Review of Systems Const Denies chills, Denies fatigue, Denies fever(s), Denies frequent falls, Denies w eakness, Denies weight gain and Denies weight loss ENT Denies dizziness Card Denies chest pain, Denies leg edema, Denies lightheadedness, Denies palpi tations, Denies dyspnea, Denies dyspnea on exertion, Denies orthopnea and Denies other (loss of consciousness) Resp Denies cough, Denies dyspnea and Denies dyspnea on exertion GI Denies hematochezia and Denies change in stool character Musc Denies abnormal gait, Denies muscle weakness, Denies numbness, Denies radiating pain into limb and Denies tingling Neuro Denies abnormal gait, Denies dizziness, Denies frequent falls, Denies numbness, Denies tingling and Denies weakness Endo Denies fatigue and Denies palpitations Physical Exam Vital Signs: Last Vital Signs Pulse 88 04/30/24 10:41 BP 120/72 04/30/24 10:41 Const General: cooperative, comfortable, alert and awake Nutritional Appearance: thin Orientation/consciousness: patient oriented x3 Limitations: wheelchair Neck Neck: Yes trachea midline, Yes supple and Yes no JVD Resp Effort & Inspection: decreased respiratory effort Auscultation: clear to auscultation bilaterally Cardio Jugular venous distension: no JVD Rate: regular rate Rhythm: abnormal rhythm with ectopic beats Heart sounds: S1 normal heart sound present (Granite opening and closing click of [place] mitral valve), S2 normal heart sound present, no gallops and no murmurs GI Auscultation: normal bowel sounds Neuro General: patient oriented x3 and no focal motor deficits Extrem General: Yes no clubbing, cyanosis or edema Office Procedures EKG Details: EKG shows normal sinus rhythm with PVCs with left axis deviation with nonspecific intraventricular conduction block 12104-[id number], Complete Assessment & Plan Assessment & Plan (1) Cardiomyopathy: Code(s): I42.9 - Cardiomyopathy, unspecified Category: Medical Plan: Patient with prior history of severe cardiomyopathy without any overt signs of congestive heart failure at this point time. Currently not on any neurohormonal modulators due to low blood pressure and history of orthostatic hypotension. Continue monitor clinically. At risk for development of heart failure syndrome in the future. (2) H/O mitral valve replacement: Code(s): Z95.2 - Presence of prosthetic heart valve Category: Surgical Plan: Prior history of mitral valve replacement without any symptoms. Continue [facility]. Target INR between 2.5 and 3.5. There is no indication for aspirin therapy. SBE prophylaxis as per ACC/aha guidelines. (3) Paroxysmal atrial fibrillation: Code(s): I48.0 - Paroxysmal atrial fibrillation Category: Medical Plan: Paroxysmal atrial fibrillation without any obvious clinical recurrence at this point time. Continue to monitor clinically. No other medications indicated. Avoidance of stimulants was discussed. Currently warfarin as above. (4) Orthostatic hypotension: Code(s): I95.1 - Orthostatic hypotension Category: Medical Plan: History of orthostatic hypotension without any obvious clinical symptoms. 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 Currently blood pressure is stable. Advised to maintain adequate hydration. Orthostatic precautions. Follow up in the clinic if need be but can see him on annual basis. Coding Level of Care Code Est Pt Level 4 (42636) Complex EM visit Add On G2211 Diagnoses Cardiomyopathy I42.9 H/O mitral valve replacement Z95.2 Paroxysmal atrial fibrillation I48.0 Orthostatic hypotension I95.1 CPT Codes EKG - CPT: 21592-[id number], Complete ([id number])
== END | disposition home or self-care (01) ==
PROVIDERS: PCP Internal Medicine Medical Oncology; Visit Provider Internal Medicine Cardiovascular Disease
CPT/HCPCS: 93010; 99214; G2211

== ENCOUNTER → 2024-04-30 10:27 | Outpatient (BNVA) | payer MEDICARE, SELFPAY | PROVIDERS: PCP Internal Medicine Medical Oncology; Visit Provider Internal Medicine Cardiovascular Disease | DX: I42.9 Cardiomyopathy, unspecified (principal); I48.0 Paroxysmal atrial fibrillation; I95.1 Orthostatic hypotension; Z95.2 Presence of prosthetic heart valve | CPT/HCPCS: 93005; 99212 ==

== ENCOUNTER 2024-05-04 07:40 | Outpatient (REF) | payer MEDICARE, SELFPAY ==
--- OUTSIDE RECORDS SUMMARY | 2024-05-04 07:47 | XMS_ITS | Continuity of Care Document ---
Author Organization [facility] Address [address] [place] [address] Phone Care Team Providers Care Foundry Operator Name Role Phone Oz GRAHAM, Violetta Unavailable Unavailable Procedures Procedure Date EYE EXAM ESTABLISHED PAT REFRACTION WITH EXAM EYE EXAM & TREATMENT Advance Directives Directive Yes / No Effective Date File Name No Information Encounters Encounter Description Practice Location Reason(s) For Visit Diagnoses Date Provider Providers Copied on Encounter [facility] , [address] [place] [address], [facility], tel:[phone] [place] No Information 0 Oz Shipley. 1330 [facility], [address], [facility], . tel:[phone] [facility] , [address] [place] [address], [facility], tel:[phone] [place] No Information 0 No Information Family History Family Member Type Diagnosis Age At Onset No Information Payers Payer name Insurance type Covered alliance party ID Authoriza tion(s) Medicare MB [id number] [facility] Indemnity Plan [id number] For Life [id number] Social History Type Description Quantity Date Captured [...]
[2024-05-04 08:22] LABS: INTERNATIONAL NORM RATIO 2.1 (0.9-1.1); Prothrombin Time 24.3 SEC (10.9-12.4)
== END 2024-05-04 07:41 | disposition home or self-care (01) ==
LOC: HO.HSH3E 07:40
PROVIDERS: Visit Provider Nurse Practitioner Acute Care
DX: I63.9 Cerebral infarction, unspecified (principal)
CPT/HCPCS: 36415; 85610

== ENCOUNTER 2024-05-11 06:32 | Outpatient (REF) | payer MEDICARE, SELFPAY ==
--- OUTSIDE RECORDS SUMMARY | 2024-05-11 06:36 | XMS_ITS | Continuity of Care Document ---
Author Organization [facility] Address [address] [place] [address] Phone Care Team Providers Care Loan Operations Specialist Name Role Phone Oz GRAHAM, Violetta Unavailable Unavailable Procedures Procedure Date EYE EXAM ESTABLISHED PAT REFRACTION WITH EXAM EYE EXAM & TREATMENT Advance Directives Directive Yes / No Effective Date File Name No Information Encounters Encounter Description Practice Location Reason(s) For Visit Diagnoses Date Provider Providers Copied on Encounter [facility] , [address] [place] [address], [facility], tel:[phone] [place] No Information 0 Oz Shipley. 1330 [facility], [address], [facility], . tel:[phone] [facility] , [address] [place] [address], [facility], tel:[phone] [place] No Information 0 No Information Family History Family Member Type Diagnosis Age At Onset No Information Payers Payer name Insurance type Covered libertarian ID Authoriza tion(s) Medicare MB [id number] [facility] Indemnity Plan [id number] For Life [id number] Social History Type Description Quantity Date Captured [...]
[2024-05-11 07:16] LABS: INTERNATIONAL NORM RATIO 2.4 (0.9-1.1); Prothrombin Time 28.4 SEC (10.9-12.4)
== END 2024-05-11 06:33 | disposition home or self-care (01) ==
LOC: HO.HSH3E 06:32
PROVIDERS: Visit Provider Nurse Practitioner
DX: Z13.89 Encounter for screening for other disorder (principal)
CPT/HCPCS: 36415; 85610

== ENCOUNTER 2024-05-18 06:27 | Outpatient (REF) | payer MEDICARE, SELFPAY ==
--- OUTSIDE RECORDS SUMMARY | 2024-05-18 06:33 | XMS_ITS | Continuity of Care Document ---
Author Organization [facility] Address [address] [place] [address] Phone Care Team Providers Care Shoe Stock Associate Name Role Phone Oz GRAHAM, Violetta Unavailable Unavailable Procedures Procedure Date EYE EXAM ESTABLISHED PAT REFRACTION WITH EXAM EYE EXAM & TREATMENT Advance Directives Directive Yes / No Effective Date File Name No Information Encounters Encounter Description Practice Location Reason(s) For Visit Diagnoses Date Provider Providers Copied on Encounter [facility] , [address] [place] [address], [facility], tel:[phone] [place] No Information 0 Oz Shipley. 1330 [facility], [address], [facility], . tel:[phone] [facility] , [address] [place] [address], [facility], tel:[phone] [place] No Information 0 No Information Family History Family Member Type Diagnosis Age At Onset No Information Payers Payer name Insurance type Covered libertarian ID Authoriza tiyasmeen(s) Medicare MB [id number] [facility] Indemnity Plan [id number] For Life [id number] Social History Type Description Quantity Date Captured [...]
[2024-05-18 07:05] LABS: INTERNATIONAL NORM RATIO 2.8 (0.9-1.1); Prothrombin Time 32.8 SEC (10.9-12.4)
== END 2024-05-18 06:28 | disposition home or self-care (01) ==
LOC: HO.HSH3E 06:27
PROVIDERS: Visit Provider Nurse Practitioner
DX: Z95.2 Presence of prosthetic heart valve (principal)
CPT/HCPCS: 36415; 85610

== ENCOUNTER 2024-05-25 06:19 | Outpatient (REF) | payer MEDICARE, SELFPAY ==
[2024-05-25 06:34] LABS: INTERNATIONAL NORM RATIO 2.8 (0.9-1.1); Prothrombin Time 32.6 SEC (10.9-12.4)
--- OUTSIDE RECORDS SUMMARY | 2024-05-25 06:38 | XMS_ITS | Continuity of Care Document ---
Author Organization [facility] Address [address] [place] [address] Phone Care Team Providers Care Pipe Organ Installer Name Role Phone Oz GRAHAM, Violetta Unavailable Unavailable Procedures Procedure Date EYE EXAM ESTABLISHED PAT REFRACTION WITH EXAM EYE EXAM & TREATMENT Advance Directives Directive Yes / No Effective Date File Name No Information Encounters Encounter Description Practice Location Reason(s) For Visit Diagnoses Date Provider Providers Copied on Encounter [facility] , [address] [place] [address], [facility], tel:[phone] [place] No Information 0 Oz Shipley. [address] [place] [address], [address], [facility], . tel:[phone] [facility] , [address] [place] [address], [facility], tel:[phone] [place] No Information 0 No Information Family History Family Member Type Diagnosis Age At Onset No Information Payers Payer name Insurance type Covered republican ID Authoriza tion(s) Medicare MB [id number] [facility] Indemnity Plan [id number] For Life [id number] Social History Type Description Quantity Date Captured [...]
== END 2024-05-25 06:20 | disposition home or self-care (01) ==
LOC: HO.HSH3E 06:19
PROVIDERS: Visit Provider Nurse Practitioner
DX: I63.9 Cerebral infarction, unspecified (principal)
CPT/HCPCS: 36415; 85610

== ENCOUNTER 2024-06-01 06:50 | Outpatient (REF) | payer MEDICARE, SELFPAY ==
[2024-06-01 07:13] LABS: INTERNATIONAL NORM RATIO 2.5 (0.9-1.1); Prothrombin Time 29.2 SEC (10.9-12.4)
== END 2024-06-01 06:51 | disposition home or self-care (01) ==
LOC: HO.HSH 06:50
PROVIDERS: Visit Provider Nurse Practitioner
DX: Z95.2 Presence of prosthetic heart valve (principal)
CPT/HCPCS: 36415; 85610

== ENCOUNTER 2024-06-08 06:51 | Outpatient (REF) | payer MEDICARE, SELFPAY ==
[2024-06-08 07:12] LABS: INTERNATIONAL NORM RATIO 2.5 (0.9-1.1); Prothrombin Time 29.7 SEC (10.9-12.4)
== END 2024-06-08 06:52 | disposition home or self-care (01) ==
LOC: HO.HSH3E 06:51
PROVIDERS: Visit Provider Nurse Practitioner
DX: I48.91 Unspecified atrial fibrillation (principal)
CPT/HCPCS: 36415; 85610

== ENCOUNTER 2024-06-15 07:48 | Outpatient (REF) | payer MEDICARE, SELFPAY ==
[2024-06-15 08:28] LABS: Prothrombin Time 23.5 SEC (10.9-12.4)
== END 2024-06-15 07:49 | disposition home or self-care (01) ==
LOC: HO.HSH3E 07:48
PROVIDERS: Visit Provider Nurse Practitioner
DX: I48.91 Unspecified atrial fibrillation (principal)
CPT/HCPCS: 36415; 85610

== ENCOUNTER 2024-06-22 06:54 | Outpatient (REF) | payer MEDICARE, SELFPAY ==
[2024-06-22 07:52] LABS: INTERNATIONAL NORM RATIO 2.5 (0.9-1.1); Prothrombin Time 28.9 SEC (10.9-12.4)
== END 2024-06-22 06:55 | disposition home or self-care (01) ==
LOC: HO.HSH3E 06:54
PROVIDERS: Nurse Practitioner; Visit Provider Nurse Practitioner
DX: I48.91 Unspecified atrial fibrillation (principal); Z79.01 Long term (current) use of anticoagulants
CPT/HCPCS: 36415; 85610

== ENCOUNTER 2024-06-29 08:05 | Outpatient (REF) | payer MEDICARE, SELFPAY ==
--- OUTSIDE RECORDS SUMMARY | 2024-06-29 08:19 | XMS_ITS | Continuity of Care Document ---
Author Organization [facility] Address [address] [place] [address] Phone Care Team Providers Care Dipper And Drier Name Role Phone Oz GRAHAM, Violetta Unavailable Unavailable Procedures Procedure Date EYE EXAM ESTABLISHED PAT REFRACTION WITH EXAM EYE EXAM & TREATMENT Advance Directives Directive Yes / No Effective Date File Name No Information Encounters Encounter Description Practice Location Reason(s) For Visit Diagnoses Date Provider Providers Copied on Encounter [facility] , [address] [place] [address], [facility], tel:[phone] [place] No Information 0 Oz Shipley. 1330 [facility], [address], [facility], . tel:[phone] [facility] , [address] [place] [address], [facility], tel:[phone] [place] No Information 0 No Information Family History Family Member Type Diagnosis Age At Onset No Information Payers Payer name Insurance type Covered alliance party ID Authoriza tion(s) Medicare MB [id number] [facility] Indemnity Plan [id number] For Life [id number] Social History Type Description Quantity Date Captured [...]
[2024-06-29 08:34] LABS: INTERNATIONAL NORM RATIO 3.1 (0.9-1.1); Prothrombin Time 36.1 SEC (10.9-12.4)
== END 2024-06-29 08:06 | disposition home or self-care (01) ==
LOC: HO.HSH3E 08:05
PROVIDERS: Visit Provider Nurse Practitioner
DX: I48.91 Unspecified atrial fibrillation (principal)
CPT/HCPCS: 36415; 85610

== ENCOUNTER 2024-07-06 07:33 | Outpatient (REF) | payer MEDICARE, SELFPAY ==
--- OUTSIDE RECORDS SUMMARY | 2024-07-06 07:37 | XMS_ITS | Continuity of Care Document ---
Author Organization [facility] Address [address] [place] [address] Phone Care Team Providers Care Customer Care Specialist Name Role Phone Oz GRAHAM, Violetta Unavailable Unavailable Procedures Procedure Date EYE EXAM ESTABLISHED PAT REFRACTION WITH EXAM EYE EXAM & TREATMENT Advance Directives Directive Yes / No Effective Date File Name No Information Encounters Encounter Description Practice Location Reason(s) For Visit Diagnoses Date Provider Providers Copied on Encounter [facility] , [address] [place] [address], [facility], tel:[phone] [place] No Information 0 Oz Shipley. 1330 [facility], [address], [facility], . tel:[phone] [facility] , [address] [place] [address], [facility], tel:[phone] [place] No Information 0 No Information Family History Family Member Type Diagnosis Age At Onset No Information Payers Payer name Insurance type Covered green party ID Authoriza tion(s) Medicare MB [id number] [facility] Indemnity Plan [id number] For Life [id number] Social History Type Description Quantity Date Captured [...]
[2024-07-06 08:01] LABS: Prothrombin Time 34.6 SEC (10.9-12.4)
== END 2024-07-06 07:34 | disposition home or self-care (01) ==
LOC: HO.HSH3E 07:33
PROVIDERS: Visit Provider Nurse Practitioner Acute Care
DX: I74.9 Embolism and thrombosis of unspecified artery (principal)
CPT/HCPCS: 36415; 85610

== ENCOUNTER 2024-07-14 07:55 | Outpatient (REF) | payer MEDICARE, SELFPAY ==
--- OUTSIDE RECORDS SUMMARY | 2024-07-14 08:03 | XMS_ITS | Continuity of Care Document ---
Author Organization [facility] Address [address] [place] [address] Phone Care Team Providers Care Toy Electric Train Repairer Name Role Phone Oz GRAHAM, Violetta Unavailable Unavailable Procedures Procedure Date EYE EXAM ESTABLISHED PAT REFRACTION WITH EXAM EYE EXAM & TREATMENT Advance Directives Directive Yes / No Effective Date File Name No Information Encounters Encounter Description Practice Location Reason(s) For Visit Diagnoses Date Provider Providers Copied on Encounter [facility] , [address] [place] [address], [facility], tel:[phone] [place] No Information 0 Oz Shipley. 1330 [facility], [address], [facility], . tel:[phone] [facility] , [address] [place] [address], [facility], tel:[phone] [place] No Information 0 No Information Family History Family Member Type Diagnosis Age At Onset No Information Payers Payer name Insurance type Covered libertarian ID Authoriza tiyasmeen(s) Medicare MB [id number] [facility] Indemnity Plan [id number] For Life [id number] Social History Type Description Quantity Date Captured [...]
[2024-07-14 08:18] LABS: Prothrombin Time 35.5 SEC (10.9-12.4)
== END 2024-07-14 07:56 | disposition home or self-care (01) ==
LOC: HO.HSH3E 07:55
PROVIDERS: Visit Provider Nurse Practitioner Acute Care
DX: I48.91 Unspecified atrial fibrillation (principal)
CPT/HCPCS: 36415; 85610

== ENCOUNTER 2024-07-21 07:32 | Outpatient (REF) | payer MEDICARE, SELFPAY ==
--- OUTSIDE RECORDS SUMMARY | 2024-07-21 07:37 | XMS_ITS | Continuity of Care Document ---
Author Organization [facility] Address [address] [place] [address] Phone Care Team Providers Care Batch Unit Treater Name Role Phone Oz GRAHAM, Violetta Unavailable Unavailable Procedures Procedure Date EYE EXAM ESTABLISHED PAT REFRACTION WITH EXAM EYE EXAM & TREATMENT Advance Directives Directive Yes / No Effective Date File Name No Information Encounters Encounter Description Practice Location Reason(s) For Visit Diagnoses Date Provider Providers Copied on Encounter [facility] , [address] [place] [address], [facility], tel:[phone] [place] No Information 0 Oz Shipley. 1330 [facility], [address], [facility], . tel:[phone] [facility] , [address] [place] [address], [facility], tel:[phone] [place] No Information 0 No Information Family History Family Member Type Diagnosis Age At Onset No Information Payers Payer name Insurance type Covered green party ID Authoriza tiyasmeen(s) Medicare MB [id number] [facility] Indemnity Plan [id number] For Life [id number] Social History Type Description Quantity Date Captured [...]
[2024-07-21 08:05] LABS: INTERNATIONAL NORM RATIO 3.1 (0.9-1.1); Prothrombin Time 36.5 SEC (10.9-12.4)
== END 2024-07-21 07:33 | disposition home or self-care (01) ==
LOC: HO.HSH3E 07:32
PROVIDERS: Visit Provider Nurse Practitioner Acute Care
DX: Z95.2 Presence of prosthetic heart valve (principal)
CPT/HCPCS: 36415; 85610

== ENCOUNTER 2024-08-04 07:48 | Outpatient (REF) | payer MEDICARE, SELFPAY ==
--- OUTSIDE RECORDS SUMMARY | 2024-08-04 07:52 | XMS_ITS | Continuity of Care Document ---
Author Organization [facility] Address [address] [place] [address] Phone Care Team Providers Care Senior Advocate Name Role Phone Violetta Clinton MD Unavailable Unavailable Procedures Procedure Date EYE EXAM ESTABLISHED PAT REFRACTION WITH EXAM Advance Directives Directive Yes / No Effective Date File Name No Information Encounters Encounter Description Practice Location Reason(s) For Visit Diagnoses Date Provider [facility] , [address] [place] [address], [facility], tel:[phone] [place] No Information 2009 Oz Shipley. [address] [place] [address], [address], [facility], . tel:[phone] [facility] , [address] [place] [address], [facility], tel:[phone] [place] No Information 2009 No Information Family History Family Member Type Diagnosis Age At Onset No Information Payers Payer name Insurance type Covered green party ID Authoriza tion(s) Medicare MB [id number] [facility] Indemnity Plan [id number] For Life [id number] Social History Type Description Quantity Date Captured Comments Sex Male Smoking Status No Information Chief Complaint And Reason For Visit No Information History Of Present Illness Encounter Date Complaint History Of Prese nt Illness No Information Instructions Date Instruction Additional Infor mation No Information Assessments Type Assessment Date No Information
[2024-08-04 08:11] LABS: INTERNATIONAL NORM RATIO 2.9 (0.9-1.1); Prothrombin Time 33.4 SEC (10.9-12.4)
== END 2024-08-04 07:49 | disposition home or self-care (01) ==
LOC: HO.HSH3E 07:48
PROVIDERS: Visit Provider Nurse Practitioner
DX: Z95.2 Presence of prosthetic heart valve (principal)
CPT/HCPCS: 36415; 85610

== ENCOUNTER 2024-08-19 06:57 | Outpatient (REF) | payer MEDICARE, SELFPAY ==
--- OUTSIDE RECORDS SUMMARY | 2024-08-19 07:02 | XMS_ITS | Continuity of Care Document ---
Author Organization [facility] Address [address] [place] [address] Phone Care Team Providers Care Mathematical Physicist Name Role Phone Violetta Clinton MD Unavailable Unavailable Procedures Procedure Date EYE EXAM ESTABLISHED PAT REFRACTION WITH EXAM Advance Directives Directive Yes / No Effective Date File Name No Information Encounters Encounter Description Practice Location Reason(s) For Visit Diagnoses Date Provider [facility] , [address], [facility], tel:[phone] [place] No Information 2009 Oz Shipley. [address] [place] [address], [address], [facility], . tel:[phone] [facility] , [address] [place] [address], [facility], tel:[phone] [place] No Information 2009 No Information Family History Family Member Type Diagnosis Age At Onset No Information Payers Payer name Insurance type Covered green party ID Authoriza tion(s) Medicare MB [id number] [facility] Indemnity Plan [id number] For Life [id number] Social History Type Description Quantity Date Captured Comments Sex Male Smoking Status No Information Chief Complaint And Reason For Visit No Information History Of Present Illness Encounter Date Complaint History Of Prese nt Illness No Information Instructions Date Instruction Additional Infor mation No Information Assessments Type Assessment Date No Information
[2024-08-19 07:31] LABS: INTERNATIONAL NORM RATIO 3.5 (0.9-1.1); Prothrombin Time 39.8 SEC (10.9-12.4)
== END 2024-08-19 06:58 | disposition home or self-care (01) ==
LOC: HO.HSH3E 06:57
PROVIDERS: Visit Provider Internal Medicine
DX: Z95.2 Presence of prosthetic heart valve (principal)
CPT/HCPCS: 36415; 85610

== ENCOUNTER 2024-08-31 05:57 | Outpatient (REF) | payer MEDICARE, SELFPAY ==
--- OUTSIDE RECORDS SUMMARY | 2024-08-31 05:59 | XMS_ITS | Continuity of Care Document ---
Author Organization [facility] Address [address] [place] [address] Phone Care Team Providers Care Doctor Of Osteopathy Name Role Phone Violetta Clinton MD Unavailable Unavailable Procedures Procedure Date EYE EXAM ESTABLISHED PAT REFRACTION WITH EXAM Advance Directives Directive Yes / No Effective Date File Name No Information Encounters Encounter Description Practice Location Reason(s) For Visit Diagnoses Date Provider [facility] , [address], [facility], tel:[phone] [place] No Information 2009 Oz Shipley. [address] [place] [address], [address], [facility], . tel:[phone] [facility] , [address] [place] [address], [facility], tel:[phone] [place] No Information 2009 No Information Family History Family Member Type Diagnosis Age At Onset No Information Payers Payer name Insurance type Covered constitution party ID Authoriza tion(s) Medicare MB [id number] [facility] Indemnity Plan [id number] For Life [id number] Social History Type Description Quantity Date Captured Comments Sex Male Smoking Status No Information Chief Complaint And Reason For Visit No Information History Of Present Illness Encounter Date Complaint History Of Prese nt Illness No Information Instructions Date Instruction Additional Infor mation No Information Assessments Type Assessment Date No Information
[2024-08-31 06:13] LABS: INTERNATIONAL NORM RATIO 4.5 (0.9-1.1); Prothrombin Time 51.2 SEC (10.9-12.4)
== END 2024-08-31 05:58 | disposition home or self-care (01) ==
LOC: HO.HSH3E 05:57
PROVIDERS: Visit Provider Nurse Practitioner
DX: Z95.2 Presence of prosthetic heart valve (principal)
CPT/HCPCS: 36415; 85610

== ENCOUNTER 2024-09-03 05:49 | Outpatient (REF) | payer MEDICARE, SELFPAY ==
[2024-09-03 06:00] LABS: Prothrombin Time 22.8 SEC (10.9-12.4)
== END 2024-09-03 05:50 | disposition home or self-care (01) ==
LOC: HO.HSH3E 05:49
PROVIDERS: Visit Provider Nurse Practitioner
DX: Z95.2 Presence of prosthetic heart valve (principal)
CPT/HCPCS: 36415; 85610

== ENCOUNTER 2024-09-14 07:01 | Outpatient (REF) | payer MEDICARE, SELFPAY ==
[2024-09-14 07:34] LABS: INTERNATIONAL NORM RATIO 1.6 (0.9-1.1); Prothrombin Time 17.8 SEC (10.9-12.4)
== END 2024-09-14 07:02 | disposition home or self-care (01) ==
LOC: HO.HSH3E 07:01
PROVIDERS: Visit Provider Nurse Practitioner
DX: Z95.2 Presence of prosthetic heart valve (principal)
CPT/HCPCS: 36415; 85610

== ENCOUNTER 2024-09-21 06:16 | Outpatient (REF) | payer MEDICARE, SELFPAY ==
[2024-09-21 07:04] LABS: INTERNATIONAL NORM RATIO 2.7 (0.9-1.1); Prothrombin Time 30.7 SEC (10.9-12.4)
== END 2024-09-21 06:17 | disposition home or self-care (01) ==
LOC: HO.HSH3E 06:16
PROVIDERS: Visit Provider Nurse Practitioner
DX: Z95.2 Presence of prosthetic heart valve (principal)
CPT/HCPCS: 36415; 85610

== ENCOUNTER 2024-09-28 06:55 | Outpatient (REF) | payer MEDICARE, SELFPAY ==
--- OUTSIDE RECORDS SUMMARY | 2010-02-13 05:45 | XMS_ITS | Continuity of Care Document ---
Author Organization [facility] Address [address] [place] [address] Phone Care Team Providers Care Parking Lot Attendant Name Role Phone Violetta Clinton MD Unavailable Unavailable Procedures Procedure Date EYE EXAM ESTABLISHED PAT REFRACTION WITH EXAM Advance Directives Directive Yes / No Effective Date File Name No Information Encounters Encounter Description Practice Location Reason(s) For Visit Diagnoses Date Provider [facility] , [address] [place] [address], [facility], tel:[phone] [place] No Information 2009 Oz Shipley. [address] [place] [address], [address], [facility], . tel:[phone] [facility] , [address] [place] [address], [facility], tel:[phone] [place] No Information 2009 No Information Family History Family Member Type Diagnosis Age At Onset No Information Payers Payer name Insurance type Covered democrat ID Authoriza tion(s) Medicare MB [id number] [facility] Indemnity Plan [id number] For Life [id number] Social History Type Description Quantity Date Captured Comments Sex Male Smoking Status No Information Chief Complaint And Reason For Visit No Information History Of Present Illness Encounter Date Complaint History Of Prese nt Illness No Information Instructions Date Instruction Additional Infor mation No Information Assessments Type Assessment Date No Information
--- OUTSIDE RECORDS SUMMARY | 2024-09-28 06:57 | XMS_ITS | Encounter Summary ---
Author Organization [facility] Address [address] [place] [address] Care Team Providers Care Toeing Stockings Name Role Phone Mitra Fletcher MD Primary Care Provider [phone] Encounter Details Date Type Department Care Team (Late st Contact Info) Description 05/26/2018 Orders Only [facility] Internal [facility] [address] [place] [address] Mitra Fletcher MD [address] [place] [address] Social History Tobacco Use Types Packs/Day Years Used Date Smoking Tobacco: Never Smokeless Tobacco: Never Sex and Gender Information Value Date Recorded Sex Assigned at Not on file Legal Sex Male 9:59 PM EDT Gender Identity Not on file Sexual Orientation Not on file documented as of this encounter Progress Notes * Mitra Fletcher MD - 05/27/2018 8:13 AM EST The results of these tests are all stable. Your blood counts are normal. Your electrolytes, liver and kidney function are normal. Cholesterol reasonably controlled. Make sure you are taking Rosuvastatin DAILY. Thyroid function is normal. Please continue with your present treatment plan. documented in this encounter Plan of Treatment Not on file documented as of this encounter Procedures * Due to [place] [employer] law, this organization might not be sharing negative HIV tests. Procedure Name Priority Date/Time Associated Diagnosis Comments TSH, 3RD GENERATION Routine 05/26/2018 1 2:07 PM EST Systolic congestive heart failure, unspecified HF chronicity B-TYPE NATRIURETIC PEPTIDE (BNP) ([facility]) Routine 05/26/2018 12:07 PM EST Systolic congestive heart failure, unspecified HF chronicity HEMOGLOBIN A1C Routine 05/26/2018 12:07 PM EST Systolic congestive heart failure, unspecified HF chronicity LIPID PANEL WITH REFLEX TO DIRECT LDL Routine 05/26/2018 12:07 PM EST Systolic congestive heart failure, unspecified HF chronicity COMPREHENSIVE METABOLIC PANEL WITH GFR Routine 05/26/2018 12:07 PM EST Systolic congestive heart failure, unspecified HF chronicity documented in this encounter Results * Due to [place] law, this organization might not be sharing negative HIV tests. * B-TYPE NATRIURETIC PEPTIDE (BNP) ([facility]) (05/26/2018 12:07 PM EST) Natriuretic peptide.B 70 <100 pg/mL [facility] Comment: BNP levels increase with age in the general population with the highest values seen in individuals greater than 75 years of age. Reference: J. Am. Kian. Cardiol. 2002; 40:976-982. 05/26/2018 12:0 7 PM EST 05/26/2018 10:12 PM EST Narrative Resulting Agency Comment [id number] us Mitra Fletcher MD LAB SAME DAY RESULT Final Re sult [facility] [address] [place] [address] * TSH, 3RD GENERATION (05/26/2018 12:07 PM EST) TSH 2.36 0.40 - 4.50 mIU/L [facility] 05/26/2018 12:0 7 PM EST 05/26/2018 10:12 PM EST Narrative Resulting Agency Comment [id number] Mitra Fletcher MD LABORATORY Final Result Performing Organization Address [facility] de Phone Number [facility] [address] [place] [address] * (ABNORMAL) HEMOGLOBIN A1C (05/26/2018 12:07 PM EST) Hemoglobin A1C 5.9(H) <5.7 % of total Hgb [facility] Comment: For someone without known diabetes, a hemoglobin A1c value between 5.7% and 6.4% is consistent with prediabetes and should be confirmed with a follow-up test. For someone with known diabetes, a value <7% indicates that their diabetes is well controlled. A1c targets should be individualized based on duration of diabetes, age, comorbid conditions, and other considerations. This assay result is consistent with an increased risk of diabetes. Currently, no consensus exists regarding use of hemoglobin A1c for diagnosis of diabetes for children. Estimated Average Glucose 133 mg/dL (calc) [facility] 05/26/2018 12:0 7 PM EST 05/26/2018 10:12 PM EST Narrative Resulting Agency Comment [id number] Mitra Fletcher MD LABORATORY Final Result Performing Organization Address [facility] de Phone Number [facility] [address] [place] [address] * (ABNORMAL) LIPID PANEL WITH REFLEX TO DIRECT LDL (05/26/2018 12:07 PM EST) Cholesterol 188 <200 mg/dL [facility] HDL Cholesterol 60 >40 mg/dL [facility] Triglyceride 136 <150 mg/dL [facility] LDL Cholesterol 105(H) mg/dL (calc) [facility] Comment: Reference range: <100 Desirable range <100 mg/dL for primary prevention; <70 mg/dL for patients with CHD or diabetic patients with > or = 2 CHD risk factors. LDL-C is now calculated using the Eugenie calculation, which is a validated novel method providing better accuracy than the Friedewald equation in the estimation of LDL-C. Eliot LEE et al. MARK. 2013;310(34): 2155-8850 (http://education.[employer]/faq/QBZ929) CHOL/HDL Ratio 3.1 <5.0 (calc) [facility] Cholesterol Non-HDL 128 <130 mg/dL (calc) [facility] Comment: For patients with diabetes plus 1 major ASCVD risk factor, treating to a non-HDL-C goal of <100 mg/dL (LDL-C of <70 mg/dL) is considered a therapeutic option. 05/26/2018 12:0 7 PM EST 05/26/2018 10:12 PM EST Narrative Resulting Agency Comment [id number] us Mitra Fletcher MD LABORATORY Final Result [facility] [address] [place] [address] * (ABNORMAL) COMPREHENSIVE METABOLIC PANEL WITH GFR (05/26/2018 12:07 PM EST) Glucose 97 65 - 99 mg/dL [facility] Comment:Fasting reference in terval Urea Nitrogen Blood (BUN) 26(H) 7 - 25 mg/dL [facility] Creatinine 1.03 0.70 - 1.18 mg/dL [facility] Comment: For patients >49 years of age, the reference limit for Creatinine is approximately 13% higher for people identified as -Sierra Leonean. EGFR 69 > OR = 60 mL/min/1. 73m2 [facility] GFR () 80 > OR = 60 mL/min/1. 73m2 [facility] BUN/Creatinine Ratio 25(H) 6 - 22 (calc) [facility] Sodium 138 135 - 146 mmol/L [facility] Potassium 4.6 3.5 - 5.3 mmol/L [facility] Chloride 102 98 - 110 mmol/L [facility] Carbon dioxide 28 20 - 32 mmol/L [facility] Calcium 10.0 8.6 - 10.3 mg/dL [facility] Protein Total (Serum) 6.7 6.1 - 8.1 g/dL [facility] Albumin 4.4 3.6 - 5.1 g/dL [facility] Globulin 2.3 1.9 - 3.7 g/dL (calc) [facility] Albumin/Globulin 1.9 1.0 - 2.5 (calc) [facility] Bilirubin Total 0.6 0.2 - 1.2 mg/dL [facility] Alkaline phosphatase 42 40 - 115 U/L [facility] AST (SGOT) 19 10 - 35 U/L [facility] ALT (SGPT) 16 9 - 46 U/L [facility] 05/26/2018 12:0 7 PM EST 05/26/2018 10:12 PM EST Narrative [facility] - 05/27/2018 4:22 AM EST Please note that this estimated GFR does not include an adjustment for the patient's height or weight, and can therefore, be viewed as reliable only for patients with heights between 60 and 72 . More precise quantification using a 24-hour urine sample or height-based algorithm is recommended for patients outside of this range of height and for those individuals with more precise needs for GFR calculation. Resulting Agency Comment [id number] Mitra Fletcher MD LABORATORY Final Result [facility] [address] [place] [address] documented in this encounter Visit Diagnoses Diagnosis Systolic congestive heart failure, unspecified HF chronicity (HCC) documented in this encounter Care Teams Toeing Stockings Relationship Specialty Start Date End Date Mitra Fletcher MD PCP - General Internal Medicine 12/06/17 10/23/18 documented as of this encounter
[2024-09-28 07:42] LABS: Prothrombin Time 60.4 SEC (10.9-12.4)
[2024-09-28 07:51] LABS: INTERNATIONAL NORM RATIO 5.3 (0.9-1.1)
== END 2024-09-28 06:56 | disposition home or self-care (01) ==
LOC: HO.HSH3E 06:55
PROVIDERS: Visit Provider Nurse Practitioner
DX: Z95.2 Presence of prosthetic heart valve (principal)
CPT/HCPCS: 36415; 85610

== ENCOUNTER 2024-09-30 06:35 | Outpatient (REF) | payer MEDICARE, SELFPAY ==
--- OUTSIDE RECORDS SUMMARY | 2010-02-13 05:45 | XMS_ITS | Continuity of Care Document ---
Author Organization [facility] Address [address] [place] [address] Phone Care Team Providers Care Proposal Writer Name Role Phone Violetta Clinton MD Unavailable Unavailable Procedures Procedure Date EYE EXAM ESTABLISHED PAT REFRACTION WITH EXAM Advance Directives Directive Yes / No Effective Date File Name No Information Encounters Encounter Description Practice Location Reason(s) For Visit Diagnoses Date Provider [facility] , [address] [place] [address], [facility], tel:[phone] [place] No Information 2009 Oz Shipley. [address] [place] [address], [address], [facility], . tel:[phone] [facility] , [address] [place] [address], [facility], tel:[phone] [place] No Information 2009 No Information Family History Family Member Type Diagnosis Age At Onset No Information Payers Payer name Insurance type Covered green party ID Authoriza tion(s) Medicare MB [id number] [facility] Indemnity Plan [id number] For Life [id number] Social History Type Description Quantity Date Captured Comments Sex Male Smoking Status No Information Chief Complaint And Reason For Visit No Information History Of Present Illness Encounter Date Complaint History Of Prese nt Illness No Information Instructions Date Instruction Additional Infor mation No Information Assessments Type Assessment Date No Information
--- OUTSIDE RECORDS SUMMARY | 2024-09-30 06:38 | XMS_ITS | Encounter Summary ---
Author Organization [facility] Address [address] [place] [address] Care Team Providers Care Household Manager Name Role Phone Mitra Fletcher MD Primary Care Provider [phone] Encounter Details Date Type Department Care Team (Late st Contact Info) Description 05/26/2018 Orders Only [facility] Internal Medicine [address] [place] [address] Mitra Fletcher MD [address] [place] [address] Social History Tobacco Use Types Packs/Day Years [...] of this encounter Procedures * Due to [place] [employer] law, this organization might not be sharing [...] in this encounter Results * Due to [place] [employer] law, this organization might not be sharing [...] 10:12 PM EST Narrative Resulting Agency Comment [id number] us Mitra Fletcher MD LAB SAME DAY RESULT Final Re sult [facility] [address] [place] [address] * TSH, 3RD GENERATION (05/26/2018 12:07 PM EST) TSH 2.36 0.40 - 4.50 mIU/L [facility] 05/26/2018 12:0 7 PM EST 05/26/2018 10:12 PM EST Narrative Resulting Agency Comment [id number] Mitra Fletcher MD LABORATORY Final Result Performing Organization Address [facility] de Phone Number [facility] [address] [place] [address] * (ABNORMAL) HEMOGLOBIN A1C (05/26/2018 12:07 PM [...] 10:12 PM EST Narrative Resulting Agency Comment [id number] Mitra Fletcher MD LABORATORY Final Result Performing Organization Address [facility] de Phone Number [facility] [address] [place] [address] * (ABNORMAL) LIPID PANEL WITH REFLEX TO [...] of LDL-C. Eliot LEE et al. MARK. 2013;310(51): 6999-3873 (http://education.[employer]faq/QAC892) CHOL/HDL Ratio 3.1 <5.0 (calc) [facility] Cholesterol Non-HDL 128 <130 mg/dL (calc) [facility] Comment: For patients with diabetes plus 1 major ASCVD risk factor, treating to a non-HDL-C goal of <100 mg/dL (LDL-C of <70 mg/dL) is considered a therapeutic option. 05/26/2018 12:0 7 PM EST 05/26/2018 10:12 PM EST Narrative Resulting Agency Comment [id number] us Mitra Fletcher MD LABORATORY Final Result [facility] [address] [place] [address] * (ABNORMAL) COMPREHENSIVE METABOLIC PANEL WITH GFR (05/26/2018 12:07 PM EST) Glucose 97 65 - 99 mg/dL [facility] Comment:Fasting reference in terval Urea Nitrogen Blood (BUN) 26(H) 7 - 25 mg/dL [facility] Creatinine 1.03 0.70 - 1.18 mg/dL [facility] Comment: For patients >49 years of age, the reference limit for Creatinine is approximately 13% higher for people identified as -Tunisian. EGFR 69 > OR = 60 mL/min/1. [...] needs for GFR calculation. Resulting Agency Comment [id number] Mitra Fletcher MD LABORATORY Final Result [facility] [address] [place] [address] documented in this encounter Visit Diagnoses Diagnosis Systolic congestive heart failure, unspecified HF chronicity (HCC) documented in this encounter Care Teams Household Manager Relationship Specialty Start Date End Date Mitra Fletcher MD PCP - General Internal Medicine 12/06/17 10/23/18 documented as of this encounter
[2024-09-30 07:10] LABS: INTERNATIONAL NORM RATIO 2.6 (0.9-1.1); Prothrombin Time 29.6 SEC (10.9-12.4)
== END 2024-09-30 06:36 | disposition home or self-care (01) ==
LOC: HO.HSH3E 06:35
PROVIDERS: Visit Provider Nurse Practitioner
DX: Z51.81 Encounter for therapeutic drug level monitoring (principal); Z79.01 Long term (current) use of anticoagulants
CPT/HCPCS: 36415; 85610

== ENCOUNTER 2024-10-06 06:37 | Outpatient (REF) | payer MEDICARE, SELFPAY ==
--- OUTSIDE RECORDS SUMMARY | 2010-02-13 05:45 | XMS_ITS | Continuity of Care Document ---
Author Organization [facility] Address [address] [place] [address] Phone Care Team Providers Care Lap Machine Operator Name Role Phone Violetta Clinton MD Unavailable Unavailable Procedures Procedure Date EYE EXAM ESTABLISHED PAT REFRACTION WITH EXAM Advance Directives Directive Yes / No Effective Date File Name No Information Encounters Encounter Description Practice Location Reason(s) For Visit Diagnoses Date Provider [facility] , [address] [place] [address], [facility], tel:[phone] [place] No Information 2009 Oz Shipley. [address] [place] [address], [address], [facility], . tel:[phone] [facility] , [address] [place] [address], [facility], tel:[phone] [place] No Information 2009 No Information Family History Family Member Type Diagnosis Age At Onset No Information Payers Payer name Insurance type Covered democrat ID Authoriza tion(s) Medicare MB [id number] [facility] Indemnity Plan [id number] For Life [id number] Social History Type Description Quantity Date Captured Comments Sex Male Smoking Status No Information Chief Complaint And Reason For Visit No Information History Of Present Illness Encounter Date Complaint History Of Prese nt Illness No Information Instructions Date Instruction Additional Infor mation No Information Assessments Type Assessment Date No Information
[2024-10-06 08:01] LABS: INTERNATIONAL NORM RATIO 2.1 (0.9-1.1); Prothrombin Time 24.0 SEC (10.9-12.4)
== END 2024-10-06 06:38 | disposition home or self-care (01) ==
LOC: HO.HSH3E 06:37
PROVIDERS: Visit Provider Internal Medicine Interventional Cardiology
DX: Z95.2 Presence of prosthetic heart valve (principal)
CPT/HCPCS: 36415; 85610

== ENCOUNTER 2024-10-12 06:52 | Outpatient (REF) | payer MEDICARE, SELFPAY ==
[2024-10-12 07:32] LABS: INTERNATIONAL NORM RATIO 2.7 (0.9-1.1); Prothrombin Time 31.2 SEC (10.9-12.4)
== END 2024-10-12 06:53 | disposition home or self-care (01) ==
LOC: HO.HSH3E 06:52
PROVIDERS: Visit Provider Nurse Practitioner
DX: Z95.2 Presence of prosthetic heart valve (principal)
CPT/HCPCS: 36415; 85610

== ENCOUNTER 2024-10-16 06:19 | Outpatient (REF) | payer MEDICARE, SELFPAY ==
[2024-10-16 07:23] LABS: INTERNATIONAL NORM RATIO 1.4 (0.9-1.1); Prothrombin Time 16.2 SEC (10.9-12.4)
== END 2024-10-16 06:20 | disposition home or self-care (01) ==
LOC: HO.HSH3E 06:19
PROVIDERS: Visit Provider Internal Medicine
DX: I35.1 Nonrheumatic aortic (valve) insufficiency (principal); I39 Endocarditis and heart valve disorders in diseases classified elsewhere
CPT/HCPCS: 36415; 85610

== ENCOUNTER 2024-10-17 10:08 | Outpatient (REF) | payer MEDICARE, SELFPAY ==
[2024-10-17 10:34] LABS: INTERNATIONAL NORM RATIO 1.5 (0.9-1.1); Prothrombin Time 17.5 SEC (10.9-12.4)
== END 2024-10-17 10:09 | disposition home or self-care (01) ==
LOC: HO.HSH3E 10:08
PROVIDERS: Visit Provider Nurse Practitioner Acute Care
DX: Z95.2 Presence of prosthetic heart valve (principal)
CPT/HCPCS: 36415; 85610

== ENCOUNTER 2024-10-20 06:28 | Outpatient (REF) | payer MEDICARE, SELFPAY ==
--- OUTSIDE RECORDS SUMMARY | 2010-02-13 05:45 | XMS_ITS | Continuity of Care Document ---
Author Organization [facility] Address [address] [place] [address] Phone Care Team Providers Care Yeast Washer Name Role Phone Violetta Clinton MD Unavailable Unavailable Procedures Procedure Date EYE EXAM ESTABLISHED PAT REFRACTION WITH EXAM Advance Directives Directive Yes / No Effective Date File Name No Information Encounters Encounter Description Practice Location Reason(s) For Visit Diagnoses Date Provider [facility] , [address], [facility], tel:[phone] [place] No Information 2009 Oz Shipley. [address] [place] [address], [address], [facility], . tel:[phone] [facility] , [address] [place] [address], [facility], tel:[phone] [place] No Information 2009 No Information Family History Family Member Type Diagnosis Age At Onset No Information Payers Payer name Insurance type Covered alliance party ID Authoriza tion(s) Medicare MB [id number] [facility] Indemnity Plan [id number] For Life [id number] Social History Type Description Quantity Date Captured Comments Sex Male Smoking Status No Information Chief Complaint And Reason For Visit No Information History Of Present Illness Encounter Date Complaint History Of Prese nt Illness No Information Instructions Date Instruction Additional Infor mation No Information Assessments Type Assessment Date No Information
--- OUTSIDE RECORDS SUMMARY | 2024-10-20 06:30 | XMS_ITS | Encounter Summary ---
Author Organization [facility] Address [address] [place] [address] Care Team Providers Care Batch Maker Name Role Phone Mitra Fletcher MD Primary Care Provider [phone] Encounter Details Date Type Department Care Team (Late st Contact Info) Description 05/26/2018 Orders Only [facility] Internal Medicine [address] [place] [address] Mitra Fletcher MD [address] [place] [address] Social History Tobacco Use Types Packs/Day Years [...] of this encounter Procedures * Due to [place] [employer] law, this organization might not be sharing [...] in this encounter Results * Due to [place] [employer] law, this organization might not be sharing [...] 10:12 PM EST Narrative Resulting Agency Comment [id number] us Mitra Fletcher MD LAB SAME DAY RESULT Final Re sult [facility] [address] [place] [address] * TSH, 3RD GENERATION (05/26/2018 12:07 PM EST) TSH 2.36 0.40 - 4.50 mIU/L [facility] 05/26/2018 12:0 7 PM EST 05/26/2018 10:12 PM EST Narrative Resulting Agency Comment [id number] Mitra Fletcher MD LABORATORY Final Result Performing Organization Address [facility] de Phone Number [facility] [address] [place] [address] * (ABNORMAL) HEMOGLOBIN A1C (05/26/2018 12:07 PM [...] 10:12 PM EST Narrative Resulting Agency Comment [id number] Mitra Fletcher MD LABORATORY Final Result Performing Organization Address [facility] de Phone Number [facility] [address] [place] [address] * (ABNORMAL) LIPID PANEL WITH REFLEX TO [...] of LDL-C. Eliot LEE et al. MARK. 2013;310(53): 1003-6310 (http://education.Cequel Data/faq/IDC847) CHOL/HDL Ratio 3.1 <5.0 (calc) [facility] Cholesterol Non-HDL 128 <130 mg/dL (calc) [facility] Comment: For patients with diabetes plus 1 major ASCVD risk factor, treating to a non-HDL-C goal of <100 mg/dL (LDL-C of <70 mg/dL) is considered a therapeutic option. 05/26/2018 12:0 7 PM EST 05/26/2018 10:12 PM EST Narrative Resulting Agency Comment [id number] us Mitra Fletcher MD LABORATORY Final Result [facility] [address] [place] [address] * (ABNORMAL) COMPREHENSIVE METABOLIC PANEL WITH GFR (05/26/2018 12:07 PM EST) Glucose 97 65 - 99 mg/dL [facility] Comment:Fasting reference in terval Urea Nitrogen Blood (BUN) 26(H) 7 - 25 mg/dL [facility] Creatinine 1.03 0.70 - 1.18 mg/dL [facility] Comment: For patients >49 years of age, the reference limit for Creatinine is approximately 13% higher for people identified as -[place]. EGFR 69 > OR = 60 mL/min/1. [...] needs for GFR calculation. Resulting Agency Comment [id number] Mitra Fletcher MD LABORATORY Final Result [facility] [address] [place] [address] documented in this encounter Visit Diagnoses Diagnosis Systolic congestive heart failure, unspecified HF chronicity (HCC) documented in this encounter Care Teams Batch Maker Relationship Specialty Start Date End Date Mitra Fletcher MD PCP - General Internal Medicine 12/06/17 10/23/18 documented as of this encounter
[2024-10-20 06:50] LABS: INTERNATIONAL NORM RATIO 2.4 (0.9-1.1); Prothrombin Time 27.2 SEC (10.9-12.4)
== END 2024-10-20 06:29 | disposition home or self-care (01) ==
LOC: HO.HSH3E 06:28
PROVIDERS: Visit Provider Nurse Practitioner
DX: Z95.2 Presence of prosthetic heart valve (principal)
CPT/HCPCS: 36415; 85610

== ENCOUNTER 2024-10-26 06:30 | Outpatient (REF) | payer MEDICARE, SELFPAY ==
[2024-10-26 07:02] LABS: Prothrombin Time 57.7 SEC (10.9-12.4)
[2024-10-26 07:22] LABS: INTERNATIONAL NORM RATIO 5.0 (0.9-1.1)
== END 2024-10-26 06:31 | disposition home or self-care (01) ==
LOC: HO.HSH3E 06:30
PROVIDERS: Visit Provider Nurse Practitioner
DX: Z95.2 Presence of prosthetic heart valve (principal)
CPT/HCPCS: 36415; 85610

== ENCOUNTER 2024-10-28 06:16 | Outpatient (REF) | payer MEDICARE, SELFPAY ==
--- OUTSIDE RECORDS SUMMARY | 2010-02-13 05:45 | XMS_ITS | Continuity of Care Document ---
Author Organization [facility] Address [address] [place] [address] Phone Care Team Providers Care Medical Recruiter Name Role Phone Violetta Clinton MD Unavailable Unavailable Procedures Procedure Date EYE EXAM ESTABLISHED PAT REFRACTION WITH EXAM Advance Directives Directive Yes / No Effective Date File Name No Information Encounters Encounter Description Practice Location Reason(s) For Visit Diagnoses Date Provider [facility] , [address] [place] [address], [facility], tel:[phone] [place] No Information 2009 Oz Shipley. [address] [place] [address], [address], [facility], . tel:[phone] [facility] , [address] [place] [address], [facility], tel:[phone] [place] No Information 2009 No Information Family History Family Member Type Diagnosis Age At Onset No Information Payers Payer name Insurance type Covered constitution party ID Authoriza tion(s) Medicare MB [id number] [facility] Indemnity Plan [id number] For Life [id number] Social History Type Description Quantity Date Captured Comments Sex Male Smoking Status No Information Chief Complaint And Reason For Visit No Information History Of Present Illness Encounter Date Complaint History Of Prese nt Illness No Information Instructions Date Instruction Additional Infor mation No Information Assessments Type Assessment Date No Information
--- OUTSIDE RECORDS SUMMARY | 2024-10-28 06:18 | XMS_ITS | Encounter Summary ---
Author Organization [facility] Address [address] [place] [address] Care Team Providers Care Principal Android Developer Name Role Phone Mitra Fletcher MD Primary Care Provider [phone] Encounter Details Date Type Department Care Team (Late st Contact Info) Description 05/26/2018 Orders Only [facility] Internal Medicine [address] [place] [address] Mitra Fletcher MD [address] [place] [address] Social History Tobacco Use Types Packs/Day Years [...] of this encounter Procedures * Due to [place] [employer] law, this organization might not be sharing [...] in this encounter Results * Due to [place] [employer] law, this organization might not be sharing [...] 10:12 PM EST Narrative Resulting Agency Comment [id number] us Mitra Fletcher MD LAB SAME DAY RESULT Final Re sult [facility] [address] [place] [address] * TSH, 3RD GENERATION (05/26/2018 12:07 PM EST) TSH 2.36 0.40 - 4.50 mIU/L [facility] 05/26/2018 12:0 7 PM EST 05/26/2018 10:12 PM EST Narrative Resulting Agency Comment [id number] Mitra Fletcher MD LABORATORY Final Result Performing Organization Address [facility] de Phone Number [facility] [address] [place] [address] * (ABNORMAL) HEMOGLOBIN A1C (05/26/2018 12:07 PM [...] 10:12 PM EST Narrative Resulting Agency Comment [id number] Mitra Fletcher MD LABORATORY Final Result Performing Organization Address [facility] de Phone Number [facility] [address] [place] [address] * (ABNORMAL) LIPID PANEL WITH REFLEX TO [...] of LDL-C. Eliot LEE et al. MARK. 2013;310(56): 7252-3735 (http://education.Seawind/faq/CVM233) CHOL/HDL Ratio 3.1 <5.0 (calc) [facility] Cholesterol Non-HDL 128 <130 mg/dL (calc) [facility] Comment: For patients with diabetes plus 1 major ASCVD risk factor, treating to a non-HDL-C goal of <100 mg/dL (LDL-C of <70 mg/dL) is considered a therapeutic option. 05/26/2018 12:0 7 PM EST 05/26/2018 10:12 PM EST Narrative Resulting Agency Comment [id number] us Mitra Fletcher MD LABORATORY Final Result [facility] [address] [place] [address] * (ABNORMAL) COMPREHENSIVE METABOLIC PANEL WITH GFR (05/26/2018 12:07 PM EST) Glucose 97 65 - 99 mg/dL [facility] Comment:Fasting reference in terval Urea Nitrogen Blood (BUN) 26(H) 7 - 25 mg/dL [facility] Creatinine 1.03 0.70 - 1.18 mg/dL [facility] Comment: For patients >49 years of age, the reference limit for Creatinine is approximately 13% higher for people identified as -[place]ese. EGFR 69 > OR = 60 mL/min/1. [...] needs for GFR calculation. Resulting Agency Comment [id number] Mitra Fletcher MD LABORATORY Final Result [facility] [address] [place] [address] documented in this encounter Visit Diagnoses Diagnosis Systolic congestive heart failure, unspecified HF chronicity (HCC) documented in this encounter Care Teams Principal Android Developer Relationship Specialty Start Date End Date Mitra Fletcher MD PCP - General Internal Medicine 12/06/17 10/23/18 documented as of this encounter
[2024-10-28 07:09] LABS: INTERNATIONAL NORM RATIO 2.7 (0.9-1.1); Prothrombin Time 30.8 SEC (10.9-12.4)
== END 2024-10-28 06:17 | disposition home or self-care (01) ==
LOC: HO.HSH3E 06:16
PROVIDERS: Visit Provider Nurse Practitioner
DX: Z95.2 Presence of prosthetic heart valve (principal)
CPT/HCPCS: 36415; 85610

== ENCOUNTER 2024-11-02 07:49 | Outpatient (REF) | payer MEDICARE, SELFPAY ==
--- OUTSIDE RECORDS SUMMARY | 2024-11-02 07:52 | XMS_ITS | Encounter Summary ---
Author Organization [facility] Address [address] [place] [address] Care Team Providers Care Interior Mechanic Name Role Phone Mitra Fletcher MD Primary Care Provider [phone] Encounter Details Date Type Department Care Team (Late st Contact Info) Description 05/26/2018 Orders Only [facility] Internal Medicine [address] [place] [address] Mitra Fletcher MD [address] [place] [phone] Social History Tobacco Use Types Packs/Day Years [...] of this encounter Procedures * Due to [place] [employer] law, this organization might not be sharing [...] in this encounter Results * Due to [place] [employer] law, this organization might not be sharing [...] 10:12 PM EST Narrative Resulting Agency Comment [id number] us Mitra Fletcher MD LAB SAME DAY RESULT Final Re sult [facility] [address] [place] [address] * TSH, 3RD GENERATION (05/26/2018 12:07 PM EST) TSH 2.36 0.40 - 4.50 mIU/L [facility] 05/26/2018 12:0 7 PM EST 05/26/2018 10:12 PM EST Narrative Resulting Agency Comment [id number] Mitra Fletcher MD LABORATORY Final Result Performing Organization Address [facility] de Phone Number [facility] [address] [place] [address] * (ABNORMAL) HEMOGLOBIN A1C (05/26/2018 12:07 PM [...] 10:12 PM EST Narrative Resulting Agency Comment [id number] Mitra Fletcher MD LABORATORY Final Result Performing Organization Address [facility] de Phone Number [facility] [address] [place] [address] * (ABNORMAL) LIPID PANEL WITH REFLEX TO [...] of LDL-C. Eliot LEE et al. MARK. 2013;310(01): 9920-9869 (http://education.Hightail/faq/TBL888) CHOL/HDL Ratio 3.1 <5.0 (calc) [facility] Cholesterol Non-HDL 128 <130 mg/dL (calc) [facility] Comment: For patients with diabetes plus 1 major ASCVD risk factor, treating to a non-HDL-C goal of <100 mg/dL (LDL-C of <70 mg/dL) is considered a therapeutic option. 05/26/2018 12:0 7 PM EST 05/26/2018 10:12 PM EST Narrative Resulting Agency Comment [id number] us Mitra Fletcher MD LABORATORY Final Result [facility] [address] [place] [address] * (ABNORMAL) COMPREHENSIVE METABOLIC PANEL WITH GFR (05/26/2018 12:07 PM EST) Glucose 97 65 - 99 mg/dL [facility] Comment:Fasting reference in terval Urea Nitrogen Blood (BUN) 26(H) 7 - 25 mg/dL [facility] Creatinine 1.03 0.70 - 1.18 mg/dL [facility] Comment: For patients >49 years of age, the reference limit for Creatinine is approximately 13% higher for people identified as -Bhutanese. EGFR 69 > OR = 60 mL/min/1. [...] needs for GFR calculation. Resulting Agency Comment [id number] Mitra Fletcher MD LABORATORY Final Result [facility] [address] [place] [address] documented in this encounter Visit Diagnoses Diagnosis Systolic congestive heart failure, unspecified HF chronicity (HCC) documented in this encounter Care Teams Interior Mechanic Relationship Specialty Start Date End Date Mitra Fletcher MD PCP - General Internal Medicine 12/06/17 10/23/18 documented as of this encounter
[2024-11-02 08:09] LABS: INTERNATIONAL NORM RATIO 2.4 (0.9-1.1); Prothrombin Time 28.1 SEC (10.9-12.4)
== END 2024-11-02 07:50 | disposition home or self-care (01) ==
LOC: HO.HSH3E 07:49
PROVIDERS: Visit Provider Nurse Practitioner
DX: Z95.2 Presence of prosthetic heart valve (principal)
CPT/HCPCS: 36415; 85610

== ENCOUNTER 2024-11-09 06:11 | Outpatient (REF) | payer MEDICARE, SELFPAY ==
--- OUTSIDE RECORDS SUMMARY | 2010-02-13 05:45 | XMS_ITS | Continuity of Care Document ---
Author Organization [facility] Address [address] [place] [address] Phone Care Team Providers Care Workday Financials Consultant Name Role Phone Violetta Clinton MD Unavailable Unavailable Procedures Procedure Date EYE EXAM ESTABLISHED PAT REFRACTION WITH EXAM Advance Directives Directive Yes / No Effective Date File Name No Information Encounters Encounter Description Practice Location Reason(s) For Visit Diagnoses Date Provider [facility] , [address] [place] [address], [facility], tel:[phone] [place] No Information 2009 Oz Shipley. [address] [place] [address], [address], [facility], . tel:[phone] [facility] , [address] [place] [address], [facility], tel:[phone] [place] No Information 2009 No Information Family History Family Member Type Diagnosis Age At Onset No Information Payers Payer name Insurance type Covered alliance party ID Authoriza tion(s) Medicare MB [id number] [facility] Indemnity Plan [id number] For Life [id number] Social History Type Description Quantity Date Captured Comments Sex Male Smoking Status No Information Chief Complaint And Reason For Visit No Information History Of Present Illness Encounter Date Complaint History Of Prese nt Illness No Information Instructions Date Instruction Additional Infor mation No Information Assessments Type Assessment Date No Information
--- OUTSIDE RECORDS SUMMARY | 2024-11-09 06:16 | XMS_ITS | Encounter Summary ---
Author Organization [facility] Address [address] [place] [address] Care Team Providers Care Program Manager Transportation Name Role Phone Mitra Fletcher MD Primary Care Provider [phone] Encounter Details Date Type Department Care Team (Late st Contact Info) Description 05/26/2018 Orders Only [facility] Internal Medicine [address] [place] [address] Mitra Fletcher MD [address] [place] [address] Social History Tobacco Use Types Packs/Day Years [...] of this encounter Procedures * Due to [place] [employer] law, this organization might not be sharing [...] in this encounter Results * Due to [place] 360[employer] law, this organization might not be sharing [...] 10:12 PM EST Narrative Resulting Agency Comment [id number] us Mitra Fletcher MD LAB SAME DAY RESULT Final Re sult [facility] [address] [place] [address] * TSH, 3RD GENERATION (05/26/2018 12:07 PM EST) TSH 2.36 0.40 - 4.50 mIU/L [facility] 05/26/2018 12:0 7 PM EST 05/26/2018 10:12 PM EST Narrative Resulting Agency Comment [id number] Mitra Fletcher MD LABORATORY Final Result Performing Organization Address [facility] de Phone Number [facility] [address] [place] [address] * (ABNORMAL) HEMOGLOBIN A1C (05/26/2018 12:07 PM [...] 10:12 PM EST Narrative Resulting Agency Comment [id number] Mitra Fletcher MD LABORATORY Final Result Performing Organization Address [facility] de Phone Number [facility] [address] [place] [address] * (ABNORMAL) LIPID PANEL WITH REFLEX TO [...] of LDL-C. Eliot LEE et al. MARK. 2013;310(69): 9967-6907 (http://education.Trinity [employer] Solutions/faq/XKD884) CHOL/HDL Ratio 3.1 <5.0 (calc) [facility] Cholesterol Non-HDL 128 <130 mg/dL (calc) [facility] Comment: For patients with diabetes plus 1 major ASCVD risk factor, treating to a non-HDL-C goal of <100 mg/dL (LDL-C of <70 mg/dL) is considered a therapeutic option. 05/26/2018 12:0 7 PM EST 05/26/2018 10:12 PM EST Narrative Resulting Agency Comment [id number] us Mitra Fletcher MD LABORATORY Final Result [facility] [address] [place] [address] * (ABNORMAL) COMPREHENSIVE METABOLIC PANEL WITH GFR (05/26/2018 12:07 PM EST) Glucose 97 65 - 99 mg/dL [facility] Comment:Fasting reference in terval Urea Nitrogen Blood (BUN) 26(H) 7 - 25 mg/dL [facility] Creatinine 1.03 0.70 - 1.18 mg/dL [facility] Comment: For patients >49 years of age, the reference limit for Creatinine is approximately 13% higher for people identified as -[place]. EGFR 69 > OR = 60 mL/min/1. [...] needs for GFR calculation. Resulting Agency Comment [id number] Mitra Fletcher MD LABORATORY Final Result [facility] [address] [place] [address] documented in this encounter Visit Diagnoses Diagnosis Systolic congestive heart failure, unspecified HF chronicity (HCC) documented in this encounter Care Teams Program Manager Transportation Relationship Specialty Start Date End Date Mitra Fletcher MD PCP - General Internal Medicine 12/06/17 10/23/18 documented as of this encounter
[2024-11-09 06:30] LABS: INTERNATIONAL NORM RATIO 2.9 (0.9-1.1); Prothrombin Time 32.9 SEC (10.9-12.4)
== END 2024-11-09 06:12 | disposition home or self-care (01) ==
LOC: HO.HSH3E 06:11
PROVIDERS: Visit Provider Nurse Practitioner
DX: Z95.2 Presence of prosthetic heart valve (principal)
CPT/HCPCS: 36415; 85610

== ENCOUNTER 2024-11-16 07:11 | Outpatient (REF) | payer MEDICARE, SELFPAY ==
[2024-11-16 08:04] LABS: INTERNATIONAL NORM RATIO 3.2 (0.9-1.1); Prothrombin Time 36.8 SEC (10.9-12.4)
== END 2024-11-16 07:12 | disposition home or self-care (01) ==
LOC: HO.HSH3E 07:11
PROVIDERS: Visit Provider Nurse Practitioner
DX: Z95.2 Presence of prosthetic heart valve (principal)
CPT/HCPCS: 36415; 85610

== ENCOUNTER 2024-11-24 07:22 | Outpatient (REF) | payer MEDICARE, SELFPAY ==
--- OUTSIDE RECORDS SUMMARY | 2010-02-13 05:45 | XMS_ITS | Continuity of Care Document ---
Author Organization [facility] Address [address] [place] [address] Phone Care Team Providers Care Flight Nurse Name Role Phone Violetta Clinton MD Unavailable Unavailable Procedures Procedure Date EYE EXAM ESTABLISHED PAT REFRACTION WITH EXAM Advance Directives Directive Yes / No Effective Date File Name No Information Encounters Encounter Description Practice Location Reason(s) For Visit Diagnoses Date Provider [facility] , [address] [place] [address], [facility], tel:[phone] [place] No Information 2009 Oz Shipley. [address] [place] [address], [address], [facility], . tel:[phone] [facility] , [address] [place] [address], [facility], tel:[phone] [place] No Information 2009 No Information Family History Family Member Type Diagnosis Age At Onset No Information Payers Payer name Insurance type Covered republican ID Authoriza tion(s) Medicare MB [id number] [facility] Indemnity Plan [id number] For Life [id number] Social History Type Description Quantity Date Captured Comments Sex Male Smoking Status No Information Chief Complaint And Reason For Visit No Information History Of Present Illness Encounter Date Complaint History Of Prese nt Illness No Information Instructions Date Instruction Additional Infor mation No Information Assessments Type Assessment Date No Information
--- OUTSIDE RECORDS SUMMARY | 2024-11-24 07:24 | XMS_ITS | Encounter Summary ---
Author Organization [facility] Address [address] [place] [address] Care Team Providers Care Sales Training Coordinator Name Role Phone Mitra Fletcher MD Primary Care Provider [phone] Encounter Details Date Type Department Care Team (Late st Contact Info) Description 05/26/2018 Orders Only [facility] Internal Medicine [address] [place] [address] Mitra Fletcher MD [address] [place] [address] Social History Tobacco Use Types Packs/Day Years [...] of this encounter Procedures * Due to [place] [employer] law, this organization might not be sharing [...] in this encounter Results * Due to [place] [employer] law, this organization might not be sharing [...] 10:12 PM EST Narrative Resulting Agency Comment [id number] us Mitra Fletcher MD LAB SAME DAY RESULT Final Re sult [facility] [address] [place] [address] * TSH, 3RD GENERATION (05/26/2018 12:07 PM EST) TSH 2.36 0.40 - 4.50 mIU/L [facility] 05/26/2018 12:0 7 PM EST 05/26/2018 10:12 PM EST Narrative Resulting Agency Comment [id number] Mitra Fletcher MD LABORATORY Final Result Performing Organization Address [facility] de Phone Number [facility] [address] [place] [address] * (ABNORMAL) HEMOGLOBIN A1C (05/26/2018 12:07 PM [...] 10:12 PM EST Narrative Resulting Agency Comment [id number] Mitra Fletcher MD LABORATORY Final Result Performing Organization Address [facility] de Phone Number [facility] [address] [place] [address] * (ABNORMAL) LIPID PANEL WITH REFLEX TO [...] of LDL-C. Eliot LEE et al. MARK. 2013;310(08): 4389-3590 (http://education.Invia.cz/faq/UIW824) CHOL/HDL Ratio 3.1 <5.0 (calc) [facility] Cholesterol Non-HDL 128 <130 mg/dL (calc) [facility] Comment: For patients with diabetes plus 1 major ASCVD risk factor, treating to a non-HDL-C goal of <100 mg/dL (LDL-C of <70 mg/dL) is considered a therapeutic option. 05/26/2018 12:0 7 PM EST 05/26/2018 10:12 PM EST Narrative Resulting Agency Comment [id number] us Mitra Fletcher MD LABORATORY Final Result [facility] [address] [place] [address] * (ABNORMAL) COMPREHENSIVE METABOLIC PANEL WITH GFR (05/26/2018 12:07 PM EST) Glucose 97 65 - 99 mg/dL [facility] Comment:Fasting reference in terval Urea Nitrogen Blood (BUN) 26(H) 7 - 25 mg/dL [facility] Creatinine 1.03 0.70 - 1.18 mg/dL [facility] Comment: For patients >49 years of age, the reference limit for Creatinine is approximately 13% higher for people identified as -Kazakh. EGFR 69 > OR = 60 mL/min/1. [...] needs for GFR calculation. Resulting Agency Comment [id number] Mitra Fletcher MD LABORATORY Final Result [facility] [address] [place] [address] documented in this encounter Visit Diagnoses Diagnosis Systolic congestive heart failure, unspecified HF chronicity (HCC) documented in this encounter Care Teams Sales Training Coordinator Relationship Specialty Start Date End Date Mitra Fletcher MD PCP - General Internal Medicine 12/06/17 10/23/18 documented as of this encounter
--- OUTSIDE RECORDS SUMMARY | 2024-11-24 07:24 | XMS_ITS | Encounter Summary ---
Author Organization [facility] Address [address] [place] [address] Care Team Providers Care Sales Performance Analyst Name Role Phone Mitra Fletcher MD Primary Care Provider [phone] Encounter Details Date Type Department Care Team (Late st Contact Info) Description 12/24/2017 Orders Only [facility] [address] [place] [address] Obdulia Sherman LVN LPN [address] [place] [address] Social History Tobacco Use Types Packs/Day Years Used Date Smoking Tobacco: Never Smokeless Tobacco: Never Sex and Gender Information Value Date Recorded Sex Assigned at Not on file Legal Sex Male 9:59 PM EDT Gender Identity Not on file Sexual Orientation Not on file documented as of this encounter Progress Notes * Skylar Esteves LPN - 12/25/2017 8:57 AM EDT Results received by [facility] nurse. See [facility] Track for documentation. * Melissa Dale - 12/25/2017 8:15 AM EDT Critical results received in [facility] and forwarded to Nurse pool for dosing documented in this encounter Plan of Treatment Not on file documented as of this encounter Procedures * Due to [place] [employer] law, this organization might not be sharing negative HIV tests. Procedure Name Priority Date/Time Associated Diagnosis Comments PROTHROMBIN TIME (PT), ANTICOAGULATION THERAPY (INR 2.0 3.0) Same Day Results 12/24/2017 3:51 PM EDT Cerebrovascular accident (CVA), unspecified mechanism H/O mechanical aortic valve replacement Anticoagulation goal of INR 2.5 to 3.5 documented in this encounter Results * Due to [place] [employer] law, this organization might not be sharing negative HIV tests. * (ABNORMAL) PROTHROMBIN TIME (PT), ANTICOAGULATION THERAPY (INR 2.0 ??? 3.0) (12/24/2017 3:51 PM EDT) INR 3.9(H) [facility] Comment: Reference Range 0.9-1.1 Moderate-intensity Warfarin Therapy 2.0-3.0 Higher-intensity Warfarin Therapy 3.0-4.0 PT 40.0 9.0 - 11.5 sec [facility] 12/24/2017 3:51 PM EDT 12/24/2017 10:39 PM EDT Narrative Resulting Agency Comment [id number] us Margret Waldrop MD LAB SAME DAY RESULT Final Resul t Performing Organization Address City/State/[facility] Co de Phone Number [facility] [address] [place] [address] documented in this encounter Visit Diagnoses Diagnosis Cerebrovascular accident (CVA), unspecified mechanism (HCC) H/O mechanical aortic valve replacement Heart valve replaced by other means Anticoagulation goal of INR 2.5 to 3.5 Encounter for therapeutic drug monitoring documented in this encounter Care Teams Sales Performance Analyst Relationship Specialty Start Date End Date Mitra Fletcher MD PCP - General Internal Medicine 12/06/17 10/23/18 documented as of this encounter
--- OUTSIDE RECORDS SUMMARY | 2024-11-24 07:24 | XMS_ITS | Encounter Summary ---
Author Organization [facility] Address [address] [place] [address] Care Team Providers Care Detective Youth Bureau Name Role Phone Mitra Fletcher MD Primary Care Provider [phone] Encounter Details Date Type Department Care Team (Late st Contact Info) Description 12/24/2017 Orders Only [facility] [address] [place] [address] Mitra Fletcher MD [address] [place] [id number] Social History Tobacco Use Types Packs/Day Years Used Date Smoking Tobacco: Never Smokeless Tobacco: Never Sex and Gender Information Value Date Recorded Sex Assigned at Not on file Legal Sex Male 9:59 PM EDT Gender Identity Not on file Sexual Orientation Not on file documented as of this encounter Progress Notes * Mitra Fletcher MD - 12/25/2017 9:34 AM EDT Cholesterol higher than desired. Make sure you have not missed Atorvastatin. If you have not, I will be changing Atorvastatin to Rosuvastatin 20 mg daily. Sugar borderline. Kidney function borderline off. All other labs are normal. Your blood counts are normal. Liver function normal. Thyroid function is normal. Vitamin D level is normal on current supplementation. Vitamin B12 level is normal on current supplementation. How long you have been taking Midodrine? We can cut down Midodrine to 1/2 the current dose (reduce from 1 tablet 3 times a day to 1/2 tablet 3 times a day). If any worsening of dizzyness or drop in blood pressure, to let me know. How much Tamsulosin he is taking? If taking 2 at bedtime, reduce to 1 at bedtime. If any worsening of urinary symptoms, let me know. documented in this encounter Plan of Treatment Not on file documented as of this encounter Procedures * Due to [place] state law, this organization might not be sharing negative HIV tests. Procedure Name Priority Date/Time Associated Diagnosis Comments EKG-TO BE READ & BILLED BY ADULT OR PEDIATRIC CARDIOLOGY Routine 12/24/2017 3:54 PM EDT Parkinson disease Cerebrovascular accident (CVA), unspecified mechanism Secondary hypercoagulable state (HCC) Personal history of stroke with current residual effects Anticoagulation goal of INR 2.5 to 3.5 H/O mitral valve replacement with mechanical valve CBC INCLUDES DIFFERENTIAL AND PLATELET COUNT Routine 12/24/2017 3:51 PM EDT Cerebrovascular accident (CVA), unspecified mechanism H/O mechanical aortic valve replacement Secondary hypercoagulable state (HCC) Personal history of stroke with current residual effects TSH, 3RD GENERATION Routine 12/24/2017 3 :51 PM EDT Cerebrovascular accident (CVA), unspecified mechanism H/O mechanical aortic valve replacement Secondary hypercoagulable state (HCC) Personal history of stroke with current residual effects HEMOGLOBIN A1C Routine 12/24/2017 3:51 PM EDT Cerebrovascular accident (CVA), unspecified mechanism H/O mechanical aortic valve replacement Secondary hypercoagulable state (HCC) Personal history of stroke with current residual effects VITAMIN B12 (CYANOCOBALAMIN), SERUM Routine 12/24/2017 3:51 PM EDT Cerebrovascular accident (CVA), unspecified mechanism H/O mechanical aortic valve replacement Secondary hypercoagulable state (HCC) Personal history of stroke with current residual effects VITAMIN D, 25-HYDROXY, TOTAL, IMMUNOASSAY Routine 12/24/2017 3:51 PM EDT Cerebrovascular accident (CVA), unspecified mechanism H/O mechanical aortic valve replacement Secondary hypercoagulable state (HCC) Personal history of stroke with current residual effects LIPID PANEL WITH REFLEX TO DIRECT LDL Routine 12/24/2017 3:51 PM EDT Cerebrovascular accident (CVA), unspecified mechanism H/O mechanical aortic valve replacement Secondary hypercoagulable state (HCC) Personal history of stroke with current residual effects COMPREHENSIVE METABOLIC PANEL WITH GFR Routine 12/24/2017 3:51 PM EDT Cerebrovascular accident (CVA), unspecified mechanism H/O mechanical aortic valve replacement Secondary hypercoagulable state (HCC) Personal history of stroke with current residual effects documented in this encounter Results * Due to [place] state law, this organization might not be sharing negative HIV tests. * EKG-TO BE READ AND BILLED BY CARDIOLOGY (12/24/2017 3:54 PM EDT) VENTRICULAR RATE 94 BPM MUS E EKG SYSTEM ATRIAL RATE 94 BPM MUSE EKG SYSTEM P-R INTERVAL 180 ms MUSE EK G SYSTEM QRS DURATION 108 ms MUSE EK G SYSTEM QT 384 ms MUSE EKG SYSTEM QTC 480 ms MUSE EKG SYSTEM P AXIS 45 degrees MUSE EKG SYSTEM R AXIS -52 degrees MUSE EKG SYSTEM T AXIS 71 degrees MUSE EKG SYSTEM EKG INTERPRETATION Sinus rhythm with Premature atrial complexes with Aberrant conduction Possible Left atrial enlargement Left axis deviation Left ventricular hypertrophy Anteroseptal infarct , age undetermined Abnormal ECG No previous ECGs available Confirmed by SHIRA SKY ([id number]) on 12/24/2017 9:27:35 PM MUSE EKG SYSTEM 12/24/2017 3:54 PM EDT 12/24/2017 9:27 PM EDT us Mitra Fletcher MD CARDIOVASCULAR-WITH INBSKT R TG Final Result MUSE EKG SYSTEM * VITAMIN B12 (CYANOCOBALAMIN), SERUM (12/24/2017 3:51 PM EDT) Vitamin B12 (Cobalamins) 919 200 - 1100 pg/mL [facility] 12/24/2017 3:51 PM EDT 12/24/2017 10:51 PM EDT Narrative Resulting Agency Comment [id number] Mitra Fletcher MD LABORATORY Final Result Performing Organization Address [facility] Co de Phone Number [facility] [address] [place] [address] * VITAMIN D, 25-HYDROXY, TOTAL, IMMUNOASSAY (12/24/2017 3:51 PM EDT) Vitamin D, 25-OH, Total 37 30 - 100 ng/mL [facility] Comment: Vitamin D Status 25-OH Vitamin D: Deficiency: <20 ng/mL Insufficiency: 20 - 29 ng/mL Optimal: > or = 30 ng/mL For 25-OH Vitamin D testing on patients on D2-supplementation and patients for whom quantitation of D2 and D3 fractions is required, the QuestAssureD(TM) 25-OH VIT D, (D2,D3), LC/MS/MS is recommended: order code 65616 (patients >2yrs). For more information on this test, go to: http://education.SportStylist/faq/BIU577 (This link is being provided for informational/educational purposes only.) 12/24/2017 3:51 PM EDT 12/24/2017 10:51 PM EDT Narrative Resulting Agency Comment [id number] Mitra Fletcher MD LABORATORY Final Result Performing Organization Address [facility] Co de Phone Number [facility] [address] [place] [address] * (ABNORMAL) HEMOGLOBIN A1C (12/24/2017 3:51 PM EDT) Hemoglobin A1C 5.8(H) <5.7 % of total Hgb [facility] [...] of diabetes for children. Estimated Average Glucose 129 mg/dL (calc) [facility] 12/24/2017 3:51 PM EDT 12/24/2017 10:51 PM EDT Narrative Resulting Agency Comment [id number] Mitra Fletcher MD LABORATORY Final Result Performing Organization Address [facility] de Phone Number [facility] [address] [place] [address] * (ABNORMAL) LIPID PANEL WITH REFLEX TO DIRECT LDL (12/24/2017 3:51 PM EDT) Cholesterol 197 <200 mg/dL [facility] HDL Cholesterol 51 >40 mg/dL [facility] Triglyceride 163(H) <150 mg/dL [facility] LDL Cholesterol 117(H) mg/dL (calc) [facility] Comment: Reference range: <100 Desirable range <100 mg/dL for primary prevention; <70 mg/dL for patients with CHD or diabetic patients with > or = 2 CHD risk factors. LDL-C is now calculated using the Eliot-Duffy calculation, which is a validated novel method providing better accuracy than the Friedewald equation in the estimation of LDL-C. Eliot SS et al. MARK. 2013;310(19): 6735-9635 (http://education.Jack[employer] Games.[employer]/faq/ALW187) CHOL/HDL Ratio 3.9 <5.0 (calc) [facility] Cholesterol Non-HDL 146(H) <130 mg/dL (calc) [facility] Comment: For patients with diabetes plus 1 major ASCVD risk factor, treating to a non-HDL-C goal of <100 mg/dL (LDL-C of <70 mg/dL) is considered a therapeutic option. 12/24/2017 3:51 PM EDT 12/24/2017 10:51 PM EDT Narrative Resulting Agency Comment [id number] Mitra Fletcher MD LABORATORY Final Result Performing Organization Address [facility]/ZIP Co de Phone Number [facility] [address] [place] [address] * TSH, 3RD GENERATION (12/24/2017 3:51 PM EDT) TSH 1.29 0.40 - 4.50 mIU/L [facility] 12/24/2017 3:51 PM EDT 12/24/2017 10:51 PM EDT Narrative Resulting Agency Comment [id number] Mitra Fletcher MD LABORATORY Final Result [facility] [address] [place] [address] * (ABNORMAL) COMPREHENSIVE METABOLIC PANEL WITH GFR (12/24/2017 3:51 PM EDT) Pathologist [facility] Glucose 101(H) 65 - 99 mg/dL [facility] Comment: Fasting reference interval For someone without known diabetes, a glucose value between 100 and 125 mg/dL is consistent with prediabetes and should be confirmed with a follow-up test. Urea Nitrogen Blood (BUN) 32(H) 7 - 25 mg/dL [facility] Creatinine 1.24(H) 0.70 - 1.18 mg/dL [facility] Comment: For patients >49 years of age, the reference limit for Creatinine is approximately 13% higher for people identified as -German. GFR 55(L) > OR = 60 mL/min/1. 73m2 [facility] GFR () 64 > OR = 60 mL/min/1. 73m2 [facility] BUN/Creatinine Ratio 26(H) 6 - 22 (calc) [facility] Sodium 140 135 - 146 mmol/L [facility] Potassium 4.9 3.5 - 5.3 mmol/L [facility] Chloride 104 98 - 110 mmol/L [facility] Carbon dioxide 29 20 - 32 mmol/L [facility] Calcium 9.7 8.6 - 10.3 mg/dL [facility] Protein Total (Serum) 6.7 6.1 - 8.1 g/dL [facility] Albumin 4.3 3.6 - 5.1 g/dL [facility] Globulin 2.4 1.9 - 3.7 g/dL (calc) [facility] Albumin/Globulin 1.8 1.0 - 2.5 (calc) [facility] Bilirubin Total 0.5 0.2 - 1.2 mg/dL [facility] Alkaline phosphatase 45 40 - 115 U/L [facility] AST (SGOT) 13 10 - 35 U/L [facility] ALT (SGPT) 6(L) 9 - 46 U/L [facility] 12/24/2017 3:51 PM EDT 12/24/2017 10:51 PM EDT Narrative [facility] - 12/25/2017 2:13 AM EDT Please note that this estimated GFR does [...] needs for GFR calculation. Resulting Agency Comment [id number] us Mitra Fletcher MD LABORATORY Final Result [facility] [address] [place] [address] * CBC INCLUDES DIFFERENTIAL AND PLATELET COUNT (12/24/2017 3:51 PM EDT) WBC 8.4 3.8 - 10.8 Thousand/u L [facility] RBC 4.50 4.20 - 5.80 Million/uL [facility] Hemoglobin 14.3 13.2 - 17.1 g/dL [facility] Hematocrit 43.0 38.5 - 50.0 % [facility] MCV 95.6 80.0 - 100.0 fL [facility] MCH 31.8 27.0 - 33.0 pg [facility] MCHC 33.3 32.0 - 36.0 g/dL [facility] RDW 13.1 11.0 - 15.0 % [facility] PLT 240 140 - 400 Thousand/u L [facility] MPV 11.6 7.5 - 12.5 fL [facility] Neutrophils # 4595 1500 - 7800 cells/uL [facility] Lymphocytes # 2713 850 - 3900 cells/uL [facility] Monocytes # 840 200 - 950 cells/uL [facility] Eosinophils # 202 15 - 500 cells/uL [facility] Basophils # 50 0 - 200 cells/uL [facility] Neutrophils % 54.7 % [facility] Lymphocytes % 32.3 % [facility] Monocytes % 10.0 % [facility] Eosinophils % 2.4 % [facility] Basophils % 0.6 % [facility] 12/24/2017 3:51 PM EDT 12/24/2017 10:51 PM EDT Narrative Resulting Agency Comment [id number] Mitra Fletcher MD LAB SAME DAY RESULT Final Re sult [facility] [address] [place] [address] documented in this encounter Visit Diagnoses Diagnosis Cerebrovascular accident (CVA), unspecified mechanism (HCC) H/O mechanical aortic valve replacement Heart valve replaced by other means Secondary hypercoagulable state (HHS) Secondary hypercoagulable state Personal history of stroke with current residual effects Parkinson disease (HCC) Paralysis agitans Anticoagulation goal of INR 2.5 to 3.5 Encounter for therapeutic drug monitoring H/O mitral valve replacement with mechanical valve Heart valve replaced by other means documented in this encounter Care Teams Detective Youth Bureau Relationship Specialty Start Date End Date Mitra Fletcher MD PCP - General Internal Medicine 12/06/17 10/23/18 documented as of this encounter
--- OUTSIDE RECORDS SUMMARY | 2024-11-24 07:24 | XMS_ITS | Clinical Summary ---
Author Organization [facility] Address [address] [place] [address] Care Team Providers Care Wrapper Caser Name Role Phone Unavailable Primary Care Provider Unavailabl e Allergies Active Allergy Reactions Criticality Noted Date Comments Bee 12/24/2017 Poison Arlene Scrub 12/24/2017 Simvastatin 12/24/2017 Medications Carbidopa-Levodopa 25-250 MG Tab 1 TABLET 3 TIMES DAILY Active Aspirin 81 MG Tab 1 TABLET DAILY Active Multiple Vitamins-Minerals (CEROVITE ADVANCED FORMULA) Liquid 1 TABLET DAILY SUPPLEMENT Active DIVALPROEX SODIUM, MIGRAINE, 250 MG TABLET SR 24 HR 1 TABLET DAILY Active Midodrine HCl 5 MG Tab 1/2 tablet 3 times a day 45 Tab 5 01/21/20 18 Active Rosuvastatin Calcium 20 MG Tab 1 TABLET DAILY 30 Tab 11 01/21/20 18 Active Enoxaparin Sodium (LOVENOX) 100 MG/ML Solution 100 MG DAILY until INR theurapeutic 6 mL 1 03/12/20 18 Active Warfarin Sodium 5 MG TabIndications:Cere brovascular accident (CVA), unspecified mechanism (HCC),H/O mechanical aortic valve replacement,Seconda ry hypercoagulable state (HHS),Personal history of stroke with current residual effects 1 TABLET DAILY or as directed by clinic 90 Tab 1 04/17/19 19 Active TraZODone HCl 50 MG Tab 1/2 TABLET DAILY AT BEDTIME Active Active Problems Problem Noted Date Diagnosed Date Orthostatic hypotension 06/17/2018 Mood Disorder (F39) 05/26/2018 Ascending aorta dilatation 04/01/2018 Overview (04/01/2018): Echo in Feb 2018. Mild aortic root dilatation measuring 4.1cm. Mildly dilated ascending aorta. It measures 4.0cm. Linear echoes of the aorta are suggestive of dissection of the ascending aorta. The patient was sent to the emergency room and underwent CT angiography without any evidence of dissection. Systolic congestive heart failure 03/28/2018 Overview (04/01/2018): Echo in Feb 2018. Moderate LV systolic dysfunction. There is mild to moderate concentric left ventricular hypertrophy. Diastolic function cannot be estimated due to mitral regurgitation and prosthetic mitral valve. Left ventricular systolic function is moderately reduced. The LV ejection fraction is estimated to be 40%. There is mild to moderate global hypokinesis of the left ventricle. There is akinesis of the apical wall. Severe hypokinesis of the inferior wall. Moderate left atrial enlargement. Mechanical mitral valve is noted. However it appears to be mild mitral regurgitation. Left ventricular hypertrophy 03/28/2018 Recurrent falls while walking 03/28/2018 H/O mitral valve replacement with mechanical artemio ve 12/24/2017 Overview (12/24/2017): With st boone mechanical valve 2005 Parkinson disease 12/24/2017 Sensorineural hearing loss (SNHL) of both ears 1 Dementia without behavioral disturbance 12/25/19 18 Secondary hypercoagulable state (HHS) 12/18/2017 Personal history of stroke with current residual effects 12/18/2017 Anticoagulation goal of INR 2.5 to 3.5 8 Overview (12/18/2017): Followed by [facility]. 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 Orthostatic hypotension with dizzyness. H/O mechanical aortic valve replacement 12/18/2017 12/24/2017 Anticoagulation monitoring, INR range 2-3 12/17/2017 12/18/2017 Overview (12/17/2017): Followed by Clinic. Diagnosis: cva; INR: 2-3 Immunizations Immunization Administration Dates Next Due COVID-19, mRNA (Pfizer Pre F all 2022) Monovalent, 30 mcg/0.3 ml 04/12/2020,03/22/2020 Influenza,injectable,quad,preservative 0 Influenza,recombinant,quad,injectable,Prsrv Fr 1 Td (adult), adsorbed 02/10/2018 Social History Tobacco Use Types Packs/Day Years Used Date Smoking Tobacco: Never Smokeless Tobacco: Never Intimate Partner Violence Answer Date R ecorded Fear of Current or Ex-Partner Not on file Emotionally Abused Not on file 11/11/2022 Physically Abused Not on file 11/11/2022 Sexually Abused Not on file 11/11/2022 Feel Safe at Home Not on file 11/11/2022 Sex and Gender Information Value Date Recorded Sex Assigned at Not on file Legal Sex Male 9:59 PM EDT Gender Identity Not on file Sexual Orientation Not on file Last Filed Vital Signs Vital Sign Reading Time Taken Comments Blood Pressure 97/66 06/17/2018 1:30 PM EDT Pulse 54 06/17/2018 1:30 PM EDT Temperature 36.6 C (97.9 F) 05/26/2018 11:29 AM EST Respiratory Rate - - Oxygen Saturation 98% 05/26/2018 11:29 AM EST Inhaled Oxygen Concentration - - Weight 73.5 kg (162 lb) 05/26/2018 11:29 AM EST Height 172.7 cm (5' 8 ) 03/11/2018 4:04 PM EST Body Mass Index 24.63 03/11/2018 4:04 PM EST Plan of Treatment Health Maintenance Due Date Last Done Comments Pneumococcal 50+ years (1 of 1 - PCV) 1989 Zoster (Shingrix) (1 of 2) 1989 RSV (1 - 1-dose 75+ series) 2014 COVID-19 Vaccine (3 - 2024-2 6 season) 2024 04/12/2020, 03/22/2020 Influenza (#1) 2024 01/13/2020, 01/07/2019 HPV Vaccine (No Doses Required) Completed Hep A Aged Out No longer eligi ble based on patient's age to complete this topic Hep B Aged Out No longer eligi ble based on patient's age to complete this topic Hib Aged Out No longer eligi ble based on patient's age to complete this topic Meningococcal ACWY Aged Out No longer eligible based on patient's age to complete this topic Zoster (Zostavax) Discontinued Insurance MEDICARE PART B [employer]/ [employer] CLAIMS-SUPPLEMENTAL
[2024-11-24 07:46] LABS: INTERNATIONAL NORM RATIO 2.6 (0.9-1.1); Prothrombin Time 29.3 SEC (10.9-12.4)
== END 2024-11-24 07:23 | disposition home or self-care (01) ==
LOC: HO.HSH3E 07:22
PROVIDERS: Visit Provider Nurse Practitioner
DX: Z95.2 Presence of prosthetic heart valve (principal)
CPT/HCPCS: 36415; 85610

== ENCOUNTER 2024-12-01 06:56 | Outpatient (REF) | payer MEDICARE, SELFPAY ==
--- OUTSIDE RECORDS SUMMARY | 2010-02-13 05:45 | XMS_ITS | Continuity of Care Document ---
Author Organization [facility] Address [address] [place] [address] Phone Care Team Providers Care Spray Drier Operator Name Role Phone Violetta Clinton MD Unavailable Unavailable Procedures Procedure Date EYE EXAM ESTABLISHED PAT REFRACTION WITH EXAM Advance Directives Directive Yes / No Effective Date File Name No Information Encounters Encounter Description Practice Location Reason(s) For Visit Diagnoses Date Provider [facility] , [address] [place] [address], [facility], tel:[phone] [place] No Information 2009 Oz Shipley. [address] [place] [address], [address], [facility], . tel:[phone] [facility] , [address] [place] [address], [facility], tel:[phone] [place] No Information 2009 No Information Family History Family Member Type Diagnosis Age At Onset No Information Payers Payer name Insurance type Covered libertarian ID Authoriza tion(s) Medicare MB [id number] [facility] Indemnity Plan [id number] For Life [id number] Social History Type Description Quantity Date Captured Comments Sex Male Smoking Status No Information Chief Complaint And Reason For Visit No Information History Of Present Illness Encounter Date Complaint History Of Prese nt Illness No Information Instructions Date Instruction Additional Infor mation No Information Assessments Type Assessment Date No Information
--- OUTSIDE RECORDS SUMMARY | 2024-12-01 07:00 | XMS_ITS | Encounter Summary ---
Author Organization [facility] Address [address] [place] [address] Care Team Providers Care Ball Fringe Machine Operator Name Role Phone Mitra Fletcher MD Primary Care Provider [phone] Encounter Details Date Type Department Care Team (Late st Contact Info) Description 12/24/2017 Orders Only [facility] [address] [place] [address] Mitra Fletcher MD [address] [place] [id number] Social History Tobacco Use Types Packs/Day Years [...] of this encounter Procedures * Due to [place] state law, this organization might not be [...] in this encounter Results * Due to [place] state law, this organization might not be [...] 10:51 PM EDT Narrative Resulting Agency Comment [id number] Mitra Fletcher MD LABORATORY Final Result Performing Organization Address [facility] Co de Phone Number [facility] [address] [place] [address] * VITAMIN D, 25-HYDROXY, TOTAL, IMMUNOASSAY (12/24/2017 [...] D, (D2,D3), LC/MS/MS is recommended: order code 73689 (patients >2yrs). For more information on this test, go to: http://education.Red Lambda/faq/EYM439 (This link is being provided for informational/educational purposes only.) 12/24/2017 3:51 PM EDT 12/24/2017 10:51 PM EDT Narrative Resulting Agency Comment [id number] Mitra Fletcher MD LABORATORY Final Result Performing Organization Address [facility] Co de Phone Number [facility] [address] [place] [address] * (ABNORMAL) HEMOGLOBIN A1C (12/24/2017 3:51 PM [...] children. Estimated Average Glucose 129 mg/dL (calc) [facility] 12/24/2017 3:51 PM EDT 12/24/2017 10:51 PM EDT Narrative Resulting Agency Comment [id number] Mitra Fletcher MD LABORATORY Final Result Performing Organization Address [facility] de Phone Number [facility] [address] [place] [address] * (ABNORMAL) LIPID PANEL WITH REFLEX TO [...] LDL-C. Eliot SS et al. MARK. 2013;310(19): 8555-7104 (http://education.[employer]/faq/HEC043) CHOL/HDL Ratio 3.9 <5.0 (calc) [facility] Cholesterol Non-HDL 146(H) <130 mg/dL (calc) [facility] Comment: For patients with diabetes plus 1 major ASCVD risk factor, treating to a non-HDL-C goal of <100 mg/dL (LDL-C of <70 mg/dL) is considered a therapeutic option. 12/24/2017 3:51 PM EDT 12/24/2017 10:51 PM EDT Narrative Resulting Agency Comment [id number] Mitra Fletcher MD LABORATORY Final Result Performing Organization Address [facility]/ZIP Co de Phone Number [facility] [address] [place] [address] * TSH, 3RD GENERATION (12/24/2017 3:51 PM EDT) TSH 1.29 0.40 - 4.50 mIU/L [facility] 12/24/2017 3:51 PM EDT 12/24/2017 10:51 PM EDT Narrative Resulting Agency Comment [id number] Mitra Fletcher MD LABORATORY Final Result [facility] [address] [place] [address] * (ABNORMAL) COMPREHENSIVE METABOLIC PANEL WITH GFR (12/24/2017 3:51 PM EDT) Pathologist [facility] Glucose 101(H) 65 - 99 mg/dL [facility] [...] approximately 13% higher for people identified as -Haitian. GFR 55(L) > OR = 60 mL/min/1. [...] needs for GFR calculation. Resulting Agency Comment [id number] us Mitra Fletcher MD LABORATORY Final Result [facility] [address] [place] [address] * CBC INCLUDES DIFFERENTIAL AND PLATELET COUNT [...] 10:51 PM EDT Narrative Resulting Agency Comment [id number] Mitra Fletcher MD LAB SAME DAY RESULT Final Re sult [facility] [address] [place] [address] documented in this encounter Visit Diagnoses Diagnosis [...] means documented in this encounter Care Teams Ball Fringe Machine Operator Relationship Specialty Start Date End Date Mitra Fletcher MD PCP - General Internal Medicine 12/06/17 10/23/18 documented as of this encounter
--- OUTSIDE RECORDS SUMMARY | 2024-12-01 07:00 | XMS_ITS | Clinical Summary ---
Author Organization [facility] Address [address] [place] [address] Care Team Providers Care Equal Opportunity Specialist Name Role Phone Unavailable Primary Care Provider [...] to 3.5 8 Overview (12/18/2017): Followed by [facility]. Diagnosis: CVA,St Boone Valve; INR: 2.5-3.5 [...] Zoster (Zostavax) Discontinued Insurance MEDICARE PART B [employer]/ [employer] CLAIMS-SUPPLEMENTAL
--- OUTSIDE RECORDS SUMMARY | 2024-12-01 07:00 | XMS_ITS | Encounter Summary ---
Author Organization [facility] Address [address] [place] [address] Care Team Providers Care Director Enterprise Systems Name Role Phone Mitra Fletcher MD Primary Care Provider + [phone] Encounter Details Date Type Department Care Team (Late st Contact Info) Description 12/24/2017 Orders Only [facility] [address] [place] [address] Obdulia Sherman LVN LPN [address] [place] [address] Social History Tobacco Use Types Packs/Day Years Used Date Smoking Tobacco: Never Smokeless Tobacco: Never Sex and Gender Information Value Date Recorded Sex Assigned at Not on file Legal Sex Male 9:59 PM EDT Gender Identity Not on file Sexual Orientation Not on file documented as of this encounter Progress Notes * Skylar Esteves LPN - 12/25/2017 8:57 AM EDT Results received by [facility] nurse. See [facility] Track for documentation. * Melissa Dale - 12/25/2017 8:15 AM EDT Critical results received in [facility] and forwarded to Nurse pool for dosing documented in this encounter Plan of Treatment Not on file documented as of this encounter Procedures * Due to [place] COINTERRA law, this organization might not be sharing negative HIV tests. Procedure Name Priority Date/Time Associated Diagnosis Comments PROTHROMBIN TIME (PT), ANTICOAGULATION THERAPY (INR 2.0 3.0) Same Day Results 12/24/2017 3:51 PM EDT Cerebrovascular accident (CVA), unspecified mechanism H/O mechanical aortic valve replacement Anticoagulation goal of INR 2.5 to 3.5 documented in this encounter Results * Due to [place] COINTERRA law, this organization might not be sharing negative HIV tests. * (ABNORMAL) PROTHROMBIN TIME (PT), ANTICOAGULATION THERAPY (INR 2.0 ??? 3.0) (12/24/2017 3:51 PM EDT) INR 3.9(H) [facility] Comment: Reference Range 0.9-1.1 Moderate-intensity Warfarin Therapy 2.0-3.0 Higher-intensity Warfarin Therapy 3.0-4.0 PT 40.0 9.0 - 11.5 sec [facility] 12/24/2017 3:51 PM EDT 12/24/2017 10:39 PM EDT Narrative Resulting Agency Comment [id number] us Margret Waldrop MD LAB SAME DAY RESULT Final Resul t Performing Organization Address City/State/[facility] Co de Phone Number [facility] [address] [place] [address] documented in this encounter Visit Diagnoses Diagnosis Cerebrovascular accident (CVA), unspecified mechanism (HCC) H/O mechanical aortic valve replacement Heart valve replaced by other means Anticoagulation goal of INR 2.5 to 3.5 Encounter for therapeutic drug monitoring documented in this encounter Care Teams Director Enterprise Systems Relationship Specialty Start Date End Date Mitra Fletcher MD PCP - General Internal Medicine 12/06/17 10/23/18 documented as of this encounter
--- OUTSIDE RECORDS SUMMARY | 2024-12-01 07:00 | XMS_ITS | Encounter Summary ---
Author Organization [facility] Address [address] [place] [address] Care Team Providers Care Coin Teller Name Role Phone Mitra Fletcher MD Primary Care Provider [phone] Encounter Details Date Type Department Care Team (Late st Contact Info) Description 05/26/2018 Orders Only [facility] [address] [place] [address] Mitra Fletcher MD [address] [place] [address] Social History Tobacco Use Types Packs/Day Years [...] of this encounter Procedures * Due to [place] Pi-Cardia law, this organization might not be sharing [...] in this encounter Results * Due to [place] Pi-Cardia law, this organization might not be sharing [...] 10:12 PM EST Narrative Resulting Agency Comment [id number] us Mitra Fletcher MD LAB SAME DAY RESULT Final Re sult [facility] [address] [place] [address] * TSH, 3RD GENERATION (05/26/2018 12:07 PM EST) TSH 2.36 0.40 - 4.50 mIU/L [facility] 05/26/2018 12:0 7 PM EST 05/26/2018 10:12 PM EST Narrative Resulting Agency Comment [id number] Mitra Fletcher MD LABORATORY Final Result Performing Organization Address [email or web address]] de Phone Number [facility] [address] [place] [address] * (ABNORMAL) HEMOGLOBIN A1C (05/26/2018 12:07 PM [...] 10:12 PM EST Narrative Resulting Agency Comment [id number] Mitra Fletcher MD LABORATORY Final Result Performing Organization Address [facility] de Phone Number [facility] [address] [place] [address] * (ABNORMAL) LIPID PANEL WITH REFLEX TO [...] of LDL-C. Eliot LEE et al. MARK. 2013;310(84): 2088-6779 (http://education.Restoration Robotics/faq/TOV128) CHOL/HDL Ratio 3.1 <5.0 (calc) [facility] Cholesterol Non-HDL 128 <130 mg/dL (calc) [facility] Comment: For patients with diabetes plus 1 major ASCVD risk factor, treating to a non-HDL-C goal of <100 mg/dL (LDL-C of <70 mg/dL) is considered a therapeutic option. 05/26/2018 12:0 7 PM EST 05/26/2018 10:12 PM EST Narrative Resulting Agency Comment [id number] us Mitra Fletcher MD LABORATORY Final Result [facility] [address] [place] [address] * (ABNORMAL) COMPREHENSIVE METABOLIC PANEL WITH GFR (05/26/2018 12:07 PM EST) Glucose 97 65 - 99 mg/dL [facility] Comment:Fasting reference in terval Urea Nitrogen Blood (BUN) 26(H) 7 - 25 mg/dL [facility] Creatinine 1.03 0.70 - 1.18 mg/dL [facility] Comment: For patients >49 years of age, the reference limit for Creatinine is approximately 13% higher for people identified as -Palauan. EGFR 69 > OR = 60 mL/min/1. [...] needs for GFR calculation. Resulting Agency Comment [id number] Mitra Fletcher MD LABORATORY Final Result [facility] [address] [place] [address] documented in this encounter Visit Diagnoses Diagnosis Systolic congestive heart failure, unspecified HF chronicity (HCC) documented in this encounter Care Teams Coin Teller Relationship Specialty Start Date End Date Mitra Fletcher MD PCP - General Internal Medicine 12/06/17 10/23/18 documented as of this encounter
[2024-12-01 07:34] LABS: INTERNATIONAL NORM RATIO 2.1 (0.9-1.1); Prothrombin Time 24.6 SEC (10.9-12.4)
== END 2024-12-01 06:57 | disposition home or self-care (01) ==
LOC: HO.HSH3E 06:56
PROVIDERS: Visit Provider Nurse Practitioner
DX: Z95.2 Presence of prosthetic heart valve (principal)
CPT/HCPCS: 36415; 85610

== ENCOUNTER 2024-12-08 06:30 | Outpatient (REF) | payer MEDICARE, SELFPAY ==
--- OUTSIDE RECORDS SUMMARY | 2010-02-13 05:45 | XMS_ITS | Continuity of Care Document ---
Author Organization [facility] Address [address] [place] [address] Phone Care Team Providers Care Traffic Expert Name Role Phone Violetta Clinton MD Unavailable Unavailable Procedures Procedure Date EYE EXAM ESTABLISHED PAT REFRACTION WITH EXAM Advance Directives Directive Yes / No Effective Date File Name No Information Encounters Encounter Description Practice Location Reason(s) For Visit Diagnoses Date Provider [facility] , [address] [place] [address], [facility], tel:[phone] [place] No Information 2009 Oz Shipley. [address] [place] [address], [address], [facility], . tel:[phone] [facility] , [address] [place] [address], [facility], tel:[phone] [place] No Information 2009 No Information Family History Family Member Type Diagnosis Age At Onset No Information Payers Payer name Insurance type Covered green party ID Authoriza tion(s) Medicare MB [id number] [facility], 1928–1983 Indemnity Plan [id number] For Life [id number] Social History Type Description Quantity Date Captured Comments Sex Male Smoking Status No Information Chief Complaint And Reason For Visit No Information History Of Present Illness Encounter Date Complaint History Of Prese nt Illness No Information Instructions Date Instruction Additional Infor mation No Information Assessments Type Assessment Date No Information
--- OUTSIDE RECORDS SUMMARY | 2024-12-08 06:33 | XMS_ITS | Encounter Summary ---
Author Organization [facility] Address [address] [place] [address] Care Team Providers Care Spark Tester Name Role Phone Mitra Fletcher MD Primary Care Provider [phone] Encounter Details Date Type Department Care Team (Late st Contact Info) Description 05/26/2018 Orders Only [facility] Internal Medicine [address] [place] [address] Mitra Fletcher MD [address] [place] [phone] Social History Tobacco Use Types Packs/Day Years [...] of this encounter Procedures * Due to [place] Referly law, this organization might not be sharing [...] in this encounter Results * Due to [place] Referly law, this organization might not be sharing [...] 10:12 PM EST Narrative Resulting Agency Comment [id number] us Mitra Fletcher MD LAB SAME DAY RESULT Final Re sult [facility] [address] [place] [address] * TSH, 3RD GENERATION (05/26/2018 12:07 PM EST) TSH 2.36 0.40 - 4.50 mIU/L [facility] 05/26/2018 12:0 7 PM EST 05/26/2018 10:12 PM EST Narrative Resulting Agency Comment [id number] Mitra Fletcher MD LABORATORY Final Result Performing Organization Address [facility] de Phone Number [facility] [address] [place] [address] * (ABNORMAL) HEMOGLOBIN A1C (05/26/2018 12:07 PM [...] 10:12 PM EST Narrative Resulting Agency Comment [id number] Mitra Fletcher MD LABORATORY Final Result Performing Organization Address [facility] de Phone Number [facility] [address] [place] [address] * (ABNORMAL) LIPID PANEL WITH REFLEX TO [...] of LDL-C. Eliot LEE et al. MARK. 2013;310(90): 5585-2248 (http://education.CabbyGo/faq/AAC769) CHOL/HDL Ratio 3.1 <5.0 (calc) [facility] Cholesterol Non-HDL 128 <130 mg/dL (calc) [facility] Comment: For patients with diabetes plus 1 major ASCVD risk factor, treating to a non-HDL-C goal of <100 mg/dL (LDL-C of <70 mg/dL) is considered a therapeutic option. 05/26/2018 12:0 7 PM EST 05/26/2018 10:12 PM EST Narrative Resulting Agency Comment [id number] us Mitra Fletcher MD LABORATORY Final Result [facility] [address] [place] [address] * (ABNORMAL) COMPREHENSIVE METABOLIC PANEL WITH GFR (05/26/2018 12:07 PM EST) Glucose 97 65 - 99 mg/dL [facility] Comment:Fasting reference in terval Urea Nitrogen Blood (BUN) 26(H) 7 - 25 mg/dL [facility] Creatinine 1.03 0.70 - 1.18 mg/dL [facility] Comment: For patients >49 years of age, the reference limit for Creatinine is approximately 13% higher for people identified as -North Korean. EGFR 69 > OR = 60 mL/min/1. [...] needs for GFR calculation. Resulting Agency Comment [id number] Mitra Fletcher MD LABORATORY Final Result [facility] [address] [place] [address] documented in this encounter Visit Diagnoses Diagnosis Systolic congestive heart failure, unspecified HF chronicity (HCC) documented in this encounter Care Teams Spark Tester Relationship Specialty Start Date End Date Mitra Fletcher MD PCP - General Internal Medicine 12/06/17 10/23/18 documented as of this encounter
--- OUTSIDE RECORDS SUMMARY | 2024-12-08 06:33 | XMS_ITS | Clinical Summary ---
Author Organization [facility] Address [address] [place] [address] Care Team Providers Care Detective Bureau Chief Name Role Phone Unavailable Primary Care Provider [...] to 3.5 8 Overview (12/18/2017): Followed by [facility]. Diagnosis: CVA,St [place]one Valve; INR: 2.5-3.5 Cerebrovascular [...] Zoster (Zostavax) Discontinued Insurance MEDICARE PART B [employer] CLAIMS-SUPPLEMENTAL
--- OUTSIDE RECORDS SUMMARY | 2024-12-08 06:33 | XMS_ITS | Encounter Summary ---
Author Organization [facility] Address [address] [place] [address] Care Team Providers Care Supervisor Reinforced Steel Placing Name Role Phone Mitra Fletcher MD Primary Care Provider + [phone] Encounter Details Date Type Department Care Team (Late st Contact Info) Description 12/24/[address] [facility] Internal Medicine [address] [place] [address] Mitra Fletcher MD [address] [place] [address] Social History Tobacco Use Types Packs/Day Years [...] this encounter Procedures * Due to [place] state law, this organization might not be [...] this encounter Results * Due to [place] state law, this organization might not be [...] 10:51 PM EDT Narrative Resulting Agency Comment [id number] Mitra Fletcher MD LABORATORY Final Result Performing Organization Address [facility] Co de Phone Number [facility] [address] [place] [address] * VITAMIN D, 25-HYDROXY, TOTAL, IMMUNOASSAY (12/24/2017 [...] D, (D2,D3), LC/MS/MS is recommended: order code 81546 (patients >2yrs). For more information on this test, go to: http://education.Milmenus.com/faq/GOZ098 (This link is being provided for informational/educational purposes only.) 12/24/2017 3:51 PM EDT 12/24/2017 10:51 PM EDT Narrative Resulting Agency Comment [id number] Mitra Fletcher MD LABORATORY Final Result Performing Organization Address [facility] Co de Phone Number [facility] [address] [place] [address] * (ABNORMAL) HEMOGLOBIN A1C (12/24/2017 3:51 PM [...] children. Estimated Average Glucose 129 mg/dL (calc) [facility] 12/24/2017 3:51 PM EDT 12/24/2017 10:51 PM EDT Narrative Resulting Agency Comment [id number] Mitra Fletcher MD LABORATORY Final Result Performing Organization Address [facility] de Phone Number [facility] [address] [place] [address] * (ABNORMAL) LIPID PANEL WITH REFLEX TO [...] LDL-C. Eliot SS et al. MARK. 2013;310(19): 4713-1236 (http://education.ClinicIQ.Socialtyze/faq/GDV952) CHOL/HDL Ratio 3.9 <5.0 (calc) [facility] Cholesterol Non-HDL 146(H) <130 mg/dL (calc) [facility] Comment: For patients with diabetes plus 1 major ASCVD risk factor, treating to a non-HDL-C goal of <100 mg/dL (LDL-C of <70 mg/dL) is considered a therapeutic option. 12/24/2017 3:51 PM EDT 12/24/2017 10:51 PM EDT Narrative Resulting Agency Comment [id number] Mitra Fletcher MD LABORATORY Final Result Performing Organization Address [facility]/ZIP Co de Phone Number [facility] [address] [place] [address] * TSH, 3RD GENERATION (12/24/2017 3:51 PM EDT) TSH 1.29 0.40 - 4.50 mIU/L [facility] 12/24/2017 3:51 PM EDT 12/24/2017 10:51 PM EDT Narrative Resulting Agency Comment [id number] Mitra Fletcher MD LABORATORY Final Result [facility] [address] [place] [address] * (ABNORMAL) COMPREHENSIVE METABOLIC PANEL WITH GFR (12/24/2017 3:51 PM EDT) Pathologist [facility] Glucose 101(H) 65 - 99 mg/dL [facility] [...] approximately 13% higher for people identified as -Belarusian. GFR 55(L) > OR = 60 mL/min/1. [...] needs for GFR calculation. Resulting Agency Comment [id number] us Mitra Fletcher MD LABORATORY Final Result [facility] [address] [place] [address] * CBC INCLUDES DIFFERENTIAL AND PLATELET COUNT [...] 10:51 PM EDT Narrative Resulting Agency Comment [id number] Mitra Fletcher MD LAB SAME DAY RESULT Final Re sult [facility] [address] [place] [address] documented in this encounter Visit Diagnoses Diagnosis [...] means documented in this encounter Care Teams Supervisor Reinforced Steel Placing Relationship Specialty Start Date End Date Mitra Fletcher MD PCP - General Internal Medicine 12/06/17 10/23/18 documented as of this encounter
--- OUTSIDE RECORDS SUMMARY | 2024-12-08 06:33 | XMS_ITS | Encounter Summary ---
Author Organization [facility] Address [address] [place] [address] Care Team Providers Care Manager Of Housekeeping Name Role Phone Mitra Fletcher MD Primary Care Provider + [phone] Encounter Details Date Type Department Care Team (Late st Contact Info) Description 12/24/2017 Orders Only [facility] [address] [place] [address] Obdulia Sherman LVN LPN [address] [place] [address] Social History Tobacco Use Types Packs/Day Years Used Date Smoking Tobacco: Never Smokeless Tobacco: Never Sex and Gender Information Value Date Recorded Sex Assigned at Not on file Legal Sex Male 9:59 PM EDT Gender Identity Not on file Sexual Orientation Not on file documented as of this encounter Progress Notes * Skylar Esteves LPN - 12/25/2017 8:57 AM EDT Results received by [facility] nurse. See [facility] Track for documentation. * Melissa Dale - 12/25/2017 8:15 AM EDT Critical results received in [facility] and forwarded to Nurse pool for dosing documented in this encounter Plan of Treatment Not on file documented as of this encounter Procedures * Due to [place] Magink display technologies law, this organization might not be sharing negative HIV tests. Procedure Name Priority Date/Time Associated Diagnosis Comments PROTHROMBIN TIME (PT), ANTICOAGULATION THERAPY (INR 2.0 3.0) Same Day Results 12/24/2017 3:51 PM EDT Cerebrovascular accident (CVA), unspecified mechanism H/O mechanical aortic valve replacement Anticoagulation goal of INR 2.5 to 3.5 documented in this encounter Results * Due to [place] [employer] display [employer] law, this organization might not be sharing negative HIV tests. * (ABNORMAL) PROTHROMBIN TIME (PT), ANTICOAGULATION THERAPY (INR 2.0 ??? 3.0) (12/24/2017 3:51 PM EDT) INR 3.9(H) [facility] Comment: Reference Range 0.9-1.1 Moderate-intensity Warfarin Therapy 2.0-3.0 Higher-intensity Warfarin Therapy 3.0-4.0 PT 40.0 9.0 - 11.5 sec [facility] 12/24/2017 3:51 PM EDT 12/24/2017 10:39 PM EDT Narrative Resulting Agency Comment [id number] us Margret Waldrop MD LAB SAME DAY RESULT Final Resul t Performing Organization Address City/State/[facility] Co de Phone Number [facility] [address] [place] [address] documented in this encounter Visit Diagnoses Diagnosis Cerebrovascular accident (CVA), unspecified mechanism (HCC) H/O mechanical aortic valve replacement Heart valve replaced by other means Anticoagulation goal of INR 2.5 to 3.5 Encounter for therapeutic drug monitoring documented in this encounter Care Teams Manager Of Housekeeping Relationship Specialty Start Date End Date Mitra Fletcher MD PCP - General Internal Medicine 12/06/17 10/23/18 documented as of this encounter
[2024-12-08 06:56] LABS: INTERNATIONAL NORM RATIO 2.5 (0.9-1.1); Prothrombin Time 29.2 SEC (10.9-12.4)
== END 2024-12-08 06:31 | disposition home or self-care (01) ==
LOC: HO.HSH3E 06:30
PROVIDERS: Visit Provider Nurse Practitioner
DX: Z95.2 Presence of prosthetic heart valve (principal)
CPT/HCPCS: 36415; 85610

== ENCOUNTER 2024-12-15 06:50 | Outpatient (REF) | payer MEDICARE, SELFPAY ==
--- OUTSIDE RECORDS SUMMARY | 2010-02-13 05:45 | XMS_ITS | Continuity of Care Document ---
Author Organization [facility] Address [address] [place] [address] Phone Care Team Providers Care Kidney Trimmer Name Role Phone Violetta Clinton MD Unavailable Unavailable Procedures Procedure Date EYE EXAM ESTABLISHED PAT REFRACTION WITH EXAM Advance Directives Directive Yes / No Effective Date File Name No Information Encounters Encounter Description Practice Location Reason(s) For Visit Diagnoses Date Provider [facility] , [address] [place] [address], [facility], tel:[phone] [place] No Information 2009 Oz Shipley. [address] [place] [address], [address], [facility], . tel:[phone] [facility] , [address] [place] [address], [facility], tel:[phone] [place] No Information 2009 No Information Family History Family Member Type Diagnosis Age At Onset No Information Payers Payer name Insurance type Covered alliance party ID Authoriza tion(s) Medicare MB [id number] [facility] Indemnity Plan [id number] For Life [id number] Social History Type Description Quantity Date Captured Comments Sex Male Smoking Status No Information Chief Complaint And Reason For Visit No Information History Of Present Illness Encounter Date Complaint History Of Prese nt Illness No Information Instructions Date Instruction Additional Infor mation No Information Assessments Type Assessment Date No Information
--- OUTSIDE RECORDS SUMMARY | 2024-12-15 06:54 | XMS_ITS | Encounter Summary ---
Author Organization [facility] Address [address] [place] [address] Care Team Providers Care Riveter Name Role Phone Mitra Fletcher MD Primary Care Provider + [phone] Encounter Details Date Type Department Care Team (Late st Contact Info) Description 12/24/2017 Orders Only [facility] Internal Medicine [address] [place] [address] Mitra Fletcher MD [address] [place] [address] Social History Tobacco Use Types Packs/Day Years [...] of this encounter Procedures * Due to [place] state law, this organization might not be [...] in this encounter Results * Due to [place] state law, this organization might not be [...] 10:51 PM EDT Narrative Resulting Agency Comment [id number] Mitra Fletcher MD LABORATORY Final Result Performing Organization Address [facility] Co de Phone Number [facility] [address] [place] [address] * VITAMIN D, 25-HYDROXY, TOTAL, IMMUNOASSAY (12/24/2017 [...] D, (D2,D3), LC/MS/MS is recommended: order code 98111 (patients >2yrs). For more information on this test, go to: http://education.eCircle/faq/ULO800 (This link is being provided for informational/educational purposes only.) 12/24/2017 3:51 PM EDT 12/24/2017 10:51 PM EDT Narrative Resulting Agency Comment [id number] Mitra Fletcher MD LABORATORY Final Result Performing Organization Address [facility] Co de Phone Number [facility] [address] [place] [address] * (ABNORMAL) HEMOGLOBIN A1C (12/24/2017 3:51 PM [...] children. Estimated Average Glucose 129 mg/dL (calc) [facility] 12/24/2017 3:51 PM EDT 12/24/2017 10:51 PM EDT Narrative Resulting Agency Comment [id number] Mitra Fletcher MD LABORATORY Final Result Performing Organization Address [facility] de Phone Number [facility] [address] [place] [address] * (ABNORMAL) LIPID PANEL WITH REFLEX TO [...] LDL-C. Eliot SS et al. MARK. 2013;310(19): 3024-4375 (http://education.Qomuty.Freta.lá/faq/RLQ627) CHOL/HDL Ratio 3.9 <5.0 (calc) [facility] Cholesterol Non-HDL 146(H) <130 mg/dL (calc) [facility] Comment: For patients with diabetes plus 1 major ASCVD risk factor, treating to a non-HDL-C goal of <100 mg/dL (LDL-C of <70 mg/dL) is considered a therapeutic option. 12/24/2017 3:51 PM EDT 12/24/2017 10:51 PM EDT Narrative Resulting Agency Comment [id number] Mitra Fletcher MD LABORATORY Final Result Performing Organization Address [facility]/ZIP Co de Phone Number [facility] [address] [place] [address] * TSH, 3RD GENERATION (12/24/2017 3:51 PM EDT) TSH 1.29 0.40 - 4.50 mIU/L [facility] 12/24/2017 3:51 PM EDT 12/24/2017 10:51 PM EDT Narrative Resulting Agency Comment [id number] Mitra Fletcher MD LABORATORY Final Result [facility] [address] [place] [address] * (ABNORMAL) COMPREHENSIVE METABOLIC PANEL WITH GFR (12/24/2017 3:51 PM EDT) Pathologist [facility] Glucose 101(H) 65 - 99 mg/dL [facility] [...] approximately 13% higher for people identified as -Namibian. GFR 55(L) > OR = 60 mL/min/1. [...] needs for GFR calculation. Resulting Agency Comment [id number] us Mitra Fletcher MD LABORATORY Final Result [facility] [address] [place] [address] * CBC INCLUDES DIFFERENTIAL AND PLATELET COUNT [...] 10:51 PM EDT Narrative Resulting Agency Comment [id number] Mitra Fletcher MD LAB SAME DAY RESULT Final Re sult [facility] [address] [place] [address] documented in this encounter Visit Diagnoses Diagnosis [...] means documented in this encounter Care Teams Riveter Relationship Specialty Start Date End Date Mitra Fletcher MD PCP - General Internal Medicine 12/06/17 10/23/18 documented as of this encounter
--- OUTSIDE RECORDS SUMMARY | 2024-12-15 06:54 | XMS_ITS | Encounter Summary ---
Author Organization [facility] Address [address] [place] [address] Care Team Providers Care Greenskeeper Supervisor Name Role Phone Mitra Fletcher MD Primary Care Provider [phone] Encounter Details Date Type Department Care Team (Late st Contact Info) Description 05/26/2018 Orders Only [facility] Internal Medicine [address] [place] [address] Mitra Fletcher MD [address] [place] [address] Social History Tobacco Use Types Packs/Day Years [...] of this encounter Procedures * Due to [place] Vasopharm law, this organization might not be sharing [...] in this encounter Results * Due to [place] Vasoph[employer] law, this organization might not be sharing [...] 10:12 PM EST Narrative Resulting Agency Comment [id number] us Mitra Fletcher MD LAB SAME DAY RESULT Final Re sult [facility] [address] [place] [address] * TSH, 3RD GENERATION (05/26/2018 12:07 PM EST) TSH 2.36 0.40 - 4.50 mIU/L [facility] 05/26/2018 12:0 7 PM EST 05/26/2018 10:12 PM EST Narrative Resulting Agency Comment [id number] Mitra Fletcher MD LABORATORY Final Result Performing Organization Address [facility] de Phone Number [facility] [address] [place] [address] * (ABNORMAL) HEMOGLOBIN A1C (05/26/2018 12:07 PM [...] 10:12 PM EST Narrative Resulting Agency Comment [id number] Mitra Fletcher MD LABORATORY Final Result Performing Organization Address [facility] de Phone Number [facility] [address] [place] [address] * (ABNORMAL) LIPID PANEL WITH REFLEX TO [...] of LDL-C. Eliot LEE et al. MARK. 2013;310(09): 7467-5414 (http://education.HuddleApp/faq/XTO485) CHOL/HDL Ratio 3.1 <5.0 (calc) [facility] Cholesterol Non-HDL 128 <130 mg/dL (calc) [facility] Comment: For patients with diabetes plus 1 major ASCVD risk factor, treating to a non-HDL-C goal of <100 mg/dL (LDL-C of <70 mg/dL) is considered a therapeutic option. 05/26/2018 12:0 7 PM EST 05/26/2018 10:12 PM EST Narrative Resulting Agency Comment [id number] us Mitra Fletcher MD LABORATORY Final Result [facility] [address] [place] [address] * (ABNORMAL) COMPREHENSIVE METABOLIC PANEL WITH GFR (05/26/2018 12:07 PM EST) Glucose 97 65 - 99 mg/dL [facility] Comment:Fasting reference in terval Urea Nitrogen Blood (BUN) 26(H) 7 - 25 mg/dL [facility] Creatinine 1.03 0.70 - 1.18 mg/dL [facility] Comment: For patients >49 years of age, the reference limit for Creatinine is approximately 13% higher for people identified as -Mongolian. EGFR 69 > OR = 60 mL/min/1. [...] needs for GFR calculation. Resulting Agency Comment [id number] Mitra Fletcher MD LABORATORY Final Result [facility] [address] [place] [address] documented in this encounter Visit Diagnoses Diagnosis Systolic congestive heart failure, unspecified HF chronicity (HCC) documented in this encounter Care Teams Greenskeeper Supervisor Relationship Specialty Start Date End Date Mitra Fletcher MD PCP - General Internal Medicine 12/06/17 10/23/18 documented as of this encounter
--- OUTSIDE RECORDS SUMMARY | 2024-12-15 06:54 | XMS_ITS | Clinical Summary ---
Author Organization [facility] Address [address] [place] [address] Care Team Providers Care Probation Manager Name Role Phone Unavailable Primary Care Provider [...] to 3.5 8 Overview (12/18/2017): Followed by [facility]. Diagnosis: CVA,St Boone Valve; INR: 2.5-3.5 [...] Zoster (Zostavax) Discontinued Insurance MEDICARE PART B [employer]/ [employer] CLAIMS-SUPPLEMENTAL
--- OUTSIDE RECORDS SUMMARY | 2024-12-15 06:54 | XMS_ITS | Encounter Summary ---
Author Organization [facility] Address [address] [place] [address] Care Team Providers Care Sustainable Communities Designer Name Role Phone Mitra Fletcher MD Primary Care Provider + [phone] Encounter Details Date Type Department Care Team (Late st Contact Info) Description 12/24/2017 Orders Only [facility] [address] [place] [address] Obdulia Sherman LVN LPN [address] [place] [address] Social History Tobacco Use Types Packs/Day Years Used Date Smoking Tobacco: Never Smokeless Tobacco: Never Sex and Gender Information Value Date Recorded Sex Assigned at Not on file Legal Sex Male 9:59 PM EDT Gender Identity Not on file Sexual Orientation Not on file documented as of this encounter Progress Notes * Skylar Esteves LPN - 12/25/2017 8:57 AM EDT Results received by [facility] nurse. See [facility] for documentation. * Melissa Dale - 12/25/2017 8:15 AM EDT Critical results received in [facility] and forwarded to Nurse pool for dosing documented in this encounter Plan of Treatment Not on file documented as of this encounter Procedures * Due to [place] [employer] law, this organization might not be sharing negative HIV tests. Procedure Name Priority Date/Time Associated Diagnosis Comments PROTHROMBIN TIME (PT), ANTICOAGULATION THERAPY (INR 2.0 3.0) Same Day Results 12/24/2017 3:51 PM EDT Cerebrovascular accident (CVA), unspecified mechanism H/O mechanical aortic valve replacement Anticoagulation goal of INR 2.5 to 3.5 documented in this encounter Results * Due to [place] [employer] law, this organization might not be sharing negative HIV tests. * (ABNORMAL) PROTHROMBIN TIME (PT), ANTICOAGULATION THERAPY (INR 2.0 ??? 3.0) (12/24/2017 3:51 PM EDT) INR 3.9(H) [facility] Comment: Reference Range 0.9-1.1 Moderate-intensity Warfarin Therapy 2.0-3.0 Higher-intensity Warfarin Therapy 3.0-4.0 PT 40.0 9.0 - 11.5 sec [facility] 12/24/2017 3:51 PM EDT 12/24/2017 10:39 PM EDT Narrative Resulting Agency Comment [id number] us Margret Waldrop MD LAB SAME DAY RESULT Final Resul t Performing Organization Address City/State/[facility] Co de Phone Number [facility] [address] [place] [address] documented in this encounter Visit Diagnoses Diagnosis Cerebrovascular accident (CVA), unspecified mechanism (HCC) H/O mechanical aortic valve replacement Heart valve replaced by other means Anticoagulation goal of INR 2.5 to 3.5 Encounter for therapeutic drug monitoring documented in this encounter Care Teams Sustainable Communities Designer Relationship Specialty Start Date End Date Mitra Fletcher MD PCP - General Internal Medicine 12/06/17 10/23/18 documented as of this encounter
== END 2024-12-15 06:51 | disposition home or self-care (01) ==
LOC: HO.HSH3E 06:50
PROVIDERS: Visit Provider Nurse Practitioner
DX: Z13.89 Encounter for screening for other disorder (principal)
CPT/HCPCS: 36415; 85610

== ENCOUNTER 2024-12-22 06:32 | Outpatient (REF) | payer MEDICARE, SELFPAY ==
--- OUTSIDE RECORDS SUMMARY | 2010-02-13 05:45 | XMS_ITS | Continuity of Care Document ---
Author Organization [facility] Address [address] [place] [address] Phone Care Team Providers Care Meal Temperer Name Role Phone Violetta Clinton MD Unavailable Unavailable Procedures Procedure Date EYE EXAM ESTABLISHED PAT REFRACTION WITH EXAM Advance Directives Directive Yes / No Effective Date File Name No Information Encounters Encounter Description Practice Location Reason(s) For Visit Diagnoses Date Provider [facility] , [address] [place] [address], [facility], tel:[phone] [place] No Information 2009 Oz Shipley. [address] [place] [address], [address], [facility], . tel:[phone] [facility] , [address] [place] [address], [facility], tel:[phone] [place] No Information 2009 No Information Family History Family Member Type Diagnosis Age At Onset No Information Payers Payer name Insurance type Covered republican ID Authoriza tion(s) Medicare MB [id number] [facility] Indemnity Plan [id number] For Life [id number] Social History Type Description Quantity Date Captured Comments Sex Male Smoking Status No Information Chief Complaint And Reason For Visit No Information History Of Present Illness Encounter Date Complaint History Of Prese nt Illness No Information Instructions Date Instruction Additional Infor mation No Information Assessments Type Assessment Date No Information
--- OUTSIDE RECORDS SUMMARY | 2024-12-22 06:34 | XMS_ITS | Clinical Summary ---
Author Organization [facility] Address [address] [place] [address] Care Team Providers Care Technology Sales Representative Name Role Phone Unavailable Primary Care Provider [...] to 3.5 8 Overview (12/18/2017): Followed by [facility]. Diagnosis: CVA,St Boone Valve; INR: [...] Zoster (Zostavax) Discontinued Insurance MEDICARE PART B [employer]/ [employer] CLAIMS-SUPPLEMENTAL
--- OUTSIDE RECORDS SUMMARY | 2024-12-22 06:34 | XMS_ITS | Encounter Summary ---
Author Organization [facility] Address [address] [place] [address] Care Team Providers Care Flight Coordinator Name Role Phone Mitra Fletcher MD Primary Care Provider [phone] Encounter Details Date Type Department Care Team (Late st Contact Info) Description 05/26/2018 Orders Only [facility] Internal Medicine [address] [place] [address] Mitra Fletcher MD [address] [place] [address] Social History Tobacco Use Types Packs/Day Years [...] of this encounter Procedures * Due to [place] bet[employer] law, this organization might not be sharing [...] in this encounter Results * Due to [place] betaw[employer] law, this organization might not be sharing [...] 10:12 PM EST Narrative Resulting Agency Comment [id number] us Mitra Fletcher MD LAB SAME DAY RESULT Final Re sult [facility] [address] [place] [address] * TSH, 3RD GENERATION (05/26/2018 12:07 PM EST) TSH 2.36 0.40 - 4.50 mIU/L [facility] 05/26/2018 12:0 7 PM EST 05/26/2018 10:12 PM EST Narrative Resulting Agency Comment [id number] Mitra Fletcher MD LABORATORY Final Result Performing Organization Address [facility] de Phone Number [facility] [address] [place] [address] * (ABNORMAL) HEMOGLOBIN A1C (05/26/2018 12:07 PM [...] 10:12 PM EST Narrative Resulting Agency Comment [id number] Mitra Fletcher MD LABORATORY Final Result Performing Organization Address [facility] de Phone Number [facility] [address] [place] [address] * (ABNORMAL) LIPID PANEL WITH REFLEX TO [...] of LDL-C. Eliot LEE et al. MARK. 2013;310(38): 0321-4072 (http://education.Routeware/faq/AUT020) CHOL/HDL Ratio 3.1 <5.0 (calc) [facility] Cholesterol Non-HDL 128 <130 mg/dL (calc) [facility] Comment: For patients with diabetes plus 1 major ASCVD risk factor, treating to a non-HDL-C goal of <100 mg/dL (LDL-C of <70 mg/dL) is considered a therapeutic option. 05/26/2018 12:0 7 PM EST 05/26/2018 10:12 PM EST Narrative Resulting Agency Comment [id number] us Mitra Fletcher MD LABORATORY Final Result [facility] [address] [place] [address] * (ABNORMAL) COMPREHENSIVE METABOLIC PANEL WITH GFR (05/26/2018 12:07 PM EST) Glucose 97 65 - 99 mg/dL [facility] Comment:Fasting reference in terval Urea Nitrogen Blood (BUN) 26(H) 7 - 25 mg/dL [facility] Creatinine 1.03 0.70 - 1.18 mg/dL [facility] Comment: For patients >49 years of age, the reference limit for Creatinine is approximately 13% higher for people identified as -Slovenian. EGFR 69 > OR = 60 mL/min/1. [...] needs for GFR calculation. Resulting Agency Comment [id number] Mitra Fletcher MD LABORATORY Final Result [facility] [address] [place] [address] documented in this encounter Visit Diagnoses Diagnosis Systolic congestive heart failure, unspecified HF chronicity (HCC) documented in this encounter Care Teams Flight Coordinator Relationship Specialty Start Date End Date Mitra Fletcher MD PCP - General Internal Medicine 12/06/17 10/23/18 documented as of this encounter
--- OUTSIDE RECORDS SUMMARY | 2024-12-22 06:34 | XMS_ITS | Encounter Summary ---
Author Organization [facility] Address [address] [place] [address] Care Team Providers Care Blast Furnace Operator Name Role Phone Mitra Fletcher MD Primary Care Provider + [phone] Encounter Details Date Type Department Care Team (Late st Contact Info) Description 12/24/2017 Orders Only [facility] Internal Medicine [address] [place] [address] Mitra Fletcher MD [address] [place] [address] Social History Tobacco Use Types Packs/Day Years [...] 10:51 PM EDT Narrative Resulting Agency Comment [id number] Mitra Fletcher MD LABORATORY Final Result Performing Organization Address [facility] Co de Phone Number [facility] [address] [place] [address] * VITAMIN D, 25-HYDROXY, TOTAL, IMMUNOASSAY (12/24/2017 [...] D, (D2,D3), LC/MS/MS is recommended: order code 43751 (patients >2yrs). For more information on this test, go to: http://education.Circassia/faq/FDE804 (This link is being provided for informational/educational purposes only.) 12/24/2017 3:51 PM EDT 12/24/2017 10:51 PM EDT Narrative Resulting Agency Comment [id number] Mitra Fletcher MD LABORATORY Final Result Performing Organization Address [facility] Co de Phone Number [facility] [address] [place] [address] * (ABNORMAL) HEMOGLOBIN A1C (12/24/2017 3:51 PM [...] children. Estimated Average Glucose 129 mg/dL (calc) [facility] 12/24/2017 3:51 PM EDT 12/24/2017 10:51 PM EDT Narrative Resulting Agency Comment [id number] Mitra Fletcher MD LABORATORY Final Result Performing Organization Address [facility] de Phone Number [facility] [address] [place] [address] * (ABNORMAL) LIPID PANEL WITH REFLEX TO [...] LDL-C. Eliot SS et al. MARK. 2013;310(19): 0643-4718 (http://education.[employer].Toywheel/faq/EQY194) CHOL/HDL Ratio 3.9 <5.0 (calc) [facility] Cholesterol Non-HDL 146(H) <130 mg/dL (calc) [facility] Comment: For patients with diabetes plus 1 major ASCVD risk factor, treating to a non-HDL-C goal of <100 mg/dL (LDL-C of <70 mg/dL) is considered a therapeutic option. 12/24/2017 3:51 PM EDT 12/24/2017 10:51 PM EDT Narrative Resulting Agency Comment [id number] Mtira Fletcher MD LABORATORY Final Result Performing Organization Address [facility]/ZIP Co de Phone Number [facility] [address] [place] [address] * TSH, 3RD GENERATION (12/24/2017 3:51 PM EDT) TSH 1.29 0.40 - 4.50 mIU/L [facility] 12/24/2017 3:51 PM EDT 12/24/2017 10:51 PM EDT Narrative Resulting Agency Comment [id number] Mitra Fletcher MD LABORATORY Final Result [facility] [address] [place] [address] * (ABNORMAL) COMPREHENSIVE METABOLIC PANEL WITH GFR (12/24/2017 3:51 PM EDT) Pathologist [facility] Glucose 101(H) 65 - 99 mg/dL [facility] [...] approximately 13% higher for people identified as -Icelandic. GFR 55(L) > OR = 60 mL/min/1. [...] needs for GFR calculation. Resulting Agency Comment [id number] us Mitra Fletcher MD LABORATORY Final Result [facility] [address] [place] [address] * CBC INCLUDES DIFFERENTIAL AND PLATELET COUNT [...] 10:51 PM EDT Narrative Resulting Agency Comment [id number] Mitra Fletcher MD LAB SAME DAY RESULT Final Re sult [facility] [address] [place] [address] documented in this encounter Visit Diagnoses Diagnosis [...] means documented in this encounter Care Teams Blast Furnace Operator Relationship Specialty Start Date End Date Mitra Fletcher MD PCP - General Internal Medicine 12/06/17 10/23/18 documented as of this encounter
--- OUTSIDE RECORDS SUMMARY | 2024-12-22 06:34 | XMS_ITS | Encounter Summary ---
Author Organization [facility] Address [address] [place] [address] Care Team Providers Care Call Center Assistant Name Role Phone Mitra Fletcher MD Primary Care Provider + [phone] Encounter Details Date Type Department Care Team (Late st Contact Info) Description 12/24/2017 Orders Only [facility] [address] [place] [address] Obdulia Sherman LVN LPN [address] [place] [address] Social History Tobacco Use Types Packs/Day Years Used Date Smoking Tobacco: Never Smokeless Tobacco: Never Sex and Gender Information Value Date Recorded Sex Assigned at Not on file Legal Sex Male 9:59 PM EDT Gender Identity Not on file Sexual Orientation Not on file documented as of this encounter Progress Notes * Skylar Esteves LPN - 12/25/2017 8:57 AM EDT Results received by [facility] nurse. See [facility] for documentation. * Melissa Dale - 12/25/2017 8:15 AM EDT Critical results received in [facility] and forwarded to Nurse pool for dosing documented in this encounter Plan of Treatment Not on file documented as of this encounter Procedures * Due to [place] [employer] law, this organization might not be sharing negative HIV tests. Procedure Name Priority Date/Time Associated Diagnosis Comments PROTHROMBIN TIME (PT), ANTICOAGULATION THERAPY (INR 2.0 3.0) Same Day Results 12/24/2017 3:51 PM EDT Cerebrovascular accident (CVA), unspecified mechanism H/O mechanical aortic valve replacement Anticoagulation goal of INR 2.5 to 3.5 documented in this encounter Results * Due to [place] [employer] law, this organization might not be sharing negative HIV tests. * (ABNORMAL) PROTHROMBIN TIME (PT), ANTICOAGULATION THERAPY (INR 2.0 ??? 3.0) (12/24/2017 3:51 PM EDT) INR 3.9(H) [facility] Comment: Reference Range 0.9-1.1 Moderate-intensity Warfarin Therapy 2.0-3.0 Higher-intensity Warfarin Therapy 3.0-4.0 PT 40.0 9.0 - 11.5 sec [facility] 12/24/2017 3:51 PM EDT 12/24/2017 10:39 PM EDT Narrative Resulting Agency Comment [id number] us Margret Waldrop MD LAB SAME DAY RESULT Final Resul t Performing Organization Address City/State/[facility] Co de Phone Number [facility] [address] [place] [address] documented in this encounter Visit Diagnoses Diagnosis Cerebrovascular accident (CVA), unspecified mechanism (HCC) H/O mechanical aortic valve replacement Heart valve replaced by other means Anticoagulation goal of INR 2.5 to 3.5 Encounter for therapeutic drug monitoring documented in this encounter Care Teams Call Center Assistant Relationship Specialty Start Date End Date Mitra Fletcher MD PCP - General Internal Medicine 12/06/17 10/23/18 documented as of this encounter
[2024-12-22 07:22] LABS: INTERNATIONAL NORM RATIO 3.4 (0.9-1.1); Prothrombin Time 39.0 SEC (10.9-12.4)
== END 2024-12-22 06:33 | disposition home or self-care (01) ==
LOC: HO.HSH3E 06:32
PROVIDERS: Visit Provider Nurse Practitioner
DX: Z09 Encounter for follow-up examination after completed treatment for conditions other than malignant neoplasm (principal); Z95.2 Presence of prosthetic heart valve
CPT/HCPCS: 36415; 85610

== ENCOUNTER 2024-12-29 06:06 | Outpatient (REF) | payer MEDICARE, SELFPAY ==
--- OUTSIDE RECORDS SUMMARY | 2010-02-13 05:45 | XMS_ITS | Continuity of Care Document ---
Author Organization [facility] Address [address] [place] [address] Phone Care Team Providers Care Lead Level Designer Name Role Phone Violetta Clinton MD Unavailable Unavailable Procedures Procedure Date EYE EXAM ESTABLISHED PAT REFRACTION WITH EXAM Advance Directives Directive Yes / No Effective Date File Name No Information Encounters Encounter Description Practice Location Reason(s) For Visit Diagnoses Date Provider [facility] , [address] [place] [address], [facility], tel:[phone] [place] No Information 2009 Oz Shipley. [address] [place] [address], [address], [facility], . tel:[phone] [facility] , [address] [place] [address], [facility], tel:[phone] [place] No Information 2009 No Information Family History Family Member Type Diagnosis Age At Onset No Information Payers Payer name Insurance type Covered constitution party ID Authoriza tion(s) Medicare MB [id number] [facility], [facility]–1983 Indemnity Plan [id number] For Life [id number] Social History Type Description Quantity Date Captured Comments Sex Male Smoking Status No Information Chief Complaint And Reason For Visit No Information History Of Present Illness Encounter Date Complaint History Of Prese nt Illness No Information Instructions Date Instruction Additional Infor mation No Information Assessments Type Assessment Date No Information
--- OUTSIDE RECORDS SUMMARY | 2024-12-29 06:10 | XMS_ITS | Clinical Summary ---
Author Organization [facility] Address [address] [place] [address] Care Team Providers Care Conservation Policy Analyst Name Role Phone Unavailable Primary Care Provider [...] to 3.5 8 Overview (12/18/2017): Followed by [facility]. Diagnosis: CVA,St Boone Valve; INR: 2.5-3.5 Cerebrovascular [...] Zoster (Zostavax) Discontinued Insurance MEDICARE PART B [employer]/ [employer] CLAIMS-SUPPLEMENTAL
--- OUTSIDE RECORDS SUMMARY | 2024-12-29 06:10 | XMS_ITS | Encounter Summary ---
Author Organization [facility] Address [address] [place] [address] Care Team Providers Care Crate Maker Name Role Phone Mitra Fletcher MD Primary Care Provider + [phone] Encounter Details Date Type Department Care Team (Late st Contact Info) Description 12/24/2017 Orders Only [facility] [address] [place] [address] Obdulia Sherman LVN LPN [address] [place] [address] Social History Tobacco Use Types Packs/Day Years [...] 8:57 AM EDT Results received by [facility] nurse. See [facility] for documentation. * Melissa Dale - 12/25/2017 8:15 AM EDT Critical results received in [facility] and forwarded to Nurse pool for dosing documented in this encounter Plan of Treatment Not on file documented as of this encounter Procedures * Due to [place] [employer] law, this organization might not be sharing negative HIV tests. Procedure Name Priority Date/Time Associated Diagnosis Comments PROTHROMBIN TIME (PT), ANTICOAGULATION THERAPY (INR 2.0 3.0) Same Day Results 12/24/2017 3:51 PM EDT Cerebrovascular accident (CVA), unspecified mechanism H/O mechanical aortic valve replacement Anticoagulation goal of INR 2.5 to 3.5 documented in this encounter Results * Due to [place] [employer] law, this organization might not be sharing negative HIV tests. * (ABNORMAL) PROTHROMBIN TIME (PT), ANTICOAGULATION THERAPY (INR 2.0 ??? 3.0) (12/24/2017 3:51 PM EDT) INR 3.9(H) [facility] Comment: Reference Range 0.9-1.1 Moderate-intensity Warfarin Therapy 2.0-3.0 Higher-intensity Warfarin Therapy 3.0-4.0 PT 40.0 9.0 - 11.5 sec [facility] 12/24/2017 3:51 PM EDT 12/24/2017 10:39 PM EDT Narrative Resulting Agency Comment [id number] us Margret Waldrop MD LAB SAME DAY RESULT Final Resul t Performing Organization Address City/State/[facility] Co de Phone Number [facility] [address] [place] [address] documented in this encounter Visit Diagnoses Diagnosis Cerebrovascular accident (CVA), unspecified mechanism (HCC) H/O mechanical aortic valve replacement Heart valve replaced by other means Anticoagulation goal of INR 2.5 to 3.5 Encounter for therapeutic drug monitoring documented in this encounter Care Teams Crate Maker Relationship Specialty Start Date End Date Mitra Fletcher MD PCP - General Internal Medicine 12/06/17 10/23/18 documented as of this encounter
--- OUTSIDE RECORDS SUMMARY | 2024-12-29 06:10 | XMS_ITS | Encounter Summary ---
Author Organization [facility] Address [address] [place] [address] Care Team Providers Care Phlebotomist Lab Assistant Name Role Phone Mitra Fletcher MD Primary Care Provider + [phone] Encounter Details Date Type Department Care Team (Late st Contact Info) Description 12/24/2017 Orders Only [facility] Internal Medicine [address] [place] [address] Mitra Fletcher MD [address] [place] [address] Social History Tobacco Use Types Packs/Day Years [...] this encounter Procedures * Due to [place] state law, this organization might not be [...] this encounter Results * Due to [place] state law, this organization might not be [...] 10:51 PM EDT Narrative Resulting Agency Comment [id number] Mitra Fletcher MD LABORATORY Final Result Performing Organization Address [facility] Co de Phone Number [facility] [address] [place] [address] * VITAMIN D, 25-HYDROXY, TOTAL, IMMUNOASSAY (12/24/2017 [...] D, (D2,D3), LC/MS/MS is recommended: order code 51072 (patients >2yrs). For more information on this test, go to: http://education.OKpanda/faq/JLV145 (This link is being provided for informational/educational purposes only.) 12/24/2017 3:51 PM EDT 12/24/2017 10:51 PM EDT Narrative Resulting Agency Comment [id number] Mitra Fletcher MD LABORATORY Final Result Performing Organization Address [facility] Co de Phone Number [facility] [address] [place] [address] * (ABNORMAL) HEMOGLOBIN A1C (12/24/2017 3:51 PM [...] children. Estimated Average Glucose 129 mg/dL (calc) [facility] 12/24/2017 3:51 PM EDT 12/24/2017 10:51 PM EDT Narrative Resulting Agency Comment [id number] Mitra Fletcher MD LABORATORY Final Result Performing Organization Address [facility] de Phone Number [facility] [address] [place] [address] * (ABNORMAL) LIPID PANEL WITH REFLEX TO [...] LDL-C. Eliot SS et al. MARK. 2013;310(19): 2851-9805 (http://education.Action Auto Sales.ID Watchdog/faq/RPQ192) CHOL/HDL Ratio 3.9 <5.0 (calc) [facility] Cholesterol Non-HDL 146(H) <130 mg/dL (calc) [facility] Comment: For patients with diabetes plus 1 major ASCVD risk factor, treating to a non-HDL-C goal of <100 mg/dL (LDL-C of <70 mg/dL) is considered a therapeutic option. 12/24/2017 3:51 PM EDT 12/24/2017 10:51 PM EDT Narrative Resulting Agency Comment [id number] Mitra Fletcher MD LABORATORY Final Result Performing Organization Address [facility]/ZIP Co de Phone Number [facility] [address] [place] [address] * TSH, 3RD GENERATION (12/24/2017 3:51 PM EDT) TSH 1.29 0.40 - 4.50 mIU/L [facility] 12/24/2017 3:51 PM EDT 12/24/2017 10:51 PM EDT Narrative Resulting Agency Comment [id number] Mitra Fletcher MD LABORATORY Final Result [facility] [address] [place] [address] * (ABNORMAL) COMPREHENSIVE METABOLIC PANEL WITH GFR (12/24/2017 3:51 PM EDT) Pathologist [facility] Glucose 101(H) 65 - 99 mg/dL [facility] [...] approximately 13% higher for people identified as -Burundian. GFR 55(L) > OR = 60 mL/min/1. [...] needs for GFR calculation. Resulting Agency Comment [id number] us Mitra Fletcher MD LABORATORY Final Result [facility] [address] [place] [address] * CBC INCLUDES DIFFERENTIAL AND PLATELET COUNT [...] 10:51 PM EDT Narrative Resulting Agency Comment [id number] Mitra Fletcher MD LAB SAME DAY RESULT Final Re sult [facility] [address] [place] [address] documented in this encounter Visit Diagnoses Diagnosis [...] means documented in this encounter Care Teams Phlebotomist Lab Assistant Relationship Specialty Start Date End Date Mitra Fletcher MD PCP - General Internal Medicine 12/06/17 10/23/18 documented as of this encounter
--- OUTSIDE RECORDS SUMMARY | 2024-12-29 06:10 | XMS_ITS | Encounter Summary ---
Author Organization [facility] Address [address] [place] [address] Care Team Providers Care Athletic Director Name Role Phone Mitra Fletcher MD Primary Care Provider [phone] Encounter Details Date Type Department Care Team (Late st Contact Info) Description 05/26/2018 Orders Only [facility] Internal Medicine [address] [place] [address] Mitra Fletcher MD [address] [place] [address] Social History Tobacco Use Types Packs/Day Years [...] this encounter Procedures * Due to [place] [employer] law, this organization might not be sharing [...] this encounter Results * Due to [place] [employer] law, this organization might not be sharing [...] 10:12 PM EST Narrative Resulting Agency Comment [id number] us Mitra Fletcher MD LAB SAME DAY RESULT Final Re sult [facility] [address] [place] [address] * TSH, 3RD GENERATION (05/26/2018 12:07 PM EST) TSH 2.36 0.40 - 4.50 mIU/L [facility] 05/26/2018 12:0 7 PM EST 05/26/2018 10:12 PM EST Narrative Resulting Agency Comment [id number] Mitra Fletcher MD LABORATORY Final Result Performing Organization Address [facility] de Phone Number [facility] [address] [place] [address] * (ABNORMAL) HEMOGLOBIN A1C (05/26/2018 12:07 PM [...] 10:12 PM EST Narrative Resulting Agency Comment [id number] Mitra Fletcher MD LABORATORY Final Result Performing Organization Address [facility] de Phone Number [facility] [address] [place] [address] * (ABNORMAL) LIPID PANEL WITH REFLEX TO [...] of LDL-C. Eliot LEE et al. MARK. 2013;310(79): 9211-4357 (http://education.Wanxue Education/faq/FWC976) CHOL/HDL Ratio 3.1 <5.0 (calc) [facility] Cholesterol Non-HDL 128 <130 mg/dL (calc) [facility] Comment: For patients with diabetes plus 1 major ASCVD risk factor, treating to a non-HDL-C goal of <100 mg/dL (LDL-C of <70 mg/dL) is considered a therapeutic option. 05/26/2018 12:0 7 PM EST 05/26/2018 10:12 PM EST Narrative Resulting Agency Comment [id number] us Mitra Fletcher MD LABORATORY Final Result [facility] [address] [place] [address] * (ABNORMAL) COMPREHENSIVE METABOLIC PANEL WITH GFR (05/26/2018 12:07 PM EST) Glucose 97 65 - 99 mg/dL [facility] Comment:Fasting reference in terval Urea Nitrogen Blood (BUN) 26(H) 7 - 25 mg/dL [facility] Creatinine 1.03 0.70 - 1.18 mg/dL [facility] Comment: For patients >49 years of age, the reference limit for Creatinine is approximately 13% higher for people identified as -Equatorial Guinean. EGFR 69 > OR = 60 mL/min/1. [...] needs for GFR calculation. Resulting Agency Comment [id number] Mitra Fletcher MD LABORATORY Final Result [facility] [address] [place] [address] documented in this encounter Visit Diagnoses Diagnosis Systolic congestive heart failure, unspecified HF chronicity (HCC) documented in this encounter Care Teams Athletic Director Relationship Specialty Start Date End Date Mitra Fletcher MD PCP - General Internal Medicine 12/06/17 10/23/18 documented as of this encounter
[2024-12-29 06:28] LABS: INTERNATIONAL NORM RATIO 1.8 (0.9-1.1); Prothrombin Time 21.2 SEC (10.9-12.4)
== END 2024-12-29 06:07 | disposition home or self-care (01) ==
LOC: HO.HSH3E 06:06
PROVIDERS: Visit Provider Nurse Practitioner
DX: Z95.2 Presence of prosthetic heart valve (principal)
CPT/HCPCS: 36415; 85610

== ENCOUNTER 2025-01-05 05:48 | Outpatient (REF) | payer MEDICARE, SELFPAY ==
--- OUTSIDE RECORDS SUMMARY | 2010-02-13 05:45 | XMS_ITS | Continuity of Care Document ---
Author Organization [facility] Address [address] [place] [address] Phone Care Team Providers Care Tool Crib Manager Name Role Phone Violetta Clinton MD Unavailable Unavailable Procedures Procedure Date EYE EXAM ESTABLISHED PAT REFRACTION WITH EXAM Advance Directives Directive Yes / No Effective Date File Name No Information Encounters Encounter Description Practice Location Reason(s) For Visit Diagnoses Date Provider [facility] , [address] [place] [address], [facility], tel:[phone] [place] No Information 2009 Oz Shipley. [address] [place] [address], [address], [facility], . tel:[phone] [facility] , [address] [place] [address], [facility], tel:[phone] [place] No Information 2009 No Information Family History Family Member Type Diagnosis Age At Onset No Information Payers Payer name Insurance type Covered green party ID Authoriza tion(s) Medicare MB [id number] [facility] Indemnity Plan [id number] For Life [id number] Social History Type Description Quantity Date Captured Comments Sex Male Smoking Status No Information Chief Complaint And Reason For Visit No Information History Of Present Illness Encounter Date Complaint History Of Prese nt Illness No Information Instructions Date Instruction Additional Infor mation No Information Assessments Type Assessment Date No Information
--- OUTSIDE RECORDS SUMMARY | 2025-01-05 05:51 | XMS_ITS | Encounter Summary ---
Author Organization [facility] Address [address] [place] [address] Care Team Providers Care Rn Clinician Name Role Phone Mitra Fletcher MD Primary Care Provider + [phone] Encounter Details Date Type Department Care Team (Late st Contact Info) Description 12/24/2017 Orders Only [facility] Internal Medicine [address] [place] [address] Mitra Fletcher MD [address] [place] [address] Social History Tobacco Use Types Packs/Day Years [...] of this encounter Procedures * Due to [place] state law, this organization might not be [...] in this encounter Results * Due to [place] state law, this organization might not be [...] 10:51 PM EDT Narrative Resulting Agency Comment [id number] Mitra Fletcher MD LABORATORY Final Result Performing Organization Address [facility] Co de Phone Number [facility] [address] [place] [address] * VITAMIN D, 25-HYDROXY, TOTAL, IMMUNOASSAY (12/24/2017 [...] D, (D2,D3), LC/MS/MS is recommended: order code 58971 (patients >2yrs). For more information on this test, go to: http://education.iCatapult/faq/UUF560 (This link is being provided for informational/educational purposes only.) 12/24/2017 3:51 PM EDT 12/24/2017 10:51 PM EDT Narrative Resulting Agency Comment [id number] Mitra Fletcher MD LABORATORY Final Result Performing Organization Address [facility] Co de Phone Number [facility] [address] [place] [address] * (ABNORMAL) HEMOGLOBIN A1C (12/24/2017 3:51 PM [...] children. Estimated Average Glucose 129 mg/dL (calc) [facility] 12/24/2017 3:51 PM EDT 12/24/2017 10:51 PM EDT Narrative Resulting Agency Comment [id number] Mitra Fletcher MD LABORATORY Final Result Performing Organization Address [facility] de Phone Number [facility] [address] [place] [address] * (ABNORMAL) LIPID PANEL WITH REFLEX TO [...] LDL-C. Eliot SS et al. MARK. 2013;310(19): 6042-3937 (http://education.LanternCRM.Inneractive/faq/RSZ199) CHOL/HDL Ratio 3.9 <5.0 (calc) [facility] Cholesterol Non-HDL 146(H) <130 mg/dL (calc) [facility] Comment: For patients with diabetes plus 1 major ASCVD risk factor, treating to a non-HDL-C goal of <100 mg/dL (LDL-C of <70 mg/dL) is considered a therapeutic option. 12/24/2017 3:51 PM EDT 12/24/2017 10:51 PM EDT Narrative Resulting Agency Comment [id number] Mitra Fletcher MD LABORATORY Final Result Performing Organization Address [facility]/ZIP Co de Phone Number [facility] [address] [place] [address] * TSH, 3RD GENERATION (12/24/2017 3:51 PM EDT) TSH 1.29 0.40 - 4.50 mIU/L [facility] 12/24/2017 3:51 PM EDT 12/24/2017 10:51 PM EDT Narrative Resulting Agency Comment [id number] Mitra Fletcher MD LABORATORY Final Result [facility] [address] [place] [address] * (ABNORMAL) COMPREHENSIVE METABOLIC PANEL WITH GFR [...] approximately 13% higher for people identified as -Monegasque. GFR 55(L) > OR = 60 mL/min/1. [...] needs for GFR calculation. Resulting Agency Comment [id number] us Mitra Fletcher MD LABORATORY Final Result [facility] [address] [place] [address] * CBC INCLUDES DIFFERENTIAL AND PLATELET COUNT [...] 10:51 PM EDT Narrative Resulting Agency Comment [id number] Mitra Fletcher MD LAB SAME DAY RESULT Final Re sult [facility] [address] [place] [address] documented in this encounter Visit Diagnoses Diagnosis [...] means documented in this encounter Care Teams Rn Clinician Relationship Specialty Start Date End Date Mitra Fletcher MD PCP - General Internal Medicine 12/06/17 10/23/18 documented as of this encounter
--- OUTSIDE RECORDS SUMMARY | 2025-01-05 05:51 | XMS_ITS | Encounter Summary ---
Author Organization [facility] Address [address] [place] [address] Care Team Providers Care Design Engineering Intern Name Role Phone Mitra Fletcher MD Primary Care Provider [phone] Encounter Details Date Type Department Care Team (Late st Contact Info) Description 05/26/2018 Orders Only [facility] Internal Medicine [address] [place] [address] Mitra Fletcher MD [address] [place] [address] Social History Tobacco Use Types Packs/Day Years [...] this encounter Procedures * Due to [place] [employer] law, this organization might not be sharing [...] this encounter Results * Due to [place] [employer] law, this organization might not be sharing [...] 10:12 PM EST Narrative Resulting Agency Comment [id number] us Mitra Fletcher MD LAB SAME DAY RESULT Final Re sult [facility] [address] [place] [address] * TSH, 3RD GENERATION (05/26/2018 12:07 PM EST) TSH 2.36 0.40 - 4.50 mIU/L [facility] 05/26/2018 12:0 7 PM EST 05/26/2018 10:12 PM EST Narrative Resulting Agency Comment [id number] Mitra Fletcher MD LABORATORY Final Result Performing Organization Address [facility] de Phone Number [facility] [address] [place] [address] * (ABNORMAL) HEMOGLOBIN A1C (05/26/2018 12:07 PM [...] 10:12 PM EST Narrative Resulting Agency Comment [id number] Mitra Fletcher MD LABORATORY Final Result Performing Organization Address [facility] de Phone Number [facility] [address] [place] [address] * (ABNORMAL) LIPID PANEL WITH REFLEX TO [...] of LDL-C. Eliot LEE et al. MARK. 2013;310(91): 2164-8958 (http://education.Cojoin/faq/DPG830) CHOL/HDL Ratio 3.1 <5.0 (calc) [facility] Cholesterol Non-HDL 128 <130 mg/dL (calc) [facility] Comment: For patients with diabetes plus 1 major ASCVD risk factor, treating to a non-HDL-C goal of <100 mg/dL (LDL-C of <70 mg/dL) is considered a therapeutic option. 05/26/2018 12:0 7 PM EST 05/26/2018 10:12 PM EST Narrative Resulting Agency Comment [id number] us Mitra Fletcher MD LABORATORY Final Result [facility] [address] [place] [address] * (ABNORMAL) COMPREHENSIVE METABOLIC PANEL WITH GFR (05/26/2018 12:07 PM EST) Glucose 97 65 - 99 mg/dL [facility] Comment:Fasting reference in terval Urea Nitrogen Blood (BUN) 26(H) 7 - 25 mg/dL [facility] Creatinine 1.03 0.70 - 1.18 mg/dL [facility] Comment: For patients >49 years of age, the reference limit for Creatinine is approximately 13% higher for people identified as -Cameroonian. EGFR 69 > OR = 60 mL/min/1. [...] needs for GFR calculation. Resulting Agency Comment [id number] Mitra Fletcher MD LABORATORY Final Result [facility] [address] [place] [address] documented in this encounter Visit Diagnoses Diagnosis Systolic congestive heart failure, unspecified HF chronicity (HCC) documented in this encounter Care Teams Design Engineering Intern Relationship Specialty Start Date End Date Mitra Fletcher MD PCP - General Internal Medicine 12/06/17 10/23/18 documented as of this encounter
--- OUTSIDE RECORDS SUMMARY | 2025-01-05 05:51 | XMS_ITS | Clinical Summary ---
Author Organization [facility] Address [address] [place] [address] Care Team Providers Care Math And Sciences Department Chair Name Role Phone Unavailable Primary Care Provider [...] to 3.5 8 Overview (12/18/2017): Followed by [facility]. Diagnosis: CVA,St Boone Valve; INR: 2.5-3.5 [...] Zoster (Zostavax) Discontinued Insurance MEDICARE PART B [employer]/ [employer] CLAIMS-SUPPLEMENTAL
--- OUTSIDE RECORDS SUMMARY | 2025-01-05 05:51 | XMS_ITS | Encounter Summary ---
Author Organization [facility] Address [address] [place] [address] Care Team Providers Care Tool And Cutter Grinder Name Role Phone Mitra Fletcher MD Primary Care Provider + [phone] Encounter Details Date Type Department Care Team (Late st Contact Info) Description 12/24/2017 Orders Only [facility] [address] [place] [address] Obdulia Sherman LVN LPN [address] [place] [address] Social History Tobacco Use Types Packs/Day Years Used Date Smoking Tobacco: Never Smokeless Tobacco: Never Sex and Gender Information Value Date Recorded Sex Assigned at Not on file Legal Sex Male 9:59 PM EDT Gender Identity Not on file Sexual Orientation Not on file documented as of this encounter Progress Notes * Skylar Esteves LPN - 12/25/2017 8:57 AM EDT Results received by [facility] nurse. See [facility] for documentation. * Melissa Dale - 12/25/2017 8:15 AM EDT Critical results received in [facility] and forwarded to Nurse pool for dosing documented in this encounter Plan of Treatment Not on file documented as of this encounter Procedures * Due to [place] [employer] law, this organization might not be sharing negative HIV tests. Procedure Name Priority Date/Time Associated Diagnosis Comments PROTHROMBIN TIME (PT), ANTICOAGULATION THERAPY (INR 2.0 3.0) Same Day Results 12/24/2017 3:51 PM EDT Cerebrovascular accident (CVA), unspecified mechanism H/O mechanical aortic valve replacement Anticoagulation goal of INR 2.5 to 3.5 documented in this encounter Results * Due to [place] [employer] law, this organization might not be sharing negative HIV tests. * (ABNORMAL) PROTHROMBIN TIME (PT), ANTICOAGULATION THERAPY (INR 2.0 ??? 3.0) (12/24/2017 3:51 PM EDT) INR 3.9(H) [facility] Comment: Reference Range 0.9-1.1 Moderate-intensity Warfarin Therapy 2.0-3.0 Higher-intensity Warfarin Therapy 3.0-4.0 PT 40.0 9.0 - 11.5 sec [facility] 12/24/2017 3:51 PM EDT 12/24/2017 10:39 PM EDT Narrative Resulting Agency Comment [id number] us Margret Waldrop MD LAB SAME DAY RESULT Final Resul t Performing Organization Address City/State/[facility] Co de Phone Number [facility] [address] [place] [address] documented in this encounter Visit Diagnoses Diagnosis Cerebrovascular accident (CVA), unspecified mechanism (HCC) H/O mechanical aortic valve replacement Heart valve replaced by other means Anticoagulation goal of INR 2.5 to 3.5 Encounter for therapeutic drug monitoring documented in this encounter Care Teams Tool And Cutter Grinder Relationship Specialty Start Date End Date Mitra Fletcher MD PCP - General Internal Medicine 12/06/17 10/23/18 documented as of this encounter
[2025-01-05 06:02] LABS: INTERNATIONAL NORM RATIO 2.1 (0.9-1.1); Prothrombin Time 23.8 SEC (10.9-12.4)
== END 2025-01-05 05:49 | disposition home or self-care (01) ==
LOC: HO.HSH3E 05:48
PROVIDERS: Visit Provider Nurse Practitioner
DX: Z13.89 Encounter for screening for other disorder (principal)
CPT/HCPCS: 36415; 85610

== ENCOUNTER 2025-01-12 06:20 | Outpatient (REF) | payer MEDICARE, SELFPAY ==
--- OUTSIDE RECORDS SUMMARY | 2010-02-13 05:45 | XMS_ITS | Continuity of Care Document ---
Author Organization [facility] Address [address] [place] [address] Phone Care Team Providers Care Senior Behavioral Scientist Name Role Phone Violetta Clinton MD Unavailable Unavailable Procedures Procedure Date EYE EXAM ESTABLISHED PAT REFRACTION WITH EXAM Advance Directives Directive Yes / No Effective Date File Name No Information Encounters Encounter Description Practice Location Reason(s) For Visit Diagnoses Date Provider [facility] , [address] [place] [address], [facility], tel:[phone] [place] No Information 2009 Oz Shipley. [address] [place] [address], [address], [facility], . tel:[phone] [facility] , [address] [place] [address], [facility], tel:[phone] [place] No Information 2009 No Information Family History Family Member Type Diagnosis Age At Onset No Information Payers Payer name Insurance type Covered democrat ID Authoriza tion(s) Medicare MB [id number] [facility] Indemnity Plan [id number] For Life [id number] Social History Type Description Quantity Date Captured Comments Sex Male Smoking Status No Information Chief Complaint And Reason For Visit No Information History Of Present Illness Encounter Date Complaint History Of Prese nt Illness No Information Instructions Date Instruction Additional Infor mation No Information Assessments Type Assessment Date No Information
--- OUTSIDE RECORDS SUMMARY | 2025-01-12 06:23 | XMS_ITS | Encounter Summary ---
Author Organization [facility] Address [address] [place] [address] Care Team Providers Care Textile Colorist Formulator Name Role Phone Mitra Fletcher MD Primary Care Provider [phone] Encounter Details Date Type Department Care Team (Late st Contact Info) Description 05/26/2018 Orders Only [facility] Internal Medicine [address] [place] [address] Mitra Fletcher MD [address] [place] [address] Social History Tobacco Use Types Packs/Day Years [...] this encounter Procedures * Due to [place] [employer] law, this organization might not be sharing [...] this encounter Results * Due to [place] [employer] law, this organization might not be sharing [...] 10:12 PM EST Narrative Resulting Agency Comment [id number] us Mitra Fletcher MD LAB SAME DAY RESULT Final Re sult [facility] [address] [place] [address] * TSH, 3RD GENERATION (05/26/2018 12:07 PM EST) TSH 2.36 0.40 - 4.50 mIU/L [facility] 05/26/2018 12:0 7 PM EST 05/26/2018 10:12 PM EST Narrative Resulting Agency Comment [id number] Mitra Fletcher MD LABORATORY Final Result Performing Organization Address [facility] de Phone Number [facility] [address] [place] [address] * (ABNORMAL) HEMOGLOBIN A1C (05/26/2018 12:07 PM [...] 10:12 PM EST Narrative Resulting Agency Comment [id number] Mitra Fletcher MD LABORATORY Final Result Performing Organization Address [facility] de Phone Number [facility] [address] [place] [address] * (ABNORMAL) LIPID PANEL WITH REFLEX TO [...] LDL-C. Eliot LEE et al. MARK. 2013;310(84): 6471-5514 (http://education.Kenzei/faq/GLY925) CHOL/HDL Ratio 3.1 <5.0 (calc) [facility] Cholesterol Non-HDL 128 <130 mg/dL (calc) [facility] Comment: For patients with diabetes plus 1 major ASCVD risk factor, treating to a non-HDL-C goal of <100 mg/dL (LDL-C of <70 mg/dL) is considered a therapeutic option. 05/26/2018 12:0 7 PM EST 05/26/2018 10:12 PM EST Narrative Resulting Agency Comment [id number] us Mitra Fletcher MD LABORATORY Final Result [facility] [address] [place] [address] * (ABNORMAL) COMPREHENSIVE METABOLIC PANEL WITH GFR (05/26/2018 12:07 PM EST) Glucose 97 65 - 99 mg/dL [facility] Comment:Fasting reference in terval Urea Nitrogen Blood (BUN) 26(H) 7 - 25 mg/dL [facility] Creatinine 1.03 0.70 - 1.18 mg/dL [facility] Comment: For patients >49 years of age, the reference limit for Creatinine is approximately 13% higher for people identified as -Qatari. EGFR 69 > OR = 60 mL/min/1. [...] needs for GFR calculation. Resulting Agency Comment [id number] Mitra Fletcher MD LABORATORY Final Result [facility] [address] [place] [address] documented in this encounter Visit Diagnoses Diagnosis Systolic congestive heart failure, unspecified HF chronicity (HCC) documented in this encounter Care Teams Textile Colorist Formulator Relationship Specialty Start Date End Date Mitra Fletcher MD PCP - General Internal Medicine 12/06/17 10/23/18 documented as of this encounter
--- OUTSIDE RECORDS SUMMARY | 2025-01-12 06:23 | XMS_ITS | Encounter Summary ---
Author Organization [facility] Address [address] [place] [address] Care Team Providers Care Pomology Teacher Name Role Phone Mitra Fletcher MD Primary Care Provider + [phone] Encounter Details Date Type Department Care Team (Late st Contact Info) Description 12/24/2017 Orders Only [facility] Internal Medicine [address] [place] [address] Mitra Fletcher MD [address] [place] [address] Social History Tobacco Use Types Packs/Day Years [...] of this encounter Procedures * Due to [place] state law, this organization might not be [...] in this encounter Results * Due to [place] state law, this organization might not be [...] 10:51 PM EDT Narrative Resulting Agency Comment [id number] Mitra Fletcher MD LABORATORY Final Result Performing Organization Address [facility] Co de Phone Number [facility] [address] [place] [address] * VITAMIN D, 25-HYDROXY, TOTAL, IMMUNOASSAY (12/24/2017 [...] D, (D2,D3), LC/MS/MS is recommended: order code [id number] (patients >2yrs). For more information on this test, go to: http://education.Simplebooklet/faq/UHI861 (This link is being provided for informational/educational purposes only.) 12/24/2017 3:51 PM EDT 12/24/2017 10:51 PM EDT Narrative Resulting Agency Comment [id number] Mitra Fletcher MD LABORATORY Final Result Performing Organization Address [facility] Co de Phone Number [facility] [address] [place] [address] * (ABNORMAL) HEMOGLOBIN A1C (12/24/2017 3:51 PM [...] children. Estimated Average Glucose 129 mg/dL (calc) [facility] 12/24/2017 3:51 PM EDT 12/24/2017 10:51 PM EDT Narrative Resulting Agency Comment [id number] Mitra Fletcher MD LABORATORY Final Result Performing Organization Address [facility] de Phone Number [facility] [address] [place] [address] * (ABNORMAL) LIPID PANEL WITH REFLEX TO [...] LDL-C. Eliot SS et al. MARK. 2013;310(19): 9307-2198 (http://education.Attensa.PPLCONNECT/faq/OAP737) CHOL/HDL Ratio 3.9 <5.0 (calc) [facility] Cholesterol Non-HDL 146(H) <130 mg/dL (calc) [facility] Comment: For patients with diabetes plus 1 major ASCVD risk factor, treating to a non-HDL-C goal of <100 mg/dL (LDL-C of <70 mg/dL) is considered a therapeutic option. 12/24/2017 3:51 PM EDT 12/24/2017 10:51 PM EDT Narrative Resulting Agency Comment [id number] Mitra Fletcher MD LABORATORY Final Result Performing Organization Address [facility]/ZIP Co de Phone Number [facility] [address] [place] [address] * TSH, 3RD GENERATION (12/24/2017 3:51 PM EDT) TSH 1.29 0.40 - 4.50 mIU/L [facility] 12/24/2017 3:51 PM EDT 12/24/2017 10:51 PM EDT Narrative Resulting Agency Comment [id number] Mitra Fletcher MD LABORATORY Final Result [facility] [address] [place] [address] * (ABNORMAL) COMPREHENSIVE METABOLIC PANEL WITH GFR [...] approximately 13% higher for people identified as -Guyanese. GFR 55(L) > OR = 60 mL/min/1. [...] needs for GFR calculation. Resulting Agency Comment [id number] us Mitra Fletcher MD LABORATORY Final Result [facility] [address] [place] [address] * CBC INCLUDES DIFFERENTIAL AND PLATELET COUNT [...] 10:51 PM EDT Narrative Resulting Agency Comment [id number] Mitra Fletcher MD LAB SAME DAY RESULT Final Re sult [facility] [address] [place] [address] documented in this encounter Visit Diagnoses Diagnosis [...] means documented in this encounter Care Teams Pomology Teacher Relationship Specialty Start Date End Date Mitra Fletcher MD PCP - General Internal Medicine 12/06/17 10/23/18 documented as of this encounter
--- OUTSIDE RECORDS SUMMARY | 2025-01-12 06:23 | XMS_ITS | Clinical Summary ---
Author Organization [facility] Address [address] [place] [address] Care Team Providers Care Grocery Store Bagger Name Role Phone Unavailable Primary Care Provider [...] to 3.5 8 Overview (12/18/2017): Followed by [facility]. Diagnosis: CVA,St Boone Valve; INR: [...] Zoster (Zostavax) Discontinued Insurance MEDICARE PART B [employer] CLAIMS-SUPPLEMENTAL
--- OUTSIDE RECORDS SUMMARY | 2025-01-12 06:23 | XMS_ITS | Encounter Summary ---
Author Organization [facility] Address [address] [place] [address] Care Team Providers Care Defence Force Senior Officer Name Role Phone Mitra Fletcher MD Primary Care Provider + [phone] Encounter Details Date Type Department Care Team (Late st Contact Info) Description 12/24/2017 Orders Only [facility] [address] [place] [address] Obdulia Sherman LVN LPN [address] [place] [address] Social History Tobacco Use Types Packs/Day Years Used Date Smoking Tobacco: Never Smokeless Tobacco: Never Sex and Gender Information Value Date Recorded Sex Assigned at Not on file Legal Sex Male 9:59 PM EDT Gender Identity Not on file Sexual Orientation Not on file documented as of this encounter Progress Notes * Skylar Esteves LPN - 12/25/2017 8:57 AM EDT Results received by [facility] nurse. See [facility] for documentation. * Melissa Dale - 12/25/2017 8:15 AM EDT Critical results received in [facility] and forwarded to Nurse pool for dosing documented in this encounter Plan of Treatment Not on file documented as of this encounter Procedures * Due to [place] [employer] law, this organization might not be sharing negative HIV tests. Procedure Name Priority Date/Time Associated Diagnosis Comments PROTHROMBIN TIME (PT), ANTICOAGULATION THERAPY (INR 2.0 3.0) Same Day Results 12/24/2017 3:51 PM EDT Cerebrovascular accident (CVA), unspecified mechanism H/O mechanical aortic valve replacement Anticoagulation goal of INR 2.5 to 3.5 documented in this encounter Results * Due to [place] [employer] law, this organization might not be sharing negative HIV tests. * (ABNORMAL) PROTHROMBIN TIME (PT), ANTICOAGULATION THERAPY (INR 2.0 ??? 3.0) (12/24/2017 3:51 PM EDT) INR 3.9(H) [facility] Comment: Reference Range 0.9-1.1 Moderate-intensity Warfarin Therapy 2.0-3.0 Higher-intensity Warfarin Therapy 3.0-4.0 PT 40.0 9.0 - 11.5 sec [facility] 12/24/2017 3:51 PM EDT 12/24/2017 10:39 PM EDT Narrative Resulting Agency Comment [id number] us Margret Waldrop MD LAB SAME DAY RESULT Final Resul t Performing Organization Address City/State/[facility] Co de Phone Number [facility] [address] [place] [address] documented in this encounter Visit Diagnoses Diagnosis Cerebrovascular accident (CVA), unspecified mechanism (HCC) H/O mechanical aortic valve replacement Heart valve replaced by other means Anticoagulation goal of INR 2.5 to 3.5 Encounter for therapeutic drug monitoring documented in this encounter Care Teams Defence Force Senior Officer Relationship Specialty Start Date End Date Mitra Fletcher MD PCP - General Internal Medicine 12/06/17 10/23/18 documented as of this encounter
[2025-01-12 06:43] LABS: INTERNATIONAL NORM RATIO 2.5 (0.9-1.1); Prothrombin Time 28.2 SEC (10.9-12.4)
== END 2025-01-12 06:21 | disposition home or self-care (01) ==
LOC: HO.HSH3E 06:20
PROVIDERS: Visit Provider Nurse Practitioner
DX: Z51.81 Encounter for therapeutic drug level monitoring (principal); Z95.2 Presence of prosthetic heart valve
CPT/HCPCS: 36415; 85610

== ENCOUNTER 2025-01-19 06:12 | Outpatient (REF) | payer MEDICARE, SELFPAY ==
--- OUTSIDE RECORDS SUMMARY | 2010-02-13 05:45 | XMS_ITS | Continuity of Care Document ---
Author Organization [facility] Address [address] [place] [address] Phone Care Team Providers Care Senior Vice President And Chief Information Officer Name Role Phone Violetta Clinton MD Unavailable Unavailable Procedures Procedure Date EYE EXAM ESTABLISHED PAT REFRACTION WITH EXAM Advance Directives Directive Yes / No Effective Date File Name No Information Encounters Encounter Description Practice Location Reason(s) For Visit Diagnoses Date Provider [facility] , [address], [facility], tel:[phone] [place] No Information 2009 Oz Shipley. [address] [place] [address], [address], [facility], . tel:[phone] [facility] , [address] [place] [address], [facility], tel:[phone] [place] No Information 2009 No Information Family History Family Member Type Diagnosis Age At Onset No Information Payers Payer name Insurance type Covered libertarian ID Authoriza tion(s) Medicare MB [id number] [facility] Indemnity Plan [id number] For Life [id number] Social History Type Description Quantity Date Captured Comments Sex Male Smoking Status No Information Chief Complaint And Reason For Visit No Information History Of Present Illness Encounter Date Complaint History Of Prese nt Illness No Information Instructions Date Instruction Additional Infor mation No Information Assessments Type Assessment Date No Information
--- OUTSIDE RECORDS SUMMARY | 2025-01-19 06:16 | XMS_ITS | Clinical Summary ---
Author Organization [facility] Address [address] [place] [address] Care Team Providers Care Compound Machine Operator Name Role Phone Unavailable Primary Care Provider [...] to 3.5 8 Overview (12/18/2017): Followed by [facility]. Diagnosis: CVA,St Boone Valve; INR: 2.5-3.5 Cerebrovascular [...] Zoster (Zostavax) Discontinued Insurance MEDICARE PART B [employer]/ [employer] CLAIMS-SUPPLEMENTAL
--- OUTSIDE RECORDS SUMMARY | 2025-01-19 06:16 | XMS_ITS | Encounter Summary ---
Author Organization [facility] Address [address] [place] [address] Care Team Providers Care Gas Load Dispatcher Name Role Phone Mitra Fletcher MD Primary Care Provider [phone] Encounter Details Date Type Department Care Team (Late st Contact Info) Description 05/26/[address] [facility] Internal Medicine [address] [place] [address] Mitra Fletcher MD [address] [place] [id number] Social History Tobacco Use Types Packs/Day Years [...] of this encounter Procedures * Due to [place] [employer] law, this organization might not be sharing [...] in this encounter Results * Due to [place] [employer] law, this organization might not be sharing [...] 10:12 PM EST Narrative Resulting Agency Comment [id number] us Mitra Fletcher MD LAB SAME DAY RESULT Final Re sult [facility] [address] [place] [address] * TSH, 3RD GENERATION (05/26/2018 12:07 PM EST) TSH 2.36 0.40 - 4.50 mIU/L [facility] 05/26/2018 12:0 7 PM EST 05/26/2018 10:12 PM EST Narrative Resulting Agency Comment [id number] Mitra Fletcher MD LABORATORY Final Result Performing Organization Address [facility] de Phone Number [facility] [address] [place] [address] * (ABNORMAL) HEMOGLOBIN A1C (05/26/2018 12:07 PM [...] 10:12 PM EST Narrative Resulting Agency Comment [id number] Mitra Fletcher MD LABORATORY Final Result Performing Organization Address [facility] de Phone Number [facility] [address] [place] [address] * (ABNORMAL) LIPID PANEL WITH REFLEX TO [...] LDL-C. Eliot LEE et al. MARK. 2013;310(91): 7130-0157 (http://education.Just [employer] It/faq/PIM956) CHOL/HDL Ratio 3.1 <5.0 (calc) [facility] Cholesterol Non-HDL 128 <130 mg/dL (calc) [facility] Comment: For patients with diabetes plus 1 major ASCVD risk factor, treating to a non-HDL-C goal of <100 mg/dL (LDL-C of <70 mg/dL) is considered a therapeutic option. 05/26/2018 12:0 7 PM EST 05/26/2018 10:12 PM EST Narrative Resulting Agency Comment [id number] us Mitra Fletcher MD LABORATORY Final Result [facility] [address] [place] [address] * (ABNORMAL) COMPREHENSIVE METABOLIC PANEL WITH GFR (05/26/2018 12:07 PM EST) Glucose 97 65 - 99 mg/dL [facility] Comment:Fasting reference in terval Urea Nitrogen Blood (BUN) 26(H) 7 - 25 mg/dL [facility] Creatinine 1.03 0.70 - 1.18 mg/dL [facility] Comment: For patients >49 years of age, the reference limit for Creatinine is approximately 13% higher for people identified as -[place]. EGFR 69 > OR = 60 mL/min/1. [...] needs for GFR calculation. Resulting Agency Comment [id number] Mitra Fletcher MD LABORATORY Final Result [facility] [address] [place] [address] documented in this encounter Visit Diagnoses Diagnosis Systolic congestive heart failure, unspecified HF chronicity (HCC) documented in this encounter Care Teams Gas Load Dispatcher Relationship Specialty Start Date End Date Mitra Fletcher MD PCP - General Internal Medicine 12/06/17 10/23/18 documented as of this encounter
--- OUTSIDE RECORDS SUMMARY | 2025-01-19 06:16 | XMS_ITS | Encounter Summary ---
Author Organization [facility] Address [address] [place] [address] Care Team Providers Care Greenkeeper Name Role Phone Mitra Fletcher MD Primary Care Provider + [phone] Encounter Details Date Type Department Care Team (Late st Contact Info) Description 12/24/2017 Orders Only [facility] Internal Medicine [address] [place] [address] Mitra Fletcher MD [address] [place] [id number] Social History Tobacco Use Types Packs/Day Years [...] of this encounter Procedures * Due to [place] state law, this organization might not be [...] in this encounter Results * Due to [place] state law, this organization might not be [...] 10:51 PM EDT Narrative Resulting Agency Comment [id number] Mitra Fletcher MD LABORATORY Final Result Performing Organization Address [facility] Co de Phone Number [facility] [address] [place] [address] * VITAMIN D, 25-HYDROXY, TOTAL, IMMUNOASSAY (12/24/2017 [...] D, (D2,D3), LC/MS/MS is recommended: order code 27226 (patients >2yrs). For more information on this test, go to: http://education.Bergey's/faq/DDA822 (This link is being provided for informational/educational purposes only.) 12/24/2017 3:51 PM EDT 12/24/2017 10:51 PM EDT Narrative Resulting Agency Comment [id number] Mitra Fletcher MD LABORATORY Final Result Performing Organization Address [facility] Co de Phone Number [facility] [address] [place] [address] * (ABNORMAL) HEMOGLOBIN A1C (12/24/2017 3:51 PM [...] children. Estimated Average Glucose 129 mg/dL (calc) [facility] 12/24/2017 3:51 PM EDT 12/24/2017 10:51 PM EDT Narrative Resulting Agency Comment [id number] Mitra Fletcher MD LABORATORY Final Result Performing Organization Address [facility] de Phone Number [facility] [address] [place] [address] * (ABNORMAL) LIPID PANEL WITH REFLEX TO [...] LDL-C. Eliot SS et al. MARK. 2013;310(19): 0589-3645 (http://education.[employer].Georgina Goodman/faq/WZR076) CHOL/HDL Ratio 3.9 <5.0 (calc) [facility] Cholesterol Non-HDL 146(H) <130 mg/dL (calc) [facility] Comment: For patients with diabetes plus 1 major ASCVD risk factor, treating to a non-HDL-C goal of <100 mg/dL (LDL-C of <70 mg/dL) is considered a therapeutic option. 12/24/2017 3:51 PM EDT 12/24/2017 10:51 PM EDT Narrative Resulting Agency Comment [id number] Mitra Fletcher MD LABORATORY Final Result Performing Organization Address [facility]/ZIP Co de Phone Number [facility] [address] [place] [address] * TSH, 3RD GENERATION (12/24/2017 3:51 PM EDT) TSH 1.29 0.40 - 4.50 mIU/L [facility] 12/24/2017 3:51 PM EDT 12/24/2017 10:51 PM EDT Narrative Resulting Agency Comment [id number] Mitra Fletcher MD LABORATORY Final Result [facility] [address] [place] [address] * (ABNORMAL) COMPREHENSIVE METABOLIC PANEL WITH GFR [...] approximately 13% higher for people identified as -[place]. GFR 55(L) > OR = 60 mL/min/1. [...] needs for GFR calculation. Resulting Agency Comment [id number] us Mitra Fletcher MD LABORATORY Final Result [facility] [address] [place] [address] * CBC INCLUDES DIFFERENTIAL AND PLATELET COUNT [...] 10:51 PM EDT Narrative Resulting Agency Comment [id number] Mitra Fletcher MD LAB SAME DAY RESULT Final Re sult [facility] [address] [place] [address] documented in this encounter Visit Diagnoses Diagnosis [...] means documented in this encounter Care Teams Greenkeeper Relationship Specialty Start Date End Date Mitra Fletcher MD PCP - General Internal Medicine 12/06/17 10/23/18 documented as of this encounter
--- OUTSIDE RECORDS SUMMARY | 2025-01-19 06:16 | XMS_ITS | Encounter Summary ---
Author Organization [facility] Address [address] [place] [address] Care Team Providers Care Labview Programmer Name Role Phone Mitra Fletcher MD Primary Care Provider + [phone] Encounter Details Date Type Department Care Team (Late st Contact Info) Description 12/24/2017 Orders Only [facility] [address] [place] [address] Obdulia Sherman LVN LPN [address] [place] [address] Social History Tobacco Use Types Packs/Day Years Used Date Smoking Tobacco: Never Smokeless Tobacco: Never Sex and Gender Information Value Date Recorded Sex Assigned at Not on file Legal Sex Male 9:59 PM EDT Gender Identity Not on file Sexual Orientation Not on file documented as of this encounter Progress Notes * Skylar Esteves LPN - 12/25/2017 8:57 AM EDT Results received by [facility] nurse. See [facility] Track for documentation. * Melissa Dale - 12/25/2017 8:15 AM EDT Critical results received in [facility] and forwarded to Nurse pool for dosing documented in this encounter Plan of Treatment Not on file documented as of this encounter Procedures * Due to [place] [employer] law, this organization might not be sharing negative HIV tests. Procedure Name Priority Date/Time Associated Diagnosis Comments PROTHROMBIN TIME (PT), ANTICOAGULATION THERAPY (INR 2.0 3.0) Same Day Results 12/24/2017 3:51 PM EDT Cerebrovascular accident (CVA), unspecified mechanism H/O mechanical aortic valve replacement Anticoagulation goal of INR 2.5 to 3.5 documented in this encounter Results * Due to [place] [employer] law, this organization might not be sharing negative HIV tests. * (ABNORMAL) PROTHROMBIN TIME (PT), ANTICOAGULATION THERAPY (INR 2.0 ??? 3.0) (12/24/2017 3:51 PM EDT) INR 3.9(H) [facility] Comment: Reference Range 0.9-1.1 Moderate-intensity Warfarin Therapy 2.0-3.0 Higher-intensity Warfarin Therapy 3.0-4.0 PT 40.0 9.0 - 11.5 sec [facility] 12/24/2017 3:51 PM EDT 12/24/2017 10:39 PM EDT Narrative Resulting Agency Comment [id number] us Margret Waldrop MD LAB SAME DAY RESULT Final Resul t Performing Organization Address City/State/[facility] Co de Phone Number [facility] [address] [place] [address] documented in this encounter Visit Diagnoses Diagnosis Cerebrovascular accident (CVA), unspecified mechanism (HCC) H/O mechanical aortic valve replacement Heart valve replaced by other means Anticoagulation goal of INR 2.5 to 3.5 Encounter for therapeutic drug monitoring documented in this encounter Care Teams Labview Programmer Relationship Specialty Start Date End Date Mitra Fletcher MD PCP - General Internal Medicine 12/06/17 10/23/18 documented as of this encounter
[2025-01-19 06:48] LABS: INTERNATIONAL NORM RATIO 2.4 (0.9-1.1); Prothrombin Time 27.7 SEC (10.9-12.4)
== END 2025-01-19 06:13 | disposition home or self-care (01) ==
LOC: HO.HSH3E 06:12
PROVIDERS: Visit Provider Nurse Practitioner
DX: Z95.2 Presence of prosthetic heart valve (principal)
CPT/HCPCS: 36415; 85610

== ENCOUNTER 2025-01-26 07:59 | Outpatient (REF) | payer MEDICARE, SELFPAY ==
--- OUTSIDE RECORDS SUMMARY | 2025-01-26 08:06 | XMS_ITS | Encounter Summary ---
Author Organization [facility] Address [address] [place] [address] Care Team Providers Care Bioinformatics Assistant Name Role Phone Mitra Fletcher MD Primary Care Provider [phone] Encounter Details Date Type Department Care Team (Late st Contact Info) Description 05/26/2018 Orders Only [facility] Internal Medicine [address] [place] [address] Mitra Fletcher MD [address] [place] [address] Social History Tobacco Use Types Packs/Day Years [...] this encounter Procedures * Due to [place] [employer] law, this organization might not be sharing [...] this encounter Results * Due to [place] [employer] law, this organization might not be sharing [...] 10:12 PM EST Narrative Resulting Agency Comment [id number] us Mitra Fletcher MD LAB SAME DAY RESULT Final Re sult [facility] [address] [place] [address] * TSH, 3RD GENERATION (05/26/2018 12:07 PM EST) TSH 2.36 0.40 - 4.50 mIU/L [facility] 05/26/2018 12:0 7 PM EST 05/26/2018 10:12 PM EST Narrative Resulting Agency Comment [id number] Mitra Fletcher MD LABORATORY Final Result Performing Organization Address [facility] de Phone Number [facility] [address] [place] [address] * (ABNORMAL) HEMOGLOBIN A1C (05/26/2018 12:07 PM [...] 10:12 PM EST Narrative Resulting Agency Comment [id number] Mitra Fletcher MD LABORATORY Final Result Performing Organization Address [facility] de Phone Number [facility] [address] [place] [address] * (ABNORMAL) LIPID PANEL WITH REFLEX TO [...] of LDL-C. Eliot LEE et al. MARK. 2013;310(71): 2116-9921 (http://education.Inside [employer]house/faq/ZWZ030) CHOL/HDL Ratio 3.1 <5.0 (calc) [facility] Cholesterol Non-HDL 128 <130 mg/dL (calc) [facility] Comment: For patients with diabetes plus 1 major ASCVD risk factor, treating to a non-HDL-C goal of <100 mg/dL (LDL-C of <70 mg/dL) is considered a therapeutic option. 05/26/2018 12:0 7 PM EST 05/26/2018 10:12 PM EST Narrative Resulting Agency Comment [id number] us Mitra Fletcher MD LABORATORY Final Result [facility] [address] [place] [address] * (ABNORMAL) COMPREHENSIVE METABOLIC PANEL WITH GFR (05/26/2018 12:07 PM EST) Glucose 97 65 - 99 mg/dL [facility] Comment:Fasting reference in terval Urea Nitrogen Blood (BUN) 26(H) 7 - 25 mg/dL [facility] Creatinine 1.03 0.70 - 1.18 mg/dL [facility] Comment: For patients >49 years of age, the reference limit for Creatinine is approximately 13% higher for people identified as -Citizen Of [place]. EGFR 69 > OR = 60 mL/min/1. [...] needs for GFR calculation. Resulting Agency Comment [id number] Mitra Fletcher MD LABORATORY Final Result [facility] [address] [place] [address] documented in this encounter Visit Diagnoses Diagnosis Systolic congestive heart failure, unspecified HF chronicity (HCC) documented in this encounter Care Teams Bioinformatics Assistant Relationship Specialty Start Date End Date Mitra Fletcher MD PCP - General Internal Medicine 12/06/17 10/23/18 documented as of this encounter
--- OUTSIDE RECORDS SUMMARY | 2025-01-26 08:07 | XMS_ITS | Encounter Summary ---
Author Organization [facility] Address [address] [place] [address] Care Team Providers Care Fac Engineer Name Role Phone Mitra Fletcher MD Primary Care Provider [phone] Encounter Details Date Type Department Care Team (Late st Contact Info) Description 12/24/2017 Orders Only [facility] Internal Medicine [address] [place] [address] Mitra Fletcher MD [address] [place] [address] Social History Tobacco Use Types Packs/Day Years [...] 10:51 PM EDT Narrative Resulting Agency Comment [id number] Mitra Fletcher MD LABORATORY Final Result Performing Organization Address [facility] [place] [facility] Co de Phone Number [facility] [address] [place] [address] * VITAMIN D, 25-HYDROXY, TOTAL, IMMUNOASSAY (12/24/2017 [...] D, (D2,D3), LC/MS/MS is recommended: order code [id number] (patients >2yrs). For more information on this test, go to: http://education.[employer]ar [employer]/faq/KDT875 (This link is being provided for informational/educational purposes only.) 12/24/2017 3:51 PM EDT 12/24/2017 10:51 PM EDT Narrative Resulting Agency Comment [id number] Mitra Fletcher MD LABORATORY Final Result Performing Organization Address [facility] [place] [facility] Co de Phone Number [facility] [address] [place] [address] * (ABNORMAL) HEMOGLOBIN A1C (12/24/2017 3:51 PM [...] children. Estimated Average Glucose 129 mg/dL (calc) [facility] 12/24/2017 3:51 PM EDT 12/24/2017 10:51 PM EDT Narrative Resulting Agency Comment [id number] Mitra Fletcher MD LABORATORY Final Result Performing Organization Address [facility] [place] [facility] de Phone Number [facility] [address] [place] [address] * (ABNORMAL) LIPID PANEL WITH REFLEX TO [...] LDL-C. Eliot SS et al. MARK. 2013;310(19): 6791-3194 (http://education.[employer]/faq/CKL180) CHOL/HDL Ratio 3.9 <5.0 (calc) [facility] Cholesterol Non-HDL 146(H) <130 mg/dL (calc) [facility] Comment: For patients with diabetes plus 1 major ASCVD risk factor, treating to a non-HDL-C goal of <100 mg/dL (LDL-C of <70 mg/dL) is considered a therapeutic option. 12/24/2017 3:51 PM EDT 12/24/2017 10:51 PM EDT Narrative Resulting Agency Comment [id number] Mitra Fletcher MD LABORATORY Final Result Performing Organization Address [facility]/ZIP Co de Phone Number [facility] [address] [place] [address] * TSH, 3RD GENERATION (12/24/2017 3:51 PM EDT) TSH 1.29 0.40 - 4.50 mIU/L [facility] 12/24/2017 3:51 PM EDT 12/24/2017 10:51 PM EDT Narrative Resulting Agency Comment [id number] Mitra Fletcher MD LABORATORY Final Result [facility] [address] [place] [address] * (ABNORMAL) COMPREHENSIVE METABOLIC PANEL WITH GFR (12/24/2017 3:51 PM EDT) Pathologist [facility] Glucose 101(H) 65 - 99 mg/dL [facility] [...] higher for people identified as -Citizen Of [place]. GFR 55(L) > OR = 60 mL/min/1. [...] needs for GFR calculation. Resulting Agency Comment [id number] us Mitra Fletcher MD LABORATORY Final Result [facility] [address] [place] [address] * CBC INCLUDES DIFFERENTIAL AND PLATELET COUNT [...] 10:51 PM EDT Narrative Resulting Agency Comment [id number] Mitra Fletcher MD LAB SAME DAY RESULT Final Re sult [facility] [address] [place] [address] documented in this encounter Visit Diagnoses Diagnosis [...] means documented in this encounter Care Teams Fac Engineer Relationship Specialty Start Date End Date Mitra Fletcher MD PCP - General Internal Medicine 12/06/17 10/23/18 documented as of this encounter
--- OUTSIDE RECORDS SUMMARY | 2025-01-26 08:07 | XMS_ITS | Encounter Summary ---
Author Organization [facility] Address [address] [place] [address] Care Team Providers Care Deal Architect Name Role Phone Mitra Fletcher MD Primary Care Provider + [phone] Encounter Details Date Type Department Care Team (Late st Contact Info) Description 12/24/2017 Orders Only [facility] [address] [place] [address] Obdulia Sherman LVN LPN [address] [place] [address] Social History Tobacco Use Types Packs/Day Years Used Date Smoking Tobacco: Never Smokeless Tobacco: Never Sex and Gender Information Value Date Recorded Sex Assigned at Not on file Legal Sex Male 9:59 PM EDT Gender Identity Not on file Sexual Orientation Not on file documented as of this encounter Progress Notes * Skylar Esteves LPN - 12/25/2017 8:57 AM EDT Results received by [facility] nurse. See [facility] for documentation. * Melissa Dale - 12/25/2017 8:15 AM EDT Critical results received in [facility] and forwarded to Nurse pool for dosing documented in this encounter Plan of Treatment Not on file documented as of this encounter Procedures * Due to [place] [employer] law, this organization might not be sharing negative HIV tests. Procedure Name Priority Date/Time Associated Diagnosis Comments PROTHROMBIN TIME (PT), ANTICOAGULATION THERAPY (INR 2.0 3.0) Same Day Results 12/24/2017 3:51 PM EDT Cerebrovascular accident (CVA), unspecified mechanism H/O mechanical aortic valve replacement Anticoagulation goal of INR 2.5 to 3.5 documented in this encounter Results * Due to [place] [employer] law, this organization might not be sharing negative HIV tests. * (ABNORMAL) PROTHROMBIN TIME (PT), ANTICOAGULATION THERAPY (INR 2.0 ??? 3.0) (12/24/2017 3:51 PM EDT) INR 3.9(H) [facility] Comment: Reference Range 0.9-1.1 Moderate-intensity Warfarin Therapy 2.0-3.0 Higher-intensity Warfarin Therapy 3.0-4.0 PT 40.0 9.0 - 11.5 sec [facility] 12/24/2017 3:51 PM EDT 12/24/2017 10:39 PM EDT Narrative Resulting Agency Comment [id number] us Margret Waldrop MD LAB SAME DAY RESULT Final Resul t Performing Organization Address City/State/[facility] Co de Phone Number [facility] [address] [place] [address] documented in this encounter Visit Diagnoses Diagnosis Cerebrovascular accident (CVA), unspecified mechanism (HCC) H/O mechanical aortic valve replacement Heart valve replaced by other means Anticoagulation goal of INR 2.5 to 3.5 Encounter for therapeutic drug monitoring documented in this encounter Care Teams Deal Architect Relationship Specialty Start Date End Date Mitra Fletcher MD PCP - General Internal Medicine 12/06/17 10/23/18 documented as of this encounter
--- OUTSIDE RECORDS SUMMARY | 2025-01-26 08:07 | XMS_ITS | Clinical Summary ---
Author Organization [facility] Address [address] [place] [address] Care Team Providers Care Atmospheric Sciences Professor Name Role Phone Unavailable Primary Care Provider [...] 3.5 8 Overview (12/18/2017): Followed by [facility]. Diagnosis: CVA,[place] Valve; INR: 2.5-3.5 Cerebrovascular [...] Zoster (Zostavax) Discontinued Insurance MEDICARE PART B Total Attorneys/ [employer] CLAIMS-SUPPLEMENTAL
[2025-01-26 08:11] LABS: INTERNATIONAL NORM RATIO 2.3 (0.9-1.1); Prothrombin Time 26.7 SEC (10.9-12.4)
== END 2025-01-26 08:00 | disposition home or self-care (01) ==
LOC: HO.HSH3E 07:59
PROVIDERS: Visit Provider Nurse Practitioner
DX: Z95.2 Presence of prosthetic heart valve (principal)
CPT/HCPCS: 36415; 85610

== ENCOUNTER 2025-02-02 05:52 | Outpatient (REF) | payer MEDICARE, SELFPAY ==
--- OUTSIDE RECORDS SUMMARY | 2010-02-13 04:45 | XMS_ITS | Continuity of Care Document ---
Author Organization [facility] Address [address] [place] [address] Phone Care Team Providers Care Rough Rounder Machine Name Role Phone Violetta Clinton MD Unavailable Unavailable Procedures Procedure Date EYE EXAM ESTABLISHED PAT REFRACTION WITH EXAM Advance Directives Directive Yes / No Effective Date File Name No Information Encounters Encounter Description Practice Location Reason(s) For Visit Diagnoses Date Provider [facility] , [address], [facility], tel:[phone] [place] No Information 2009 Oz Shipley. [address] [place] [address], [address], [facility], . tel:[phone] [facility] , [address] [place] [address], [facility], tel:[phone] [place] No Information 2009 No Information Family History Family Member Type Diagnosis Age At Onset No Information Payers Payer name Insurance type Covered libertarian ID Authoriza tion(s) Medicare MB [id number] [facility] Indemnity Plan [id number] For Life [id number] Social History Type Description Quantity Date Captured Comments Sex Male Smoking Status No Information Chief Complaint And Reason For Visit No Information History Of Present Illness Encounter Date Complaint History Of Prese nt Illness No Information Instructions Date Instruction Additional Infor mation No Information Assessments Type Assessment Date No Information
--- OUTSIDE RECORDS SUMMARY | 2025-02-02 05:56 | XMS_ITS | Continuity of Care Document ---
Author Name [facility] Organization [facility] Care Team Providers Care Jewel Bearing Grinder Name Role Phone [facility] Unavailable Unavailable Problems Combined list of problems from Department of Defense and Veterans Affairs facilities. It does not include entries that were removed or entered in error. 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 [facility] Benign essential hypertension (SNOMED CT 1763740) Active Condition [facility] Cerebrovascular accident Active Condition [facility] Cerebrovascular disease Active Condition [facility] Depression * (ICD-9-CM 311./300.4) Active Condition [facility] Diplopia (SNOMED CT 45005632) Active Condition [facility] Fall from other Slipping, Tripping, or Stumbling Active Condition [facility] Hearing loss * (ICD-9-CM 389.9) Active Condition [facility] [place] [facility] History of mechanical mitral valve replacement Active Condition [facility] History of mechanical prosthetic mitral valve replacement Active Condition [facility] HTN - Hypertension (SCT 19131113) Active Condition [facility] Hyperlipidemia (SCT 86718831) Active Condition [facility] Hypotension Active Condition [facility] Long-term current use of anticoagulant Active Condition [facility] Long-term current use of anticoagulant (SNOMED CT 666404104) Active Condition [facility] Lower urinary tract symptoms due to benign prostatic hypertrophy (SNOMED CT 92225610818512) Active Condition [facility] Mild Cognitive Impairment, so stated (ICD-9-CM 331.83) Active Condition [facility] Orthostatic hypotension Active Condition [facility] Parkinsonian tremor Active Condition [facility] Parkinsons disease Active Condition [facility] Pure hypercholesterolemia (SNOMED CT 902423498) Active Condition [facility] Sensorineural deafness Active Condition [facility] SENSORINEURAL HEARING LOSS, BILATERAL Active Condition [facility] Vascular dementia (SNOMED CT 677242881) [facility] Diagnosis: ICD-10-CM Z46.1 Encounter for fitting and adjustment of hearing aid Active Diagnosis [facility] Diagnosis: ICD-10-CM Z46.0 Encounter for fit/adjst of spectacles and contact lenses Active Diagnosis [facility] Diagnosis: ICD-10-CM F03.90 Unsp dementia, unsp severity, without beh/psych/mood/anx Active Diagnosis [facility] Medications Combined list of [...] ORAL ACTIVE JAY KELLY AEL E 2015 [facility] MULTIVITAMI N/MIN, THERAPEUTIC UD TAB TAKE ONE TABLET BY MOUTH EVERY DAY ORAL ACTIVE JAY KELLY AEMayra E 2010 [facility] WARFARIN (NON-VA) TAB TAKE 5 MG BY MOUTH ONCE DAILY ORAL ACTIVE GONZALO CANO 2018 [facility] [place] WARFARIN NA 5MG TAB TAKE ONE TABLET BY MOUTH DIRECTED ORAL ACTIVE WANDA FERNANDO 2017 [facility] Allergies, Adverse Reactions, Alerts Combined list of allergies from Department of Defense and Veterans Affairs facilities. It does not include entries that were removed or entered in error. Substance Category Reaction Severity Reaction type Status Date Reported Comments Source BEE VENOM Propensity to adverse reaction (finding) Eruption active 8 [facility] BEES Propensity to adverse reaction (finding) active 0 [facility] FINASTERIDE Propensity to adverse reactions to drug (finding) Dizziness active 9 [facility] [place] Propensity to adverse reaction (finding) active 0 [facility] Propensity to adverse reactions to drug (finding) active 0 [facility] SIMVASTATIN Propensity to adverse reactions to drug (finding) Muscle pain active 8 [facility] TAMSULOSIN Propensity to adverse reactions to drug (finding) Dizziness active 9 [facility] Immunizations Combined list of available immunizations from the Department of Defense and Veterans Affairs facilities. Immunization Series Date Given Administered By Site Reaction Lot Number CVX Code Drug Scouring Machine Tender Status Comments Source COVID-19 (MODERNA), MRNA, LNP-S, PF, 50 MCG/0.5 ML (AGES 12+ YEARS) 5 2023 312 complet ed HISTORICA L INFORMATI ON - FROM OTHER REGISTRY, [facility] INFLUENZA, UNSPECIFIED FORMULATION 2023 88 complet ed Completed Series, HISTORICA L INFORMATI ON - [facility] PNEUMOCOCCAL CONJUGATE PCV20, POLYSACCHARID E [id number] CONJUGATE, ADJUVANT, PF 2021 216 complet ed HISTORICA L INFORMATI ON - FROM OTHER PROVIDER, [facility] ZOSTER RECOMBINANT 2 2021 187 complet ed HISTORICA L INFORMATI ON - FROM OTHER PROVIDER, [facility] COVID-19 (PFIZER), MRNA, LNP-S, PF, 30 MCG/0.3 ML DOSE 4 2021 208 complet ed HISTORICA L INFORMATI ON - FROM OTHER PROVIDER, [facility] ZOSTER RECOMBINANT 1 2021 187 [...] complet ed Proximal Left Arm [facility] TDAP 2011 115 complet ed Site: Left Deltoid [facility] TETANUS DIPHTHERIA (HISTORICAL) 2007 139 complet ed went to [facility] cut hand on table saw [facility] PNEUMOCOCCAL, UNSPECIFIED FORMULATION 2005 109 complet ed [facility] Vital Signs Combined list of inpatient [...] [facility] HEARING AID REPAIR/MOD IFYING [id number] Diagnos is: ICD-10- CM Z46.1 Encount er for fitting and adjustm ent of hearing aid RYANNE PINA 09/19 [facility] Outpatient Encounter [id number] 01/13 [facility] OFFICE O/P EST SF 10 MIN [id number] 1. Diagnos is: ICD-10- CM F03.90 Unsp dementi a, unsp severit y, without beh/psy ch/mood /anx MANJINDER LA RD 03/06 [facility] RPR&REFITG SPECT XCP APHAKIA [id number] 1. Diagnos is: ICD-10- CM Z46.0 Encount er for fit/adj st of spectac les and contact lenses César MARLEY 03/06 [facility] HEARING AID REPAIR/MOD IFYING [id number] Diagnos is: ICD-10- CM Z46.1 Encount er for fitting and adjustm ent of hearing aid Marci PALACIOS 07/30 [facility] Outpatient Encounter [id number] 08/04 [facility] Outpatient Encounter [id number] 08/10 [facility] Outpatient Encounter [id number] 01/27 [facility] Social History Combined list of available smoking, tobacco, and other social history from Department of Defense and Veterans Affairs facilities. Social History Type Response Date [facility] VA-TOBACCO NEVER USED 03/04/2023 [facility] [...] of tobacco use [facility]ACCO NEVER USED 01/01[facility] History of tobacco use LIFETIME NON-TOBACCO USER 09/17/2017 [facility] History of tobacco use LIFETIME NON-TOBACCO USER 09/17/2017 [facility] History of tobacco use LIFETIME NON-TOBACCO USER 12/18/2016 [facility] History of tobacco use LIFETIME NON-TOBACCO USER 11/16/2016 [facility] History of tobacco use LIFETIME NON-TOBACCO USER 02/14/2016 [facility] History of tobacco use LIFETIME NON-TOBACCO USER 03/08/2015 [facility] History of tobacco use LIFETIME NON-TOBACCO USER 03/01/2010 [facility] This section is an empty social history section. [facility] Advance Directives List of completed, amended, or rescinded Advance Directives on record at Department of Veterans Affairs facilities. An actual copy of the Directive is not included. Date Advance Directive Provider Source 08/29/2010 ADVANCE DIRECTIVE AMGED [facility]
--- OUTSIDE RECORDS SUMMARY | 2025-02-02 05:57 | XMS_ITS | Encounter Summary ---
Author Organization [facility] Address [address] [place] [address] Care Team Providers Care Oceanographer Assistant Name Role Phone Mitra Fletcher MD Primary Care Provider + [phone] Encounter Details Date Type Department Care Team (Late st Contact Info) Description 12/24/2017 Orders Only [facility] Internal Medicine [address] [place] [address] Mitra Fletcher MD [address] [place] [address] Social History Tobacco Use Types Packs/Day Years [...] of this encounter Procedures * Due to [place] state law, this organization might not be [...] in this encounter Results * Due to [place] state law, this organization might not be [...] 10:51 PM EDT Narrative Resulting Agency Comment [id number] Mitra Fletcher MD LABORATORY Final Result Performing Organization Address [facility] Co de Phone Number [facility] [address] [place] [address] * VITAMIN D, 25-HYDROXY, TOTAL, IMMUNOASSAY (12/24/2017 [...] D, (D2,D3), LC/MS/MS is recommended: order code 07634 (patients >2yrs). For more information on this test, go to: http://education.Springlane [employer]/faq/NFX947 (This link is being provided for informational/educational purposes only.) 12/24/2017 3:51 PM EDT 12/24/2017 10:51 PM EDT Narrative Resulting Agency Comment [id number] Mitra Fletcher MD LABORATORY Final Result Performing Organization Address [facility] Co de Phone Number [facility] [address] [place] [address] * (ABNORMAL) HEMOGLOBIN A1C (12/24/2017 3:51 PM [...] children. Estimated Average Glucose 129 mg/dL (calc) [facility] 12/24/2017 3:51 PM EDT 12/24/2017 10:51 PM EDT Narrative Resulting Agency Comment [id number] Mitra Fletcher MD LABORATORY Final Result Performing Organization Address [facility] de Phone Number [facility] [address] [place] [address] * (ABNORMAL) LIPID PANEL WITH REFLEX TO [...] LDL-C. Eliot SS et al. MARK. 2013;310(19): 1733-2570 (http://education.[employer]ch[employer]/faq/MZU980) CHOL/HDL Ratio 3.9 <5.0 (calc) [facility] Cholesterol Non-HDL 146(H) <130 mg/dL (calc) [facility] Comment: For patients with diabetes plus 1 major ASCVD risk factor, treating to a non-HDL-C goal of <100 mg/dL (LDL-C of <70 mg/dL) is considered a therapeutic option. 12/24/2017 3:51 PM EDT 12/24/2017 10:51 PM EDT Narrative Resulting Agency Comment [id number] Mitra Fletcher MD LABORATORY Final Result Performing Organization Address [facility]/ZIP Co de Phone Number [facility] [address] [place] [address] * TSH, 3RD GENERATION (12/24/2017 3:51 PM EDT) TSH 1.29 0.40 - 4.50 mIU/L [facility] 12/24/2017 3:51 PM EDT 12/24/2017 10:51 PM EDT Narrative Resulting Agency Comment [id number] Mitra Fletcher MD LABORATORY Final Result [facility] [address] [place] [address] * (ABNORMAL) COMPREHENSIVE METABOLIC PANEL WITH GFR (12/24/2017 3:51 PM EDT) Pathologist [facility] Glucose 101(H) 65 - 99 mg/dL [facility] [...] approximately 13% higher for people identified as -Yemeni. GFR 55(L) > OR = 60 mL/min/1. [...] needs for GFR calculation. Resulting Agency Comment [id number] us Mitra Fletcher MD LABORATORY Final Result [facility] [address] [place] [address] * CBC INCLUDES DIFFERENTIAL AND PLATELET COUNT [...] 10:51 PM EDT Narrative Resulting Agency Comment [id number] Mitra Fletcher MD LAB SAME DAY RESULT Final Re sult [facility] [address] [place] [address] documented in this encounter Visit Diagnoses Diagnosis [...] means documented in this encounter Care Teams Oceanographer Assistant Relationship Specialty Start Date End Date Mitra Fletcher MD PCP - General Internal Medicine 12/06/17 10/23/18 documented as of this encounter
--- OUTSIDE RECORDS SUMMARY | 2025-02-02 05:57 | XMS_ITS | Encounter Summary ---
Author Organization [facility] Address [address] [place] [address] Care Team Providers Care Wig Dresser Name Role Phone Mitra Fletcher MD Primary Care Provider + [phone] Encounter Details Date Type Department Care Team (Late st Contact Info) Description 12/24/2017 Orders Only [facility] [address] [place] [address] Obdulia Sherman LVN LPN [address] [place] [address] Social History Tobacco Use Types Packs/Day Years Used Date Smoking Tobacco: Never Smokeless Tobacco: Never Sex and Gender Information Value Date Recorded Sex Assigned at Not on file Legal Sex Male 9:59 PM EDT Gender Identity Not on file Sexual Orientation Not on file documented as of this encounter Progress Notes * Skylar Esteves LPN - 12/25/2017 8:57 AM EDT Results received by [facility] nurse. See [facility] Track for documentation. * Melissa Dale - 12/25/2017 8:15 AM EDT Critical results received in [facility] and forwarded to Nurse pool for dosing documented in this encounter Plan of Treatment Not on file documented as of this encounter Procedures * Due to [place] [employer] law, this organization might not be sharing negative HIV tests. Procedure Name Priority Date/Time Associated Diagnosis Comments PROTHROMBIN TIME (PT), ANTICOAGULATION THERAPY (INR 2.0 3.0) Same Day Results 12/24/2017 3:51 PM EDT Cerebrovascular accident (CVA), unspecified mechanism H/O mechanical aortic valve replacement Anticoagulation goal of INR 2.5 to 3.5 documented in this encounter Results * Due to [place] [employer] law, this organization might not be sharing negative HIV tests. * (ABNORMAL) PROTHROMBIN TIME (PT), ANTICOAGULATION THERAPY (INR 2.0 ??? 3.0) (12/24/2017 3:51 PM EDT) INR 3.9(H) [facility] Comment: Reference Range 0.9-1.1 Moderate-intensity Warfarin Therapy 2.0-3.0 Higher-intensity Warfarin Therapy 3.0-4.0 PT 40.0 9.0 - 11.5 sec [facility] 12/24/2017 3:51 PM EDT 12/24/2017 10:39 PM EDT Narrative Resulting Agency Comment [id number] us Margret Waldrop MD LAB SAME DAY RESULT Final Resul t Performing Organization Address City/State/[facility] Co de Phone Number [facility] [address] [place] [address] documented in this encounter Visit Diagnoses Diagnosis Cerebrovascular accident (CVA), unspecified mechanism (HCC) H/O mechanical aortic valve replacement Heart valve replaced by other means Anticoagulation goal of INR 2.5 to 3.5 Encounter for therapeutic drug monitoring documented in this encounter Care Teams Wig Dresser Relationship Specialty Start Date End Date Mitra Fletcher MD PCP - General Internal Medicine 12/06/17 10/23/18 documented as of this encounter
--- OUTSIDE RECORDS SUMMARY | 2025-02-02 05:57 | XMS_ITS | Encounter Summary ---
Author Organization [facility] Address [address] [place] [address] Care Team Providers Care Hydraulic Miner Name Role Phone Mitra Fletcher MD Primary Care Provider [phone] Encounter Details Date Type Department Care Team (Late st Contact Info) Description 05/26/2018 Orders Only [facility] Internal Medicine [address] [place] [address] Mitra Fletcher MD [address] [place] [address] Social History Tobacco Use Types Packs/Day Years [...] of this encounter Procedures * Due to [place] [employer] law, this organization might not be sharing [...] in this encounter Results * Due to [place] [employer] law, this organization might not be sharing [...] 10:12 PM EST Narrative Resulting Agency Comment [id number] us Mitra Fletcher MD LAB SAME DAY RESULT Final Re sult [facility] [address] [place] [address] * TSH, 3RD GENERATION (05/26/2018 12:07 PM EST) TSH 2.36 0.40 - 4.50 mIU/L [facility] 05/26/2018 12:0 7 PM EST 05/26/2018 10:12 PM EST Narrative Resulting Agency Comment [id number] Mitra Fletcher MD LABORATORY Final Result Performing Organization Address [facility] de Phone Number [facility] [address] [place] [address] * (ABNORMAL) HEMOGLOBIN A1C (05/26/2018 12:07 PM [...] 10:12 PM EST Narrative Resulting Agency Comment [id number] Mitra Fletcher MD LABORATORY Final Result Performing Organization Address [facility] de Phone Number [facility] [address] [place] [address] * (ABNORMAL) LIPID PANEL WITH REFLEX TO [...] of LDL-C. Eliot LEE et al. MARK. 2013;310(23): 7610-7847 (http://education.Impeva/faq/LNR610) CHOL/HDL Ratio 3.1 <5.0 (calc) [facility] Cholesterol Non-HDL 128 <130 mg/dL (calc) [facility] Comment: For patients with diabetes plus 1 major ASCVD risk factor, treating to a non-HDL-C goal of <100 mg/dL (LDL-C of <70 mg/dL) is considered a therapeutic option. 05/26/2018 12:0 7 PM EST 05/26/2018 10:12 PM EST Narrative Resulting Agency Comment [id number] us Mitra Fletcher MD LABORATORY Final Result [facility] [address] [place] [address] * (ABNORMAL) COMPREHENSIVE METABOLIC PANEL WITH GFR (05/26/2018 12:07 PM EST) Glucose 97 65 - 99 mg/dL [facility] Comment:Fasting reference in terval Urea Nitrogen Blood (BUN) 26(H) 7 - 25 mg/dL [facility] Creatinine 1.03 0.70 - 1.18 mg/dL [facility] Comment: For patients >49 years of age, the reference limit for Creatinine is approximately 13% higher for people identified as -Central African. EGFR 69 > OR = 60 mL/min/1. [...] needs for GFR calculation. Resulting Agency Comment [id number] Mitra Fletcher MD LABORATORY Final Result [facility] [address] [place] [address] documented in this encounter Visit Diagnoses Diagnosis Systolic congestive heart failure, unspecified HF chronicity (HCC) documented in this encounter Care Teams Hydraulic Miner Relationship Specialty Start Date End Date Mitra Fletcher MD PCP - General Internal Medicine 12/06/17 10/23/18 documented as of this encounter
--- OUTSIDE RECORDS SUMMARY | 2025-02-02 05:58 | XMS_ITS | Clinical Summary ---
Author Organization [facility] Address [address] [place] [address] Care Team Providers Care Mica Patcher Name Role Phone Unavailable Primary Care Provider [...] behavioral disturbance 12/25/19 18 Secondary hypercoagulable state 12/18/2017 Personal history of stroke with current residual effects 12/18/2017 Anticoagulation goal of INR 2.5 to 3.5 8 Overview (12/18/2017): Followed by Clinic. 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 Orthostatic hypotension with dizzyness. H/O mechanical aortic valve replacement 12/18/2017 12/24/2017 Anticoagulation monitoring, INR range 2-3 12/17/2017 12/18/2017 Overview (12/17/2017): Followed by [facility]. Diagnosis: cva; INR: 2-3 Immunizations Immunization [...] Zoster (Zostavax) Discontinued Insurance MEDICARE PART B [employer]/ [employer] CLAIMS-SUPPLEMENTAL
[2025-02-02 06:37] LABS: INTERNATIONAL NORM RATIO 1.1 (0.9-1.1); Prothrombin Time 13.9 SEC (11.2-13.5)
== END 2025-02-02 05:53 | disposition home or self-care (01) ==
LOC: HO.HSH3E 05:52
PROVIDERS: Visit Provider Nurse Practitioner
DX: Z95.2 Presence of prosthetic heart valve (principal)
CPT/HCPCS: 36415; 85610

== ENCOUNTER 2025-02-03 05:53 | Outpatient (REF) | payer MEDICARE, SELFPAY ==
--- OUTSIDE RECORDS SUMMARY | 2010-02-13 04:45 | XMS_ITS | Continuity of Care Document ---
Author Organization [facility] Address [address] [place] [address] Phone Care Team Providers Care Senior Accountant Name Role Phone Violetta Clinton MD Unavailable Unavailable Procedures Procedure Date EYE EXAM ESTABLISHED PAT REFRACTION WITH EXAM Advance Directives Directive Yes / No Effective Date File Name No Information Encounters Encounter Description Practice Location Reason(s) For Visit Diagnoses Date Provider [facility] , [address] [place] [address], [facility], tel:[phone] [place] No Information 2009 Oz Shipley. [address] [place] [address], [address], [facility], . tel:[phone] [facility] , [address] [place] [address], [facility], tel:[phone] [place] No Information 2009 No Information Family History Family Member Type Diagnosis Age At Onset No Information Payers Payer name Insurance type Covered libertarian ID Authoriza tion(s) Medicare [place] [id number] P[facility] Indemnity Plan [id number] For Life [id number] Social History Type Description Quantity Date Captured Comments Sex Male Smoking Status No Information Chief Complaint And Reason For Visit No Information History Of Present Illness Encounter Date Complaint History Of Prese nt Illness No Information Instructions Date Instruction Additional Infor mation No Information Assessments Type Assessment Date No Information
--- OUTSIDE RECORDS SUMMARY | 2025-02-02 05:56 | XMS_ITS | Continuity of Care Document ---
Author Name [facility] Organization [facility] Care Team Providers Care Plastic Machine Operator Name Role Phone [facility] Unavailable Unavailable Problems Combined list of problems from Department of Defense and Veterans Affairs facilities. It does not include entries that were removed or entered in error. 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 [facility] Benign essential hypertension (SNOMED CT 9944208) Active Condition [facility] Cerebrovascular accident Active Condition [facility] Cerebrovascular disease Active Condition [facility] Depression * (ICD-9-CM 311./300.4) Active Condition [facility] Diplopia (SNOMED CT 13530938) Active Condition [facility] Fall from other Slipping, Tripping, or Stumbling Active Condition [facility] Hearing loss * (ICD-9-CM 389.9) Active [place] [facility] [place] [facility] History of mechanical mitral valve replacement Active Condition [facility] History of mechanical prosthetic mitral valve replacement Active Condition [facility] HTN - Hypertension (SCT 99311039) Active Condition [facility] Hyperlipidemia (SCT 57864683) Active Condition [facility] Hypotension Active Condition [facility] Long-term current use of anticoagulant Active Condition [facility] Long-term current use of anticoagulant (SNOMED CT 432356367) Active Condition [facility] Lower urinary tract symptoms due to benign prostatic hypertrophy (SNOMED CT 80081193003496) Active Condition [facility] Mild Cognitive Impairment, so stated (ICD-9-CM 331.83) Active [facility] Orthostatic hypotension Active Condition [facility] Parkinsonian tremor Active Condition [facility] Parkinsons disease Active Condition [facility] Pure hypercholesterolemia (SNOMED CT 462532963) Active Condition [facility] Sensorineural deafness Active Condition [facility] SENSORINEURAL HEARING LOSS, BILATERAL Active Condition [facility] Vascular dementia (SNOMED CT 628070029) [facility] Diagnosis: ICD-10-CM Z46.1 Encounter for fitting and adjustment of hearing aid Active Diagnosis [facility] Diagnosis: ICD-10-CM Z46.0 Encounter for fit/adjst of spectacles and contact lenses Active Diagnosis [facility] Diagnosis: ICD-10-CM F03.90 Unsp dementia, unsp severity, without beh/psych/mood/anx Active Diagnosis [facility] Medications Combined list of outpatient medications from Department of Defense and Veterans Affairs facilities.Medications provided include 1) outpatient medications from the last 15 months, and 2) patient-reported medications. Medication Details Route Status Indication(s) Patie nt Instructions Prescription Expires Prescription Number Last Dispense Date Ordering Provider Order Date Order Qty Source ASPIRIN TAB,EC TAKE 81MG BY MOUTH EVERY DAY ORAL ACTIVE JAY KELLY AEL E 2015 [facility] MULTIVITAMI N/MIN, THERAPEUTIC UD TAB TAKE ONE TABLET BY MOUTH EVERY DAY ORAL ACTIVE JAY KELLY AEMayra E 2010 [facility] WARFARIN (NON-VA) TAB TAKE 5 MG BY MOUTH ONCE DAILY ORAL ACTIVE GONZALO CANO 2018 [facility] WARFARIN NA 5MG TAB TAKE ONE TABLET BY MOUTH DIRECTED ORAL ACTIVE WANDA FERNANDO 2017 [facility] Allergies, Adverse Reactions, Alerts Combined list of allergies from Department of Defense and Veterans Affairs facilities. It does not include entries that were removed or entered in error. Substance Category Reaction Severity Reaction type Status Date Reported Comments Source BEE VENOM Propensity to adverse reaction (finding) Eruption active 8 [facility] BEES Propensity to adverse reaction (finding) active 0 [facility] FINASTERIDE Propensity to adverse reactions to drug (finding) Dizziness active 9 [facility] Propensity to adverse reaction (finding) active [facility] SIM[facility] Propensity to adverse reactions to drug (finding) active 0 [facility] SIMVASTATIN Propensity to adverse reactions to drug (finding) Muscle pain active 8 [facility] TAMSULOSIN Propensity to adverse reactions to drug (finding) Dizziness active 9 [facility] Immunizations Combined list of available immunizations from the Department of Defense and Veterans Affairs facilities. Immunization Series Date Given Administered By Site Reaction Lot Number CVX Code Drug Sports Analyst Status Comments Source COVID-19 (MODERNA), MRNA, LNP-S, PF, 50 MCG/0.5 ML (AGES 12+ YEARS) 5 2023 312 complet ed HISTORICA L INFORMATI ON - FROM OTHER REGISTRY, [facility] INFLUENZA, UNSPECIFIED FORMULATION 2023 88 complet ed Completed Series, HISTORICA L INFORMATI ON - [facility] PNEUMOCOCCAL CONJUGATE PCV20, POLYSACCHARID E [id number] CONJUGATE, ADJUVANT, PF 2021 216 complet ed HISTORICA L INFORMATI ON - FROM OTHER PROVIDER, [facility] ZOSTER RECOMBINANT 2 2021 187 complet ed HISTORICA L INFORMATI ON - FROM OTHER PROVIDER, [facility] COVID-19 (PFIZER), MRNA, LNP-S, PF, 30 MCG/0.3 ML DOSE 4 2021 208 complet ed HISTORICA L INFORMATI ON - FROM OTHER PROVIDER, [facility] ZOSTER RECOMBINANT 1 2021 187 complet ed HISTORICA L INFORMATI ON - FROM OTHER PROVIDER, [facility] COVID-19 (PFIZER), MRNA, LNP-S, PF, 30 MCG/0.3 ML DOSE 3 2020 208 complet ed HISTORICA L INFORMATI ON - FROM OTHER PROVIDER, [facility] INFLUENZA, UNSPECIFIED FORMULATION 2020 88 complet ed [facility] COVID-19 (PFIZER), MRNA, LNP-S, PF, 30 MCG/0.3 ML DOSE 2 2020 208 complet ed [facility] COVID-19 (PFIZER), MRNA, LNP-S, PF, 30 MCG/0.3 ML DOSE 1 2019 208 complet ed [facility] INFLUENZA, SEASONAL, INJECTABLE 2018 141 complet ed [facility] PNEUMOCOCCAL CONJUGATE PCV 13 2018 133 complet ed yes [facility] TDAP 2018 115 complet ed HISTORICA L INFORMATI ON - FROM OTHER PROVIDER, [facility] INFLUENZA, SEASONAL, INJECTABLE 2018 141 complet ed [facility] PNEUMOCOCCAL POLYSACCHARID E PPV23 2017 33 complet ed HISTORICA L INFORMATI ON - FROM OTHER PROVIDER, [facility] DTAP, UNSPECIFIED FORMULATION 2017 107 complet ed [facility] INFLUENZA, SEASONAL, INJECTABLE 2017 141 complet ed [facility] TDAP 2017 115 complet ed [facility] INFLUENZA, SEASONAL, INJECTABLE 2016 141 complet ed Site: Left Deltoid [facility] INFLUENZA, UNSPECIFIED FORMULATION 2015 88 complet ed Site: Left Deltoid [facility] INFLUENZA, UNSPECIFIED FORMULATION 2015 88 complet ed Site: Right Deltoid [facility] PNEUMOCOCCAL CONJUGATE PCV 13 2014 133 complet ed [facility] INFLUENZA, UNSPECIFIED FORMULATION 2013 88 complet ed Site: Right Deltoid [facility] ZOSTER (HISTORICAL) 2012 121 complet ed Proximal Left Arm [facility] TDAP 2011 115 complet ed Site: Left Deltoid [facility] TETANUS DIPHTHERIA (HISTORICAL) 2007 139 complet ed went to [facility] cut hand on table saw [facility] PNEUMOCOCCAL, UNSPECIFIED FORMULATION [address] [facility] Vital Signs Combined list of inpatient and outpatient Vital Signs from Department of Defense and Veterans Affairs, ranging from 12 months to all on record, depending upon the facility. Vital Sign Value Date Comments Source SYSTOLIC BLOOD PRESSURE 126 03/06/20 24 09:48:00 [facility] DIASTOLIC BLOOD PRESSURE 74 024 09:48:00 [facility] PULSE OXIMETRY 96 03/06/2024 09:48:00 [facility] WEIGHT 164.6 03/06/2024 09:48:00 [facility] BMI 26 kg/m2 03/06/2024 09:48:00 [facility] PAIN 0 03/06/2024 09:48:00 [facility] HEIGHT 67 03/06/2024 09:48:00 [facility] PULSE 86 03/06/2024 09:48:00 [facility] RESPIRATION 16 03/06/2024 09:48:00 [facility] Encounters Combined list of: 1) Encounters from Department of Veterans Affairs facilities going backup to the last 18 months, not all VA inpatient encounters are included; 2) Encounters from the Department of Defense facilities going backup to 280 months. Location Location Details Encounter Type Encounter Number Reason For Visit Attending Provider ADM Date DC Date Status Disposition Source [facility] HEARING AID REPAIR/MOD IFYING [id number] Diagnos is: ICD-10- CM Z46.1 Encount er for fitting and adjustm ent of hearing aid RYANNE PINA 09/19 [facility] Outpatient Encounter [id number] 01/13 [facility] OFFICE O/P EST SF 10 MIN [id number] 1. Diagnos is: ICD-10- CM F03.90 Unsp dementi a, unsp severit y, without beh/psy ch/mood /anx MANJINDER LA RD 03/06 [facility] RPR&REFITG SPECT XCP APHAKIA [id number] 1. Diagnos is: ICD-10- CM Z46.0 Encount er for fit/adj st of spectac les and contact lenses César MARLEY 03/06 [facility] HEARING AID REPAIR/MOD IFYING [id number] Diagnos is: ICD-10- CM Z46.1 Encount er for fitting and adjustm ent of hearing aid Marci PALACIOS 07/30 [facility] Outpatient Encounter [id number] 08/04 [facility] Outpatient Encounter [id number] 08/10 [facility] Outpatient Encounter [id number] 01/27 [facility] Social History Combined list of available smoking, tobacco, and other social history from Department of Defense and Veterans Affairs facilities. Social History Type Response Date Comment [facility] VA-TOBACCO NEVER USED 03/04/2023 [facility] History of tobacco use VA-TOBACCO NEVER USED 03/05/2022 [facility] History of tobacco use VA-TOBACCO NEVER USED 03/03/2021 [facility] History of tobacco use VA-TOBACCO NEVER USED 12/31/2019 [facility] History of tobacco use VA-TOBACCO NEVER USED 12/01/2018 [facility] History [facility] tobacco use [facility] of tobacco use LIFETIME NON-TOBACCO USER 09/17/2017 [facility] History of tobacco use LIFETIME NON-TOBACCO USER 09/17/2017 [facility] History of tobacco use LIFETIME NON-TOBACCO USER 12/18/2016 [facility] History of tobacco use LIFETIME NON-TOBACCO USER 11/16/2016 [facility] History of tobacco use LIFETIME NON-TOBACCO USER 02/14/2016 [facility] History of tobacco use LIFETIME NON-TOBACCO USER 03/08/2015 [facility] History of tobacco use LIFETIME NON-TOBACCO USER 03/01/2010 [facility] This section is an empty social history section. [facility] Advance Directives List of completed, amended, or rescinded Advance Directives on record at Department of Veterans Affairs facilities. An actual copy of the Directive is not included. Date Advance Directive Provider Source 08/29/2010 ADVANCE DIRECTIVE MAGED [facility]
--- OUTSIDE RECORDS SUMMARY | 2025-02-03 05:56 | XMS_ITS | Encounter Summary ---
Author Organization [facility] Address [address] [place] [address] Care Team Providers Care Heavy Forging Machine Operator Name Role Phone Mitra Fletcher MD Primary Care Provider [phone] Encounter Details Date Type Department Care Team (Late st Contact Info) Description 05/26/2018 Orders Only [facility] Internal Medicine [address] [place] [address] Mitra Fletcher MD [address] [place] [address] Social History Tobacco Use Types Packs/Day Years [...] of this encounter Procedures * Due to [place] [employer] law, this organization might not be sharing [...] in this encounter Results * Due to [place] [employer] law, this organization might not be sharing [...] 10:12 PM EST Narrative Resulting Agency Comment [id number] us Mitra Fletcher MD LAB SAME DAY RESULT Final Re sult [facility] [address] [place] [address] * TSH, 3RD GENERATION (05/26/2018 12:07 PM EST) TSH 2.36 0.40 - 4.50 mIU/L [facility] 05/26/2018 12:0 7 PM EST 05/26/2018 10:12 PM EST Narrative Resulting Agency Comment [id number] Mitra Fletcher MD LABORATORY Final Result Performing Organization Address [facility] de Phone Number [facility] [address] [place] [address] * (ABNORMAL) HEMOGLOBIN A1C (05/26/2018 12:07 PM [...] 10:12 PM EST Narrative Resulting Agency Comment [id number] Mitra Fletcher MD LABORATORY Final Result Performing Organization Address [facility] de Phone Number [facility] [address] [place] [address] * (ABNORMAL) LIPID PANEL WITH REFLEX TO [...] of LDL-C. Eliot LEE et al. MARK. 2013;310(13): 5037-2277 (http://education.Eff[employer] MXR/faq/SNG559) CHOL/HDL Ratio 3.1 <5.0 (calc) [facility] Cholesterol Non-HDL 128 <130 mg/dL (calc) [facility] Comment: For patients with diabetes plus 1 major ASCVD risk factor, treating to a non-HDL-C goal of <100 mg/dL (LDL-C of <70 mg/dL) is considered a therapeutic option. 05/26/2018 12:0 7 PM EST 05/26/2018 10:12 PM EST Narrative Resulting Agency Comment [id number] us Mitra Fletcher MD LABORATORY Final Result [facility] [address] [place] [address] * (ABNORMAL) COMPREHENSIVE METABOLIC PANEL WITH GFR (05/26/2018 12:07 PM EST) Glucose 97 65 - 99 mg/dL [facility] Comment:Fasting reference in terval Urea Nitrogen Blood (BUN) 26(H) 7 - 25 mg/dL [facility] Creatinine 1.03 0.70 - 1.18 mg/dL [facility] Comment: For patients >49 years of age, the reference limit for Creatinine is approximately 13% higher for people identified as -Brazilian. EGFR 69 > OR = 60 mL/min/1. [...] needs for GFR calculation. Resulting Agency Comment [id number] Mitra Fletcher MD LABORATORY Final Result [facility] [address] [place] [address] documented in this encounter Visit Diagnoses Diagnosis Systolic congestive heart failure, unspecified HF chronicity (HCC) documented in this encounter Care Teams Heavy Forging Machine Operator Relationship Specialty Start Date End Date Mitra Fletcher MD PCP - General Internal Medicine 12/06/17 10/23/18 documented as of this encounter
--- OUTSIDE RECORDS SUMMARY | 2025-02-03 05:56 | XMS_ITS | Encounter Summary ---
Author Organization [facility] Address [address] [place] [address] Care Team Providers Care Hand Plug Shaper Name Role Phone Mitra Fletcher MD Primary Care Provider + [phone] Encounter Details Date Type Department Care Team (Late st Contact Info) Description 12/24/2017 Orders Only [facility] [address] [place] [address] Obdulia Sherman LVN LPN [address] [place] [address] Social History Tobacco Use Types Packs/Day Years [...] encounter Procedures * Due to [place] [employer] law, this organization might not be sharing negative HIV tests. Procedure Name Priority Date/Time Associated Diagnosis Comments PROTHROMBIN TIME (PT), ANTICOAGULATION THERAPY (INR 2.0 3.0) Same Day Results 12/24/2017 3:51 PM EDT Cerebrovascular accident (CVA), unspecified mechanism H/O mechanical aortic valve replacement Anticoagulation goal of INR 2.5 to 3.5 documented in this encounter Results * Due to [place] [employer] law, this organization might not be sharing negative HIV tests. * (ABNORMAL) PROTHROMBIN TIME (PT), ANTICOAGULATION THERAPY (INR 2.0 ??? 3.0) (12/24/2017 3:51 PM EDT) INR 3.9(H) [facility] Comment: Reference Range 0.9-1.1 Moderate-intensity Warfarin Therapy 2.0-3.0 Higher-intensity Warfarin Therapy 3.0-4.0 PT 40.0 9.0 - 11.5 sec [facility] 12/24/2017 3:51 PM EDT 12/24/2017 10:39 PM EDT Narrative Resulting Agency Comment [id number] us Margret Waldrop MD LAB SAME DAY RESULT Final Resul t Performing Organization Address City/State/[facility] Co de Phone Number [facility] [address] [place] [address] documented in this encounter Visit Diagnoses Diagnosis Cerebrovascular accident (CVA), unspecified mechanism (HCC) H/O mechanical aortic valve replacement Heart valve replaced by other means Anticoagulation goal of INR 2.5 to 3.5 Encounter for therapeutic drug monitoring documented in this encounter Care Teams Hand Plug Shaper Relationship Specialty Start Date End Date Mitra Fletcher MD PCP - General Internal Medicine 12/06/17 10/23/18 documented as of this encounter
--- OUTSIDE RECORDS SUMMARY | 2025-02-03 05:56 | XMS_ITS | Encounter Summary ---
Author Organization [facility] Address [address] [place] [address] Care Team Providers Care Csr Name Role Phone Mitra Fletcher MD Primary Care Provider + [phone] Encounter Details Date Type Department Care Team (Late st Contact Info) Description 12/24/2017 Orders Only [facility] Internal Medicine [address] [place] [address] Mitra Fletcher MD [address] [place] [address] Social History Tobacco Use Types Packs/Day Years [...] this encounter Procedures * Due to [place] state law, this organization might not be [...] this encounter Results * Due to [place] state law, this organization might not be [...] 10:51 PM EDT Narrative Resulting Agency Comment [id number] Mitra Fletcher MD LABORATORY Final Result Performing Organization Address [facility] Co de Phone Number [facility] [address] [place] [address] * VITAMIN D, 25-HYDROXY, TOTAL, IMMUNOASSAY (12/24/2017 [...] D, (D2,D3), LC/MS/MS is recommended: order code [id number] (patients >2yrs). For more information on this test, go to: http://education.qcue/faq/NLL494 (This link is being provided for informational/educational purposes only.) 12/24/2017 3:51 PM EDT 12/24/2017 10:51 PM EDT Narrative Resulting Agency Comment [id number] Mitra Fletcher MD LABORATORY Final Result Performing Organization Address [facility] Co de Phone Number [facility] [address] [place] [address] * (ABNORMAL) HEMOGLOBIN A1C (12/24/2017 3:51 PM [...] children. Estimated Average Glucose 129 mg/dL (calc) [facility] 12/24/2017 3:51 PM EDT 12/24/2017 10:51 PM EDT Narrative Resulting Agency Comment [id number] Mitra Fletcher MD LABORATORY Final Result Performing Organization Address [facility] de Phone Number [facility] [address] [place] [address] * (ABNORMAL) LIPID PANEL WITH REFLEX TO [...] LDL-C. Eliot SS et al. MARK. 2013;310(19): 5916-9835 (http://education.LightInTheBox.com.[employer]/faq/PXY684) CHOL/HDL Ratio 3.9 <5.0 (calc) [facility] Cholesterol Non-HDL 146(H) <130 mg/dL (calc) [facility] Comment: For patients with diabetes plus 1 major ASCVD risk factor, treating to a non-HDL-C goal of <100 mg/dL (LDL-C of <70 mg/dL) is considered a therapeutic option. 12/24/2017 3:51 PM EDT 12/24/2017 10:51 PM EDT Narrative Resulting Agency Comment [id number] Mitra Fletcher MD LABORATORY Final Result Performing Organization Address [facility]/ZIP Co de Phone Number [facility] [address] [place] [address] * TSH, 3RD GENERATION (12/24/2017 3:51 PM EDT) TSH 1.29 0.40 - 4.50 mIU/L [facility] 12/24/2017 3:51 PM EDT 12/24/2017 10:51 PM EDT Narrative Resulting Agency Comment [id number] Mitra Fletcher MD LABORATORY Final Result [facility] [address] [place] [address] * (ABNORMAL) COMPREHENSIVE METABOLIC PANEL WITH GFR [...] approximately 13% higher for people identified as -Paraguayan. GFR 55(L) > OR = 60 mL/min/1. [...] needs for GFR calculation. Resulting Agency Comment [id number] us Mitra Fletcher MD LABORATORY Final Result [facility] [address] [place] [address] * CBC INCLUDES DIFFERENTIAL AND PLATELET COUNT [...] 10:51 PM EDT Narrative Resulting Agency Comment [id number] Mitra Fletcher MD LAB SAME DAY RESULT Final Re sult [facility] [address] [place] [address] documented in this encounter Visit Diagnoses Diagnosis [...] means documented in this encounter Care Teams Csr Relationship Specialty Start Date End Date Mitra Fletcher MD PCP - General Internal Medicine 12/06/17 10/23/18 documented as of this encounter
--- OUTSIDE RECORDS SUMMARY | 2025-02-03 05:57 | XMS_ITS | Clinical Summary ---
Author Organization [facility] Address [address] [place] [address] Care Team Providers Care Hospital Admissions Officer Name Role Phone Unavailable Primary Care Provider [...] Zoster (Zostavax) Discontinued Insurance MEDICARE PART B [employer]/ [employer] CLAIMS-SUPPLEMENTAL
[2025-02-03 06:26] LABS: INTERNATIONAL NORM RATIO 2.5 (0.9-1.1); Prothrombin Time 30.4 SEC (11.2-13.5)
== END 2025-02-03 05:54 | disposition home or self-care (01) ==
LOC: HO.HSH3E 05:53
PROVIDERS: Visit Provider Internal Medicine Endocrinology, Diabetes & Metabolism
DX: I63.9 Cerebral infarction, unspecified (principal)
CPT/HCPCS: 36415; 85610

== ENCOUNTER 2025-02-09 06:06 | Outpatient (REF) | payer MEDICARE, SELFPAY ==
[2025-02-09 06:42] LABS: INTERNATIONAL NORM RATIO 3.2 (0.9-1.1); Prothrombin Time 37.9 SEC (11.2-13.5)
== END 2025-02-09 06:07 | disposition home or self-care (01) ==
LOC: HO.HSH3E 06:06
PROVIDERS: Visit Provider Nurse Practitioner
DX: Z95.2 Presence of prosthetic heart valve (principal)
CPT/HCPCS: 36415; 85610

== ENCOUNTER 2025-02-16 05:57 | Outpatient (REF) | payer MEDICARE, SELFPAY ==
--- OUTSIDE RECORDS SUMMARY | 2010-02-13 04:45 | XMS_ITS | Continuity of Care Document ---
Author Organization [facility] Address [address] [place] [address] Phone Care Team Providers Care Signing Agent Name Role Phone Violetta Clinton MD Unavailable Unavailable Procedures Procedure Date EYE EXAM ESTABLISHED PAT REFRACTION WITH EXAM Advance Directives Directive Yes / No Effective Date File Name No Information Encounters Encounter Description Practice Location Reason(s) For Visit Diagnoses Date Provider [facility] , [address] [place] [address], [facility], tel:[phone] [place] No Information 2009 Oz Shipley. [address] [place] [address], [address], [facility], . tel:[phone] [facility] , [address] [place] [address], [facility], tel:[phone] [place] No Information 2009 No Information Family History Family Member Type Diagnosis Age At Onset No Information Payers Payer name Insurance type Covered democrat ID Authoriza tion(s) Medicare MB [id number] On [facility] Indemnity Plan [id number] For Life [id number] Social History Type Description Quantity Date Captured Comments Sex Male Smoking Status No Information Chief Complaint And Reason For Visit No Information History Of Present Illness Encounter Date Complaint History Of Prese nt Illness No Information Instructions Date Instruction Additional Infor mation No Information Assessments Type Assessment Date No Information
--- OUTSIDE RECORDS SUMMARY | 2025-02-16 06:02 | XMS_ITS | Encounter Summary ---
Author Organization [facility] Address [address] [place] [address] Care Team Providers Care Street Worker Name Role Phone Mitra Fletcher MD Primary Care Provider + [phone] Encounter Details Date Type Department Care Team (Late st Contact Info) Description 12/24/2017 Orders Only [facility] Internal Medicine [address] [place] [address] Mitra Fletcher MD [address] [place] [address] Social History Tobacco Use Types Packs/Day Years [...] of this encounter Procedures * Due to [place] state law, this organization might not be [...] in this encounter Results * Due to [place] state law, this organization might not be [...] 10:51 PM EDT Narrative Resulting Agency Comment [id number] Mitra Fletcher MD LABORATORY Final Result Performing Organization Address [facility] Co de Phone Number [facility] [address] [place] [address] * VITAMIN D, 25-HYDROXY, TOTAL, IMMUNOASSAY (12/24/2017 [...] D, (D2,D3), LC/MS/MS is recommended: order code 01771 (patients >2yrs). For more information on this test, go to: http://education.[employer]/faq/AZK179 (This link is being provided for informational/educational purposes only.) 12/24/2017 3:51 PM EDT 12/24/2017 10:51 PM EDT Narrative Resulting Agency Comment [id number] Mitra Fletcher MD LABORATORY Final Result Performing Organization Address [facility] Co de Phone Number [facility] [address] [place] [address] * (ABNORMAL) HEMOGLOBIN A1C (12/24/2017 3:51 PM [...] children. Estimated Average Glucose 129 mg/dL (calc) [facility] 12/24/2017 3:51 PM EDT 12/24/2017 10:51 PM EDT Narrative Resulting Agency Comment [id number] Mitra Fletcher MD LABORATORY Final Result Performing Organization Address [facility] de Phone Number [facility] [address] [place] [address] * (ABNORMAL) LIPID PANEL WITH REFLEX TO [...] LDL-C. Eliot SS et al. MARK. 2013;310(19): 5938-6158 (http://education.[employer].Dasher/faq/AJV193) CHOL/HDL Ratio 3.9 <5.0 (calc) [facility] Cholesterol Non-HDL 146(H) <130 mg/dL (calc) [facility] Comment: For patients with diabetes plus 1 major ASCVD risk factor, treating to a non-HDL-C goal of <100 mg/dL (LDL-C of <70 mg/dL) is considered a therapeutic option. 12/24/2017 3:51 PM EDT 12/24/2017 10:51 PM EDT Narrative Resulting Agency Comment [id number] Mitra Fletcher MD LABORATORY Final Result Performing Organization Address [facility]/ZIP Co de Phone Number [facility] [address] [place] [address] * TSH, 3RD GENERATION (12/24/2017 3:51 PM EDT) TSH 1.29 0.40 - 4.50 mIU/L [facility] 12/24/2017 3:51 PM EDT 12/24/2017 10:51 PM EDT Narrative Resulting Agency Comment [id number] Mitra Fletcher MD LABORATORY Final Result [facility] [address] [place] [address] * (ABNORMAL) COMPREHENSIVE METABOLIC PANEL WITH GFR [...] approximately 13% higher for people identified as -Egyptian. GFR 55(L) > OR = 60 mL/min/1. [...] needs for GFR calculation. Resulting Agency Comment [id number] us Mitra Fletcher MD LABORATORY Final Result [facility] [address] [place] [address] * CBC INCLUDES DIFFERENTIAL AND PLATELET COUNT [...] 10:51 PM EDT Narrative Resulting Agency Comment [id number] Mitra Fletcher MD LAB SAME DAY RESULT Final Re sult [facility] [address] [place] [address] documented in this encounter Visit Diagnoses Diagnosis [...] means documented in this encounter Care Teams Street Worker Relationship Specialty Start Date End Date Mitra Fletcher MD PCP - General Internal Medicine 12/06/17 10/23/18 documented as of this encounter
--- OUTSIDE RECORDS SUMMARY | 2025-02-16 06:02 | XMS_ITS | Encounter Summary ---
Author Organization [facility] Address [address] [place] [address] Care Team Providers Care Ruby Developer Name Role Phone Mitra Fletcher MD Primary Care Provider [phone] Encounter Details Date Type Department Care Team (Late st Contact Info) Description 05/26/2018 Orders Only [facility] Internal Medicine [address] [place] [address] Mitra Fletcher MD [address] [place] [address] Social History Tobacco Use Types Packs/Day Years [...] this encounter Procedures * Due to [place] [employer] law, this organization might not be sharing [...] this encounter Results * Due to [place] [employer] law, this organization might not be sharing [...] 10:12 PM EST Narrative Resulting Agency Comment [id number] us Mitra Fletcher MD LAB SAME DAY RESULT Final Re sult [facility] [address] [place] [address] * TSH, 3RD GENERATION (05/26/2018 12:07 PM EST) TSH 2.36 0.40 - 4.50 mIU/L [facility] 05/26/2018 12:0 7 PM EST 05/26/2018 10:12 PM EST Narrative Resulting Agency Comment [id number] Mitra Fletcher MD LABORATORY Final Result Performing Organization Address [facility] de Phone Number [facility] [address] [place] [address] * (ABNORMAL) HEMOGLOBIN A1C (05/26/2018 12:07 PM [...] 10:12 PM EST Narrative Resulting Agency Comment [id number] Mitra Fletcher MD LABORATORY Final Result Performing Organization Address [facility] de Phone Number [facility] [address] [place] [address] * (ABNORMAL) LIPID PANEL WITH REFLEX TO [...] equation in the estimation of LDL-C. Eliot ELE et al. MARK. 2013;310(89): 2556-2378 (http://education.Clarient/faq/JKB801) CHOL/HDL Ratio 3.1 <5.0 (calc) [facility] Cholesterol Non-HDL 128 <130 mg/dL (calc) [facility] Comment: For patients with diabetes plus 1 major ASCVD risk factor, treating to a non-HDL-C goal of <100 mg/dL (LDL-C of <70 mg/dL) is considered a therapeutic option. 05/26/2018 12:0 7 PM EST 05/26/2018 10:12 PM EST Narrative Resulting Agency Comment [id number] us Mitra Fletcher MD LABORATORY Final Result [facility] [address] [place] [address] * (ABNORMAL) COMPREHENSIVE METABOLIC PANEL WITH GFR (05/26/2018 12:07 PM EST) Glucose 97 65 - 99 mg/dL [facility] Comment:Fasting reference in terval Urea Nitrogen Blood (BUN) 26(H) 7 - 25 mg/dL [facility] Creatinine 1.03 0.70 - 1.18 mg/dL [facility] Comment: For patients >49 years of age, the reference limit for Creatinine is approximately 13% higher for people identified as -Senegalese. EGFR 69 > OR = 60 mL/min/1. [...] needs for GFR calculation. Resulting Agency Comment [id number] Mitra Fletcher MD LABORATORY Final Result [facility] [address] [place] [address] documented in this encounter Visit Diagnoses Diagnosis Systolic congestive heart failure, unspecified HF chronicity (HCC) documented in this encounter Care Teams Ruby Developer Relationship Specialty Start Date End Date Mitra Fletcher MD PCP - General Internal Medicine 12/06/17 10/23/18 documented as of this encounter
--- OUTSIDE RECORDS SUMMARY | 2025-02-16 06:02 | XMS_ITS | Clinical Summary ---
Author Organization [facility] Address [address] [place] [address] Care Team Providers Care Drywall Contractor Name Role Phone Unavailable Primary Care Provider [...] Zoster (Zostavax) Discontinued Insurance MEDICARE PART B [employer]/ [employer] CLAIMS-SUPPLEMENTAL
--- OUTSIDE RECORDS SUMMARY | 2025-02-16 06:02 | XMS_ITS | Encounter Summary ---
Author Organization [facility] Address [address] [place] [address] Care Team Providers Care Executive Recruiter Name Role Phone Mitra Fletcher MD Primary Care Provider + [phone] Encounter Details Date Type Department Care Team (Late st Contact Info) Description 12/24/2017 Orders Only [facility] [address] [place] [address] Obdulia Sherman LVN LPN [address] [place] [address] Social History Tobacco Use Types Packs/Day [...] 12/25/2017 8:57 AM EDT Results received by [facility] nurse. See [facility] Track for documentation. * Melissa Dale - 12/25/2017 8:15 AM EDT Critical results received in [facility] and forwarded to Nurse pool for dosing documented in this encounter Plan of Treatment Not on file documented as of this encounter Procedures * Due to [place] [employer] law, this organization might not be sharing negative HIV tests. Procedure Name Priority Date/Time Associated Diagnosis Comments PROTHROMBIN TIME (PT), ANTICOAGULATION THERAPY (INR 2.0 3.0) Same Day Results 12/24/2017 3:51 PM EDT Cerebrovascular accident (CVA), unspecified mechanism H/O mechanical aortic valve replacement Anticoagulation goal of INR 2.5 to 3.5 documented in this encounter Results * Due to [place] [employer] law, this organization might not be sharing negative HIV tests. * (ABNORMAL) PROTHROMBIN TIME (PT), ANTICOAGULATION THERAPY (INR 2.0 ??? 3.0) (12/24/2017 3:51 PM EDT) INR 3.9(H) [facility] Comment: Reference Range 0.9-1.1 Moderate-intensity Warfarin Therapy 2.0-3.0 Higher-intensity Warfarin Therapy 3.0-4.0 PT 40.0 9.0 - 11.5 sec [facility] 12/24/2017 3:51 PM EDT 12/24/2017 10:39 PM EDT Narrative Resulting Agency Comment [id number] us Margret Waldrop MD LAB SAME DAY RESULT Final Resul t Performing Organization Address City/State/[facility] Co de Phone Number [facility] [address] [place] [address] documented in this encounter Visit Diagnoses Diagnosis Cerebrovascular accident (CVA), unspecified mechanism (HCC) H/O mechanical aortic valve replacement Heart valve replaced by other means Anticoagulation goal of INR 2.5 to 3.5 Encounter for therapeutic drug monitoring documented in this encounter Care Teams Executive Recruiter Relationship Specialty Start Date End Date Mitra Fletcher MD PCP - General Internal Medicine 12/06/17 10/23/18 documented as of this encounter
[2025-02-16 06:34] LABS: INTERNATIONAL NORM RATIO 2.5 (0.9-1.1); Prothrombin Time 30.4 SEC (11.2-13.5)
== END 2025-02-16 05:58 | disposition home or self-care (01) ==
LOC: HO.HSH3E 05:57
PROVIDERS: Visit Provider Nurse Practitioner
DX: Z95.2 Presence of prosthetic heart valve (principal)
CPT/HCPCS: 36415; 85610

== ENCOUNTER 2025-02-23 06:34 | Outpatient (REF) | payer MEDICARE, SELFPAY ==
--- OUTSIDE RECORDS SUMMARY | 2010-02-13 04:45 | XMS_ITS | Continuity of Care Document ---
Author Organization [facility] Address [address] [place] [address] Phone Care Team Providers Care Plaster Tender Name Role Phone Violetta Clinton MD Unavailable Unavailable Procedures Procedure Date EYE EXAM ESTABLISHED PAT REFRACTION WITH EXAM Advance Directives Directive Yes / No Effective Date File Name No Information Encounters Encounter Description Practice Location Reason(s) For Visit Diagnoses Date Provider [facility] , [address] [place] [address], [facility], tel:[phone] [place] No Information 2009 Oz Shipley. [address] [place] [address], [address], [facility], . tel:[phone] [facility] , [address] [place] [address], [facility], tel:[phone] [place] No Information 2009 No Information Family History Family Member Type Diagnosis Age At Onset No Information Payers Payer name Insurance type Covered democrat ID Authoriza tion(s) Medicare MB [id number] [facility] Indemnity Plan [id number] For Life [id number] Social History Type Description Quantity Date Captured Comments Sex Male Smoking Status No Information Chief Complaint And Reason For Visit No Information History Of Present Illness Encounter Date Complaint History Of Prese nt Illness No Information Instructions Date Instruction Additional Infor mation No Information Assessments Type Assessment Date No Information
--- OUTSIDE RECORDS SUMMARY | 2025-02-23 06:37 | XMS_ITS | Encounter Summary ---
Author Organization [facility] Address [address] [place] [address] Care Team Providers Care Internal Medicine Specialist Name Role Phone Mitra Fletcher MD Primary Care Provider + [phone] Encounter Details Date Type Department Care Team (Late st Contact Info) Description 12/24/2017 Orders Only [facility] Antico [address] [place] [address] Obdulia Sherman, SURGICAL RESIDENT [address] [place] [address] Social History Tobacco Use Types Packs/Day Years Used Date Smoking Tobacco: Never Smokeless Tobacco: Never Sex and Gender Information Value Date Recorded Sex Assigned at Not on file Legal Sex Male 9:59 PM EDT Gender Identity Not on file Sexual Orientation Not on file documented as of this encounter Progress Notes * Skylar Esteves - 12/25/2017 8:57 AM EDT Results received by [facility] nurse. See [facility] Track for documentation. * Melissa Dale - 12/25/2017 8:15 AM EDT Critical results received in [facility] Clinic and forwarded to Nurse pool for dosing documented in this encounter Plan of Treatment Not on file documented as of this encounter Procedures * Due to [place] [employer] law, this organization might not be sharing negative HIV tests. Procedure Name Priority Date/Time Associated Diagnosis Comments PROTHROMBIN TIME (PT), ANTICOAGULATION THERAPY (INR 2.0 3.0) Same Day Results 12/24/2017 3:51 PM EDT Cerebrovascular accident (CVA), unspecified mechanism H/O mechanical aortic valve replacement Anticoagulation goal of INR 2.5 to 3.5 documented in this encounter Results * Due to [place] [employer] law, this organization might not be sharing negative HIV tests. * (ABNORMAL) PROTHROMBIN TIME (PT), ANTICOAGULATION THERAPY (INR 2.0 ??? 3.0) (12/24/2017 3:51 PM EDT) INR 3.9(H) [facility] Comment: Reference Range 0.9-1.1 Moderate-intensity Warfarin Therapy 2.0-3.0 Higher-intensity Warfarin Therapy 3.0-4.0 PT 40.0 9.0 - 11.5 sec [facility] 12/24/2017 3:51 PM EDT 12/24/2017 10:39 PM EDT Narrative Resulting Agency Comment [id number] us Margret Waldrop MD LAB SAME DAY RESULT Final Resul t [facility] [address] [place] [address] documented in this encounter Visit Diagnoses Diagnosis Cerebrovascular accident (CVA), unspecified mechanism (HCC) H/O mechanical aortic valve replacement Heart valve replaced by other means Anticoagulation goal of INR 2.5 to 3.5 Encounter for therapeutic drug monitoring documented in this encounter Care Teams Internal Medicine Specialist Relationship Specialty Start Date End Date Mitra Fletcher MD PCP - General Internal Medicine 12/06/17 10/23/18 documented as of this encounter
--- OUTSIDE RECORDS SUMMARY | 2025-02-23 06:37 | XMS_ITS | Encounter Summary ---
Author Organization [facility] Address [address] [place] [address] Care Team Providers Care Institutional Cook Name Role Phone Mitra Fletcher MD Primary Care Provider [phone] Encounter Details Date Type Department Care Team (Late st Contact Info) Description 05/26/2018 Orders Only [facility] Internal Medicine [address] [place] [address] Mitra Fletcher MD [address] [place] [address] Social History Tobacco Use Types Packs/Day Years [...] this encounter Procedures * Due to [place] [employer] law, this organization might not be sharing [...] this encounter Results * Due to [place] [employer] law, this organization might not be sharing [...] 10:12 PM EST Narrative Resulting Agency Comment [id number] us Mitra Fletcher MD LAB SAME DAY RESULT Final Re sult [facility] [address] [place] [address] * TSH, 3RD GENERATION (05/26/2018 12:07 PM EST) TSH 2.36 0.40 - 4.50 mIU/L [facility] 05/26/2018 12:0 7 PM EST 05/26/2018 10:12 PM EST Narrative Resulting Agency Comment [id number] Mitra Fletcher MD LABORATORY Final Result Performing Organization Address [facility] de Phone Number [facility] [address] [place] [address] * (ABNORMAL) HEMOGLOBIN A1C (05/26/2018 12:07 PM [...] 10:12 PM EST Narrative Resulting Agency Comment [id number] Mitra Fletcher MD LABORATORY Final Result Performing Organization Address [facility] de Phone Number [facility] [address] [place] [address] * (ABNORMAL) LIPID PANEL WITH REFLEX TO [...] LDL-C. Eliot LEE et al. MARK. 2013;310(23): 2864-1802 (http://education.eTobb/faq/MEM774) CHOL/HDL Ratio 3.1 <5.0 (calc) [facility] Cholesterol Non-HDL 128 <130 mg/dL (calc) [facility] Comment: For patients with diabetes plus 1 major ASCVD risk factor, treating to a non-HDL-C goal of <100 mg/dL (LDL-C of <70 mg/dL) is considered a therapeutic option. 05/26/2018 12:0 7 PM EST 05/26/2018 10:12 PM EST Narrative Resulting Agency Comment [id number] us Mitra Fletcher MD LABORATORY Final Result [facility] [address] [place] [address] * (ABNORMAL) COMPREHENSIVE METABOLIC PANEL WITH GFR (05/26/2018 12:07 PM EST) Glucose 97 65 - 99 mg/dL [facility] Comment:Fasting reference in terval Urea Nitrogen Blood (BUN) 26(H) 7 - 25 mg/dL [facility] Creatinine 1.03 0.70 - 1.18 mg/dL [facility] Comment: For patients >49 years of age, the reference limit for Creatinine is approximately 13% higher for people identified as -Malagasy. EGFR 69 > OR = 60 mL/min/1. [...] needs for GFR calculation. Resulting Agency Comment [id number] Mitra Fletcher MD LABORATORY Final Result [facility] [address] [place] [address] documented in this encounter Visit Diagnoses Diagnosis Systolic congestive heart failure, unspecified HF chronicity (HCC) documented in this encounter Care Teams Institutional Cook Relationship Specialty Start Date End Date Mitra Fletcher MD PCP - General Internal Medicine 12/06/17 10/23/18 documented as of this encounter
--- OUTSIDE RECORDS SUMMARY | 2025-02-23 06:37 | XMS_ITS | Encounter Summary ---
Author Organization [facility] Address [address] [place] [address] Care Team Providers Care High Density Finishing Operator Name Role Phone Mitra Fletcher MD Primary Care Provider [phone] Encounter Details Date Type Department Care Team (Late st Contact Info) Description 12/24/2017 Orders Only [facility] Internal Medicine [address] [place] [address] Mitra Fletcher MD [address] [place] [address] Social History Tobacco Use Types Packs/Day Years [...] of this encounter Procedures * Due to [place] state law, this organization might not be [...] in this encounter Results * Due to [place] state law, this organization might not be [...] 10:51 PM EDT Narrative Resulting Agency Comment [id number] Mitra Fletcher MD LABORATORY Final Result Performing Organization Address [facility] Co de Phone Number [facility] [address] [place] [address] * VITAMIN D, 25-HYDROXY, TOTAL, IMMUNOASSAY (12/24/2017 [...] D, (D2,D3), LC/MS/MS is recommended: order code [id number] (patients >2yrs). For more information on this test, go to: http://education.Fusebill/faq/XSL113 (This link is being provided for informational/educational purposes only.) 12/24/2017 3:51 PM EDT 12/24/2017 10:51 PM EDT Narrative Resulting Agency Comment [id number] Mitra Fletcher MD LABORATORY Final Result Performing Organization Address [facility] Co de Phone Number [facility] [address] [place] [address] * (ABNORMAL) HEMOGLOBIN A1C (12/24/2017 3:51 PM [...] children. Estimated Average Glucose 129 mg/dL (calc) [facility] 12/24/2017 3:51 PM EDT 12/24/2017 10:51 PM EDT Narrative Resulting Agency Comment [id number] Mitra Fletcher MD LABORATORY Final Result Performing Organization Address [facility] de Phone Number [facility] [address] [place] [address] * (ABNORMAL) LIPID PANEL WITH REFLEX TO [...] LDL-C. Eliot SS et al. MARK. 2013;310(19): 6121-3932 (http://education.Skytap.139shop/faq/CMG758) CHOL/HDL Ratio 3.9 <5.0 (calc) [facility] Cholesterol Non-HDL 146(H) <130 mg/dL (calc) [facility] Comment: For patients with diabetes plus 1 major ASCVD risk factor, treating to a non-HDL-C goal of <100 mg/dL (LDL-C of <70 mg/dL) is considered a therapeutic option. 12/24/2017 3:51 PM EDT 12/24/2017 10:51 PM EDT Narrative Resulting Agency Comment [id number] Mitra Fletcher MD LABORATORY Final Result Performing Organization Address [facility]/ZIP Co de Phone Number [facility] [address] [place] [address] * TSH, 3RD GENERATION (12/24/2017 3:51 PM EDT) TSH 1.29 0.40 - 4.50 mIU/L [facility] 12/24/2017 3:51 PM EDT 12/24/2017 10:51 PM EDT Narrative Resulting Agency Comment [id number] Mitra Fletcher MD LABORATORY Final Result [facility] [address] [place] [address] * (ABNORMAL) COMPREHENSIVE METABOLIC PANEL WITH GFR [...] approximately 13% higher for people identified as -Honduran. GFR 55(L) > OR = 60 mL/min/1. [...] needs for GFR calculation. Resulting Agency Comment [id number] us Mitra Fletcher MD LABORATORY Final Result [facility] [address] [place] [address] * CBC INCLUDES DIFFERENTIAL AND PLATELET COUNT [...] 10:51 PM EDT Narrative Resulting Agency Comment [id number] Mitra Fletcher MD LAB SAME DAY RESULT Final Re sult [facility] [address] [place] [address] documented in this encounter Visit Diagnoses Diagnosis [...] means documented in this encounter Care Teams High Density Finishing Operator Relationship Specialty Start Date End Date Mitra Fletcher MD PCP - General Internal Medicine 12/06/17 10/23/18 documented as of this encounter
--- OUTSIDE RECORDS SUMMARY | 2025-02-23 06:37 | XMS_ITS | Clinical Summary ---
Author Organization [facility] Address [address] [place] [address] Care Team Providers Care Needle Punch Operator Name Role Phone Unavailable Primary Care [...] Zoster (Zostavax) Discontinued Insurance MEDICARE PART B [employer] CLAIMS-SUPPLEMENTAL
[2025-02-23 07:22] LABS: INTERNATIONAL NORM RATIO 2.0 (0.9-1.1); Prothrombin Time 24.5 SEC (11.2-13.5)
== END 2025-02-23 06:35 | disposition home or self-care (01) ==
LOC: HO.HSH3E 06:34
PROVIDERS: Visit Provider Nurse Practitioner
DX: Z95.2 Presence of prosthetic heart valve (principal)
CPT/HCPCS: 36415; 85610

== ENCOUNTER 2025-03-02 05:52 | Outpatient (REF) | payer MEDICARE, SELFPAY ==
--- OUTSIDE RECORDS SUMMARY | 2010-02-13 04:45 | XMS_ITS | Continuity of Care Document ---
Author Organization [facility] Address [address] [place] [address] Phone Care Team Providers Care Customer Account Specialist Name Role Phone Violetta Clinton MD Unavailable Unavailable Procedures Procedure Date EYE EXAM ESTABLISHED PAT REFRACTION WITH EXAM Advance Directives Directive Yes / No Effective Date File Name No Information Encounters Encounter Description Practice Location Reason(s) For Visit Diagnoses Date Provider [facility] , [address] [place] [address], [facility], tel:[phone] [place] No Information 2009 Oz Shipley. [address] [place] [address], [address], [facility], . tel:[phone] [facility] , [address] [place] [address], [facility], tel:[phone] [place] No Information 2009 No Information Family History Family Member Type Diagnosis Age At Onset No Information Payers Payer name Insurance type Covered alliance party ID Authoriza tion(s) Medicare MB [id number] [facility] Indemnity Plan [id number] For Life [id number] Social History Type Description Quantity Date Captured Comments Sex Male Smoking Status No Information Chief Complaint And Reason For Visit No Information History Of Present Illness Encounter Date Complaint History Of Prese nt Illness No Information Instructions Date Instruction Additional Infor mation No Information Assessments Type Assessment Date No Information
--- OUTSIDE RECORDS SUMMARY | 2025-03-02 05:55 | XMS_ITS | Encounter Summary ---
Author Organization [facility] Address [address] [place] [address] Care Team Providers Care Baffle Mounter Name Role Phone Mitra Fletcher MD Primary Care Provider [phone] Encounter Details Date Type Department Care Team (Late st Contact Info) Description 12/24/2017 Orders Only [facility] Antico [address] [place] [address] Obdulia Sherman, BIN PACKER [address] [place] [address] Social History Tobacco Use Types Packs/Day Years [...] this encounter Procedures * Due to [place] [employer] law, this organization might not be sharing negative HIV tests. Procedure Name Priority Date/Time Associated Diagnosis Comments PROTHROMBIN TIME (PT), ANTICOAGULATION THERAPY (INR 2.0 3.0) Same Day Results 12/24/2017 3:51 PM EDT Cerebrovascular accident (CVA), unspecified mechanism H/O mechanical aortic valve replacement Anticoagulation goal of INR 2.5 to 3.5 documented in this encounter Results * Due to [place] [employer] law, this organization might not be sharing negative HIV tests. * (ABNORMAL) PROTHROMBIN TIME (PT), ANTICOAGULATION THERAPY (INR 2.0 ??? 3.0) (12/24/2017 3:51 PM EDT) INR 3.9(H) [facility] Comment: Reference Range 0.9-1.1 Moderate-intensity Warfarin Therapy 2.0-3.0 Higher-intensity Warfarin Therapy 3.0-4.0 PT 40.0 9.0 - 11.5 sec [facility] 12/24/2017 3:51 PM EDT 12/24/2017 10:39 PM EDT Narrative Resulting Agency Comment [id number] us Margret Waldrop MD LAB SAME DAY RESULT Final Resul t [facility] [address] [place] [address] documented in this encounter Visit Diagnoses Diagnosis Cerebrovascular accident (CVA), unspecified mechanism (HCC) H/O mechanical aortic valve replacement Heart valve replaced by other means Anticoagulation goal of INR 2.5 to 3.5 Encounter for therapeutic drug monitoring documented in this encounter Care Teams Baffle Mounter Relationship Specialty Start Date End Date Mitra Fletcher MD PCP - General Internal Medicine 12/06/17 10/23/18 documented as of this encounter
--- OUTSIDE RECORDS SUMMARY | 2025-03-02 05:55 | XMS_ITS | Clinical Summary ---
Author Organization [facility] Address [address] [place] [address] Care Team Providers Care Property Coordinator Name Role Phone Unavailable Primary Care Provider [...] Zoster (Zostavax) Discontinued Insurance MEDICARE PART B [employer] CLAIMS-SUPPLEMENTAL
--- OUTSIDE RECORDS SUMMARY | 2025-03-02 05:55 | XMS_ITS | Encounter Summary ---
Author Organization [facility] Address [address] [place] [address] Care Team Providers Care Hog Cooler Name Role Phone Mitra Fletcher MD Primary Care Provider + [phone] Encounter Details Date Type Department Care Team (Late st Contact Info) Description 12/24/2017 Orders Only [facility] Internal Medicine [address] [place] [address] Mitra Fletcher MD [address] [place] [id number] Social History Tobacco Use Types Packs/Day Years [...] this encounter Procedures * Due to [place] state law, this organization might not be [...] this encounter Results * Due to [place] state law, this organization might not be [...] 10:51 PM EDT Narrative Resulting Agency Comment [id number] Mitra Fletcher MD LABORATORY Final Result Performing Organization Address [facility] Co de Phone Number [facility] [address] [place] [address] * VITAMIN D, 25-HYDROXY, TOTAL, IMMUNOASSAY (12/24/2017 [...] D, (D2,D3), LC/MS/MS is recommended: order code 75077 (patients >2yrs). For more information on this test, go to: http://education.Spotzot/faq/BZY743 (This link is being provided for informational/educational purposes only.) 12/24/2017 3:51 PM EDT 12/24/2017 10:51 PM EDT Narrative Resulting Agency Comment [id number] Mitra Fletcher MD LABORATORY Final Result Performing Organization Address [facility] Co de Phone Number [facility] [address] [place] [address] * (ABNORMAL) HEMOGLOBIN A1C (12/24/2017 3:51 PM [...] children. Estimated Average Glucose 129 mg/dL (calc) [facility] 12/24/2017 3:51 PM EDT 12/24/2017 10:51 PM EDT Narrative Resulting Agency Comment [id number] Mitra Fletcher MD LABORATORY Final Result Performing Organization Address [facility] de Phone Number [facility] [address] [place] [address] * (ABNORMAL) LIPID PANEL WITH REFLEX TO [...] LDL-C. Eliot SS et al. MARK. 2013;310(19): 9105-2757 (http://education.Viewpoint LLC.Eqlim/faq/DKK726) CHOL/HDL Ratio 3.9 <5.0 (calc) [facility] Cholesterol Non-HDL 146(H) <130 mg/dL (calc) [facility] Comment: For patients with diabetes plus 1 major ASCVD risk factor, treating to a non-HDL-C goal of <100 mg/dL (LDL-C of <70 mg/dL) is considered a therapeutic option. 12/24/2017 3:51 PM EDT 12/24/2017 10:51 PM EDT Narrative Resulting Agency Comment [id number] Mitra Fletcher MD LABORATORY Final Result Performing Organization Address [facility]/ZIP Co de Phone Number [facility] [address] [place] [address] * TSH, 3RD GENERATION (12/24/2017 3:51 PM EDT) TSH 1.29 0.40 - 4.50 mIU/L [facility] 12/24/2017 3:51 PM EDT 12/24/2017 10:51 PM EDT Narrative Resulting Agency Comment [id number] Mitra Fletcher MD LABORATORY Final Result [facility] [address] [place] [address] * (ABNORMAL) COMPREHENSIVE METABOLIC PANEL WITH GFR [...] approximately 13% higher for people identified as -Prydeinig. GFR 55(L) > OR = 60 mL/min/1. [...] needs for GFR calculation. Resulting Agency Comment [id number] us Mitra Fletcher MD LABORATORY Final Result [facility] [address] [place] [address] * CBC INCLUDES DIFFERENTIAL AND PLATELET COUNT [...] 10:51 PM EDT Narrative Resulting Agency Comment [id number] Mitra Fletcher MD LAB SAME DAY RESULT Final Re sult [facility] [address] [place] [address] documented in this encounter Visit Diagnoses Diagnosis [...] means documented in this encounter Care Teams Hog Cooler Relationship Specialty Start Date End Date Mitra Fletcher MD PCP - General Internal Medicine 12/06/17 10/23/18 documented as of this encounter
--- OUTSIDE RECORDS SUMMARY | 2025-03-02 05:55 | XMS_ITS | Encounter Summary ---
Author Organization [facility] Address [address] [place] [address] Care Team Providers Care Homeworker Name Role Phone Mitra Fletcher MD Primary Care Provider [phone] Encounter Details Date Type Department Care Team (Late st Contact Info) Description 05/26/2018 Orders Only [facility] Internal Medicine [address] [place] [address] Mirta Fletcher MD [address] [place] [address] Social History Tobacco Use Types Packs/Day Years [...] of this encounter Procedures * Due to [place] shoutr law, this organization might not be sharing [...] in this encounter Results * Due to [place] shoutr law, this organization might not be sharing [...] 10:12 PM EST Narrative Resulting Agency Comment [id number] us Mitra Fletcher MD LAB SAME DAY RESULT Final Re sult [facility] [address] [place] [address] * TSH, 3RD GENERATION (05/26/2018 12:07 PM EST) TSH 2.36 0.40 - 4.50 mIU/L [facility] 05/26/2018 12:0 7 PM EST 05/26/2018 10:12 PM EST Narrative Resulting Agency Comment [id number] Mitra Fletcher MD LABORATORY Final Result Performing Organization Address [facility] de Phone Number [facility] [address] [place] [address] * (ABNORMAL) HEMOGLOBIN A1C (05/26/2018 12:07 PM [...] 10:12 PM EST Narrative Resulting Agency Comment [id number] Mitra Fletcher MD LABORATORY Final Result Performing Organization Address [facility] de Phone Number [facility] [address] [place] [address] * (ABNORMAL) LIPID PANEL WITH REFLEX TO [...] of LDL-C. Eliot LEE et al. MARK. 2013;310(30): 6049-3793 (http://education.Bluebridge Digital/faq/DIL568) CHOL/HDL Ratio 3.1 <5.0 (calc) [facility] Cholesterol Non-HDL 128 <130 mg/dL (calc) [facility] Comment: For patients with diabetes plus 1 major ASCVD risk factor, treating to a non-HDL-C goal of <100 mg/dL (LDL-C of <70 mg/dL) is considered a therapeutic option. 05/26/2018 12:0 7 PM EST 05/26/2018 10:12 PM EST Narrative Resulting Agency Comment [id number] us Mitra Fletcher MD LABORATORY Final Result [facility] [address] [place] [address] * (ABNORMAL) COMPREHENSIVE METABOLIC PANEL WITH GFR (05/26/2018 12:07 PM EST) Glucose 97 65 - 99 mg/dL [facility] Comment:Fasting reference in terval Urea Nitrogen Blood (BUN) 26(H) 7 - 25 mg/dL [facility] Creatinine 1.03 0.70 - 1.18 mg/dL [facility] Comment: For patients >49 years of age, the reference limit for Creatinine is approximately 13% higher for people identified as -Bahamian. EGFR 69 > OR = 60 mL/min/1. [...] needs for GFR calculation. Resulting Agency Comment [id number] Mitra Fletcher MD LABORATORY Final Result [facility] [address] [place] [address] documented in this encounter Visit Diagnoses Diagnosis Systolic congestive heart failure, unspecified HF chronicity (HCC) documented in this encounter Care Teams Homeworker Relationship Specialty Start Date End Date Mitra Fletcher MD PCP - General Internal Medicine 12/06/17 10/23/18 documented as of this encounter
[2025-03-02 06:23] LABS: INTERNATIONAL NORM RATIO 1.9 (0.9-1.1); Prothrombin Time 23.3 SEC (11.2-13.5)
== END 2025-03-02 05:53 ==
LOC: HO.HSH3E 05:52
PROVIDERS: Visit Provider Nurse Practitioner
DX: Z95.2 Presence of prosthetic heart valve (principal)
CPT/HCPCS: 36415; 85610

== ENCOUNTER 2025-03-09 05:58 | Outpatient (REF) | payer MEDICARE, SELFPAY ==
--- OUTSIDE RECORDS SUMMARY | 2010-02-13 04:45 | XMS_ITS | Continuity of Care Document ---
Author Organization [facility] Address [address] [place] [address] Phone Care Team Providers Care Slider Assembler Name Role Phone Violetta Clinton MD Unavailable Unavailable Procedures Procedure Date EYE EXAM ESTABLISHED PAT REFRACTION WITH EXAM Advance Directives Directive Yes / No Effective Date File Name No Information Encounters Encounter Description Practice Location Reason(s) For Visit Diagnoses Date Provider [facility] , [address] [place] [address], [facility], tel:[phone] [place] No Information 2009 Oz Shipley. [address] [place] [address], [address], [facility], . tel:[phone] [facility] , [address] [place] [address], [facility], tel:[phone] [place] No Information 2009 No Information Family History Family Member Type Diagnosis Age At Onset No Information Payers Payer name Insurance type Covered green party ID Authoriza tion(s) [place] [id number] [facility] Indemnity Plan [id number] For Life [id number] Social History Type Description Quantity Date Captured Comments Sex Male Smoking Status No Information Chief Complaint And Reason For Visit No Information History Of Present Illness Encounter Date Complaint History Of Prese nt Illness No Information Instructions Date Instruction Additional Infor mation No Information Assessments Type Assessment Date No Information
--- OUTSIDE RECORDS SUMMARY | 2025-03-09 06:01 | XMS_ITS | Encounter Summary ---
Author Organization [facility] Address [address] [place] [address] Care Team Providers Care Director Of Compliance Name Role Phone Mitra Fletcher MD Primary Care Provider + [phone] Encounter Details Date Type Department Care Team (Late st Contact Info) Description 12/24/2017 Orders Only [facility] Internal Medicine [address] [place] [address] Mitra Fletcher MD [address] [place] [address] Social History Tobacco Use Types Packs/Day Years [...] 10:51 PM EDT Narrative Resulting Agency Comment [id number] Mitra Fletcher MD LABORATORY Final Result Performing Organization Address [facility] Co de Phone Number [facility] [address] [place] [address] * VITAMIN D, 25-HYDROXY, TOTAL, IMMUNOASSAY (12/24/2017 [...] D, (D2,D3), LC/MS/MS is recommended: order code 54725 (patients >2yrs). For more information on this test, go to: http://education.Clarity Software Solutions/faq/ZEH255 (This link is being provided for informational/educational purposes only.) 12/24/2017 3:51 PM EDT 12/24/2017 10:51 PM EDT Narrative Resulting Agency Comment [id number] Mitra Fletcher MD LABORATORY Final Result Performing Organization Address [facility] Co de Phone Number [facility] [address] [place] [address] * (ABNORMAL) HEMOGLOBIN A1C (12/24/2017 3:51 PM [...] children. Estimated Average Glucose 129 mg/dL (calc) [facility] 12/24/2017 3:51 PM EDT 12/24/2017 10:51 PM EDT Narrative Resulting Agency Comment [id number] Mitra Fletcher MD LABORATORY Final Result Performing Organization Address [facility] de Phone Number [facility] [address] [place] [address] * (ABNORMAL) LIPID PANEL WITH REFLEX TO [...] LDL-C. Eliot SS et al. MARK. 2013;310(19): 1234-4078 (http://education.Revo Round.Scores Media Group/faq/WLR920) CHOL/HDL Ratio 3.9 <5.0 (calc) [facility] Cholesterol Non-HDL 146(H) <130 mg/dL (calc) [facility] Comment: For patients with diabetes plus 1 major ASCVD risk factor, treating to a non-HDL-C goal of <100 mg/dL (LDL-C of <70 mg/dL) is considered a therapeutic option. 12/24/2017 3:51 PM EDT 12/24/2017 10:51 PM EDT Narrative Resulting Agency Comment [id number] Mitra Fletcher MD LABORATORY Final Result Performing Organization Address [facility]/ZIP Co de Phone Number [facility] [address] [place] [address] * TSH, 3RD GENERATION (12/24/2017 3:51 PM EDT) TSH 1.29 0.40 - 4.50 mIU/L [facility] 12/24/2017 3:51 PM EDT 12/24/2017 10:51 PM EDT Narrative Resulting Agency Comment [id number] Mitra Fletcher MD LABORATORY Final Result [facility] [address] [place] [address] * (ABNORMAL) COMPREHENSIVE METABOLIC PANEL WITH GFR [...] approximately 13% higher for people identified as -Jamaican. GFR 55(L) > OR = 60 mL/min/1. [...] needs for GFR calculation. Resulting Agency Comment [id number] us Mitra Fletcher MD LABORATORY Final Result [facility] [address] [place] [address] * CBC INCLUDES DIFFERENTIAL AND PLATELET COUNT [...] 10:51 PM EDT Narrative Resulting Agency Comment [id number] Mitra Fletcher MD LAB SAME DAY RESULT Final Re sult [facility] [address] [place] [address] documented in this encounter Visit Diagnoses Diagnosis [...] means documented in this encounter Care Teams Director Of Compliance Relationship Specialty Start Date End Date Mitra Fletcher MD PCP - General Internal Medicine 12/06/17 10/23/18 documented as of this encounter
--- OUTSIDE RECORDS SUMMARY | 2025-03-09 06:01 | XMS_ITS | Clinical Summary ---
Author Organization [facility] Address [address] [place] [address] Care Team Providers Care Civil Design Technician Name Role Phone Unavailable Primary Care Provider [...] Zoster (Zostavax) Discontinued Insurance MEDICARE PART B [employer]/ [employer] CLAIMS-SUPPLEMENTAL
--- OUTSIDE RECORDS SUMMARY | 2025-03-09 06:01 | XMS_ITS | Encounter Summary ---
Author Organization [facility] Address [address] [place] [address] Care Team Providers Care Cut Off Man Name Role Phone Mitra Fletcher MD Primary Care Provider + [phone] Encounter Details Date Type Department Care Team (Late st Contact Info) Description 12/24/2017 Orders Only [facility] Antico [address] [place] [address] Obdulia Sherman, WINE CONSULTANT [address] [place] [address] Social History Tobacco Use Types Packs/Day Years [...] this encounter Procedures * Due to [place] Apprema law, this organization might not be sharing negative HIV tests. Procedure Name Priority Date/Time Associated Diagnosis Comments PROTHROMBIN TIME (PT), ANTICOAGULATION THERAPY (INR 2.0 3.0) Same Day Results 12/24/2017 3:51 PM EDT Cerebrovascular accident (CVA), unspecified mechanism H/O mechanical aortic valve replacement Anticoagulation goal of INR 2.5 to 3.5 documented in this encounter Results * Due to [place] Apprema law, this organization might not be sharing negative HIV tests. * (ABNORMAL) PROTHROMBIN TIME (PT), ANTICOAGULATION THERAPY (INR 2.0 ??? 3.0) (12/24/2017 3:51 PM EDT) INR 3.9(H) [facility] Comment: Reference Range 0.9-1.1 Moderate-intensity Warfarin Therapy 2.0-3.0 Higher-intensity Warfarin Therapy 3.0-4.0 PT 40.0 9.0 - 11.5 sec [facility] 12/24/2017 3:51 PM EDT 12/24/2017 10:39 PM EDT Narrative Resulting Agency Comment [id number] us Margret Waldrop MD LAB SAME DAY RESULT Final Resul t [facility] [address] [place] [address] documented in this encounter Visit Diagnoses Diagnosis Cerebrovascular accident (CVA), unspecified mechanism (HCC) H/O mechanical aortic valve replacement Heart valve replaced by other means Anticoagulation goal of INR 2.5 to 3.5 Encounter for therapeutic drug monitoring documented in this encounter Care Teams Cut Off Man Relationship Specialty Start Date End Date Mitra Fletcher MD PCP - General Internal Medicine 12/06/17 10/23/18 documented as of this encounter
--- OUTSIDE RECORDS SUMMARY | 2025-03-09 06:01 | XMS_ITS | Encounter Summary ---
Author Organization [facility] Address [address] [place] [address] Care Team Providers Care Photographic Intelligence Officer Name Role Phone Mitra Fletcher MD Primary Care Provider [phone] Encounter Details Date Type Department Care Team (Late st Contact Info) Description 05/26/2018 Orders Only [facility] Internal Medicine [address] [place] [address] Mitra Fletcher MD [address] [place] [address] Social History Tobacco Use Types Packs/Day Years [...] this encounter Procedures * Due to [place] law, this organization might not be sharing [...] this encounter Results * Due to [place] law, this organization might not be sharing [...] 10:12 PM EST Narrative Resulting Agency Comment [id number] us Mitra Fletcher MD LAB SAME DAY RESULT Final Re sult [facility] [address] [place] [address] * TSH, 3RD GENERATION (05/26/2018 12:07 PM EST) TSH 2.36 0.40 - 4.50 mIU/L [facility] 05/26/2018 12:0 7 PM EST 05/26/2018 10:12 PM EST Narrative Resulting Agency Comment [id number] Mitra Fletcher MD LABORATORY Final Result Performing Organization Address [facility] de Phone Number [facility] [address] [place] [address] * (ABNORMAL) HEMOGLOBIN A1C (05/26/2018 12:07 PM [...] 10:12 PM EST Narrative Resulting Agency Comment [id number] Mitra Fletcher MD LABORATORY Final Result Performing Organization Address [facility] de Phone Number [facility] [address] [place] [address] * (ABNORMAL) LIPID PANEL WITH REFLEX TO [...] of LDL-C. Eliot LEE et al. MARK. 2013;310(74): 6715-5572 (http://education.EMRes Technologies/faq/TIM218) CHOL/HDL Ratio 3.1 <5.0 (calc) [facility] Cholesterol Non-HDL 128 <130 mg/dL (calc) [facility] Comment: For patients with diabetes plus 1 major ASCVD risk factor, treating to a non-HDL-C goal of <100 mg/dL (LDL-C of <70 mg/dL) is considered a therapeutic option. 05/26/2018 12:0 7 PM EST 05/26/2018 10:12 PM EST Narrative Resulting Agency Comment [id number] us Mitra Fletcher MD LABORATORY Final Result [facility] [address] [place] [address] * (ABNORMAL) COMPREHENSIVE METABOLIC PANEL WITH GFR [...] needs for GFR calculation. Resulting Agency Comment [id number] Mitra Fletcher MD LABORATORY Final Result [facility] [address] [place] [address] documented in this encounter Visit Diagnoses Diagnosis Systolic congestive heart failure, unspecified HF chronicity (HCC) documented in this encounter Care Teams Photographic Intelligence Officer Relationship Specialty Start Date End Date Mitra Fletcher MD PCP - General Internal Medicine 12/06/17 10/23/18 documented as of this encounter
[2025-03-09 06:34] LABS: INTERNATIONAL NORM RATIO 3.1 (0.9-1.1); Prothrombin Time 37.3 SEC (11.2-13.5)
== END 2025-03-09 05:59 | disposition home or self-care (01) ==
LOC: HO.HSH3E 05:58
PROVIDERS: Visit Provider Nurse Practitioner
DX: Z95.2 Presence of prosthetic heart valve (principal)
CPT/HCPCS: 36415; 85610

== ENCOUNTER 2025-03-16 06:06 | Outpatient (REF) | payer MEDICARE, SELFPAY ==
--- OUTSIDE RECORDS SUMMARY | 2010-02-13 04:45 | XMS_ITS | Continuity of Care Document ---
Author Organization [facility] Address [address] [place] [address] Phone Care Team Providers Care Dope House Operator Helper Name Role Phone Violetta Clinton MD Unavailable Unavailable Procedures Procedure Date EYE EXAM ESTABLISHED PAT REFRACTION WITH EXAM Advance Directives Directive Yes / No Effective Date File Name No Information Encounters Encounter Description Practice Location Reason(s) For Visit Diagnoses Date Provider [facility] , [address] [place] [address], [facility], tel:[phone] [place] No Information 2009 Oz Shipley. [address] [place] [address], [address], [facility], . tel:[phone] [facility] , [address] [place] [address], [facility], tel:[phone] [place] No Information 2009 No Information Family History Family Member Type Diagnosis Age At Onset No Information Payers Payer name Insurance type Covered libertarian ID Authoriza tion(s) Medicare MB [id number] [facility] Indemnity Plan [id number] For Life [id number] Social History Type Description Quantity Date Captured Comments Sex Male Smoking Status No Information Chief Complaint And Reason For Visit No Information History Of Present Illness Encounter Date Complaint History Of Prese nt Illness No Information Instructions Date Instruction Additional Infor mation No Information Assessments Type Assessment Date No Information
--- OUTSIDE RECORDS SUMMARY | 2025-03-16 06:10 | XMS_ITS | Encounter Summary ---
Author Organization [facility] Address [address] [place] [address] Care Team Providers Care Associate Professor Of Physics Name Role Phone Mitra Fletcher MD Primary Care Provider [phone] Encounter Details Date Type Department Care Team (Late st Contact Info) Description 12/24/2017 Orders Only [facility] Internal Medicine [address] [place] [address] Mitra Fletcher MD [address] [place] [address] Social History Tobacco Use Types Packs/Day Years [...] 10:51 PM EDT Narrative Resulting Agency Comment [id number] Mitra Fletcher MD LABORATORY Final Result Performing Organization Address [facility] Co de Phone Number [facility] [address] [place] [address] * VITAMIN D, 25-HYDROXY, TOTAL, IMMUNOASSAY (12/24/2017 [...] D, (D2,D3), LC/MS/MS is recommended: order code [id number] (patients >2yrs). For more information on this test, go to: http://education.Building Blocks CRE/faq/FWV382 (This link is being provided for informational/educational purposes only.) 12/24/2017 3:51 PM EDT 12/24/2017 10:51 PM EDT Narrative Resulting Agency Comment [id number] Mitra Fletcher MD LABORATORY Final Result Performing Organization Address [facility] Co de Phone Number [facility] [address] [place] [address] * (ABNORMAL) HEMOGLOBIN A1C (12/24/2017 3:51 PM [...] children. Estimated Average Glucose 129 mg/dL (calc) [facility] 12/24/2017 3:51 PM EDT 12/24/2017 10:51 PM EDT Narrative Resulting Agency Comment [id number] Mitra Fletcher MD LABORATORY Final Result Performing Organization Address [facility] de Phone Number [facility] [address] [place] [address] * (ABNORMAL) LIPID PANEL WITH REFLEX TO [...] LDL-C. Eliot SS et al. MARK. 2013;310(19): 0602-7589 (http://education.AI Exchange.Netragon/faq/AML417) CHOL/HDL Ratio 3.9 <5.0 (calc) [facility] Cholesterol Non-HDL 146(H) <130 mg/dL (calc) [facility] Comment: For patients with diabetes plus 1 major ASCVD risk factor, treating to a non-HDL-C goal of <100 mg/dL (LDL-C of <70 mg/dL) is considered a therapeutic option. 12/24/2017 3:51 PM EDT 12/24/2017 10:51 PM EDT Narrative Resulting Agency Comment [id number] Mitra Fletcher MD LABORATORY Final Result Performing Organization Address [facility]/ZIP Co de Phone Number [facility] [address] [place] [address] * TSH, 3RD GENERATION (12/24/2017 3:51 PM EDT) TSH 1.29 0.40 - 4.50 mIU/L [facility] 12/24/2017 3:51 PM EDT 12/24/2017 10:51 PM EDT Narrative Resulting Agency Comment [id number] Mitra Fletcher MD LABORATORY Final Result [facility] [address] [place] [address] * (ABNORMAL) COMPREHENSIVE METABOLIC PANEL WITH GFR (12/24/2017 3:51 PM EDT) Pathologist [facility] Glucose 101(H) 65 - 99 [...] approximately 13% higher for people identified as -Cambodian. GFR 55(L) > OR = 60 mL/min/1. [...] needs for GFR calculation. Resulting Agency Comment [id number] us Mitra Fletcher MD LABORATORY Final Result [facility] [address] [place] [address] * CBC INCLUDES DIFFERENTIAL AND PLATELET COUNT [...] 10:51 PM EDT Narrative Resulting Agency Comment [id number] Mitra Fletcher MD LAB SAME DAY RESULT Final Re sult [facility] [address] [place] [address] documented in this encounter Visit Diagnoses Diagnosis [...] means documented in this encounter Care Teams Associate Professor Of Physics Relationship Specialty Start Date End Date Mitra Fletcher MD PCP - General Internal Medicine 12/06/17 10/23/18 documented as of this encounter
--- OUTSIDE RECORDS SUMMARY | 2025-03-16 06:10 | XMS_ITS | Encounter Summary ---
Author Organization [facility] Address [address] [place] [address] Care Team Providers Care Director Of Psychology Name Role Phone Mitra Fletcher MD Primary Care Provider + [phone] Encounter Details Date Type Department Care Team (Late st Contact Info) Description 12/24/2017 Orders Only [facility] Antico [address] [place] [address] Obdulia Sherman, DIRECTOR GAME [address] [place] [address] Social History Tobacco Use Types Packs/Day Years [...] of this encounter Procedures * Due to [place] Linkdex law, this organization might not be sharing negative HIV tests. Procedure Name Priority Date/Time Associated Diagnosis Comments PROTHROMBIN TIME (PT), ANTICOAGULATION THERAPY (INR 2.0 3.0) Same Day Results 12/24/2017 3:51 PM EDT Cerebrovascular accident (CVA), unspecified mechanism H/O mechanical aortic valve replacement Anticoagulation goal of INR 2.5 to 3.5 documented in this encounter Results * Due to [place] Linkdex law, this organization might not be sharing negative HIV tests. * (ABNORMAL) PROTHROMBIN TIME (PT), ANTICOAGULATION THERAPY (INR 2.0 ??? 3.0) (12/24/2017 3:51 PM EDT) INR 3.9(H) [facility] Comment: Reference Range 0.9-1.1 Moderate-intensity Warfarin Therapy 2.0-3.0 Higher-intensity Warfarin Therapy 3.0-4.0 PT 40.0 9.0 - 11.5 sec [facility] 12/24/2017 3:51 PM EDT 12/24/2017 10:39 PM EDT Narrative Resulting Agency Comment [id number] us Margret Waldrop MD LAB SAME DAY RESULT Final Resul t [facility] [address] [place] [address] documented in this encounter Visit Diagnoses Diagnosis Cerebrovascular accident (CVA), unspecified mechanism (HCC) H/O mechanical aortic valve replacement Heart valve replaced by other means Anticoagulation goal of INR 2.5 to 3.5 Encounter for therapeutic drug monitoring documented in this encounter Care Teams Director Of Psychology Relationship Specialty Start Date End Date Mitra Fletcher MD PCP - General Internal Medicine 12/06/17 10/23/18 documented as of this encounter
--- OUTSIDE RECORDS SUMMARY | 2025-03-16 06:10 | XMS_ITS | Clinical Summary ---
Author Organization [facility] Address [address] [place] [address] Care Team Providers Care Clipman Name Role Phone Unavailable Primary Care Provider [...] Zoster (Zostavax) Discontinued Insurance MEDICARE PART B [employer] CLAIMS-SUPPLEMENTAL
--- OUTSIDE RECORDS SUMMARY | 2025-03-16 06:10 | XMS_ITS | Encounter Summary ---
Author Organization [facility] Address [address] [place] [address] Care Team Providers Care Photovoltaic Testing Technician Name Role Phone Mitra Fletcher MD Primary Care Provider [phone] Encounter Details Date Type Department Care Team (Late st Contact Info) Description 05/26/2018 Orders Only [facility] Internal Medicine [address] [place] [address] Mitra Fletcher MD [address] [place] [id number] Social History Tobacco Use Types Packs/Day Years [...] this encounter Procedures * Due to [place] [employer] law, this organization might not be sharing [...] this encounter Results * Due to [place] [employer] law, this organization might not be sharing [...] 10:12 PM EST Narrative Resulting Agency Comment [id number] us Mitra Fletcher MD LAB SAME DAY RESULT Final Re sult [facility] [address] [place] [address] * TSH, 3RD GENERATION (05/26/2018 12:07 PM EST) TSH 2.36 0.40 - 4.50 mIU/L [facility] 05/26/2018 12:0 7 PM EST 05/26/2018 10:12 PM EST Narrative Resulting Agency Comment [id number] Mitra Fletcher MD LABORATORY Final Result Performing Organization Address [facility] de Phone Number [facility] [address] [place] [address] * (ABNORMAL) HEMOGLOBIN A1C (05/26/2018 12:07 PM [...] 10:12 PM EST Narrative Resulting Agency Comment [id number] Mitra Fletcher MD LABORATORY Final Result Performing Organization Address [facility] de Phone Number [facility] [address] [place] [address] * (ABNORMAL) LIPID PANEL WITH REFLEX TO [...] of LDL-C. Eliot LEE et al. MARK. 2013;310(66): 8341-6290 (http://education.Fitonic AG/faq/EAD570) CHOL/HDL Ratio 3.1 <5.0 (calc) [facility] Cholesterol Non-HDL 128 <130 mg/dL (calc) [facility] Comment: For patients with diabetes plus 1 major ASCVD risk factor, treating to a non-HDL-C goal of <100 mg/dL (LDL-C of <70 mg/dL) is considered a therapeutic option. 05/26/2018 12:0 7 PM EST 05/26/2018 10:12 PM EST Narrative Resulting Agency Comment [id number] us Mitra Fletcher MD LABORATORY Final Result [facility] [address] [place] [address] * (ABNORMAL) COMPREHENSIVE METABOLIC PANEL WITH GFR (05/26/2018 12:07 PM EST) Glucose 97 65 - 99 mg/dL [facility] Comment:Fasting reference in terval Urea Nitrogen Blood (BUN) 26(H) 7 - 25 mg/dL [facility] Creatinine 1.03 0.70 - 1.18 mg/dL [facility] Comment: For patients >49 years of age, the reference limit for Creatinine is approximately 13% higher for people identified as -Colombian. EGFR 69 > OR = 60 mL/min/1. [...] needs for GFR calculation. Resulting Agency Comment [id number] Mitra Fletcher MD LABORATORY Final Result [facility] [address] [place] [address] documented in this encounter Visit Diagnoses Diagnosis Systolic congestive heart failure, unspecified HF chronicity (HCC) documented in this encounter Care Teams Photovoltaic Testing Technician Relationship Specialty Start Date End Date Mitra Fletcher MD PCP - General Internal Medicine 12/06/17 10/23/18 documented as of this encounter
[2025-03-16 07:01] LABS: INTERNATIONAL NORM RATIO 2.1 (0.9-1.1); Prothrombin Time 25.5 SEC (11.2-13.5)
== END 2025-03-16 06:07 | disposition home or self-care (01) ==
LOC: HO.HSH3E 06:06
PROVIDERS: Visit Provider Nurse Practitioner
DX: Z95.2 Presence of prosthetic heart valve (principal)
CPT/HCPCS: 36415; 85610

== ENCOUNTER 2025-03-23 13:26 | Outpatient (REF) | payer OTHER, SELFPAY ==
[2025-03-23 13:34] LABS: INTERNATIONAL NORM RATIO 1.8 (0.9-1.1); Prothrombin Time 21.5 SEC (11.2-13.5)
--- OUTSIDE RECORDS SUMMARY | 2025-03-23 17:21 | XMS_ITS | Encounter Summary ---
Author Organization [facility] Address [address] [place] [address] Care Team Providers Care Cesspool Cleaner Name Role Phone Mitra Fletcher MD Primary Care Provider [phone] Encounter Details Date Type Department Care Team (Late st Contact Info) Description 12/24/2017 Orders Only [facility] Antico [address] [place] [address] Obdulia Sherman, SUMMER ANALYST [address] [place] [address] Social History Tobacco Use Types Packs/Day Years [...] of this encounter Procedures * Due to [place] [employer] law, this organization might not be sharing negative HIV tests. Procedure Name Priority Date/Time Associated Diagnosis Comments PROTHROMBIN TIME (PT), ANTICOAGULATION THERAPY (INR 2.0 3.0) Same Day Results 12/24/2017 3:51 PM EDT Cerebrovascular accident (CVA), unspecified mechanism H/O mechanical aortic valve replacement Anticoagulation goal of INR 2.5 to 3.5 documented in this encounter Results * Due to [place] [employer] law, this organization might not be sharing negative HIV tests. * (ABNORMAL) PROTHROMBIN TIME (PT), ANTICOAGULATION THERAPY (INR 2.0 ??? 3.0) (12/24/2017 3:51 PM EDT) INR 3.9(H) [facility] Comment: Reference Range 0.9-1.1 Moderate-intensity Warfarin Therapy 2.0-3.0 Higher-intensity Warfarin Therapy 3.0-4.0 PT 40.0 9.0 - 11.5 sec [facility] 12/24/2017 3:51 PM EDT 12/24/2017 10:39 PM EDT Narrative Resulting Agency Comment [id number] us Margret Waldrop MD LAB SAME DAY RESULT Final Resul t [facility] [address] [place] [address] documented in this encounter Visit Diagnoses Diagnosis Cerebrovascular accident (CVA), unspecified mechanism (HCC) H/O mechanical aortic valve replacement Heart valve replaced by other means Anticoagulation goal of INR 2.5 to 3.5 Encounter for therapeutic drug monitoring documented in this encounter Care Teams Cesspool Cleaner Relationship Specialty Start Date End Date Mitra Fletcher MD PCP - General Internal Medicine 12/06/17 10/23/18 documented as of this encounter
--- OUTSIDE RECORDS SUMMARY | 2025-03-23 17:21 | XMS_ITS | Encounter Summary ---
Author Organization [facility] Address [address] [place] [address] Care Team Providers Care Therapy Manager Name Role Phone Mitra Fletcher MD Primary Care Provider [phone] Encounter Details Date Type Department Care Team (Late st Contact Info) Description 05/26/2018 Orders Only [facility] Internal Medicine [address] [place] [address] Mitra Fletcher MD [address] [place] [address] Social History Tobacco Use Types Packs/Day Years [...] of this encounter Procedures * Due to [place] [employer] law, this organization might not be sharing [...] in this encounter Results * Due to [place] [employer] law, this organization might not be sharing [...] 10:12 PM EST Narrative Resulting Agency Comment [id number] us Mitra Fletcher MD LAB SAME DAY RESULT Final Re sult [facility] [address] [place] [address] * TSH, 3RD GENERATION (05/26/2018 12:07 PM EST) TSH 2.36 0.40 - 4.50 mIU/L [facility] 05/26/2018 12:0 7 PM EST 05/26/2018 10:12 PM EST Narrative Resulting Agency Comment [id number] Mitra Fletcher MD LABORATORY Final Result Performing Organization Address [facility] de Phone Number [facility] [address] [place] [address] * (ABNORMAL) HEMOGLOBIN A1C (05/26/2018 12:07 PM [...] 10:12 PM EST Narrative Resulting Agency Comment [id number] Mitra Fletcher MD LABORATORY Final Result Performing Organization Address [facility] de Phone Number [facility] [address] [place] [address] * (ABNORMAL) LIPID PANEL WITH REFLEX TO [...] of LDL-C. Eliot LEE et al. MARK. 2013;310(85): 3935-4732 (http://education.VirtuaGym/faq/GIS502) CHOL/HDL Ratio 3.1 <5.0 (calc) [facility] Cholesterol Non-HDL 128 <130 mg/dL (calc) [facility] Comment: For patients with diabetes plus 1 major ASCVD risk factor, treating to a non-HDL-C goal of <100 mg/dL (LDL-C of <70 mg/dL) is considered a therapeutic option. 05/26/2018 12:0 7 PM EST 05/26/2018 10:12 PM EST Narrative Resulting Agency Comment [id number] us Mitra Fletcher MD LABORATORY Final Result [facility] [address] [place] [address] * (ABNORMAL) COMPREHENSIVE METABOLIC PANEL WITH GFR (05/26/2018 12:07 PM EST) Glucose 97 65 - 99 mg/dL [facility] Comment:Fasting reference in terval Urea Nitrogen Blood (BUN) 26(H) 7 - 25 mg/dL [facility] Creatinine 1.03 0.70 - 1.18 mg/dL [facility] Comment: For patients >49 years of age, the reference limit for Creatinine is approximately 13% higher for people identified as -Venezuelan. EGFR 69 > OR = 60 mL/min/1. [...] needs for GFR calculation. Resulting Agency Comment [id number] Mitra Fletcher MD LABORATORY Final Result [facility] [address] [place] [address] documented in this encounter Visit Diagnoses Diagnosis Systolic congestive heart failure, unspecified HF chronicity (HCC) documented in this encounter Care Teams Therapy Manager Relationship Specialty Start Date End Date Mitra Fletcher MD PCP - General Internal Medicine 12/06/17 10/23/18 documented as of this encounter
--- OUTSIDE RECORDS SUMMARY | 2025-03-23 17:21 | XMS_ITS | Encounter Summary ---
Author Organization [facility] Address [address] [place] [address] Care Team Providers Care Accounts Receivable Processor Name Role Phone Mitra Fletcher MD Primary Care Provider [phone] Encounter Details Date Type Department Care Team (Late st Contact Info) Description 12/24/2017 Orders Only [facility] Internal Medicine [address] [place] [address] Mitra Fletcher MD [address] [place] [id number] Social History Tobacco Use Types Packs/Day Years [...] this encounter Procedures * Due to [place] state law, this organization might not be [...] this encounter Results * Due to [place] state law, this organization might not be [...] 10:51 PM EDT Narrative Resulting Agency Comment [id number] Mitra Fletcher MD LABORATORY Final Result Performing Organization Address [facility] Co de Phone Number [facility] [address] [place] [address] * VITAMIN D, 25-HYDROXY, TOTAL, IMMUNOASSAY (12/24/2017 [...] D, (D2,D3), LC/MS/MS is recommended: order code [id number] (patients >2yrs). For more information on this test, go to: http://education.Tastemade/faq/FLS417 (This link is being provided for informational/educational purposes only.) 12/24/2017 3:51 PM EDT 12/24/2017 10:51 PM EDT Narrative Resulting Agency Comment [id number] Mitra Fletcher MD LABORATORY Final Result Performing Organization Address [facility] Co de Phone Number [facility] [address] [place] [address] * (ABNORMAL) HEMOGLOBIN A1C (12/24/2017 3:51 PM [...] children. Estimated Average Glucose 129 mg/dL (calc) [facility] 12/24/2017 3:51 PM EDT 12/24/2017 10:51 PM EDT Narrative Resulting Agency Comment [id number] Mitra Fletcher MD LABORATORY Final Result Performing Organization Address [facility] de Phone Number [facility] [address] [place] [address] * (ABNORMAL) LIPID PANEL WITH REFLEX TO [...] LDL-C. Eliot SS et al. MARK. 2013;310(19): 3403-3437 (http://education.CoverMe.[employer]tox Bio/faq/KKW615) CHOL/HDL Ratio 3.9 <5.0 (calc) [facility] Cholesterol Non-HDL 146(H) <130 mg/dL (calc) [facility] Comment: For patients with diabetes plus 1 major ASCVD risk factor, treating to a non-HDL-C goal of <100 mg/dL (LDL-C of <70 mg/dL) is considered a therapeutic option. 12/24/2017 3:51 PM EDT 12/24/2017 10:51 PM EDT Narrative Resulting Agency Comment [id number] Mitra Fletcher MD LABORATORY Final Result Performing Organization Address [facility]/ZIP Co de Phone Number [facility] [address] [place] [address] * TSH, 3RD GENERATION (12/24/2017 3:51 PM EDT) TSH 1.29 0.40 - 4.50 mIU/L [facility] 12/24/2017 3:51 PM EDT 12/24/2017 10:51 PM EDT Narrative Resulting Agency Comment [id number] Mitra Fletcher MD LABORATORY Final Result [facility] [address] [place] [address] * (ABNORMAL) COMPREHENSIVE METABOLIC PANEL WITH GFR (12/24/2017 3:51 PM EDT) Pathologist [facility] Glucose 101(H) 65 - 99 mg/dL [facility] [...] approximately 13% higher for people identified as -Eritrean. GFR 55(L) > OR = 60 mL/min/1. [...] needs for GFR calculation. Resulting Agency Comment [id number] us Mitra Fletcher MD LABORATORY Final Result [facility] [address] [place] [address] * CBC INCLUDES DIFFERENTIAL AND PLATELET COUNT [...] 10:51 PM EDT Narrative Resulting Agency Comment [id number] Mitra Fletcher MD LAB SAME DAY RESULT Final Re sult [facility] [address] [place] [address] documented in this encounter Visit Diagnoses Diagnosis [...] means documented in this encounter Care Teams Accounts Receivable Processor Relationship Specialty Start Date End Date Mitra Fletcher MD PCP - General Internal Medicine 12/06/17 10/23/18 documented as of this encounter
--- OUTSIDE RECORDS SUMMARY | 2025-03-23 17:21 | XMS_ITS | Clinical Summary ---
Author Organization [facility] Address [address] [place] [id number] Care Team Providers Care Fiber Optics Technician Name Role Phone Unavailable Primary Care [...] Zoster (Zostavax) Discontinued Insurance MEDICARE PART B [employer] CLAIMS-SUPPLEMENTAL
== END 2025-03-23 13:27 ==
LOC: HO.HSH3E 13:26
PROVIDERS: Visit Provider Nurse Practitioner
DX: Z95.2 Presence of prosthetic heart valve (principal)
CPT/HCPCS: 36415; 85610